=== PATIENT | female | born 1940 | race Caucasian/White ===

== ENCOUNTER 2021-03-13 08:26 | Inpatient (IN) ==
[2021-03-13] MEDS ORDERED: SODIUM CHLORIDE 0.9% 250 ML IV PRN (09:06)
[2021-03-13 09:14] LABS: Basophils # (auto) 0.06 K/uL (0-0.2); Basophils % (auto) 0.6 %; Eosinophils % (auto) 3.1 %; Hematocrit (blood only) 37.3 % (37-47); Hemoglobin 11.8 g/dL (12.0-16.0); Immature Granulocytes # (auto) 0.02 K/uL (0.00-0.02); Immature Granulocytes % (auto) 0.2 %; Lymphocytes # (auto) 2.63 K/uL (1.2-3.4); Lymphocytes % (auto) 27.4 %; Mean Corpuscular Hemoglobin 29.2 pg (25-34); Mean Corpuscular Hgb Conc 31.6 g/dL (32-36); Mean Corpuscular Volume 92.3 fL (80-100); Mean Platelet Volume 9.2 fL (7.4-10.4); Monocytes # (auto) 0.97 K/uL (0.11-0.59); Monocytes % (auto) 10.1 %; Neutrophils # (auto) 5.61 K/uL (1.4-6.5); Neutrophils % (auto) 58.6 %; Platelet Count 407 K/uL (130-400); RDW Coefficient of Variation 19.4 % (11.5-14.5); RDW Standard Deviation 66.6 fL (36.4-46.3); Red Blood Count 4.04 M/uL (4.2-5.4); White Blood Count 9.59 K/uL (4.8-10.8)
[2021-03-13] MEDS ORDERED: SODIUM CHLORIDE 0.9% 500 ML IV SCH ×2 (09:15→14:45)
[2021-03-13 09:25] LABS: Partial Thromboplastin Time 25.1 Seconds (21.0-31.0); Prothrombin Time 10.2 Seconds (9.0-12.0)
[2021-03-13 09:27] LABS: Alanine Aminotransferase 11 U/L (12-78); Albumin Level 2.5 gm/dl (3.4-5.0); Aspartate Aminotransferase 9 U/L (15-37); BUN Creatinine Ratio 17.2 (10-20); Blood Urea Nitrogen 35 mg/dl (7-18); Carbon Dioxide 24 mmol/L (21-32); Chloride 115 mmol/L (98-107); Creatinine Clr Calc Pharmacy 23.4 ml/min; Est GFR (African American) 25.8 ml/min; Est GFR (Non-African American) 22.3 ml/min; Glucose 89 mg/dl (70-99); Potassium 5.6 mmol/L (3.5-5.1); Sodium 142 mmol/L (136-145)
[2021-03-13 09:28] LABS: Appearance Urine Turbid (Clear); Bilirubin Urine Negative (Negative); Blood Urine 2+ (Negative); Color Urine Yellow; Glucose Urine UA Negative (Negative); Ketones Urine Negative (Negative); Leukocyte Esterase Urine 3+ (Negative); Nitrite Urine Positive (Negative); Protein Urine 2+ (Negative); Specific Gravity Urine 1.012 (1.000-1.030); Urobilinogen Urine Negative (Negative); WBC Urine Automated >30 /hpf (0-5)
[2021-03-13 09:31] LABS: iSTAT Creatinine 2.3 mg/dl (0.6-1.3); iSTAT Hemoglobin 10.5 g/dl (12.0-16.0); iSTAT Ionized Calcium 1.47 mmol/l (1.12-1.32); iSTAT Potassium 5.4 mmol/L (3.3-5.0)
[2021-03-13 09:32] LABS: Albumin Globulin Ratio 0.8 (0.9-2); Alkaline Phosphatase 61 U/L (45-117); Bilirubin,Total 0.3 mg/dl (0.2-1); Globulin 3.1 gm/dl (2.5-4.0); Total Protein 5.6 gm/dl (6.4-8.2); Troponin I < 0.015 ng/ml (0-0.045)
[2021-03-13] MEDS ORDERED: CEFEPIME 2,000 MG/20 ML VIAL IV STA (09:34)
[2021-03-13] MEDS ORDERED: SODIUM CHLORIDE 0.9% 1000ML 1,000 ML IV ONE (09:35)
--- NOTE | 2021-03-13 09:35 | Emergency Department Note ---
History of Present Illness General Chief complaint: Rectal Bleed Stated complaint: RECTAL BLEEDING Time Seen by Provider: 03/13/21 08:50 Source: patient Mode of arrival: ambulatory Limitations: no limitations History of Present Illness Provider complaint: GI bleed Maximum Pain Intensity: 4 This is a an 80-year-old female who presents to the ED with a chief complaint of GI bleed. The patient states that her symptoms started this morning. She lives at assisted care living. She does not have any other complaints at this time. She has had a moderate bloody bowel movement upon her arrival. The patient's blood pressure was noted to be 86/50 when she came in. Heart rate was 74. She is afebrile. Oden catheter was placed by nursing staff and it appears cloudy. She appears to be on Plavix. Home Medications Medication Instructions Recorded Confirmed Type acetaminophen 325 mg capsule 325 mg PO Q4H PRN 10/22/19 03/13/21 History aspirin 81 mg tablet,delayed 81 mg PO QAM 10/22/19 03/13/21 History release calcium carbonate 500 mg calcium 500 mg PO QAM 10/22/19 03/13/21 History (1,250 mg) tablet clopidogrel 75 mg tablet 75 mg PO QAM 10/22/19 03/13/21 History levothyroxine 50 mcg capsule 50 mcg PO DAILYBB 10/22/19 03/13/21 History paroxetine HCl 20 mg tablet 20 mg PO QAM 10/22/19 03/13/21 History potassium chloride 20 mEq oral 20 meq PO QAM 10/22/19 03/13/21 History packet artificial tears with lanolin 1 applic OPB BID 12/08/20 03/13/21 History ascorbic acid (vitamin C) [Vitamin 500 mg PO BID 12/08/20 03/13/21 History C] cholecalciferol (vitamin D3) 125 mcg PO QAM 12/08/20 03/13/21 History [Vitamin D3] mirtazapine 7.5 mg PO HS 12/08/20 03/13/21 History gabapentin 300 mg PO HS #0 cap 12/12/20 03/13/21 Rx polysaccharide iron complex 150 mg PO QAM 03/13/21 03/13/21 History [iFerex 150] Allergies Allergy/AdvReac Type Severity Reaction Status Date / Time iodine Allergy Unknown Unknown Verified 03/13/21 08:39 NSAIDS (Non-Steroidal Allergy Unknown Unknown Verified 03/13/21 08:39 Anti-Inflamma tositumomab iodine-131 Allergy Unknown Unknown Unverified 03/13/21 08:39 Penicillins Allergy Unknown Verified 03/13/21 08:39 Past Med/Surg History Medical History Ambulatory dysfunction Chronic kidney disease, stage 4 (severe) Hyperlipidemia Hypothyroidism Osteoarthritis Polyneuropathy Recurrent falls Social History Smoking Status: Never smoker Second Hand Exposure: No; Hx Alcohol Use: No Hx Substance Use: No Preferred Language: Bruneian Communication Ability: Effective Social Work Assistant Required: No Beliefs That Will Affect Care: None Current Living Situation: Care Home Feels Safe at Home: Yes Assistive Devices: Glasses Review of Systems A total of 10 systems reviewed and were otherwise negative Physical Exam Vital Signs Vital Signs - 24 hr 03/13/21 08:52 03/13/21 08:55 03/13/21 08:58 Temperature 37.2 C Temperature Source Oral Pulse Rate 74 Pulse Rate [Finger] Respiratory Rate 16 Blood Pressure 86/50 L Blood Pressure [Right Arm] Blood Pressure Mean 62 Blood Pressure Mean [Right Arm] Pulse Oximetry 90 90 95 Oxygen Delivery Method Room Air Room Air Nasal Cannula Oxygen Flow Rate 2 Sepsis Recent Fever Within 48 Hours No Sepsis New/Unexplained Change in Mental Status N/A Sepsis Action Taken by Nursing No Action Required 03/13/21 09:20 03/13/21 09:38 03/13/21 09:50 Temperature Temperature Source Pulse Rate Pulse Rate [Finger] 62 65 64 Respiratory Rate 18 14 14 Blood Pressure Blood Pressure [Right Arm] 66/39 L 87/48 L 95/58 L Blood Pressure Mean Blood Pressure Mean [Right Arm] 48 61 70 Pulse Oximetry 97 97 94 Oxygen Delivery Method Nasal Cannula Nasal Cannula Nasal Cannula Oxygen Flow Rate 2 2 2 Sepsis Recent Fever Within 48 Hours Sepsis New/Unexplained Change in Mental Status Sepsis Action Taken by Nursing CONSTITUTIONAL/VITAL SIGNS: Reviewed / noted above. GENERAL: Non-toxic in appearance. INTEGUMENTARY: Warm, dry, and pale. HEAD: Normocephalic. EYES: without scleral icterus or trauma. ENT/OROPHARYNX: clear and moist. LYMPHADENOPATHY/NECK: Is supple without lymphadenopathy or meningismus. RESPIRATORY: Lungs clear and equal. CARDIOVASCULAR: Regular rate and rhythm. GI/ABDOMEN: Soft and nontender. No organomegaly or pulsatile mass. No rebound or guarding. Normal bowel sounds. EXTREMITIES: Warm and well perfused. BACK: No CVA tenderness. NEUROLOGICAL: Intact without focal deficits. PSYCHIATRIC: normal affect. MUSCULOSKELETAL: Normally developed with good muscle tone. RECTAL: Gross blood TRIAGE NURSING DOCUMENTATION REVIEWED. Course Administered Medications Sodium Chloride (Nss 1000ml) 1,000 mls @ 999 mls/hr IV .Q1H1M ONE Stop: 03/13/21 10:35 Last Admin: 03/13/21 09:49 Dose: 999 mls/hr Documented by: [id number] Discontinued Medications Sodium Chloride (Nss) 500 mls @ 999 mls/hr IV .Q31M CHAYITO Stop: 03/13/21 09:45 Last Infusion: 03/13/21 09:48 Dose: 0 mls/hr Documented by: [id number] Admin: 03/13/21 09:13 Dose: 999 mls/hr Documented by: [id number] Cefepime HCl (Maxipime) 2,000 mg in 20 mls @ 5 mls/min IV NOW STA; Protocol Stop: 03/13/21 09:37 Last Admin: 03/13/21 09:46 Dose: 5 mls/min Documented by: [id number] Critical Care Time Critical Care Time: Yes Total Critical Care Time: 30 I have personally spent 30 minutes of critical care time in the direct management of this patient. This includes bedside care, interpretation of sergio gnostic studies, and testing, discussion with consultants, patient, and family members, and other required patient management activities. This 30 minutes is in excess of all separately billable procedures. Medical Decision Making Differential Diagnosis Differential includes acute coronary syndrome, myocardial infarction, CVA, TIA, anemia, infection, pneumonia, UTI, pyelonephritis, poor nutrition, dehydration, electrolyte disturbance,hypoglycemia. Medical Records Attestation: I reviewed the patient's medical records. Home Medications Current Medication List: was personally reviewed by me Laboratory Data Attestation: I reviewed the patient's lab results. Result diagrams: 03/13/21 08:28 03/13/21 08:28 Lab Results 03/13/21 03/13/21 03/13/21 Range/Units 08:28 08:28 08:28 WBC 9.59 (4.8-10.8) K/uL RBC 4.04 L (4.2-5.4) M/uL Hgb 11.8 L (12.0-16.0) g/dL POC Hgb (12.0-16.0) g/dl Hct 37.3 (37-47) % POC Hct (37-47) % MCV 92.3 (80-100) fL MCH 29.2 (25-34) pg MCHC 31.6 L (32-36) g/dL RDW Std Deviation 66.6 H (36.4-46.3) fL RDW Coeff of Norris 19.4 H (11.5-14.5) % Plt Count 407 H (130-400) K/uL MPV 9.2 (7.4-10.4) fL Immature Gran % (Auto) 0.2 % Neut % (Auto) 58.6 % Lymph % (Auto) 27.4 % [place] % (Auto) 10.1 % Eos % (Auto) 3.1 % Baso % (Auto) 0.6 % Neut # (Auto) 5.61 (1.4-6.5) K/uL Lymph # (Auto) 2.63 (1.2-3.4) K/uL [place] # (Auto) 0.97 H (0.11-0.59) K/uL Eos # (Auto) 0.30 (0-0.5) K/uL Baso # (Auto) 0.06 (0-0.2) K/uL Immature Gran # (Auto) 0.02 (0.00-0.02) K/uL PT 10.2 (9.0-12.0) Seconds INR 1.0 (0.9-1.1) APTT 25.1 (21.0-31.0) Seconds PTT Ratio 1.0 POC Sodium (135-144) mmol/L Sodium (136-145) mmol/L POC Potassium (3.3-5.0) mmol/L Potassium (3.5-5.1) mmol/L POC Chloride (101-112) mmol/L Chloride (98-107) mmol/L Carbon Dioxide (21-32) mmol/L POC Total CO2 (24-31) mmol/L Anion Gap (3-11) POC Anion Gap (16-25) mmol/L POC BUN (7-18) mg/dl BUN (7-18) mg/dl Creatinine (0.6-1.2) mg/dl POC Creatinine (0.6-1.3) mg/dl Est Cr Clr Drug Dosing ml/min Est GFR ( Amer) ml/min Est GFR (Non-Af Amer) ml/min BUN/Creatinine Ratio (10-20) Glucose (70-99) mg/dl POC Glucose (other) (70-99) mg/dl Lactate (0.4-2.0) mmol/L Calcium (8.5-10.1) mg/dl POC Ioniz Calcium Craig (1.12-1.32) mmol/l Total Bilirubin (0.2-1) mg/dl AST (15-37) U/L ALT (12-78) U/L Alkaline Phosphatase (45-117) U/L Troponin I (0-0.045) ng/ml Total Protein (6.4-8.2) gm/dl Albumin (3.4-5.0) gm/dl Globulin (2.5-4.0) gm/dl Albumin/Globulin Ratio (0.9-2) Urine Color Urine Appearance (Clear) Urine pH (4.5-7.5) Ur Specific [place] (1.000-1.030) Urine Protein (Negative) Urine Glucose (UA) (Negative) Urine Ketones (Negative) Urine Blood (Negative) Urine Nitrite (Negative) Urine Bilirubin (Negative) Urine Urobilinogen (Negative) Ur Leukocyte Esterase (Negative) Urine WBC (Auto) (0-5) /hpf Urine RBC (Auto) (0-4) /hpf U Hyaline Cast (Auto) (0-5) /lpf U Epithel Cells (Auto) (0-5) /lpf Urine Bacteria (Auto) (Negative) Urine Yeast POC Stool Occult Blood (Negative) Blood Type B Positive Blood Type Recheck Antibody Screen NEGATIVE Crossmatch See Detail 03/13/21 03/13/21 03/13/21 Range/Units 08:28 08:50 09:10 WBC (4.8-10.8) K/uL RBC (4.2-5.4) M/uL Hgb (12.0-16.0) g/dL POC Hgb (12.0-16.0) g/dl Hct (37-47) % POC Hct (37-47) % MCV (80-100) fL MCH (25-34) pg MCHC (32-36) g/dL RDW Std Deviation (36.4-46.3) fL RDW Coeff of Norris (11.5-14.5) % Plt Count (130-400) K/uL MPV (7.4-10.4) fL Immature Gran % (Auto) % Neut % (Auto) % Lymph % (Auto) % [place] % (Auto) % Eos % (Auto) % Baso % (Auto) % Neut # (Auto) (1.4-6.5) K/uL Lymph # (Auto) (1.2-3.4) K/uL [place] # (Auto) (0.11-0.59) K/uL Eos # (Auto) (0-0.5) K/uL Baso # (Auto) (0-0.2) K/uL Immature Gran # (Auto) (0.00-0.02) K/uL PT (9.0-12.0) Seconds INR (0.9-1.1) APTT (21.0-31.0) Seconds PTT Ratio POC Sodium (135-144) mmol/L Sodium 142 (136-145) mmol/L POC Potassium (3.3-5.0) mmol/L Potassium 5.6 H (3.5-5.1) mmol/L POC Chloride (101-112) mmol/L Chloride 115 H (98-107) mmol/L Carbon Dioxide 24 (21-32) mmol/L POC Total CO2 (24-31) mmol/L Anion Gap 4.0 (3-11) POC Anion Gap (16-25) mmol/L POC BUN (7-18) mg/dl BUN 35 H (7-18) mg/dl Creatinine 2.03 H (0.6-1.2) mg/dl POC Creatinine (0.6-1.3) mg/dl Est Cr Clr Drug Dosing 23.4 ml/min Est GFR ( Amer) 25.8 ml/min Est GFR (Non-Af Amer) 22.3 ml/min BUN/Creatinine Ratio 17.2 (10-20) Glucose 89 (70-99) mg/dl POC Glucose (other) (70-99) mg/dl Lactate (0.4-2.0) mmol/L Calcium 10.0 (8.5-10.1) mg/dl POC Ioniz Calcium Craig (1.12-1.32) mmol/l Total Bilirubin 0.3 (0.2-1) mg/dl AST 9 L (15-37) U/L ALT 11 L (12-78) U/L Alkaline Phosphatase 61 (45-117) U/L Troponin I < 0.015 (0-0.045) ng/ml Total Protein 5.6 L (6.4-8.2) gm/dl Albumin 2.5 L (3.4-5.0) gm/dl Globulin 3.1 (2.5-4.0) gm/dl Albumin/Globulin Ratio 0.8 L (0.9-2) Urine Color Yellow Urine Appearance Turbid A (Clear) Urine pH 6.0 (4.5-7.5) Ur Specific [place] 1.012 (1.000-1.030) Urine Protein 2+ H (Negative) Urine Glucose (UA) Negative (Negative) Urine Ketones Negative (Negative) Urine Blood 2+ H (Negative) Urine Nitrite Positive A (Negative) Urine Bilirubin Negative (Negative) Urine Urobilinogen Negative (Negative) Ur Leukocyte Esterase 3+ H (Negative) Urine WBC (Auto) >30 H (0-5) /hpf Urine RBC (Auto) 10-30 H (0-4) /hpf U Hyaline Cast (Auto) 1-5 (0-5) /lpf U Epithel Cells (Auto) 5-10 H (0-5) /lpf Urine Bacteria (Auto) 3+ H (Negative) Urine Yeast Not Reportable POC Stool Occult Blood Positive A (Negative) Blood Type Blood Type Recheck Antibody Screen Crossmatch 03/13/21 03/13/21 03/13/21 Range/Units 09:14 09:18 09:24 WBC (4.8-10.8) K/uL RBC (4.2-5.4) M/uL Hgb (12.0-16.0) g/dL POC Hgb 10.5 L (12.0-16.0) g/dl Hct (37-47) % POC Hct 31 L (37-47) % MCV (80-100) fL MCH (25-34) pg MCHC (32-36) g/dL RDW Std Deviation (36.4-46.3) fL RDW Coeff of Norris (11.5-14.5) % Plt Count (130-400) K/uL MPV (7.4-10.4) fL Immature Gran % (Auto) % Neut % (Auto) % Lymph % (Auto) % [place] % (Auto) % Eos % (Auto) % Baso % (Auto) % Neut # (Auto) (1.4-6.5) K/uL Lymph # (Auto) (1.2-3.4) K/uL [place] # (Auto) (0.11-0.59) K/uL Eos # (Auto) (0-0.5) K/uL Baso # (Auto) (0-0.2) K/uL Immature Gran # (Auto) (0.00-0.02) K/uL PT (9.0-12.0) Seconds INR (0.9-1.1) APTT (21.0-31.0) Seconds PTT Ratio POC Sodium 143 (135-144) mmol/L Sodium (136-145) mmol/L POC Potassium 5.4 H (3.3-5.0) mmol/L Potassium (3.5-5.1) mmol/L POC Chloride 111 (101-112) mmol/L Chloride (98-107) mmol/L Carbon Dioxide (21-32) mmol/L POC Total CO2 23 L (24-31) mmol/L Anion Gap (3-11) POC Anion Gap 15.0 L (16-25) mmol/L POC BUN 35 H (7-18) mg/dl BUN (7-18) mg/dl Creatinine (0.6-1.2) mg/dl POC Creatinine 2.3 H (0.6-1.3) mg/dl Est Cr Clr Drug Dosing ml/min Est GFR ( Amer) ml/min Est GFR (Non-Af Amer) ml/min BUN/Creatinine Ratio (10-20) Glucose (70-99) mg/dl POC Glucose (other) 90 (70-99) mg/dl Lactate 1.5 (0.4-2.0) mmol/L Calcium (8.5-10.1) mg/dl POC Ioniz Calcium Craig 1.47 H (1.12-1.32) mmol/l Total Bilirubin (0.2-1) mg/dl AST (15-37) U/L ALT (12-78) U/L Alkaline Phosphatase (45-117) U/L Troponin I (0-0.045) ng/ml Total Protein (6.4-8.2) gm/dl Albumin (3.4-5.0) gm/dl Globulin (2.5-4.0) gm/dl Albumin/Globulin Ratio (0.9-2) Urine Color Urine Appearance (Clear) Urine pH (4.5-7.5) Ur Specific [place] (1.000-1.030) Urine Protein (Negative) Urine Glucose (UA) (Negative) Urine Ketones (Negative) Urine Blood (Negative) Urine Nitrite (Negative) Urine Bilirubin (Negative) Urine Urobilinogen (Negative) Ur Leukocyte Esterase (Negative) Urine WBC (Auto) (0-5) /hpf Urine RBC (Auto) (0-4) /hpf U Hyaline Cast (Auto) (0-5) /lpf U Epithel Cells (Auto) (0-5) /lpf Urine Bacteria (Auto) (Negative) Urine Yeast POC Stool Occult Blood (Negative) Blood Type Blood Type Recheck B Positive Antibody Screen Crossmatch Imaging Data Radiologist's Impression: Chest X-Ray 03/13/21 09:06 SINGLE VIEW CHEST CLINICAL HISTORY: GI bleeding. FINDINGS: An AP, portable, upright chest radiograph is obtained. No prior studies are available for comparison at the time of dictation. The examination is degraded by portable technique and patient rotation. The heart is enlarged noting atherosclerotic calcification of the thoracic aorta. The pulmonary vasculature is noncongested. There is mild bibasilar atelectasis. No airspace consolidation or large pleural effusion is identified. No pneumothorax is seen. The skeletal structures are osteopenic. The bony thorax is grossly intact. Advanced arthritic change is seen in the shoulders. IMPRESSION: Cardiomegaly with no acute cardiopulmonary abnormality. ACT 112: Negative or not required by law. Electronically signed by: Honorio Page M.D. 03/13/2021 10:00 AM ECG Data Attestation: I personally reviewed and interpreted this ECG as follows: Indication: + weakness Rate (beats per minute): 68 Rhythm: + normal sinus ECG ST segments: + T-wave inversions (Anterolateral and inferior); no ST elevation ECG Findings: no PVCs MDM Narrative Patient presents with lower GI bleeding. Exam reveals gross lower GI bleeding. The patient's initial blood pressure was low in the 80 systolic range. She did receive a liter of normal saline IV. Her hemoglobin was 11.8. Urine suggest infection. Potassium was 5.6. BUN is 35 and creatinine is 2.0. This is sligh tly higher than her baseline. Troponin is negative. EKG shows sinus rhythm with some T wave inversions in the inferior lateral and anterior leads. Patient was transfused 1 unit of blood because of her hypotension and some GI bleeding. She was given IV cefepime for UTI. Chest x-ray did not show acute process. I spoke with GI service about the patient. They will see the patient in consultation. I spoke with the hospitalist. The patient will be seen by them as well. Impression & Plan GI bleed, Acute UTI Discharge Plan Visit Data Chief Complaint: Rectal Bleed Stated Complaint: RECTAL BLEEDING ED Provider: Atul Garcia Discharge Problem: GI bleed, Acute UTI Patient Disposition: Being Evaluated by Hospitalist Forms Stand Alone Forms: My [facility], Virtual Emergency Department, Important Visit Information Prescriptions Prescriptions: No Action aspirin [Adult Aspirin Regimen] 81 mg tablet,delayed release (DR/EC) 81 mg PO QAM RF: 0 clopidogrel 75 mg tablet 75 mg PO QAM RF: 0 levothyroxine 50 mcg capsule 50 mcg PO DAILYBB RF: 0 calcium carbonate [Oyster Shell Calcium] 500 mg calcium (1,250 mg) tablet 500 mg PO QAM RF: 0 paroxetine HCl 20 mg tablet 20 mg PO QAM RF: 0 potassium chloride 20 mEq packet 20 meq PO QAM RF: 0 acetaminophen 325 mg capsule 325 mg PO Q4H PRN (Reason: Mild Pain (Scale Score 1-4)) RF: 0 artificial tears with lanolin Ointment 1 applic OPB BID RF: 0 ascorbic acid (vitamin C) [Vitamin C] 500 mg Tablet 500 mg PO BID RF: 0 mirtazapine 15 mg Tablet 7.5 mg PO HS RF: 0 cholecalciferol (vitamin D3) [Vitamin D3] 125 mcg (5,000 unit) Tablet 125 mcg PO QAM RF: 0 gabapentin 300 mg capsule 300 mg PO HS Qty: 0 RF: 0 polysaccharide iron complex [iFerex 150] 150 mg iron Capsule 150 mg PO QAM RF: 0 Referrals Referrals: [facility] [Primary Care Provider] -
[2021-03-13 09:42] LABS: Bacteria Urine Automated 3+ (Negative)
--- NOTE | 2021-03-13 10:02 | XRay Report ---
SINGLE VIEW CHEST CLINICAL HISTORY: GI bleeding. FINDINGS: An AP, portable, upright chest radiograph is obtained. No prior studies are available for c omparison at the time of dictation. The examination is degraded by portable technique and patient rot ation. The heart is enlarged noting atherosclerotic calcification of the thoracic aorta. The pulmon alex vasculature is noncongested. There is mild bibasilar atelectasis. No airspace consolidation or la rge pleural effusion is identified. No pneumothorax is seen. The skeletal structures are osteopenic. The bony thorax is grossly intact. Advanced arthritic change is seen in the shoulders. IMPRESSION: Cardiomegaly with no acute cardiopulmonary abnormality. ACT 112: Negative or not required by law. Electronically signed by: Honorio Page M.D. 03/13/2021 10:00 AM
--- NOTE | 2021-03-13 10:33 | Gastrointestinal Consultation ---
Date of Consultation March 13, 2021 Assessment & Plan (1) GI bleed: 80 year old female admitted w/ hypotension, UTI, rectal bleeding, concern for LGIB - ischemic,diverticular,hemorrhoidal,infectious,malignancy vs other Agree with admission, Concern for urosepsis as well in light of hypotension Trend H&H, Monitor and document GI blood loss, Transfuse PRN HGB < 8 IVF maintenance Once medically optimized recommend CTAP Check stool studies Clear liquids today PO PPO NPO at midnight Will re-assess on afternoon rounds with attending and discuss role for diagnostic endoscopy Thank you for allowing us to participate in the care of this patient. Please call with any acute changes, questions or concerns. Please see addendum below with additional recommendation from my supervising physician. Supervising Physician Co-Signing Physician Notes I saw and evaluated the patient. We were consulted for evaluation of hematochezia. The patient reports that she is never had a colonoscopy before. She is being admitted for complications related to her urinary tract infection. Physical examination Elderly female No abdominal tenderness noted Impression: Patient with painless hematochezia, given the presentation I wonder about ischemic colitis or perhaps a diverticular bleed. Would recommend conservative management with IV hydration as you are doing. Would also recommend treatment of the urinary tract infection. The patient will ultimately benefit from a colonoscopy which will likely be offered as an outpatient over the next 4 to 6 weeks. Should the patient have significant continued bleeding we can certainly revisit inpatient colonoscopy. History of Present Illness Reason for Consultation: rectal bleeding Requesting Physician: Jose Attending Physician: Jose History of Present Illness 80 year old female w/ history of CKD-4, dyslipidemia, hypothyroidism OA others below who presents from care facility for evaluation of rectal bleeding. Pt was seen and evaluated, chart reviewed. She notes she has been having some urinary issues, frequent urination concern for UTI as OP. She was ambulating with assistance to the bathroom when she fell yesterday. No injuries reported from f all. She went to bed and notes sometime overnight she developed rectal bleeding. On arrival to the ED she was hypotensive w/ BP 86/50. Labs show no leukocytosis, HGB 11.8 which is around her baseline HGB, coag studies WNL, K 5.6, worsening BUN/[employer], normal lactic acid w/ normal LFTs. She is anticoagulated on Plavix ABD imaging: none EGD/Colonoscopy: none Allergies Allergy/AdvReac Type Severity Reaction Status Date / Time iodine Allergy Unknown Unknown Verified 03/13/21 08:39 NSAIDS (Non-Steroidal Allergy Unknown Unknown Verified 03/13/21 08:39 Anti-Inflamma tositumomab iodine-131 Allergy Unknown Unknown Unverified 03/13/21 08:39 Penicillins Allergy Unknown Verified 03/13/21 08:39 Home Medications Medication Instructions Recorded Confirmed Type acetaminophen 325 mg capsule 325 mg PO Q4H PRN 10/22/19 03/13/21 History aspirin 81 mg tablet,delayed 81 mg PO QAM 10/22/19 03/13/21 History release calcium carbonate 500 mg calcium 500 mg PO QAM 10/22/19 03/13/21 History (1,250 mg) tablet clopidogrel 75 mg tablet 75 mg PO QAM 10/22/19 03/13/21 History levothyroxine 50 mcg capsule 50 mcg PO DAILYBB 10/22/19 03/13/21 History paroxetine HCl 20 mg tablet 20 mg PO QAM 10/22/19 03/13/21 History potassium chloride 20 mEq oral 20 meq PO QAM 10/22/19 03/13/21 History packet artificial tears with lanolin 1 applic OPB BID 12/08/20 03/13/21 History ascorbic acid (vitamin C) [Vitamin 500 mg PO BID 12/08/20 03/13/21 History C] cholecalciferol (vitamin D3) 125 mcg PO QAM 12/08/20 03/13/21 History [Vitamin D3] mirtazapine 7.5 mg PO HS 12/08/20 03/13/21 History gabapentin 300 mg PO HS #0 cap 12/12/20 03/13/21 Rx polysaccharide iron complex 150 mg PO QAM 03/13/21 03/13/21 History [iFerex 150] Patient History Medical History Ambulatory dysfunction Chronic kidney disease, stage 4 (severe) Hyperlipidemia Hypothyroidism Osteoarthritis Polyneuropathy Recurrent falls Social History Smoking Status: Former smoker Second Hand Exposure: No; Do You Dip or Chew Tobacco: No; Tobacco Cessation Education Requested by Patient: No Hx Alcohol Use: No Hx Substance Use: No Preferred Language: Namibian Communication Ability: Effective Connection Worker Required: No Beliefs That Will Affect Care: None Current Living Situation: Personal Care Facility Current Living Situation Comment: assisted living Other Information That Helps Us Care for You: No Feels Safe at Home: Yes Safety Concerns: Feels Safe At This Time Assistive Devices: Wheelchair Review of Systems Review of Systems: All systems reviewed & are unremarkable except as noted in HPI & below Physical Exam Constitutional: WD/WN, vitals as above no acute distress Neck: trachea midline, no thyromegaly Respiratory: normal respiratory effort, lungs clear to auscultation Cardiovascular: RRR, no murmur, no edema Gastrointestinal (Abdomen): normal bowel sounds, soft, nontender, no hepatosplenomegaly Gross, BRBPR Skin: no rashes, warm and dry Results & Data ([facility]) Vital Signs (Past 12 Hours) Vital Signs Temp Pulse Pulse Resp BP BP Pulse Ox 03/13/21 09:50 64 14 95/58 L 94 03/13/21 09:38 65 14 87/48 L 97 03/13/21 09:20 62 18 66/39 L 97 03/13/21 08:58 95 03/13/21 08:55 90 03/13/21 08:52 37.2 C 74 16 86/50 L 90 Laboratory Results 03/13/21 03/13/21 03/13/21 Range/Units 09:24 09:18 09:14 WBC (4.8-10.8) K/uL RBC (4.2-5.4) M/uL Hgb (12.0-16.0) g/dL POC Hgb 10.5 L (12.0-16.0) g/dl Hct (37-47) % POC Hct 31 L (37-47) % MCV (80-100) fL MCH (25-34) pg MCHC (32-36) g/dL RDW Std Deviation (36.4-46.3) fL RDW Coeff of Norris (11.5-14.5) % Plt Count (130-400) K/uL MPV (7.4-10.4) fL Immature Gran % (Auto) % Neut % (Auto) % Lymph % (Auto) % Isabella % (Auto) % Eos % (Auto) % Baso % (Auto) % Neut # (Auto) (1.4-6.5) K/uL Lymph # (Auto) (1.2-3.4) K/uL Isabella # (Auto) (0.11-0.59) K/uL Eos # (Auto) (0-0.5) K/uL Baso # (Auto) (0-0.2) K/uL Immature Gran # (Auto) (0.00-0.02) K/uL PT (9.0-12.0) Seconds INR (0.9-1.1) APTT (21.0-31.0) Seconds PTT Ratio POC Sodium 143 (135-144) mmol/L Sodium (136-145) mmol/L POC Potassium 5.4 H (3.3-5.0) mmol/L Potassium (3.5-5.1) mmol/L POC Chloride 111 (101-112) mmol/L Chloride (98-107) mmol/L Carbon Dioxide (21-32) mmol/L POC Total CO2 23 L (24-31) mmol/L Anion Gap (3-11) POC Anion Gap 15.0 L (16-25) mmol/L POC BUN 35 H (7-18) mg/dl BUN (7-18) mg/dl Creatinine (0.6-1.2) mg/dl POC Creatinine 2.3 H (0.6-1.3) mg/dl Est Cr Clr Drug Dosing ml/min Est GFR ( Amer) ml/min Est GFR (Non-Af Amer) ml/min BUN/Creatinine Ratio (10-20) Glucose (70-99) mg/dl POC Glucose (other) 90 (70-99) mg/dl Lactate 1.5 (0.4-2.0) mmol/L Calcium (8.5-10.1) mg/dl POC Ioniz Calcium Craig 1.47 H (1.12-1.32) mmol/l Total Bilirubin (0.2-1) mg/dl AST (15-37) U/L ALT (12-78) U/L Alkaline Phosphatase (45-117) U/L Troponin I (0-0.045) ng/ml Total Protein (6.4-8.2) gm/dl Albumin (3.4-5.0) gm/dl Globulin (2.5-4.0) gm/dl Albumin/Globulin Ratio (0.9-2) Urine Color Urine Appearance (Clear) Urine pH (4.5-7.5) Ur Specific [place] (1.000-1.030) Urine Protein (Negative) Urine Glucose (UA) (Negative) Urine Ketones (Negative) Urine Blood (Negative) Urine Nitrite (Negative) Urine Bilirubin (Negative) Urine Urobilinogen (Negative) Ur Leukocyte Esterase (Negative) Urine WBC (Auto) (0-5) /hpf Urine RBC (Auto) (0-4) /hpf U Hyaline Cast (Auto) (0-5) /lpf U Epithel Cells (Auto) (0-5) /lpf Urine Bacteria (Auto) (Negative) Urine Yeast POC Stool Occult Blood (Negative) Blood Type Blood Type Recheck B Positive Antibody Screen Crossmatch 03/13/21 03/13/21 03/13/21 Range/Units 09:10 08:50 08:28 WBC (4.8-10.8) K/uL RBC (4.2-5.4) M/uL Hgb (12.0-16.0) g/dL POC Hgb (12.0-16.0) g/dl Hct (37-47) % POC Hct (37-47) % MCV (80-100) fL MCH (25-34) pg MCHC (32-36) g/dL RDW Std Deviation (36.4-46.3) fL RDW Coeff of Norris (11.5-14.5) % Plt Count (130-400) K/uL MPV (7.4-10.4) fL Immature Gran % (Auto) % Neut % (Auto) % Lymph % (Auto) % Isabella % (Auto) % Eos % (Auto) % Baso % (Auto) % Neut # (Auto) (1.4-6.5) K/uL Lymph # (Auto) (1.2-3.4) K/uL Isabella # (Auto) (0.11-0.59) K/uL Eos # (Auto) (0-0.5) K/uL Baso # (Auto) (0-0.2) K/uL Immature Gran # (Auto) (0.00-0.02) K/uL PT (9.0-12.0) Seconds INR (0.9-1.1) APTT (21.0-31.0) Seconds PTT Ratio POC Sodium (135-144) mmol/L Sodium 142 (136-145) mmol/L POC Potassium (3.3-5.0) mmol/L Potassium 5.6 H (3.5-5.1) mmol/L POC Chloride (101-112) mmol/L Chloride 115 H (98-107) mmol/L Carbon Dioxide 24 (21-32) mmol/L POC Total CO2 (24-31) mmol/L Anion Gap 4.0 (3-11) POC Anion Gap (16-25) mmol/L POC BUN (7-18) mg/dl BUN 35 H (7-18) mg/dl Creatinine 2.03 H (0.6-1.2) mg/dl POC Creatinine (0.6-1.3) mg/dl Est Cr Clr Drug Dosing 23.4 ml/min Est GFR ( Amer) 25.8 ml/min Est GFR (Non-Af Amer) 22.3 ml/min BUN/Creatinine Ratio 17.2 (10-20) Glucose 89 (70-99) mg/dl POC Glucose (other) (70-99) mg/dl Lactate (0.4-2.0) mmol/L Calcium 10.0 (8.5-10.1) mg/dl POC Ioniz Calcium Craig (1.12-1.32) mmol/l Total Bilirubin 0.3 (0.2-1) mg/dl AST 9 L (15-37) U/L ALT 11 L (12-78) U/L Alkaline Phosphatase 61 (45-117) U/L Troponin I < 0.015 (0-0.045) ng/ml Total Protein 5.6 L (6.4-8.2) gm/dl Albumin 2.5 L (3.4-5.0) gm/dl Globulin 3.1 (2.5-4.0) gm/dl Albumin/Globulin Ratio 0.8 L (0.9-2) Urine Color Yellow Urine Appearance Turbid A (Clear) Urine pH 6.0 (4.5-7.5) Ur Specific [place] 1.012 (1.000-1.030) Urine Protein 2+ H (Negative) Urine Glucose (UA) Negative (Negative) Urine Ketones Negative (Negative) Urine Blood 2+ H (Negative) Urine Nitrite Positive A (Negative) Urine Bilirubin Negative (Negative) Urine Urobilinogen Negative (Negative) Ur Leukocyte Esterase 3+ H (Negative) Urine WBC (Auto) >30 H (0-5) /hpf Urine RBC (Auto) 10-30 H (0-4) /hpf U Hyaline Cast (Auto) 1-5 (0-5) /lpf U Epithel Cells (Auto) 5-10 H (0-5) /lpf Urine Bacteria (Auto) 3+ H (Negative) Urine Yeast Not Reportable POC Stool Occult Blood Positive A (Negative) Blood Type Blood Type Recheck Antibody Screen Crossmatch 03/13/21 03/13/21 03/13/21 Range/Units 08:28 08:28 08:28 WBC 9.59 (4.8-10.8) K/uL RBC 4.04 L (4.2-5.4) M/uL Hgb 11.8 L (12.0-16.0) g/dL POC Hgb (12.0-16.0) g/dl Hct 37.3 (37-47) % POC Hct (37-47) % MCV 92.3 (80-100) fL MCH 29.2 (25-34) pg MCHC 31.6 L (32-36) g/dL RDW Std Deviation 66.6 H (36.4-46.3) fL RDW Coeff of Norris 19.4 H (11.5-14.5) % Plt Count 407 H (130-400) K/uL MPV 9.2 (7.4-10.4) fL Immature Gran % (Auto) 0.2 % Neut % (Auto) 58.6 % Lymph % (Auto) 27.4 % Isabella % (Auto) 10.1 % Eos % (Auto) 3.1 % Baso % (Auto) 0.6 % Neut # (Auto) 5.61 (1.4-6.5) K/uL Lymph # (Auto) 2.63 (1.2-3.4) K/uL Isabella # (Auto) 0.97 H (0.11-0.59) K/uL Eos # (Auto) 0.30 (0-0.5) K/uL Baso # (Auto) 0.06 (0-0.2) K/uL Immature Gran # (Auto) 0.02 (0.00-0.02) K/uL PT 10.2 (9.0-12.0) Seconds INR 1.0 (0.9-1.1) APTT 25.1 (21.0-31.0) Seconds PTT Ratio 1.0 POC Sodium (135-144) mmol/L Sodium (136-145) mmol/L POC Potassium (3.3-5.0) mmol/L Potassium (3.5-5.1) mmol/L POC Chloride (101-112) mmol/L Chloride (98-107) mmol/L Carbon Dioxide (21-32) mmol/L POC Total CO2 (24-31) mmol/L Anion Gap (3-11) POC Anion Gap (16-25) mmol/L POC BUN (7-18) mg/dl BUN (7-18) mg/dl Creatinine (0.6-1.2) mg/dl POC Creatinine (0.6-1.3) mg/dl Est Cr Clr Drug Dosing ml/min Est GFR ( Amer) ml/min Est GFR (Non-Af Amer) ml/min BUN/Creatinine Ratio (10-20) Glucose (70-99) mg/dl POC Glucose (other) (70-99) mg/dl Lactate (0.4-2.0) mmol/L Calcium (8.5-10.1) mg/dl POC Ioniz Calcium Craig (1.12-1.32) mmol/l Total Bilirubin (0.2-1) mg/dl AST (15-37) U/L ALT (12-78) U/L Alkaline Phosphatase (45-117) U/L Troponin I (0-0.045) ng/ml Total Protein (6.4-8.2) gm/dl Albumin (3.4-5.0) gm/dl Globulin (2.5-4.0) gm/dl Albumin/Globulin Ratio (0.9-2) Urine Color Urine Appearance (Clear) Urine pH (4.5-7.5) Ur Specific [place] (1.000-1.030) Urine Protein (Negative) Urine Glucose (UA) (Negative) Urine Ketones (Negative) Urine Blood (Negative) Urine Nitrite (Negative) Urine Bilirubin (Negative) Urine Urobilinogen (Negative) Ur Leukocyte Esterase (Negative) Urine WBC (Auto) (0-5) /hpf Urine RBC (Auto) (0-4) /hpf U Hyaline Cast (Auto) (0-5) /lpf U Epithel Cells (Auto) (0-5) /lpf Urine Bacteria (Auto) (Negative) Urine Yeast POC Stool Occult Blood (Negative) Blood Type B Positive Blood Type Recheck Antibody Screen NEGATIVE Crossmatch See Detail (1) GI bleed GI bleed type/associated pathology: unspecified gastrointestinal hemorrhage type Qualified Code(s): K92.2 - Gastrointestinal hemorrhage, unspecified
--- NOTE | 2021-03-13 11:36 | Electrocardiogram Report ---
Test Reason : Blood Pressure : / mmHG Vent. Rate : 068 BPM Atrial Rate : 068 BPM P-R Int : 160 ms QRS Dur : 114 ms QT Int : 418 ms P-R-T Axes : 021 -03 255 degrees QTc Int : 444 ms Normal sinus rhythm Incomplete right bundle branch block with repolarization abnormality Left ventricular hypertrophy with repolarization abnormality Abnormal ECG No previous ECGs available Confirmed by Nahun Acevedo ([id number]) on 03/13/2021 11:36:17 AM Referred By: Confirmed By:Nahun Acevedo
[2021-03-13] MEDS ORDERED: NON-FORMULARY MEDICATION (Acetaminophen 325 mg capsule) PO PRN (12:20)
[2021-03-13] MEDS ORDERED: ACETAMINOPHEN 325 MG TAB PO PRN (12:20)
[2021-03-13] MEDS ORDERED: NITROGLYCERIN SL 0.4 MG/TAB TAB SL PRN (12:20)
[2021-03-13] MEDS ORDERED: ONDANSETRON INJ 2 MG/ML 2 ML VIAL IV PRN (12:20)
[2021-03-13] MEDS ORDERED: ALUMINUM/MAGNESIUM SUSP 30 ML UDC PO PRN (12:20)
[2021-03-13] MEDS: cefTRIAXone SODIUM 2,000 MG in DEXTROSE 5% 50 ML IV SCH (14:20)
[2021-03-13] MEDS: LACTATED RINGER'S 1,000 ML IV SCH (14:50)
--- NOTE | 2021-03-13 14:52 | History & Physical Report ---
Date of Service March 13, 2021 Assessment & Plan (1) GI bleed: Patient is clinically voluminous bleeding. Although her initial hemoglobin has been relatively stable the volume of blood seen in the emergency department prompted the emergency room physician to transfuse 1 unit packed red blood cells. Her aspirin and Plavix were stopped at this time GI medicine did see the patient and will employ watchful waiting. Patient will be maintained intravenous fluids hemoglobin rechecked at [address] abdomen pelvis will be ordered. Certainly concern for hypotension from hypovolemic shock and acute blood loss anemia is in the differential (2) Acute UTI: Significantly abnormal urinalysis without evidence of symptoms. However given low blood pressure concern for sepsis although the patient does not have an elevated white count or fever at this time. Patient given cefepime in the ER although we have no records of drug-resistant organisms we will continue ceftriaxone at this time awaiting culture (3) Abnormal EKG: Patient is an EKG with right bundle branch block but concern for lateral ST depression. Initial troponins negative. We have no old EKGs to compare to. Should be in a monitored setting serial troponins will be checked. An echocardiogram was ordered. However we cannot start antiplatelet agents at this time because of the concern for GI bleeding. She was on both aspirin and Plavix which leads to some concern that she may have had previous cardiovascular cerebrovascular event, however she is not on a statin (4) Hypothyroidism: Patient has history of hypothyroidism will be maintained on thyroid medicine at this time (5) Depression: Patient be maintained on antidepressant medications, mirtazapine paroxetine (6) Chronic kidney disease, stage 4 (severe): Patient is a history of chronic kidney disease her creatinine is 2 GFR is below 30 (7) DVT prophylaxis: SCDs will be used for DVT prevention at this point time pt is dnr Present on Admission?: No Admission and Anticipated Discharge Date Admission Date: March 13, 2021 History of Present Illness Primary Care Provider: [facility] This patient is an 80[facility] The patient presents with significant lower GI bleeding. She has no real other complaints. She is mildly forgetful. She does take Plavix and aspirin. When she presented to the emergency department she had low blood pressure 85/50. She was given volume in the ER and blood. Urine analysis was obtained with marked abnormalities in the urine was cloudy. It is unclear whether her low blood pressure was result of infectious etiologies and sepsis versus acute blood loss anemia and hypotensive shock When I saw the patient she was mentating appropriately she had no complaints of abdominal pain. She cannot recall that she had a recent colonoscopy. Is not had a CT scan of her abdomen pelvis. Allergies Allergy/AdvReac Type Severity Reaction Status Date / Time iodine Allergy Unknown Unknown Verified 03/13/21 08:39 NSAIDS (Non-Steroidal Allergy Unknown Unknown Verified 03/13/21 08:39 Anti-Inflamma tositumomab iodine-131 Allergy Unknown Unknown Unverified 03/13/21 08:39 Penicillins Allergy Unknown Verified 03/13/21 08:39 Home Medications Medication Instructions Recorded Confirmed Type acetaminophen 325 mg capsule 325 mg PO Q4H PRN 10/22/19 03/13/21 History aspirin 81 mg tablet,delayed 81 mg PO QAM 10/22/19 03/13/21 History release calcium carbonate 500 mg calcium 500 mg PO QAM 10/22/19 03/13/21 History (1,250 mg) tablet clopidogrel 75 mg tablet 75 mg PO QAM 10/22/19 03/13/21 History levothyroxine 50 mcg capsule 50 mcg PO DAILYBB 10/22/19 03/13/21 History paroxetine HCl 20 mg tablet 20 mg PO QAM 10/22/19 03/13/21 History potassium chloride 20 mEq oral 20 meq PO QAM 10/22/19 03/13/21 History packet artificial tears with lanolin 1 applic OPB BID 12/08/20 03/13/21 History ascorbic acid (vitamin C) [Vitamin 500 mg PO BID 12/08/20 03/13/21 History C] cholecalciferol (vitamin D3) 125 mcg PO QAM 12/08/20 03/13/21 History [Vitamin D3] mirtazapine 7.5 mg PO HS 12/08/20 03/13/21 History gabapentin 300 mg PO HS #0 cap 12/12/20 03/13/21 Rx polysaccharide iron complex 150 mg PO QAM 03/13/21 03/13/21 History [iFerex 150] Past Med/Surg History Medical History Ambulatory dysfunction Chronic kidney disease, stage 4 (severe) Hyperlipidemia Hypothyroidism Osteoarthritis Polyneuropathy Recurrent falls Social History Smoking Status: Former smoker Second Hand Exposure: No; Do You Dip or Chew Tobacco: No; Tobacco Cessation Education Requested by Patient: No Hx Alcohol Use: No Hx Substance Use: No Preferred Language: Senegalese Communication Ability: Effective Informatics Physician Liaison Required: No Beliefs That Will Affect Care: None Current Living Situation: Personal Care Facility Current Living Situation Comment: assisted living Other Information That Helps Us Care for You: No Feels Safe at Home: Yes Safety Concerns: Feels Safe At This Time Assistive Devices: Wheelchair Review of Systems Review of Systems: moderate distress and fatigue no headache, no visual changes no speech or swallowing issues no chest pain, pressure or palpitations no shortness of breath, cough or wheezes no abdominal pain, nausea or vomiting, bloody diarrhea and clots no dysuria, hematuria or frequency no focal joint pain or swelling no back pain, CVA tenderness or radicular pain no other areas of bleeding not clear if bleeding is all rectal or also vaginal no focal signs of weakness or numbness or altered sensation no complaints of anxiety or depression.. Physical Exam Physical Exam: The patient appeared pale and weakened Vital signs as documented. bp is low Head exam is normocephalic atraumatic Neck is without JVD, thyromegaly, or carotid bruits. Lungs are clear to auscultation, no focal loss of breath sounds Cardiac exam, Rhythm is regular.. No murmurs, rubs or gallops. Abdominal exam reveals hyperactive bowel sounds, soft non tender, no masses Extremities are nonedematous and both pedal pulses are present Neurologic exam is alert and oriented, she is forgetful and tangential, no focal loss of strength or sensation Skin is without bruises or rashes Psychologically is with concern for memory loss Results & Data Results & Data ([facility]) Vital Signs (Past 12 Hours) Vital Signs Temp Pulse Pulse Resp BP BP Pulse Ox 03/13/21 12:21 97.3 F L 63 18 119/66 97 03/13/21 12:20 03/13/21 11:48 97.7 F 63 16 129/63 96 03/13/21 11:18 97.9 F 68 16 124/60 98 03/13/21 11:03 97.7 F 63 18 113/58 L 03/13/21 10:47 97.7 F 62 14 124/59 L 96 03/13/21 10:31 61 14 115/58 L 96 03/13/21 09:50 64 14 95/58 L 94 03/13/21 09:38 65 14 87/48 L 97 03/13/21 09:20 62 18 66/39 L 97 03/13/21 08:58 95 03/13/21 08:55 90 03/13/21 08:52 99.0 F 74 16 86/50 L 90 Pulse Ox 03/13/21 12:21 03/13/21 12:20 97 03/13/21 11:48 03/13/21 11:18 03/13/21 11:03 03/13/21 10:47 03/13/21 10:31 03/13/21 09:50 03/13/21 09:38 03/13/21 09:20 03/13/21 08:58 03/13/21 08:55 03/13/21 08:52 Chest X-Ray 03/13/21 09:06 SINGLE VIEW CHEST CLINICAL HISTORY: GI bleeding. FINDINGS: An AP, portable, upright chest radiograph is obtained. No prior st udies are available for comparison at the time of dictation. The examination is degraded by portable technique and patient rotation. The heart is enlarged noting atherosclerotic calcification of the thoracic aorta. The pulmonary vasculature is noncongested. There is mild bibasilar atelectasis. No airspace consolidation or large pleural effusion is identified. No pneumothorax is seen. The skeletal structures are osteopenic. The bony thorax is grossly intact. Advanced arthritic change is seen in the shoulders. IMPRESSION: Cardiomegaly with no acute cardiopulmonary abnormality. Electronically signed by: Honorio Page M.D. 03/13/2021 10:00 AM ECG shows RBBB and lateral ST changes Code Status & VTE Plan VTE Prophylaxis Plan VTE Prophylaxis will be ordered: Yes PG Care Time/CCT Total # of Minutes Spent Total Time Spent with Patient: Total time spent is greater than 50% in coordination of care (as documented) at patient's floor/unit and/or counseling patient: Coding Level of Care Code 88549 Initial Inpt Care Lvl 3 Diagnoses GI bleed K92.2 GI bleed type/associated pathology: unspecified gastrointestinal hemorrhage type Acute UTI N39.0 Abnormal EKG R94.31 Hypothyroidism E03.9 Depression F32.9 Chronic kidney disease, stage 4 (severe) N18.4 DVT prophylaxis Z29.9 (1) GI bleed GI bleed type/associated pathology: unspecified gastrointestinal hemorrhage type Qualified Code(s): K92.2 - Gastrointestinal hemorrhage, unspecified
--- NOTE | 2021-03-13 16:24 | XCELERA ---
[id number]
[2021-03-13] MEDS ORDERED: LAVAGE SOLUTION 4000ML PO SCH (17:00)
--- NOTE | 2021-03-13 19:50 | CT Scan Report ---
CT SCAN OF THE ABDOMEN AND PELVIS WITHOUT CONTRAST CLINICAL HISTORY: lower gi bleed ? vaginal bleed COMPARISON STUDY: No previous studies for comparison. TECHNIQUE: CT scan of the abdomen and pelvis was performed from the lung bases to the proximal femurs . Images are reviewed in the axial, sagittal, and coronal planes. IV contrast was not administered fo r this examination. A dose lowering technique was utilized adhering to the principles of ALARA. CT DOSE: 1248.40 mGy.cm FINDINGS: Lower chest: Atelectasis is seen at dependent portions of bilateral lower lobes. Irregular densities visualized within left lower lobe and might represent subsegmental atelectasis or scarring. Attenuati on of lung parenchyma is limited due to motion artifact. Liver: The unenhanced liver is normal in size, contour, and attenuation. There is no intrahepatic dragan iary ductal dilatation. Gallbladder: Surgically absent. Spleen: Is atrophic with partial calcifications within its parenchyma. Pancreas: Unremarkable. Adrenal glands: Unremarkable. Kidneys: Unenhanced kidneys are atrophic without evidence of hydronephrosis or nephrolithiasis. No definite pa renchymal mass lesions are seen. Bowel: Small hiatal hernia. Bowel loops are nondilated. Fecalization sign is seen within duodenum and loops of small bowel which could be due to prolonged stasis of intraluminal content. Appendix is not well seen. Diverticulosis of sigmoid colon is seen without evidence of diverticulitis. Peritoneum: There is no intraperitoneal free air or abdominal ascites. Vasculature: Lower thoracic and abdominal aorta is tortuous, normal in caliber and with scattered magdiel cifications of its wall. Adenopathy: None. Pelvic viscera: Urinary bladder is decompressed with Oden balloon within its lumen. Partially calcif ied uterine lesions are seen within right pelvic region likely represent fibroids. 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 Skeletal structures: Multilevel degenerative changes of the spine. IMPRESSION: 1. 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 2. Diverticulosis of sigmoid colon, no definite evidence of diverticulitis. 3. Atrophic kidneys. 4. Small hiatal hernia. 5. Prolong stasis of ingested material within loops of small bowel. No evidence of bowel loop dilata tion or obstruction. ACT 112: Negative or not required by law. The above report was generated using voice recognition software. It may contain grammatical, syntax o r spelling errors. Electronically signed by: Ginna Lorenzana DO 03/13/2021 7:49 PM
--- NOTE | 2021-03-13 19:58 | Nuclear Medicine Report ---
NM GI bleeding CLINICAL HISTORY: patient with hematochezia, study to aid in localiz COMPARISON STUDY: None TECHNIQUE: Following the IV administration of of technetium 99m UltraTag labeled red blood cells, nuc lear bleeding scan was performed. Anterior flow images were obtained every 2 seconds for a total 48 s econds. Anterior static images were obtained every 5 minutes for a total of 60 minutes. FINDINGS: Focal area of irregular tracer activity is seen within left hemiabdomen (frame 11-15) and extends pro ximately and distally in subsequent frames. IMPRESSION: Study is positive for GI bleeding originate approximately within descending large bowel and extending proximally and distally as imaging continues. ACT 112: Positive. There are findings on this exam that require communication between the performing entity and the patient following Patient Test Result Information Act ([place] Act 112) guidelines. The above report was generated using voice recognition software. It may contain grammatical, syntax o r spelling errors. Electronically signed by: Ginna Lorenzana DO 03/13/2021 7:56 PM
[2021-03-13] MEDS: GABAPENTIN 300 MG CAP PO SCH (20:39)
[2021-03-13] MEDS: MIRTAZAPINE TAB 15 MG TAB PO SCH (20:39)
[2021-03-13] MEDS: FAMOTIDINE 20 MG in SYRINGE 3 ML IV SCH (20:51)
[2021-03-13] MEDS: ARTIFICIAL TEARS OP SCH (20:57)
[2021-03-14 01:37] LABS: Hemoglobin 9.6 g/dL (12.0-16.0)
[2021-03-14] MEDS: LEVOTHYROXINE SODIUM 50 MCG TABLET PO SCH (05:53)
[2021-03-14 06:46] LABS: Hematocrit (blood only) 23.6 % (37-47); Hemoglobin 7.4 g/dL (12.0-16.0); Mean Corpuscular Hgb Conc 31.4 g/dL (32-36); Mean Corpuscular Volume 95.5 fL (80-100); Mean Platelet Volume 9.2 fL (7.4-10.4); Platelet Count 272 K/uL (130-400); RDW Coefficient of Variation 18.7 % (11.5-14.5); RDW Standard Deviation 66.3 fL (36.4-46.3); Red Blood Count 2.47 M/uL (4.2-5.4); White Blood Count 7.94 K/uL (4.8-10.8)
[2021-03-14] MEDS ORDERED: SODIUM CHLORIDE 0.9% 250 ML IV PRN ×2 (06:50→08:10)
[2021-03-14 07:45] LABS: BUN Creatinine Ratio 21.3 (10-20); Calcium 8.7 mg/dl (8.5-10.1); Creatinine Clr Calc Pharmacy 35.4 ml/min; Est GFR (African American) 43.4 ml/min; Est GFR (Non-African American) 37.5 ml/min; Potassium 4.3 mmol/L (3.5-5.1)
--- NOTE | 2021-03-14 07:48 | Electrocardiogram Report ---
Test Reason : Blood Pressure : / mmHG Vent. Rate : 057 BPM Atrial Rate : 057 BPM P-R Int : 174 ms QRS Dur : 120 ms QT Int : 496 ms P-R-T Axes : 029 -03 245 degrees QTc Int : 482 ms Sinus bradycardia Right bundle branch block with repolarization abnormality Left ventricular hypertrophy with repolarization abnormality Abnormal ECG When compared with ECG of 13-MAR-2021 09:04, No significant change was found Confirmed by Nahun Acevedo ([id number]) on 03/14/2021 7:47:53 AM Referred By: [facility] Confirmed By:Nahun Acevedo
--- NOTE | 2021-03-14 08:14 | Hospitalist Progress Note ---
Date of Service March 14, 2021 Assessment & Plan (1) GI bleed: Patient is clinically voluminous bleeding. Although her initial hemoglobin has been relatively stable the volume of blood seen in the emergency department prompted the emergency room physician to transfuse 1 unit packed red blood cells. Her aspirin and Plavix were stopped at this time GI medicine did see the patient and will employ watchful waiting. Patient will be maintained intravenous fluids hemoglobin rechecked at [address] abdomen pelvis will be ordered. Certainly concern for hypotension from hypovolemic shock and acute blood loss anemia is in the differential source of bleeding was found to be distal: Likely diverticular bleed based upon colonoscopy performed 03/14/2021 Bleeding scan 03/13/21 Study is positive for GI bleeding originate approximately within descending large bowel and extending proximally and distally as imaging continues. CT abd/Pelvis 03/13/21 IMPRESSION: 1. 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 2. Diverticulosis of sigmoid colon, no definite evidence of diverticulitis. 3. Atrophic kidneys. 4. Small hiatal hernia. 5. Prolong stasis of ingested material within loops of small bowel. No evidence of bowel loop dilatation or obstruction. (2) Acute UTI: E coli resulted from 03/12/21, some resistance, However given low blood pressure concern for sepsis although the patient does not have an elevated white count or fever at this time. Continues on ceftriaxone at this time awaiting culture (3) Abnormal EKG: Patient is an EKG with right bundle branch block but concern for lateral ST depression. Initial troponins negative. We have no old EKGs to compare to. Should be in a monitored setting serial troponins will be checked. An echocardiogram shows EF 65 to 70% moderate concentric LVH grade 3 diastolic dysfunction no regional wall motion abnormality seen Once patient is stabilized may consider initiation treatment for diastolic dysfunction. However we cannot start antiplatelet agents at this time because of the concern for GI bleeding. She was on both aspirin and Plavix these continue to be held (4) Hypothyroidism: Patient has history of hypothyroidism will be maintained on thyroid medic ine at this time (5) Depression: Patient be maintained on antidepressant medications, mirtazapine paroxetine (6) Chronic kidney disease, stage 4 (severe): Patient is a history of chronic kidney disease her creatinine is 2 GFR is below 30 (7) Metabolic encephalopathy: Metabolic encephalopathy from gram-negative urinary tract infection present on admission treated with ceftriaxone (8) DVT prophylaxis: SCDs will be used for DVT prevention at this point time pt is dnr Admission and Anticipated Discharge Date Admission Date: March 13, 2021 Subjective Patient is slightly delirious today encephalopathic unclear if is from lack of sleep plus anesthesia for colonoscopy. Patient also has a gram-negative urinary tract infection present on admission which likely could cause metabolic encephalopathy subsequently she has been initiated on antibiotics for that she will try some Seroquel at bedtime control her prevent . Her son Noel is present at bedside and updated Review of Systems Review of Systems: moderate distress and fatigue no headache, no visual changes no speech or swallowing issues no chest pain, pressure or palpitations no shortness of breath, cough or wheezes no abdominal pain, nausea or vomiting, bloody diarrhea and clots no dysuria, hematuria or frequency no focal joint pain or swelling no back pain, CVA tenderness or radicular pain no other areas of bleeding not clear if bleeding is all rectal or also vaginal no focal signs of weakness or numbness or altered sensation no complaints of anxiety or depression.. Physical Exam 2 Physical Exam: The patient appeared pale and weakened Vital signs as documented. bp is low Head exam is normocephalic atraumatic Neck is without JVD, thyromegaly, or carotid bruits. Lungs are clear to auscultation, no focal loss of breath sounds Cardiac exam, Rhythm is regular.. No murmurs, rubs or gallops. Abdominal exam reveals hyperactive bowel sounds, soft non tender, no masses Extremities are nonedematous and both pedal pulses are present Neurologic exam is alert and oriented, she is forgetful and tangential, no focal loss of strength or sensation Skin is without bruises or rashes Psychologically is with concern for memory loss Results & Data Results & Data ([facility]) Vital Signs (Past 12 Hours) Vital Signs Temp Pulse Pulse Resp BP Pulse Ox 03/14/21 03:51 98.2 F 57 L 18 120/49 L 100 03/13/21 23:21 98.2 F 59 L 19 122/79 97 03/13/21 22:35 62 03/13/21 20:22 98.2 F 61 18 119/64 99 PG Care Time/CCT Total # of Minutes Spent Total Time Spent with Patient: Total time spent is greater than 50% in coordination of care (as documented) at patient's floor/unit and/or counseling patient: Coding Level of Care Code 01171 Subseq Hosp Care Lvl 3 Diagnoses GI bleed K92.2 GI bleed type/associated pathology: unspecified gastrointestinal hemorrhage type Acute UTI N39.0 Abnormal EKG R94.31 Hypothyroidism E03.9 Depression F32.9 Chronic kidney disease, stage 4 (severe) N18.4 Metabolic encephalopathy G93.41 DVT prophylaxis Z29.9 (1) GI bleed GI bleed type/associated pathology: unspecified gastrointestinal hemorrhage type Qualified Code(s): K92.2 - Gastrointestinal hemorrhage, unspecified
[2021-03-14] MEDS: LACTATED RINGER'S 1,000 ML IV SCH ×2 (08:48→12:04)
[2021-03-14] MEDS: ARTIFICIAL TEARS OP SCH ×2 (08:49→21:18)
[2021-03-14] MEDS: PARoxetine HCL 20 MG TAB PO SCH ×2 (09:05→13:59)
[2021-03-14] MEDS: FAMOTIDINE 20 MG in SYRINGE 3 ML IV SCH ×2 (09:05→21:42)
--- NOTE | 2021-03-14 09:07 | Anesthesiology Consultation ---
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 Surgery Operation Date: 03/14/21 10:40 Proposed Procedures p Colonoscopy - Haroldo Hardin MD Height/Weight Height: 5 ft 5 in Weight: 85.2 kg Allergies Allergy/AdvReac Type Severity Reaction Status Date / Time iodine Allergy Unknown Unknown Verified 03/13/21 08:39 NSAIDS (Non-Steroidal Allergy Unknown Unknown Verified 03/13/21 08:39 Anti-Inflamma tositumomab iodine-131 Allergy Unknown Unknown Unverified 03/13/21 08:39 Penicillins Allergy Unknown Verified 03/13/21 08:39 Medications Home Medications Medication Instructions Recorded Confirmed Last Taken acetaminophen 325 mg capsule 325 mg PO Q4H PRN 10/22/19 03/13/21 Unknown aspirin 81 mg tablet,delayed 81 mg PO QAM 10/22/19 03/13/21 Unknown release calcium carbonate 500 mg calcium 500 mg PO QAM 10/22/19 03/13/21 Unknown (1,250 mg) tablet clopidogrel 75 mg tablet 75 mg PO QAM 10/22/19 03/13/21 Unknown levothyroxine 50 mcg capsule 50 mcg PO DAILYBB 10/22/19 03/13/21 Unknown paroxetine HCl 20 mg tablet 20 mg PO QAM 10/22/19 03/13/21 Unknown potassium chloride 20 mEq oral 20 meq PO QAM 10/22/19 03/13/21 Unknown packet artificial tears with lanolin 1 applic OPB BID 12/08/20 03/13/21 Unknown ascorbic acid (vitamin C) [Vitamin 500 mg PO BID 12/08/20 03/13/21 Unknown C] cholecalciferol (vitamin D3) 125 mcg PO QAM 12/08/20 03/13/21 Unknown [Vitamin D3] mirtazapine 7.5 mg PO HS 12/08/20 03/13/21 Unknown gabapentin 300 mg PO HS #0 cap 12/12/20 03/13/21 Unknown polysaccharide iron complex 150 mg PO QAM 03/13/21 03/13/21 Unknown [iFerex 150] Active Medications Generic Name Dose Route Start Last Admin Trade Name Freq PRN Reason Stop Dose Admin Artificial Tears 1 drops 03/13/21 21:00 03/14/21 08:49 Artificial Tears OP 04/12/21 20:59 1 drops BID CHAYITO Administration Gabapentin 300 mg 03/13/21 21:00 03/13/21 20:39 Gabapentin 300 Mg Cap PO 04/12/21 20:59 300 mg HS CHAYITO Administration Famotidine 20 mg/ Syringe 5 mls @ 2.5 mls/min 03/13/21 21:00 03/14/21 09:05 IV 04/12/21 20:59 2.5 mls/min BID CHAYITO Administration Ceftriaxone Sodium 2,000 mg/ 50 mls @ 100 mls/hr 03/13/21 14:00 03/13/21 14:50 Dextrose IV 03/18/21 13:59 Infused Q24H CHAYITO Infusion Protocol Lactated Ringer's 1,000 mls @ 100 mls/hr 03/13/21 14:45 03/14/21 08:50 Lr IV 04/12/21 14:44 0 mls/hr .Q10H CHAYITO Infusion Levothyroxine Sodium 50 mcg 03/14/21 06:30 03/14/21 05:53 Levothyroxine Sodium 50 Mcg Tablet PO 04/13/21 06:29 Not Given DAILYBB CHAYITO Mirtazapine 7.5 mg 03/13/21 21:00 03/13/21 20:39 Mirtazapine Tab 15 Mg Tab PO 04/12/21 20:59 7.5 mg HS CHAYITO Administration Paroxetine HCl 20 mg 03/14/21 09:00 03/14/21 09:05 Paroxetine Hcl 20 Mg Tab PO 04/13/21 08:59 Not Given QAM CHAYITO Past Medical History Medical History Ambulatory dysfunction Chronic kidney disease, stage 4 (severe) Hyperlipidemia Hypothyroidism Osteoarthritis Polyneuropathy Recurrent falls Social History Smoking Status: Former smoker tobacco type: cigarettes Do You Dip or Chew Tobacco: No Hx Alcohol Use: No Hx Substance Use: No Physical Exam Vital Signs Last Vital Signs Temp 97.7 F 03/14/21 08:38 Pulse 63 03/14/21 08:38 Resp 20 03/14/21 08:38 BP 151/63 H 03/14/21 08:38 Pulse Ox 95 03/14/21 08:38 Testing Laboratory Results 03/14/21 06:10 03/14/21 06:10 PT 10.2 Seconds (9.0-12.0) 03/13/21 08:28 INR 1.0 (0.9-1.1) 03/13/21 08:28 APTT 25.1 Seconds (21.0-31.0) 03/13/21 08:28 Urine Color Yellow 03/13/21 08:50 Urine Appearance Turbid (Clear) A 03/13/21 08:50 Urine pH 6.0 (4.5-7.5) 03/13/21 08:50 Ur Specific Lolita 1.012 (1.000-1.030) 03/13/21 08:50 Urine Protein 2+ (Negative) H 03/13/21 08:50 Urine Glucose (UA) Negative (Negative) 03/13/21 08:50 Urine Ketones Negative (Negative) 03/13/21 08:50 Urine Nitrite Positive (Negative) A 03/13/21 08:50 Ur Leukocyte Esterase 3+ (Negative) H 03/13/21 08:50 Urine WBC (Auto) >30 /hpf (0-5) H 03/13/21 08:50 Urine RBC (Auto) 10-30 /hpf (0-4) H 03/13/21 08:50 U Hyaline Cast (Auto) 1-5 /lpf (0-5) 03/13/21 08:50 U Epithel Cells (Auto) 5-10 /lpf (0-5) H 03/13/21 08:50 Urine Bacteria (Auto) 3+ (Negative) H 03/13/21 08:50 Blood Type B Positive 03/13/21 08:28 Antibody Screen NEGATIVE 03/13/21 08:28 03/13/21 08:50 Urine Culture - Preliminary Urine,Straight Cath Gram negative bacilli Electrocardiogram Date: 03/14/21 Sinus bradycardia, rate 57 bpm Right bundle branch block with repolarization abnormality Left ventricular hypertrophy with repolarization abnormality Abnormal ECG When compared with ECG of 13-MAR-2021 09:04, No significant change was found Confirmed by Nahun Acevedo ([id number]) on 03/14/2021 7:47:53 AM Chest X-Ray Date: 03/13/21 IMPRESSION: Cardiomegaly with no acute cardiopulmonary abnormality. Echocardiogram Date: 03/13/21 LV is grossly normal size LVEF is grossly normal EF 65-70% There is moderate concentric LVH Diastolic dysfunction, grade 3, consistent with markedly increased LA pressure No regional wall motion abnormalities RV is normal in size and function No obvious valvular disease on technically limited Doppler
[2021-03-14] MEDS ORDERED: ATROPINE SULFATE 0.1 MG/ML 10ML SYR IV PRN (09:20)
[2021-03-14] MEDS ORDERED: ONDANSETRON INJ 2 MG/ML 2 ML VIAL IV PRN (09:20)
[2021-03-14] MEDS ORDERED: ePHEDrine sulfate 50 MG/ML AMP IV PRN (09:20)
[2021-03-14] MEDS ORDERED: fentaNYL citrate 100 MCG/2 ML VIAL IV PRN (09:20)
--- NOTE | 2021-03-14 09:39 | History & Physical Bridge Note ---
Date of Service March 14, 2021 History & Physical Bridge Note I have examined the patient, reviewed the History & Physical and in the interval since the performance of the History & Physical I have noted the following changes of clinical significance: no changes noted proceed with colonoscopy. risks/benefits and procedure discussed with patient, who agrees to proceed
[2021-03-14] MEDS ORDERED: LIDOCAINE 2% 2 ML VIAL/AMP(20MG/ML) INFIL ONE (10:36)
[2021-03-14] MEDS ORDERED: PROPOFOL IV EMULSION 10 MG/ML 20 ML VIAL IV ONE (10:36)
--- NOTE | 2021-03-14 11:07 | GI REPORT ---
Patient Name: Ebony Esposito Procedure Date: 03/14/2021 9:29 AM Date of : 1940 Admit Type: Inpatient Age: 80 Gender: Female Attending MD: Haroldo Hardin MD Procedure: Colonoscopy Providers: Haroldo Hardin MD Referring MD: Kirk Virk Indications: Hematochezia Medicines: Monitored Anesthesia Care Complications: No immediate complications. Estimated blood loss: None. Estimated Blood Loss: Estimated blood loss: none. Procedure: Pre-Anesthesia Assessment: - Prior Anticoagulants: The patient has taken no previous anticoagulant or antiplatelet agents. - ASA Grade Assessment: III - A patient with severe systemic disease. After I obtained informed consent, the scope was passed under direct vision. Throughout the procedure, the patient's blood pressure, pulse, and oxygen saturations were monitored continuously. The Colonoscope was introduced through the anus and advanced to the cecum, identified by appendiceal orifice and ileocecal valve. The colonoscopy was performed without difficulty. The patient tolerated the procedure well. The quality of the bowel preparation was fair. Findings: Multiple small and large-mouthed diverticula were found in the sigmoid colon. Non-bleeding internal hemorrhoids were found. The hemorrhoids were small. No evidence of blood nor active bleeding throughout entire colon. Impression: - Preparation of the colon was fair. - Diverticulosis in the sigmoid colon. - Non-bleeding internal hemorrhoids. - No specimens collected. suspect a diverticular bleed that has resolved. Recommendation: - [facility]. - Clear liquid diet today. -avoid NSAIDs as this can precipitate recurrent diverticular bleeding -trend H/H, supportive care Haroldo Hardin MD 03/14/2021 11:07:03 AM This report has been signed electronically. Note Initiated On: 03/14/2021 9:29 AM Number of Addenda: 0 I attest to the content of the Intraoperative Record and orders documented therein, exceptions below {[id number]}
--- NOTE | 2021-03-14 11:09 | Procedure Note ---
Procedure Note Date of Service March 14, 2021 GI brief procedure note colonoscopy findings: diverticulosis with luminal narrowing in sigmoid colon, hemorrhoids small internal. No bleeding throughout colon. conclusions: suspect diverticular bleed that has resolved Recs: avoid NSAIDS supportive care clear liquid diet today, advance as tolerated tomorrow if hgb stable trend H/H, transfuse prn Haroldo Hardin MD Gastroenterology Coding
--- NOTE | 2021-03-14 11:32 | Anesthesiology Progress Note ---
Date of Service March 14, 2021 Anesthesia Post Procedure Vital Signs Vital Signs: Temp Pulse Pulse Pulse Resp BP BP 03/14/21 11:25 65 17 130/60 03/14/21 11:15 72 23 114/52 L 03/14/21 11:09 97.7 F 79 22 115/56 L 03/14/21 09:45 97.7 F 55 L 18 142/62 H 03/14/21 09:30 97.5 F L 56 L 20 142/62 H 03/14/21 09:15 97.3 F L 63 18 149/80 H 03/14/21 09:00 97.7 F 60 18 137/72 03/14/21 08:38 97.7 F 63 20 151/63 H 03/14/21 03:51 98.2 F 57 L 18 120/49 L 03/13/21 23:21 98.2 F 59 L 19 122/79 03/13/21 22:35 62 03/13/21 20:22 98.2 F 61 18 119/64 03/13/21 19:16 60 20 121/62 03/13/21 18:32 58 L 20 122/69 03/13/21 15:24 97.2 F L 71 10 L 94/54 L 03/13/21 12:21 97.3 F L 63 18 119/66 03/13/21 12:20 03/13/21 11:48 97.7 F 63 16 129/63 Pulse Ox Pulse Ox 03/14/21 11:25 94 03/14/21 11:15 97 03/14/21 11:09 95 03/14/21 09:45 97 03/14/21 09:30 94 03/14/21 09:15 95 03/14/21 09:00 97 03/14/21 08:38 95 03/14/21 03:51 100 03/13/21 23:21 97 03/13/21 22:35 03/13/21 20:22 99 03/13/21 19:16 97 03/13/21 18:32 99 03/13/21 15:24 98 03/13/21 12:21 97 03/13/21 12:20 97 03/13/21 11:48 96 Pain Intensity Right Leg: Pain Intensity: 9 Transfer of Care Handoff Completed per policy Notes Mental Status: alert / awake / arousable and participated in evaluation Patient Amnestic to Procedure: Yes Nausea / Vomiting: adequately controlled Pain: adequately controlled Airway Patency, RR, SpO2: stable & adequate BP & HR: stable & adequate Hydration State: stable & adequate Anesthetic Complications: no major complications apparent and Pt Satisfied with anesthetic care
[2021-03-14] MEDS ORDERED: LORazepam 0.5 MG/1 ML VIAL IV PRN (15:24)
[2021-03-14] MEDS ORDERED: LORazepam 0.5 MG TAB PO PRN (15:24)
[2021-03-14] MEDS: cefTRIAXone SODIUM 2,000 MG in DEXTROSE 5% 50 ML IV SCH (15:31)
--- NOTE | 2021-03-14 19:20 | Hospitalist Progress Note ---
Date of Service March 14, 2021 Assessment & Plan (1) GI bleed: Patient is clinically voluminous bleeding. Although her initial hemoglobin has been relatively stable the volume of blood seen in the emergency department prompted the emergency room physician to transfuse 1 unit packed red blood cells. Her aspirin and Plavix were stopped at this time GI medicine did see the patient and will employ watchful waiting. Patient will be maintained intravenous fluids hemoglobin rechecked at [address] abdomen pelvis will be ordered. Certainly concern for hypotension from hypovolemic shock and acute blood loss anemia is in the differential source of bleeding was found to be distal: Likely diverticular bleed based upon colonoscopy performed 03/14/2021 Bleeding scan 03/13/21 Study is positive for GI bleeding originate approximately within descending large bowel and extending proximally and distally as imaging continues. CT abd/Pelvis 03/13/21 IMPRESSION: 1. 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 2. Diverticulosis of sigmoid colon, no definite evidence of diverticulitis. 3. Atrophic kidneys. 4. Small hiatal hernia. 5. Prolong stasis of ingested material within loops of small bowel. No evidence of bowel loop dilatation or obstruction. (2) Acute UTI: E coli resulted from 03/12/21, some resistance, However given low blood pressure concern for sepsis although the patient does not have an elevated white count or fever at this time. Continues on ceftriaxone at this time awaiting culture (3) Abnormal EKG: Patient is an EKG with right bundle branch block but concern for lateral ST depression. Initial troponins negative. We have no old EKGs to compare to. Should be in a monitored setting serial troponins will be checked. An echocardiogram shows EF 65 to 70% moderate concentric LVH grade 3 diastolic dysfunction no regional wall motion abnormality seen Once patient is stabilized may consider initiation treatment for diastolic dysfunction. However we cannot start antiplatelet agents at this time because of the concern for GI bleeding. She was on both aspirin and Plavix these continue to be held (4) Hypothyroidism: Patient has history of hypothyroidism will be maintained on thyroid medic ine at this time (5) Depression: Patient be maintained on antidepressant medications, mirtazapine paroxetine (6) Chronic kidney disease, stage 4 (severe): Patient is a history of chronic kidney disease her creatinine is 2 GFR is below 30 (7) Metabolic encephalopathy: Metabolic encephalopathy from gram-negative urinary tract infection present on admission treated with ceftriaxone (8) DVT prophylaxis: SCDs will be used for DVT prevention at this point time pt is dnr Admission and Anticipated Discharge Date Admission Date: March 13, 2021 Subjective Patient is slightly delirious today encephalopathic unclear if is from lack of sleep plus anesthesia for colonoscopy. Patient also has a gram-negative urinary tract infection present on admission which likely could cause metabolic encephalopathy subsequently she has been initiated on antibiotics for that she will try some Seroquel at bedtime control her prevent . Her son Noel is present at bedside and updated Review of Systems Review of Systems: moderate distress and fatigue no headache, no visual changes no speech or swallowing issues no chest pain, pressure or palpitations no shortness of breath, cough or wheezes no abdominal pain, nausea or vomiting, bloody diarrhea and clots no dysuria, hematuria or frequency no focal joint pain or swelling no back pain, CVA tenderness or radicular pain no other areas of bleeding not clear if bleeding is all rectal or also vaginal no focal signs of weakness or numbness or altered sensation no complaints of anxiety or depression.. Physical Exam 2 Physical Exam: The patient appeared pale and weakened Vital signs as documented. bp is low Head exam is normocephalic atraumatic Neck is without JVD, thyromegaly, or carotid bruits. Lungs are clear to auscultation, no focal loss of breath sounds Cardiac exam, Rhythm is regular.. No murmurs, rubs or gallops. Abdominal exam reveals hyperactive bowel sounds, soft non tender, no masses Extremities are nonedematous and both pedal pulses are present Neurologic exam is alert and oriented, she is forgetful and tangential, no focal loss of strength or sensation Skin is without bruises or rashes Psychologically is with concern for memory loss Results & Data Results & Data ([facility]) Vital Signs (Past 12 Hours) Vital Signs Temp Pulse Pulse Pulse Resp BP BP 03/14/21 15:17 97.7 F 67 24 163/70 H 03/14/21 15:16 97.7 F 66 22 183/70 H 03/14/21 14:17 97.9 F 66 20 158/61 H 03/14/21 13:17 97.9 F 57 L 18 142/66 H 03/14/21 12:47 97.7 F 58 L 18 146/69 H 03/14/21 12:32 97.0 F L 60 18 147/64 H 03/14/21 12:17 97.9 F 57 L 18 142/66 H 03/14/21 12:06 97.9 F 56 L 18 146/64 H 03/14/21 12:02 97.9 F 59 L 18 137/63 03/14/21 11:35 97.2 F L 63 14 143/59 H 03/14/21 11:25 65 17 130/60 03/14/21 11:15 72 23 114/52 L 03/14/21 11:09 97.7 F 79 22 115/56 L 03/14/21 09:45 97.7 F 55 L 18 142/62 H 03/14/21 09:30 97.5 F L 56 L 20 142/62 H 03/14/21 09:15 97.3 F L 63 18 149/80 H 03/14/21 09:00 97.7 F 60 18 137/72 03/14/21 08:38 97.7 F 63 20 151/63 H 03/14/21 08:00 54 L Pulse Ox 03/14/21 15:17 96 03/14/21 15:16 91 03/14/21 14:17 95 03/14/21 13:17 95 03/14/21 12:47 97 03/14/21 12:32 96 03/14/21 12:17 96 03/14/21 12:06 95 03/14/21 12:02 95 03/14/21 11:35 93 03/14/21 11:25 94 03/14/21 11:15 97 03/14/21 11:09 95 03/14/21 09:45 97 03/14/21 09:30 94 03/14/21 09:15 95 03/14/21 09:00 97 03/14/21 08:38 95 03/14/21 08:00 PG Care Time/CCT Total # of Minutes Spent Total Time Spent with Patient: Total time spent is greater than 50% in coordination of care (as documented) at patient's floor/unit and/or counseling patient: Coding Level of Care Code 24022 Subseq Hosp Care Lvl 3 Diagnoses GI bleed K92.2 GI bleed type/associated pathology: unspecified gastrointestinal hemo rrhage type Acute UTI N39.0 Abnormal EKG R94.31 Hypothyroidism E03.9 Depression F32.9 Chronic kidney disease, stage 4 (severe) N18.4 Metabolic encephalopathy G93.41 DVT prophylaxis Z29.9 (1) GI bleed GI bleed type/associated pathology: unspecified gastrointestinal hemorrhage type Qualified Code(s): K92.2 - Gastrointestinal hemorrhage, unspecified
[2021-03-14] MEDS: MIRTAZAPINE TAB 15 MG TAB PO SCH (21:17)
[2021-03-14] MEDS: QUEtiapine FUMARATE 25 MG TABLET PO SCH (21:17)
[2021-03-14] MEDS: GABAPENTIN 300 MG CAP PO SCH (21:18)
[2021-03-14 23:08] LABS: Hematocrit (blood only) 33.8 % (37-47)
[2021-03-15] MEDS: LACTATED RINGER'S 1,000 ML IV SCH ×3 (02:24→16:44)
[2021-03-15] MEDS: LEVOTHYROXINE SODIUM 50 MCG TABLET PO SCH (05:39)
[2021-03-15 07:29] LABS: Hematocrit (blood only) 31.8 % (37-47); Hemoglobin 10.1 g/dL (12.0-16.0); Mean Corpuscular Hemoglobin 29.8 pg (25-34); Mean Corpuscular Hgb Conc 31.8 g/dL (32-36); Mean Corpuscular Volume 93.8 fL (80-100); Mean Platelet Volume 9.7 fL (7.4-10.4); Platelet Count 259 K/uL (130-400); RDW Coefficient of Variation 17.2 % (11.5-14.5); RDW Standard Deviation 58.8 fL (36.4-46.3); Red Blood Count 3.39 M/uL (4.2-5.4); White Blood Count 9.94 K/uL (4.8-10.8)
[2021-03-15 08:02] LABS: BUN Creatinine Ratio 13.6 (10-20); Calcium 8.6 mg/dl (8.5-10.1); Creatinine Clr Calc Pharmacy 35.9 ml/min; Est GFR (African American) 44.7 ml/min; Est GFR (Non-African American) 38.5 ml/min
--- NOTE | 2021-03-15 08:07 | Electrocardiogram Report ---
Test Reason : Blood Pressure : / mmHG Vent. Rate : 061 BPM Atrial Rate : 061 BPM P-R Int : 170 ms QRS Dur : 130 ms QT Int : 472 ms P-R-T Axes : 029 007 -80 degrees QTc Int : 475 ms Normal sinus rhythm Right bundle branch block Left ventricular hypertrophy with QRS widening and repolarization abnormality Abnormal ECG When compared with ECG of 14-MAR-2021 05:49, No significant change Confirmed by Nahun Acevedo ([id number]) on 03/15/2021 8:07:28 AM Referred By: [facility] Confirmed By:Nahun Acevedo
[2021-03-15] MEDS: FAMOTIDINE 20 MG in SYRINGE 3 ML IV SCH ×2 (08:50→20:32)
[2021-03-15] MEDS: ARTIFICIAL TEARS OP SCH ×2 (08:50→20:32)
[2021-03-15] MEDS: PARoxetine HCL 20 MG TAB PO SCH (08:51)
[2021-03-15] MEDS: cefTRIAXone SODIUM 2,000 MG in DEXTROSE 5% 50 ML IV SCH (16:43)
--- NOTE | 2021-03-15 17:26 | Hospitalist Progress Note ---
Date of Service March 15, 2021 Assessment & Plan (1) GI bleed: Patient is clinically voluminous bleeding. Although her initial hemoglobin has been relatively stable the volume of blood seen in the emergency department prompted the emergency room physician to transfuse 1 unit packed red blood cells. Her aspirin and Plavix were held colonoscopy 03/14/21 did show diverticulosis but no active bleeding Certainly concern for hypotension from hypovolemic shock and acute blood loss anemia is in the differential source of bleeding was found to be distal: Likely diverticular bleed based upon colonoscopy performed 03/14/2021 Bleeding scan 03/13/21 Study is positive for GI bleeding originate approximately within descending large bowel and extending proximally and distally as imaging continues. CT abd/Pelvis 03/13/21 IMPRESSION: 1. 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 2. Diverticulosis of sigmoid colon, no definite evidence of diverticulitis. 3. Atrophic kidneys. 4. Small hiatal hernia. 5. Prolong stasis of ingested material within loops of small bowel. No evidence of bowel loop dilatation or obstruction. bleeding suspect to diverticular bleed (2) Acute UTI: E coli resulted from 03/12/21, some resistance, However given low blood pressure concern for sepsis although the patient does not have an elevated white count or fever at this time. Continues on ceftriaxone continues to consider po medicine to complete course if discharged (3) Abnormal EKG: Patient is an EKG with right bundle branch block but concern for lateral ST depression. Initial troponins negative. We have no old EKGs to compare to. Should be in a monitored setting serial troponins will be checked. An echocardiogram shows EF 65 to 70% moderate concentric LVH grade 3 diastolic dysfunction no regional wall motion abnormality seen Once patient is stabilized may consider initiation treatment for diastolic dysfunction. However we cannot start antiplatelet agents at this time because of the concern for GI bleeding. She was on both aspirin and Plavix , will resume plavix 03/16 (4) Hypothyroidism: Patient has history of hypothyroidism will be maintained on thyroid medicine at this time (5) Depression: Patient be maintained on antidepressant medications, mirtazapine paroxetine (6) Chronic kidney disease, stage 4 (severe): Patient is a history of chronic kidney disease her creatinine is 2 GFR is below 30 (7) Metabolic encephalopathy: Metabolic encephalopathy from gram-negative urinary tract infection present on admission treated with ceftriaxone (8) DVT prophylaxis: SCDs will be used for DVT prevention at this point time pt is dnr Admission and Anticipated Discharge Date Admission Date: March 13, 2021 Subjective Patient is less delirious today encephalopathic unclear if is from lack of sleep plus anesthesia for colonoscopy, plus gram-negative urinary tract infection present on admission which likely could cause metabolic encephalopathy subsequently she has been initiated on antibiotics for that she will try some Seroquel at bedtime control her prevent . Her son Noel is present updated Review of Systems Review of Systems: moderate distress and fatigue no headache, no visual changes no speech or swallowing issues no chest pain, pressure or palpitations no shortness of breath, cough or wheezes no abdominal pain, nausea or vomiting, bloody diarrhea and clots no dysuria, hematuria or frequency no focal joint pain or swelling no back pain, CVA tenderness or radicular pain no other areas of bleeding not clear if bleeding is all rectal or also vaginal no focal signs of weakness or numbness or altered sensation no complaints of anxiety or depression.. Physical Exam Physical Exam: The patient appeared pale and weakened Vital signs as documented. bp is low Head exam is normocephalic atraumatic Neck is without JVD, thyromegaly, or carotid bruits. Lungs are clear to auscultation, no focal loss of breath sounds Cardiac exam, Rhythm is regular.. No murmurs, rubs or gallops. Abdominal exam reveals hyperactive bowel sounds, soft non tender, no masses Extremities are nonedematous and both pedal pulses are present Neurologic exam is alert and oriented, she is forgetful and tangential, no focal loss of strength or sensation Skin is without bruises or rashes Psychologically is with concern for memory loss Results & Data Results & Data ([facility]) Vital Signs (Past 12 Hours) Vital Signs Temp Pulse Pulse Pulse Resp BP Pulse Ox 03/15/21 15:22 99.3 F 58 L 17 172/65 H 94 03/15/21 11:25 98.8 F 58 L 17 165/71 H 95 03/15/21 10:01 59 L 157/67 H 03/15/21 08:00 58 L 03/15/21 07:43 98.1 F 62 16 176/75 H 99 PG Care Time/CCT Total # of Minutes Spent Total Time Spent with Patient: Total time spent is greater than 50% in coordination of care (as documented) at patient's floor/unit and/or counseling patient: Coding Level of Care Code 00994 Subseq Hosp Care Lvl 3 Diagnoses GI bleed K92.2 GI bleed type/associated pathology: unspecified gastrointestinal hemorrhage type Acute UTI N39.0 Abnormal EKG R94.31 Hypothyroidism E03.9 Depression F32.9 Chronic kidney disease, stage 4 (severe) N18.4 Metabolic encephalopathy G93.41 DVT prophylaxis Z29.9 (1) GI bleed GI bleed type/associated pathology: unspecified gastrointestinal hemorrhage type Qualified Code(s): K92.2 - Gastrointestinal hemorrhage, unspecified
[2021-03-15] MEDS: MIRTAZAPINE TAB 15 MG TAB PO SCH (20:33)
[2021-03-15] MEDS: QUEtiapine FUMARATE 25 MG TABLET PO SCH (20:33)
[2021-03-15] MEDS: GABAPENTIN 300 MG CAP PO SCH (20:34)
[2021-03-16 06:25] LABS: Hematocrit (blood only) 34.3 % (37-47); Hemoglobin 11.4 g/dL (12.0-16.0); Mean Corpuscular Hemoglobin 30.3 pg (25-34); Mean Corpuscular Hgb Conc 33.2 g/dL (32-36); Mean Corpuscular Volume 91.2 fL (80-100); Mean Platelet Volume 9.5 fL (7.4-10.4); Platelet Count 315 K/uL (130-400); RDW Coefficient of Variation 16.8 % (11.5-14.5); Red Blood Count 3.76 M/uL (4.2-5.4); White Blood Count 11.66 K/uL (4.8-10.8)
[2021-03-16] MEDS: LEVOTHYROXINE SODIUM 50 MCG TABLET PO SCH (06:25)
[2021-03-16 06:53] LABS: BUN Creatinine Ratio 11.3 (10-20); Calcium 8.8 mg/dl (8.5-10.1); Creatinine Clr Calc Pharmacy 32.7 ml/min; Est GFR (African American) 39.8 ml/min; Est GFR (Non-African American) 34.3 ml/min; Potassium 3.8 mmol/L (3.5-5.1)
--- NOTE | 2021-03-16 08:56 | Gastroenterology Progress Note ---
Date of Service March 16, 2021 Assessment & Plan (1) GI bleed: 80 year old female with hematochezia, positive bleeding scan w/ negative colonoscopy for active bleeding. She has remained clinically stable post colonoscopy, HGB stable, VSS. Trend HGB Monitor schools Continue supportive care No GI contraindication to diet as tolerated If rebleeds, consider transfer for IR evaluation Will sign off, please recall as needed or with any acute changes Thank you for allowing us to participate in the care of this patient. Please call with any acute changes, questions or concerns. Please see addendum below with additional recommendation from my supervising physician. Admission and Anticipated Discharge Date Admission Date: March 13, 2021 Supervising Physician Co-Signing Physician Notes I have discussed the patient's management with the advanced practitioner. Please refer to the nurse practitioner's note for the documented findings and plan of care. Subjective Pt was seen and evaluated, chart reviewed. Sitting upright in bed. No abd pain. No nausea, vomiting. No further BMs. unsure about color of stool, EMR suggests no BM since 03/14. Colonoscopy reviewed. Review of Systems Review of Systems: All systems reviewed & are unremarkable except as noted in HPI & below Physical Exam Constitutional: well developed and well nourished; no acute distress and not obese Neck: trachea midline, no thyromegaly Respiratory: normal respiratory effort, lungs clear to auscultation Gastrointestinal (Abdomen): normal bowel sounds, soft, nontender, no hepatosplenomegaly Results & Data ([facility]) Vital Signs (Past 12 Hours) Vital Signs Temp Pulse Pulse Pulse Resp BP Pulse Ox 03/16/21 07:50 36.4 C L 61 19 178/84 H 92 03/16/21 04:06 37.0 C 61 20 162/80 H 93 03/16/21 00:09 36.6 C 57 L 20 157/69 H 92 03/15/21 23:40 68 Laboratory Results 03/16/21 03/16/21 Range/Units 06:10 06:10 WBC 11.66 H (4.8-10.8) K/uL RBC 3.76 L (4.2-5.4) M/uL Hgb 11.4 L (12.0-16.0) g/dL Hct 34.3 L (37-47) % MCV 91.2 (80-100) fL MCH 30.3 (25-34) pg MCHC 33.2 (32-36) g/dL RDW Std Deviation 56.0 H (36.4-46.3) fL RDW Coeff of Norris 16.8 H (11.5-14.5) % Plt Count 315 (130-400) K/uL MPV 9.5 (7.4-10.4) fL Sodium 145 (136-145) mmol/L Potassium 3.8 (3.5-5.1) mmol/L Chloride 115 H (98-107) mmol/L Carbon Dioxide 24 (21-32) mmol/L Anion Gap 6.0 (3-11) BUN 16 (7-18) mg/dl Creatinine 1.42 H (0.6-1.2) mg/dl Est Cr Clr Drug Dosing 32.7 ml/min Est GFR ( Amer) 39.8 ml/min Est GFR (Non-Af Amer) 34.3 ml/min BUN/Creatinine Ratio 11.3 (10-20) Glucose 71 (70-99) mg/dl Calcium 8.8 (8.5-10.1) mg/dl (1) GI bleed GI bleed type/associated pathology: unspecified gastrointestinal hemorrhage type Qualified Code(s): K92.2 - Gastrointestinal hemorrhage, unspecified
[2021-03-16] MEDS: FAMOTIDINE 20 MG in SYRINGE 3 ML IV SCH ×2 (09:40→20:10)
[2021-03-16] MEDS: PARoxetine HCL 20 MG TAB PO SCH (09:40)
[2021-03-16] MEDS: CLOPIDOGREL BISULFATE 75 MG TAB PO SCH (09:40)
--- NOTE | 2021-03-16 10:24 | Hospitalist Progress Note ---
Date of Service March 16, 2021 Assessment & Plan (1) GI bleed: Ebony Esposito is an 80-year-old female with a past medical history of diverticulosis, CKD, depression, hypothyroidism, hyperlipidemia, polyneuropathy who presented from [facility] on 03/13 for lower GI bleeding and who was admitted for acute GI bleed and blood loss anemia. Dispositional planning: Patient was admitted from [facility] for acute GI bleed as noted below. Patient's bleed appears to have stopped, and hemoglobin have remained stable. Lasix resumed today, Aldactone added for HTN >180, patient pending PT/OT anticipate discharge to [facility] when medically stable. Acute GI bleed with blood loss anemia On admission received 1 unit of packed red blood cells in ER Colonoscopy 03/14 showed diverticulosis with no active bleed Red blood cell scan 03/13 showed bleed in descending colon Patient on aspirin/Plavix, held with Plavix restarted 03/16 GI consulted, bleed noted to have stopped. Signed off and recommended if rebleeding occurred to transfer for IR evaluation. Hemoglobin stable, 11.4 from 10.1 today with no signs of active bleed (2) Acute UTI: Acute urinary tract infection Urine culture 03/12+ for drug-resistant E. coli, cephalosporin sensitive Complete 5-day course of Rocephin No urinary symptoms at time of reassessment - Improving but unresolved metabolic encephalopathy - Delirium precautions (3) Abnormal EKG: Patient with right bundle block and concern for lateral ST depressions on admit, no prior EKG for comparison Troponins negative Patient clinically asymptomatic without chest pain Echo: Concentric LVH, grade 3 diastolic dysfunction, no regional wall motion abnormalities, EF 65-70% Aspirin permanently DC'd, Plavix resumed Add spironolactoned 12.5 mg for hypertension management, potassium recheck in a.m. (4) Hypothyroidism: Continue home dose of Synthroid 50 mcg daily (5) Hyperlipidemia: (6) Chronic kidney disease, stage 4 (severe): History of CKD, baseline creatinine appears somewhere between 1.31.8 Creatinine 1.42 from 1.29 today - BMP daily (7) DVT prophylaxis: Pharmacoprophylaxis contraindicated in the setting of acute bleed, SCDs Admission and Anticipated Discharge Date Admission Date: March 13, 2021 Supervising Physician Co-Signing Physician Notes Patient seen and examined with Dr. Dobson. I agree with his exam findings, review of systems, assessment and plan. I have personally reviewed the lab work and imaging from today. patient is pleasantly confused, no further signs of bleeding for a few days eating well, PT/OT ordered working on getting her back to [facility] updated her family at the bedside Exam: WD, WN female, NAD, alert, oriented to person but not place or time, unaware of why she is here lungs CTA bilaterally, normal respiratory effort heart regular S1/S2 without murmurs, no edema abdomen soft, NT, ND, + BS A/P - acute blood loss with anemia, suspected diverticular bleed no further blood loss for several days, Hb is stable will plan for discharge tomorrow as long as she stays stable - confusion: suspect hospital delirium per family, she has low level confusion at baseline but normally she knows family and surroundings suspect that getting her back to familiar environment will help - hypertension added Chlorthalidone, spirololactone - CKD stage III/IV her Cr is actually better right now than baseline which is 1.8-2.0 Cr is 1.4, will monitor Subjective Dung is seen at the bedside this morning. She reports that she is not short of breath, is not having chest pain, is not lightheaded or dizzy, is not have any difficulty urinating or burning when she pees. She denies belly pain. Denies fever, chills, sweats overnight. She is not sure when her last bowel movement was, has not noticed any bleeding. She is oriented to name only. Review of Systems Review of Systems: All systems reviewed & are unremarkable except as noted in HPI & below (Grossly negative, patient oriented to name only) Physical Exam Physical Exam: General: Oriented to name only, no acute distress, cooperative. HEENT: Atraumatic, normocephalic. Pulm: CTAB A&P. -wheezes, -rales, -rhonchi. Symmetrical chest rise. No increase work of breathing. No respiratory distress. Cardiac: RRR, -mrg. Radial pulses intact and symmetrical. Abdominal: Nontender, nondistended, soft. BS present. Results & Data Results & Data ([facility]) Vital Signs (Past 12 Hours) Vital Signs Temp Pulse Pulse Pulse Resp BP Pulse Ox 03/16/21 07:50 36.4 C L 61 19 178/84 H 92 03/16/21 04:06 37.0 C 61 20 162/80 H 93 03/16/21 00:09 36.6 C 57 L 20 157/69 H 92 03/15/21 23:40 68 Resident Activity Tracking Resident Involvement: Resident Care Provided Care Provided: Adult Hospital Medicine (1) GI bleed GI bleed type/associated pathology: unspecified gastrointestinal hemorrhage type Qualified Code(s): K92.2 - Gastrointestinal hemorrhage, unspecified
[2021-03-16] MEDS: ARTIFICIAL TEARS OP SCH ×2 (11:47→20:00)
[2021-03-16] MEDS ORDERED: SPIRONOLACTONE 12.5 MG TAB PO ONE (12:52)
[2021-03-16] MEDS: cefTRIAXone SODIUM 2,000 MG in DEXTROSE 5% 50 ML IV SCH (14:25)
[2021-03-16] MEDS: MIRTAZAPINE TAB 15 MG TAB PO SCH (20:01)
[2021-03-16] MEDS: QUEtiapine FUMARATE 25 MG TABLET PO SCH (20:01)
[2021-03-16] MEDS: GABAPENTIN 300 MG CAP PO SCH (20:01)
[2021-03-17] MEDS: LEVOTHYROXINE SODIUM 50 MCG TABLET PO SCH (05:12)
[2021-03-17 07:38] LABS: Hemoglobin 11.7 g/dL (12.0-16.0); Mean Corpuscular Hemoglobin 29.9 pg (25-34); Mean Corpuscular Hgb Conc 32.5 g/dL (32-36); Mean Corpuscular Volume 92.1 fL (80-100); Mean Platelet Volume 9.3 fL (7.4-10.4); Platelet Count 365 K/uL (130-400); RDW Coefficient of Variation 16.6 % (11.5-14.5); Red Blood Count 3.91 M/uL (4.2-5.4)
[2021-03-17 07:56] LABS: BUN Creatinine Ratio 12.2 (10-20); Calcium 9.2 mg/dl (8.5-10.1); Creatinine Clr Calc Pharmacy 30.8 ml/min; Est GFR (African American) 38.1 ml/min; Est GFR (Non-African American) 32.9 ml/min
--- NOTE | 2021-03-17 08:38 | Discharge Summary ---
Date of Service March 17, 2021 Admission HPI Per Admitting Provider [facility] 80[facility] The [facility] presents with significant lower GI bleeding. She has no real other complaints. She is mildly forgetful. She does take Plavix and aspirin. When she presented to the emergency department she had low blood pressure 85/50. She was given volume in the ER and blood. Urine analysis was obtained with marked abnormalities in the urine was cloudy. It is unclear whether her low blood pressure was result of infectious etiologies and sepsis versus acute blood loss anemia and hypotensive shock When I saw the patient she was mentating appropriately she had no complaints of abdominal pain. She cannot recall that she had a recent colonoscopy. Is not had a CT scan of her abdomen pelvis. Admission Exam Per Admitting Provider The patient appeared pale and weakened Vital signs as documented. bp is low Head exam is normocephalic atraumatic Neck is without JVD, thyromegaly, or carotid bruits. Lungs are clear to auscultation, no focal loss of breath sounds Cardiac exam, Rhythm is regular.. No murmurs, rubs or gallops. Abdominal exam reveals hyperactive bowel sounds, soft non tender, no masses Extremities are nonedematous and both pedal pulses are present Neurologic exam is alert and oriented, she is forgetful and tangential, no focal loss of strength or sensation Skin is without bruises or rashes Psychologically is with concern for memory loss Principal Diagnosis Acute GI Diverticular Bleed UTI Discharge Exam General: Oriented to name and place, no acute distress, cooperative. HEENT: Atraumatic, normocephalic. Pulm: CTAB A&P. -wheezes, -rales, -rhonchi. Symmetrical chest rise. No increase work of breathing. No respiratory distress. Cardiac: RRR, -mrg. Radial pulses intact and symmetrical. Abdominal: Nontender, nondistended, soft. BS present. Discharge Data Allergies Allergy/AdvReac Type Severity Reaction Status Date / Time iodine Allergy Unknown Unknown Verified 03/13/21 08:39 NSAIDS (Non-Steroidal Allergy Unknown Unknown Verified 03/13/21 08:39 Anti-Inflamma tositumomab iodine-131 Allergy Unknown Unknown Unverified 03/13/21 08:39 Penicillins Allergy Unknown Verified 03/13/21 08:39 Consultations 03/13/21 10:18 ED Decision to Admit Stat 03/13/21 14:33 Consult Gastroenterology Routine 03/13/21 15:05 Consult Health Information Management Routine Procedures Performed Operation Date: 03/14/21 10:40 Actual Procedures p Colonoscopy - Haroldo Hardin MD Ordered Studies 03/13/21 14:46 CT abd pelvis oral con only Routine Hospital Course (1) GI bleed: Ebony Esposito is an 80-year-old female with a past medical history of dive rticulosis, CKD, depression, hypothyroidism, hyperlipidemia, polyneuropathy who presented from [facility] on 03/13 for lower GI bleeding and who was admitted for acute GI bleed and blood loss anemia. To Do As Outpt: 1. Recheck BMP for Cr and K 2. Pt with chronic asymptomatic HTN at discharge, BP recheck daily, adjust chlorthalidone/aldactone as needed 3. Monitor for signs of bleeding. Acute GI bleed with blood loss anemia On admission received 1 unit of packed red blood cells in ER Colonoscopy 03/14 showed diverticulosis with no active bleed Red blood cell scan 03/13 showed bleed in descending colon Patient on aspirin/Plavix, both held - Plavix restarted 03/16, aspirin permanently held GI consulted, bleed noted to have stopped. Signed off and recommended if rebleeding occurred to transfer for IR evaluation. - Hgb stable at discharge (2) Acute UTI: Acute urinary tract infection Urine culture 03/12+ for drug-resistant E. coli, cephalosporin sensitive Completed 5-day course of Rocephin No urinary symptoms at time of discharge - Improved metabolic encephalopathy, suspected some waxing and waning hospital delirium superimposed (3) Abnormal EKG: Patient with right bundle block and concern for lateral ST depressions on admit, no prior EKG for comparison Troponins negative Patient clinically asymptomatic without chest pain throughout admission Echo: Concentric LVH, grade 3 diastolic dysfunction, no regional wall motion abnormalities, EF 65-70% Aspirin permanently DC'd, Plavix resumed Add spironolactone 12.5 mg, resume Bumex 1mg PO daily for hypertension management, potassium stable - Will require BMP this week potassium and Cr check (4) Hypothyroidism: Continue home dose of Synthroid 50 mcg daily (5) Hyperlipidemia: (6) Chronic kidney disease, stage 4 (severe): History of CKD, baseline creatinine appears somewhere between 1.31.8 Creatinine at baseline at discharge - will resume Bumex 1mg PO daily (7) DVT prophylaxis: Pharmacoprophylaxis contraindicated in the setting of acute bleed, SCDs - No signs of DVT during admission Total Time Total Time Spent Total Time Spent (In Minutes): See Attending Documentation Discharge Plan Discharge Items Patient Disposition: Personal Long-Term Reason For Visit: RECTAL BLEED, ABNORMAL ECG, ABNORMAL UA SUSPECT UT Discharge Diagnosis: Acute diverticular GI bleed UTI Condition on Discharge: Good Activity: Resume your previous activity Non-emergency contact: Primary Care Provider Call non-emergency contact if: you have any medication questions, your symptoms worsen, your pain is not controlled, your pain is worsening, your pain is unusual for you, your pain is concerning for you and you have a fever Follow-up/Referrals: [facility] ANTUNEZ [Primary Care Provider] - Diet: Regular Addtl Attending Provider Instructions: Ebony was seen in the hospital for an acute GI bleed. Evaluation was consistent with a diverticular bleed which resolved. No further bleeding was observed during hospitalization, and following blood transfusion her blood levels remained stable. During her admission she was also treated for UTI and completed antibiotic treatment during admission, further antibiotics after discharge were not indicated at the time of discharge. Medication changes have been made below. Ebony's aspirin has been permanently discontinued. Please stop taking aspirin . Plavix has been resumed, no signs of bleeding, hemoglobin has been stable for days, it is 11.4 today Ebony has been started on a blood pressure medication, spironolactone 12.5 mg. Please take 12.5 mg spironolactone daily. This medication may affect her potassium, potassium levels were stable at time of discharge but a repeat creatinine and potassium check (part of a BMP) should be checked by your primary care provider in 3 to 7 days. If you experience any lightheadedness, dizziness, muscle cramps, aches, feeling of passing out or passing out, chest pain, or other new or concerning symptoms please contact your primary care physician at the number below or call 911 if you are very concerned. Ebony has also been re-started on Bumex 1mg PO daily as she previously took this with her CKD. Cr is 1.4 today, prior baseline was 1.8-2.0 and she follows with Dr. Farah. A followup appointment should be being scheduled for you with your Primary Care Provider Dr. Gonzalez at [place]. You should be seen seen within 1 week. You should receive a call to confirm this appointment. If you do not receive a call within 48 hours to confirm this appointment, or need to change this appointment, please call the provider's office at [phone]. If you develop any new or worsening symptoms including fever, chills, sweats, chest pain, chest pressure, difficulty breathing, uncontrolled nausea/vomiting, rash, wheezing, passing out or nearly passing out, bleeding, black/bloody bowel movements, or other new or concerning symptoms please call your primary care physician at [phone], or call 911 for re-evaluation in the emergency department if you are very concerned. Pending Studies at Discharge: Yes Stand-Alone Forms: My [employer], Smoking Cessation Skilled Items Patient informed of condition?: Yes DNR: Yes Discharge Level of Care: Other Communicable Disease: No Discharge Prognosis: Stable Lines: None Urinary Catheter: No Medications and DC Order Prescriptions: New spironolactone 25 mg Tablet 12.5 mg PO DAILY 30 Days Qty: 15 RF: 0 bumetanide 1 mg tablet 1 mg PO DAILY Qty: 30 RF: 0 Continued clopidogrel 75 mg tablet 75 mg PO QAM RF: 0 levothyroxine 50 mcg capsule 50 mcg PO DAILYBB RF: 0 calcium carbonate [Oyster Shell Calcium] 500 mg calcium (1,250 mg) tablet 500 mg PO QAM RF: 0 paroxetine HCl 20 mg tablet 20 mg PO QAM RF: 0 potassium chloride 20 mEq packet 20 meq PO QAM RF: 0 acetaminophen 325 mg capsule 325 mg PO Q4H PRN (Reason: Mild Pain (Scale Score 1-4)) RF: 0 artificial tears with lanolin Ointment 1 applic OPB BID RF: 0 ascorbic acid (vitamin C) [Vitamin C] 500 mg Tablet 500 mg PO BID RF: 0 mirtazapine 15 mg Tablet 7.5 mg PO HS RF: 0 cholecalciferol (vitamin D3) [Vitamin D3] 125 mcg (5,000 unit) Tablet 125 mcg PO QAM RF: 0 gabapentin 300 mg capsule 300 mg PO HS Qty: 0 RF: 0 polysaccharide iron complex [iFerex 150] 150 mg iron Capsule 150 mg PO QAM RF: 0 Discontinued aspirin [Adult Aspirin Regimen] 81 mg tablet,delayed release (DR/EC) 81 mg PO QAM RF: 0 Discharge Orders: Discharge Order (Routine); Ordered 03/17/21 Ordered By: Pedro Dobson Admission Data Admit Date/Time: 03/13/21 10:29 Attending Provider: Deven Bradley Admit Provider: Kirk Gandhi Primary Care Provider: [facility] ANTUNEZ Other Providers: Areli Champagne ; Alize Bellamy Other Interventions: Discharge Summary Assessment (RN) Last Done: 03/17/21 14:55 Supervising Physician Co-Signing Physician Notes Patient seen and examined with Dr. Dobson. I agree with his exam findings, review of systems, assessment and plan. I have personally reviewed the lab work and imaging from today. patient is pleasantly confused, no further signs of bleeding for a few days eating well, PT/OT ordered working on getting [facility] back to [facility] updated her family, her son, over the phone Exam: WD, WN female, NAD, alert, oriented to person but not place or time, unaware of why she is here lungs CTA bilaterally, normal respiratory effort heart regular S1/S2 without murmurs, no edema abdomen soft, NT, ND, + BS A/P - acute blood loss with anemia, suspected diverticular bleed no further blood loss for several days, Hb is stable will plan for discharge tomorrow as long as she stays stable - confusion: suspect hospital delirium per family, she has low level confusion at baseline but normally she knows family and surroundings suspect that getting her back to familiar environment will help - hypertension added spironolactone and resumed Bumex - CKD stage III/IV her Cr is actually better right now than baseline which is 1.8-2.0 Cr is 1.4, will monitor resume Bumex 1mg PO daily that she was previously taking, no documentation on why it was stopped and was prescribed by nephrology time on discharge was 34 minutes Resident Activity Tracking Resident Involvement: Resident Care Provided Care Provided: Adult Hospital Medicine
[2021-03-17] MEDS ORDERED: SPIRONOLACTONE 12.5 MG TAB PO SCH (09:00)
[2021-03-17] MEDS: FAMOTIDINE 20 MG in SYRINGE 3 ML IV SCH (09:07)
[2021-03-17] MEDS: ARTIFICIAL TEARS OP SCH (09:08)
[2021-03-17] MEDS: CLOPIDOGREL BISULFATE 75 MG TAB PO SCH (09:08)
[2021-03-17] MEDS: PARoxetine HCL 20 MG TAB PO SCH (09:08)
[2021-03-17] MEDS ORDERED: CHLORTHALIDONE 25 MG TAB PO SCH (11:00)
--- NOTE | 2021-03-20 07:41 | Billing Data ---
Date of Service March 16, 2021 Coding Level of Care Code 63831 Subseq Hosp Care Lvl 3
--- NOTE | 2021-03-21 00:17 | Billing Data ---
Date of Service March 18, 2021 Coding Level of Care Code D/C Day Management >30 mins
== END 2021-03-17 15:48 | disposition home or self-care (01) | DRG 377 ==
LOC: ED 08:26 → 2S 10:29 → SUATTDRO 10:29 → 2S 11:52

== ENCOUNTER 2022-08-15 22:23 | Inpatient (IN) ==
--- NOTE | 2022-08-15 23:19 | Emergency Department Note ---
History of Present Illness General Chief complaint: Flu Like Symptoms Time Seen by Provider: 08/15/22 22:48 History of Present Illness 81-year-old presents emergency department from the [facility] reportedly had 3 episodes of vomiting today with cough cold and congestion symptoms. Patient is a truly poor historian as to why she is actually here. [facility] that she had some vomiting and a cough. Patient denies any nausea now denies any abdominal pain states cough. There are no other mitigating or alleviating factors reportedly she had a low oxygen around 90% was given 2 L now 94%. There are no other complaints Home Medications Medication Instructions Recorded Confirmed Type acetaminophen 325 mg capsule 650 mg PO Q4H PRN Mild Pain (Scale 10/22/19 08/16/22 History Score 1-4) calcium carbonate 500 mg calcium 500 mg PO QAM 10/22/19 08/16/22 History (1,250 mg) tablet (Oyster Shell Calcium) clopidogrel 75 mg tablet 75 mg PO QAM 10/22/19 08/16/22 History levothyroxine 50 mcg capsule 50 mcg PO DAILYBB 10/22/19 08/16/22 History paroxetine HCl 20 mg tablet 20 mg PO QAM 10/22/19 08/16/22 History potassium chloride 20 mEq oral 20 meq PO QAM 10/22/19 08/16/22 History packet artificial tears with lanolin eye 1 applic OPB BID Dry eye(s) 12/08/20 08/16/22 History ointment ascorbic acid (vitamin C) 500 mg 500 mg PO BID 12/08/20 08/16/22 History tablet (Vitamin C) cholecalciferol (vitamin D3) 125 125 mcg PO QAM 12/08/20 08/16/22 History mcg (5,000 unit) tablet (Vitamin D3) mirtazapine 15 mg tablet 7.5 mg PO HS 12/08/20 08/16/22 History gabapentin 300 mg capsule 300 mg PO HS #0 caps 12/12/20 08/16/22 Rx bumetanide 1 mg tablet 1 mg PO 3XWK 08/16/22 08/16/22 History Allergies Allergy/AdvReac Type Severity Reaction Status Date / Time iodine Allergy Unknown Unknown Verified 08/16/22 00:36 NSAIDS (Non-Steroidal Allergy Unknown Unknown Verified 03/13/21 08:39 Anti-Inflamma tositumomab iodine-131 Allergy Unknown Unknown Unverified 08/16/22 00:36 Penicillins Allergy Unknown Verified 08/16/22 00:36 Past Med/Surg History Medical History Ambulatory dysfunction Chronic kidney disease, stage 4 (severe) GI bleed Hyperlipidemia Hypothyroidism Osteoarthritis Polyneuropathy Recurrent falls Social History Smoking Status: Former smoker Tobacco Type: Cigarettes Second Hand Exposure: No; Hx Alcohol Use: No Hx Substance Use: No Preferred Language: Congolese Communication Ability: Effective Dictating Machine Typist Required: No Beliefs That Will Affect Care: None Current Living Situation: Personal Care Facility Current Living Situation Comment: assisted living Feels Safe at Home: Yes Assistive Devices: None Review of Systems A total of 10 systems reviewed and were otherwise negative Constitutional: + fever and + body aches Respiratory: + cough Gastrointestinal: + nausea and + vomiting Physical Exam Vital Signs Vital Signs - 24 hr 08/15/22 22:27 08/16/22 00:05 08/15/22 22:58 Temperature 36.6 C Temperature Source Oral Pulse Rate 63 90 62 Pulse Rate from SpO2 Sensor 62 Respiratory Rate 18 18 Respiratory Effort / Characteristics Non-Labored Spontaneous Respiratory Depth Normal Respiratory Pattern Regular Blood Pressure 170/69 H 142/90 H Blood Pressure Mean 102 107 Blood Pressure Position Lying Pulse Oximetry 94 91 94 Oxygen Delivery Method Nasal Cannula Nasal Cannula Nasal Cannula Oxygen Flow Rate 2 2 2 Sepsis Recent Fever Within 48 Hours Yes Sepsis New/Unexplained Change in Mental Status No Sepsis Action Taken by Nursing No Action Required 08/16/22 00:00 Temperature Temperature Source Pulse Rate 57 L Pulse Rate from SpO2 Sensor 58 L Respiratory Rate 18 Respiratory Effort / Characteristics Respiratory Depth Respiratory Pattern Blood Pressure 138/60 Blood Pressure Mean 86 Blood Pressure Position Pulse Oximetry 91 Oxygen Delivery Method Nasal Cannula Oxygen Flow Rate 2 Sepsis Recent Fever Within 48 Hours Sepsis New/Unexplained Change in Mental Status Sepsis Action Taken by Nursing GENERAL: Patient is awake alert in no acute distress patient is resting com fortably and showing no signs of anxiety EYES: The conjunctivae are clear. The pupils are round and reactive. EARS, NOSE, MOUTH AND THROAT: The nose is without any evidence of any deformity. Mucous membranes are moist. Tongue is midline. NECK: The neck is nontender and supple. RESPIRATORY: Normal respiratory effort is noted there is no evidence of wheezing rhonchi or rales CARDIOVASCULAR: Regular rate and rhythm noted there no murmurs rubs or gallops normal S1 normal S2. GASTROINTESTINAL: The abdomen is soft. Abdomen is nontender. PELVIS: The Pelvis is stable. No tenderness to palpation is noted. BACK: No midline tenderness or or step-off noted range of motion in flexion extension as well as rotation no signs of muscle spasm noted MUSCULOSKELETAL/EXTREMITIES: There is no evidence of gross deformity full range of motion is noted in the hips and shoulders. SKIN: There is no obvious evidence of any rash. There are no petechiae, pallor or cyanosis noted. NEUROLOGIC: Patient is awake alert and oriented x3 strength is symmetric PSYCH: Normal affect Course Reevaluation(s) Reevaluation #1: Patient is resting in no distress was started on IV antibiotics. Patient's not septic shock. The case was discussed with the hospitalist for admission Time: 03:04 Consultations Consultation #1: [facility] hospitalist for admission Time: 03:04 Administered Medications Discontinued Medications Ceftriaxone Sodium (Rocephin) 2,000 mg in 70 mls @ 140 mls/hr IV NOW STA Stop: 08/16/22 02:41 Last Admin: 08/16/22 02:36 Dose: 140 mls/hr Documented By: Medical Decision Making Medical Records Attestation: I reviewed the patient's medical records. Home Medications Current Medication List: was personally reviewed by me Laboratory Data Attestation: I reviewed the patient's lab results. Result diagrams: 08/15/22 23:02 08/15/22 23:02 Lab Results 08/15/22 08/15/22 08/15/22 Range/Units 23:02 23:02 23:02 WBC 14.55 H (4.8-10.8) K/ul RBC 5.01 (3.93-5.22) M/uL Hgb 16.6 H (12.0-16.0) g/dl Hct 51.0 H (34.1-44.9) % MCV 101.8 H (80.0-100.0) fL MCH 33.1 (25.0-34.0) pg MCHC 32.5 (32.0-36.0) g/dL RDW Std Deviation 52.6 H (36.4-46.3) fL RDW Coeff of Norris 13.9 (11.5-14.5) % Plt Count 434 H (130-400) K/uL MPV 8.7 L (9.4-12.3) fL Immature Gran % (Auto) 0.3 % Neut % (Auto) 82.5 % Lymph % (Auto) 9.1 % [place] % (Auto) 6.9 % Eos % (Auto) 0.7 % Baso % (Auto) 0.5 % Neut # (Auto) 12.00 H (1.4-6.5) K/uL Lymph # (Auto) 1.33 (1.2-3.4) K/uL [place] # (Auto) 1.00 H (0.24-0.82) K/uL Eos # (Auto) 0.10 (0-0.50) K/uL Baso # (Auto) 0.07 (0-0.2) K/uL Immature Gran # (Auto) 0.05 H (0.00-0.02) K/uL Sodium 142 (136-145) mmol/L Potassium 5.0 (3.5-5.1) mmol/L Chloride 111 H (98-107) mmol/L Carbon Dioxide 25 (21-32) mmol/L Anion Gap 6 (3-11) BUN 34 H (6-23) mg/dl Creatinine 2.53 H (0.6-1.2) mg/dl Est Cr Clr Drug Dosing 18.9 ml/min Est GFR ( Amer) 19.6 ml/min Est GFR (Non-Af Amer) 16.9 ml/min BUN/Creatinine Ratio 13.4 (10-20) Glucose 103 H (70-99(Fasting)) mg/dl Lactate (0.4-2.0) mmol/L Calcium 10.7 H (8.5-10.1) mg/dl Magnesium 2.6 H (1.7-2.4) mg/dl Total Bilirubin 0.6 (0.2-1.0) mg/dl Direct Bilirubin 0.2 (0-0.2) mg/dl AST 13 (13-39) U/L ALT 9 (7-52) U/L Alkaline Phosphatase 66 (34-104) U/L Troponin I High Sens 23.4 H (0-14) pg/ml Total Protein 6.7 (6.0-8.3) gm/dl Albumin 3.4 (3.4-5.0) gm/dl Globulin 3.3 (2.5-4.0) gm/dl Albumin/Globulin Ratio 1.0 (0.9-2) Procalcitonin 0.15 (0-0.5) ng/ml Urine Color Urine Appearance (Clear) Urine pH (4.5-7.5) Ur Specific [place] (1.000-1.030) Urine Protein (Negative) Urine Glucose (UA) (Negative) Urine Ketones (Negative) Urine Blood (Negative) Urine Nitrite (Negative) Urine Bilirubin (Negative) Urine Urobilinogen (Negative) Ur Leukocyte Esterase (Negative) Urine WBC (Auto) (0-5) /hpf Urine RBC (Auto) (0-4) /hpf U Hyaline Cast (Auto) (0-5) /lpf U Epithel Cells (Auto) (0-5) /lpf Urine Bacteria (Auto) (Negative) SARS-CoV-2 (PCR) (Negative) Influenza Type A (PCR) (Neg) Influenza Type B (PCR) (Neg) RSV (RT-PCR) (Neg) 08/15/22 08/16/22 08/16/22 Range/Units 23:05 00:26 02:37 WBC (4.8-10.8) K/ul RBC (3.93-5.22) M/uL Hgb (12.0-16.0) g/dl Hct (34.1-44.9) % MCV (80.0-100.0) fL MCH (25.0-34.0) pg MCHC (32.0-36.0) g/dL RDW Std Deviation (36.4-46.3) fL RDW Coeff of Norris (11.5-14.5) % Plt Count (130-400) K/uL MPV (9.4-12.3) fL Immature Gran % (Auto) % Neut % (Auto) % Lymph % (Auto) % [place] % (Auto) % Eos % (Auto) % Baso % (Auto) % Neut # (Auto) (1.4-6.5) K/uL Lymph # (Auto) (1.2-3.4) K/uL [place] # (Auto) (0.24-0.82) K/uL Eos # (Auto) (0-0.50) K/uL Baso # (Auto) (0-0.2) K/uL Immature Gran # (Auto) (0.00-0.02) K/uL Sodium (136-145) mmol/L Potassium (3.5-5.1) mmol/L Chloride (98-107) mmol/L Carbon Dioxide (21-32) mmol/L Anion Gap (3-11) BUN (6-23) mg/dl Creatinine (0.6-1.2) mg/dl Est Cr Clr Drug Dosing ml/min Est GFR ( Amer) ml/min Est GFR (Non-Af Amer) ml/min BUN/Creatinine Ratio (10-20) Glucose (70-99(Fasting)) mg/dl Lactate 0.8 (0.4-2.0) mmol/L Calcium (8.5-10.1) mg/dl Magnesium (1.7-2.4) mg/dl Total Bilirubin (0.2-1.0) mg/dl Direct Bilirubin (0-0.2) mg/dl AST (13-39) U/L ALT (7-52) U/L Alkaline Phosphatase (34-104) U/L Troponin I High Sens (0-14) pg/ml Total Protein (6.0-8.3) gm/dl Albumin (3.4-5.0) gm/dl Globulin (2.5-4.0) gm/dl Albumin/Globulin Ratio (0.9-2) Procalcitonin (0-0.5) ng/ml Urine Color Yellow Urine Appearance Turbid A (Clear) Urine pH 8.0 H (4.5-7.5) Ur Specific [place] 1.012 (1.000-1.030) Urine Protein 1+ H (Negative) Urine Glucose (UA) Negative (Negative) Urine Ketones Negative (Negative) Urine Blood Negative (Negative) Urine Nitrite Negative (Negative) Urine Bilirubin Negative (Negative) Urine Urobilinogen Negative (Negative) Ur Leukocyte Esterase 3+ H (Negative) Urine WBC (Auto) >30 H (0-5) /hpf Urine RBC (Auto) 0-4 (0-4) /hpf U Hyaline Cast (Auto) 1-5 (0-5) /lpf U Epithel Cells (Auto) 5-10 H (0-5) /lpf Urine Bacteria (Auto) 4+ H (Negative) SARS-CoV-2 (PCR) NEGATIVE (Negative) Influenza Type A (PCR) Negative (Neg) Influenza Type B (PCR) Negative (Neg) RSV (RT-PCR) Negative (Neg) Imaging Data Attestation: I personally reviewed and interpreted this imaging study as follows: ECG Data Attestation: I personally reviewed and interpreted this ECG as follows: Additional Comments: EKG interpreted by me normal sinus rhythm rate of 61 LVH right bundle branch block no obvious ST segment elevation or depression LAD MDM Narrative Medical decision making differential diagnosis includes viral syndrome, upper respiratory tract infection, pneumonia, sepsis, UTI, dehydration. Plan is to check labs, sepsis protocol, observe Medical decision making differential diagnosis included viral syndrome and sepsis. Patient had an elevated white blood cell count; patient may have pneumonia. Patient had low pulse ox was given oxygen. Patient underwent CT imaging which is appreciated, the case was discussed with the hospitalist for admission Impression & Plan Pneumonia, SIRS (systemic inflammatory response syndrome) Discharge Plan Visit Data Chief Complaint: Flu Like Symptoms ED Provider: Natalio Rodriguez Discharge Problem: Pneumonia, SIRS (systemic inflammatory response syndrome) Patient Disposition: Being Evaluated by Hospitalist Forms Stand Alone Forms: My [facility] Prescriptions Prescriptions: No Action clopidogrel 75 mg tablet 75 mg PO QAM levothyroxine 50 mcg capsule 50 mcg PO DAILYBB calcium carbonate [Oyster Shell Calcium] 500 mg calcium (1,250 mg) tablet 500 mg PO QAM paroxetine HCl 20 mg tablet 20 mg PO QAM potassium chloride 20 mEq packet 20 meq PO QAM acetaminophen 325 mg capsule 650 mg PO Q4H MDD 3g PRN (Reason: Mild Pain (Scale Score 1-4)) artificial tears with lanolin Ointment 1 applic OPB BID ascorbic acid (vitamin C) [Vitamin C] 500 mg Tablet 500 mg PO BID mirtazapine 15 mg Tablet 7.5 mg PO HS Rx Instructions: 1/2 TABLET DOSE cholecalciferol (vitamin D3) [Vitamin D3] 125 mcg (5,000 unit) Tablet 125 mcg PO QAM gabapentin 300 mg capsule 300 mg PO HS Qty: 0 0RF bumetanide 1 mg tablet 1 mg PO [id number] Rx Instructions: take daily on MON/WED/FRI Referrals Referrals: [facility] ANTUNEZ [Primary Care Provider] -
[2022-08-15 23:23] LABS: Basophils # (auto) 0.07 K/uL (0-0.2); Basophils % (auto) 0.5 %; Eosinophils % (auto) 0.7 %; Hemoglobin 16.6 g/dl (12.0-16.0); Immature Granulocytes # (auto) 0.05 K/uL (0.00-0.02); Immature Granulocytes % (auto) 0.3 %; Lymphocytes # (auto) 1.33 K/uL (1.2-3.4); Lymphocytes % (auto) 9.1 %; Mean Corpuscular Hemoglobin 33.1 pg (25.0-34.0); Mean Corpuscular Hgb Conc 32.5 g/dL (32.0-36.0); Mean Corpuscular Volume 101.8 fL (80.0-100.0); Mean Platelet Volume 8.7 fL (9.4-12.3); Monocytes % (auto) 6.9 %; Neutrophils % (auto) 82.5 %; Platelet Count 434 K/uL (130-400); RDW Coefficient of Variation 13.9 % (11.5-14.5); RDW Standard Deviation 52.6 fL (36.4-46.3); Red Blood Count 5.01 M/uL (3.93-5.22); White Blood Count 14.55 K/ul (4.8-10.8)
[2022-08-15 23:53] LABS: Albumin Level 3.4 gm/dl (3.4-5.0); BUN Creatinine Ratio 13.4 (10-20); Bilirubin Direct 0.2 mg/dl (0-0.2); Bilirubin,Total 0.6 mg/dl (0.2-1.0); Calcium 10.7 mg/dl (8.5-10.1); Creatinine Clr Calc Pharmacy 18.9 ml/min; Est GFR (African American) 19.6 ml/min; Est GFR (Non-African American) 16.9 ml/min; Globulin 3.3 gm/dl (2.5-4.0); Magnesium 2.6 mg/dl (1.7-2.4); Total Protein 6.7 gm/dl (6.0-8.3)
[2022-08-15 23:55] LABS: Troponin I High Sensitivity 23.4 pg/ml (0-14)
[2022-08-16 00:11] LABS: Influenza A virus by PCR Negative (Neg); Influenza B virus by PCR Negative (Neg); RSV by PCR Negative (Neg); SARS CoV2 RNA(COVID-19)Cepheid NEGATIVE (Negative)
[2022-08-16] MEDS ORDERED: AZITHROMYCIN 500 MG in DEXTROSE 5% 250 ML IV STA (02:12)
[2022-08-16] MEDS ORDERED: cefTRIAXone SODIUM 2,000 MG/70 ML BAG IV STA (02:12)
--- NOTE | 2022-08-16 02:55 | History & Physical Report ---
Date of Service August 16, 2022 Assessment & Plan (1) UTI (urinary tract infection): Plan: 81yo female presenting from [facility] with complaint of fever, generalized malaise, nausea with two episodes of vomiting prior to arrival. Recent URI. Presently afebrile, HD stable. Mild hypoxia - 91% on room air with no prior use of O2 recorded. Labs with leukocytosis. UA suggestive of infection. CT abdomen with perinephric stranding - question UTI, ascending infection as possible source. -Admit to medical -Follow cultures sent from ER -Ceftriaxone 2gm IV daily -Gentle hydration - LR at 100mL/hr x 2 liters -Tylenol and Zofran PRN Macrocytosis with [id number]. Possible hemoconcentration on CBC with Hgb=16.6, Hct=51 -Check B12 and Folate -Repeat CBC after hydration (2) Hypothyroidism: Plan: Chronic. TSH has been stable and acceptable - last 3.141 on 03/03/22 -Continue Synthroid 50mcg po daily (3) Depression: Plan: Chronic. Symptoms well controlled on Paxil -Continue Paxil 20mg po qAM (4) Chronic kidney disease, stage 4 (severe): Plan: BUN and Cr is near baseline. Patient appears clinically dry on exam -Gentle hydration with LR at 100mL/hr x 2 liters -Will hold Bumex for now -Monitor weights, close attention to volume status to avoid overload F/E/N - LR, monitor electroltyes and replete as needed, Regular diet as tolerated Ppx - Heparin Code - DNR/DNI per discussion with patient Dispo - Observation to medical POC - SonVargas is POA - [phone] History of Present Illness Chief Complaint: fever Primary Care Provider: [facility] Ebony Esposito is an 81yo female presenting from [facility] with complaint of fever. Patient reports not feeling well over the last week. She has had cough, congestion and URI symptoms. Yesterday she felt very ill and couldn't eat or get out of bed. Today she had some nausea with three episodes of non-bloody/non-bilious emesis. She states that she has been having fevers a home. She saw the physician at [facility] and it was recommended that she come to the ER for further evaluation. She denies chest pain, SOB, abdominal pain or diarrhea. She vomited prior to arrival but has had no further nausea or vomiting. She denies dysuria. She has some mild lower abdominal pain. Otherwise she is without complaint. In the Er she is afebrile, bradycardic at 57bpm, 91% on 2L NC Incontinent of urine. Straight cath performed with return of foul smelling dirty appearing urine. ER Course: Ceftriaxone 2gm IV Allergies Allergy/AdvReac Type Severity Reaction Status Date / Time iodine Allergy Unknown Unknown Verified 08/16/22 00:36 NSAIDS (Non-Steroidal Allergy Unknown Unknown Verified 03/13/21 08:39 Anti-Inflamma tositumomab iodine-131 Allergy Unknown Unknown Unverified 08/16/22 00:36 Penicillins Allergy Unknown Verified 08/16/22 00:36 Home Medications Medication Instructions Recorded Confirmed Type acetaminophen 325 mg capsule 650 mg PO Q4H PRN Mild Pain (Scale 10/22/19 08/16/22 History Score 1-4) calcium carbonate 500 mg calcium 500 mg PO QAM 10/22/19 08/16/22 History (1,250 mg) tablet (Oyster Shell Calcium) clopidogrel 75 mg tablet 75 mg PO QAM 10/22/19 08/16/22 History levothyroxine 50 mcg capsule 50 mcg PO DAILYBB 10/22/19 08/16/22 History paroxetine HCl 20 mg tablet 20 mg PO QAM 10/22/19 08/16/22 History potassium chloride 20 mEq oral 20 meq PO QAM 10/22/19 08/16/22 History packet artificial tears with lanolin eye 1 applic OPB BID Dry eye(s) 12/08/20 08/16/22 History ointment ascorbic acid (vitamin C) 500 mg 500 mg PO BID 12/08/20 08/16/22 History tablet (Vitamin C) cholecalciferol (vitamin D3) 125 125 mcg PO QAM 12/08/20 08/16/22 History mcg (5,000 unit) tablet (Vitamin D3) mirtazapine 15 mg tablet 7.5 mg PO HS 12/08/20 08/16/22 History gabapentin 300 mg capsule 300 mg PO HS #0 caps 12/12/20 08/16/22 Rx bumetanide 1 mg tablet 1 mg PO 3XWK 08/16/22 08/16/22 History Past Med/Surg History Medical History Ambulatory dysfunction Chronic kidney disease, stage 4 (severe) GI bleed Hyperlipidemia Hypothyroidism Osteoarthritis Polyneuropathy Recurrent falls Social History Smoking Status: Former smoker Tobacco Type: Cigarettes Second Hand Exposure: No; Hx Alcohol Use: No Hx Substance Use: No Preferred Language: Tajik Communication Ability: Effective Vet Assistant Required: No Beliefs That Will Affect Care: None Current Living Situation: Personal Care Facility Current Living Situation Comment: assisted living Feels Safe at Home: Yes Assistive Devices: None Review of Systems Review of Systems: All systems reviewed & are unremarkable except as noted in HPI & below Physical Exam Physical Exam: General: patient resting comfortably, NAD, non-toxic in appearance, AA&O x 4 Skin: warm, dry, intact, no rashes or lesions HEENT: NC/AT, PERRL, EOMI, anicteric sclera, conjunctiva without injection, external ear normal to inspection and nontender, nares patent, dry mucus membranes, dentition intact, no oropharyngeal lesions, neck supple, trachea midline, no LAD, no thyromegaly, no JVD Heart: +S1/S2, regular, no m/r/g Lungs: equal air entry bilaterally, no rales/rhonchi/wheezes Abd: +BS, soft, NT/ND, no masses/organomegaly/ascites Ext: warm, 2+ pulses in UE/LE bilaterally, no clubbing/cyanosis or edema Neuro: nonfocal, patient AA&O x 4, speech intact, no facial droop, moving all extremities on command with equal strength 5/5 Results & Data Results & Data (MN) Vital Signs (Past 12 Hours) Vital Signs Temp Pulse Resp BP Pulse Ox O2 Del Method O2 Flow Rate 08/16/22 00:00 57 L 18 138/60 91 Nasal Cannula 2 08/15/22 22:58 62 18 142/90 H 94 Nasal Cannula 2 08/16/22 00:05 90 91 Nasal Cannula 2 08/15/22 22:27 36.6 C 63 18 170/69 H 94 Nasal Cannula 2 Laboratory Results Laboratory Results WBC 14.55 K/ul (4.8-10.8) H 08/15/22 23:02 RBC 5.01 M/uL (3.93-5.22) 08/15/22 23:02 Hgb 16.6 g/dl (12.0-16.0) H 08/15/22 23:02 Hct 51.0 % (34.1-44.9) H 08/15/22 23:02 MCV 101.8 fL (80.0-100.0) H 08/15/22 23:02 MCH 33.1 pg (25.0-34.0) 08/15/22 23:02 MCHC 32.5 g/dL (32.0-36.0) 08/15/22 23:02 RDW Std Deviation 52.6 fL (36.4-46.3) H 08/15/22 23:02 RDW Coeff of Norris 13.9 % (11.5-14.5) 08/15/22 23:02 Plt Count 434 K/uL (130-400) H 08/15/22 23:02 MPV 8.7 fL (9.4-12.3) L 08/15/22 23:02 Immature Gran % (Auto) 0.3 % 08/15/22 23:02 Neut % (Auto) 82.5 % 08/15/22 23:02 Lymph % (Auto) 9.1 % 08/15/22 23:02 Dixon % (Auto) 6.9 % 08/15/22 23:02 Eos % (Auto) 0.7 % 08/15/22 23:02 Baso % (Auto) 0.5 % 08/15/22 23:02 Neut # (Auto) 12.00 K/uL (1.4-6.5) H 08/15/22 23:02 Lymph # (Auto) 1.33 K/uL (1.2-3.4) 08/15/22 23:02 Dixon # (Auto) 1.00 K/uL (0.24-0.82) H 08/15/22 23:02 Eos # (Auto) 0.10 K/uL (0-0.50) 08/15/22 23:02 Baso # (Auto) 0.07 K/uL (0-0.2) 08/15/22 23:02 Immature Gran # (Auto) 0.05 K/uL (0.00-0.02) H 08/15/22 23:02 Sodium 142 mmol/L (136-145) 08/15/22 23:02 Potassium 5.0 mmol/L (3.5-5.1) 08/15/22 23:02 Chloride 111 mmol/L (98-107) H 08/15/22 23:02 Carbon Dioxide 25 mmol/L (21-32) 08/15/22 23:02 Anion Gap 6 (3-11) 08/15/22 23:02 BUN 34 mg/dl (6-23) H 08/15/22 23:02 Creatinine 2.53 mg/dl (0.6-1.2) H 08/15/22 23:02 Est Cr Clr Drug Dosing 18.9 ml/min 08/15/22 23:02 Est GFR ( Amer) 19.6 ml/min 08/15/22 23:02 Est GFR (Non-Af Amer) 16.9 ml/min 08/15/22 23:02 BUN/Creatinine Ratio 13.4 (10-20) 08/15/22 23:02 Glucose 103 mg/dl (70-99(Fasting)) H 08/15/22 23:02 Lactate 0.8 mmol/L (0.4-2.0) 08/16/22 00:26 Calcium 10.7 mg/dl (8.5-10.1) H 08/15/22 23:02 Magnesium 2.6 mg/dl (1.7-2.4) H 08/15/22 23:02 Total Bilirubin 0.6 mg/dl (0.2-1.0) 08/15/22 23:02 Direct Bilirubin 0.2 mg/dl (0-0.2) 08/15/22 23:02 AST 13 U/L (13-39) 08/15/22 23:02 ALT 9 U/L (7-52) 08/15/22 23:02 Alkaline Phosphatase 66 U/L (34-104) 08/15/22 23:02 Troponin I High Sens 23.4 pg/ml (0-14) H 08/15/22 23:02 Total Protein 6.7 gm/dl (6.0-8.3) 08/15/22 23:02 Albumin 3.4 gm/dl (3.4-5.0) 08/15/22 23:02 Globulin 3.3 gm/dl (2.5-4.0) 08/15/22 23:02 Albumin/Globulin Ratio 1.0 (0.9-2) 08/15/22 23:02 Procalcitonin 0.15 ng/ml (0-0.5) 08/15/22 23:02 Urine Color Yellow 08/16/22 02:37 Urine Appearance Turbid (Clear) A 08/16/22 02:37 Urine pH 8.0 (4.5-7.5) H 08/16/22 02:37 Ur Specific Douglas 1.012 (1.000-1.030) 08/16/22 02:37 Urine Protein 1+ (Negative) H 08/16/22 02:37 Urine Glucose (UA) Negative (Negative) 08/16/22 02:37 Urine Ketones Negative (Negative) 08/16/22 02:37 Urine Blood Negative (Negative) 08/16/22 02:37 Urine Nitrite Negative (Negative) 08/16/22 02:37 Urine Bilirubin Negative (Negative) 08/16/22 02:37 Urine Urobilinogen Negative (Negative) 08/16/22 02:37 Ur Leukocyte Esterase 3+ (Negative) H 08/16/22 02:37 Urine WBC (Auto) >30 /hpf (0-5) H 08/16/22 02:37 Urine RBC (Auto) 0-4 /hpf (0-4) 08/16/22 02:37 U Hyaline Cast (Auto) 1-5 /lpf (0-5) 08/16/22 02:37 U Epithel Cells (Auto) 5-10 /lpf (0-5) H 08/16/22 02:37 Urine Bacteria (Auto) 4+ (Negative) H 08/16/22 02:37 SARS-CoV-2 (PCR) NEGATIVE (Negative) 08/15/22 23:05 Influenza Type A (PCR) Negative (Neg) 08/15/22 23:05 Influenza Type B (PCR) Negative (Neg) 08/15/22 23:05 RSV (RT-PCR) Negative (Neg) 08/15/22 23:[address] Abdomen - per STAT rad - mild to moderate cardiomegaly with CA calcification. Bilateral lower lobe atelectasis with vascular crowding, mild bilateral pleural thickening versus trace effusions. Unremarkable liver. S/p cholecystectomy with nonspecific mild biliary distention. Normal pancreas. Bilateral atrophy with thinning of the renal cortices and nonspecific perinephric stranding. Tiny calcifications measuring less than 2mm noted in right kidney. Diverticulosis wihthout diverticultitis. Normal bladder. ECG Additional Comments: EKG shows NSR at 61, RBBB, LVH with repolarization pattern Code Status & VTE Plan VTE Prophylaxis Plan VTE Prophylaxis will be ordered: Yes PG Care Time/CCT Total # of Minutes Spent Total Time Spent with Patient: Total time spent is greater than 50% in coordination of care (as documented) at patient's floor/unit and/or counseling patient: Coding Level of Care Code INT OBSERVATION CARE 50M LVL 2 Diagnoses UTI (urinary tract infection) N39.0 Hypothyroidism E03.9 Depression F32.9 Chronic kidney disease, stage 4 (severe) N18.4
[2022-08-16 03:01] LABS: Appearance Urine Turbid (Clear); Bacteria Urine Automated 4+ (Negative); Bilirubin Urine Negative (Negative); Blood Urine Negative (Negative); Color Urine Yellow; Glucose Urine UA Negative (Negative); Ketones Urine Negative (Negative); Leukocyte Esterase Urine 3+ (Negative); Nitrite Urine Negative (Negative); RBC Urine Automated 0-4 /hpf (0-4); Specific Gravity Urine 1.012 (1.000-1.030); Urobilinogen Urine Negative (Negative); WBC Urine Automated >30 /hpf (0-5)
[2022-08-16 03:02] LABS: Protein Urine 1+ (Negative)
[2022-08-16] MEDS ORDERED: ONDANSETRON INJ 2 MG/ML 2 ML VIAL IV PRN (06:13)
[2022-08-16] MEDS ORDERED: LACTATED RINGER'S 1,000 ML IV SCH (06:13)
[2022-08-16] MEDS ORDERED: ACETAMINOPHEN 325 MG TAB PO PRN (06:13)
--- NOTE | 2022-08-16 07:17 | XRay Report ---
SINGLE VIEW CHEST CLINICAL HISTORY: Sepsis. FINDINGS: 2 AP, portable, upright chest radiographs are compared to study dated 03/13/2021. The heart i s mildly enlarged noting atherosclerotic calcification of the thoracic aorta. The pulmonary vasculatu re is noncongested. There is elevation of the right hemidiaphragm with bibasilar scarring/atelectasis . No airspace consolidation or large pleural effusion is identified. No pneumothorax is seen. The ske letal structures are osteopenic. The bony thorax is grossly intact. Advanced arthritic change is seen in the shoulders. IMPRESSION: Mild cardiomegaly with no acute cardiopulmonary abnormality identified. ACT 112: Negative or not required by law. Electronically signed by: Honorio Page M.D. 08/16/2022 7:15 AM
--- NOTE | 2022-08-16 07:44 | CT Scan Report ---
CT SCAN OF THE ABDOMEN AND PELVIS WITHOUT IV CONTRAST CLINICAL HISTORY: Vomiting COMPARISON STUDY: Abdominal CT dated 03/13/2021. TECHNIQUE: CT scan of the abdomen and pelvis is performed from the lung bases to the proximal femora. Images are reviewed in the axial, sagittal, and coronal planes. IV contrast was not administered for this examination as per the referring clinician. Note that the examination was performed in signific ant suboptimal fashion without oral and IV contrast. The examination is also degraded by motion artif act, as well as streak artifact from the left arm which could not be elevated above the abdomen. A do se lowering technique was utilized adhering to the principles of ALARA. CT DOSE: 2090.38 mGy.cm FINDINGS: Lung bases: The heart is enlarged and without pericardial effusion. There are coronary artery calcifi cations. There is bibasilar scarring/atelectasis. Trace pleural effusions are noted. No airspace cons olidation is seen typical for pneumonia. There is a small hiatal hernia. Liver: The unenhanced liver is normal in size, contour, and attenuation. There is no intrahepatic dragan iary ductal dilatation. Gallbladder: Surgically absent noting clips in the gallbladder fossa. Spleen: A normal spleen is not identified. Splenules are noted below the left hemidiaphragm. These ar e unchanged from previous. Pancreas: The unenhanced pancreas is grossly unremarkable. Adrenal glands: Unremarkable. Kidneys: The unenhanced kidneys are atrophic and without hydronephrosis. There are at least 2 punctat e nonobstructing right renal calculi no left renal calculi are clearly identified. There is no eviden ce of contour deforming renal mass lesion. Abdominal vasculature: The abdominal aorta is normal in course and caliber noting moderate atheroscle rotic calcification. Bowel: There is rectosigmoid fecal retention and moderate constipation. No bowel obstruction is seen. There is advanced colonic diverticulosis without CT evidence of acute diverticulitis. The appendix i s well-visualized and normal. Peritoneum: There is no intraperitoneal free air or abdominal ascites. Lymphadenopathy: None. Pelvic viscera: Evaluation of the pelvis is degraded by streak artifact from a left hip arthroplasty. The bladder is mildly distended but otherwise normal as imaged. There are numerous calcified uterine fibroids. No adnexal lesion is seen. Skeletal structures: The skeletal structures are osteopenic. There is a chronic compression deformity of T11. Moderate lumbosacral spondylosis is observed. No lytic or blastic lesions are seen. A left h ip arthroplasty is in place. IMPRESSION: 1. Significantly suboptimal examination without oral and IV contrast. There is also streak and motion artifact. 2. No acute infectious or inflammatory findings are identified. 3. Cardiomegaly and trace pleural effusions. 4. Rectosigmoid fecal retention and moderate constipation. 5. Advanced colonic diverticulosis without CT evidence of acute diverticulitis. 6. Additional findings as above. ACT 112: Negative or not required by law. Electronically signed by: Honorio Page M.D. 08/16/2022 7:42 AM
[2022-08-16] MEDS: LEVOTHYROXINE SODIUM 50 MCG TABLET PO SCH (07:53)
[2022-08-16] MEDS: ARTIFICIAL TEARS OP SCH ×2 (07:54→20:57)
--- NOTE | 2022-08-16 08:30 | Hospitalist Progress Note ---
Date of Service August 16, 2022 Assessment & Plan (1) UTI (urinary tract infection): Plan: 81yo female presenting from [facility] with complaint of fever, generalized malaise, nausea with two episodes of vomiting prior to arrival. Recent URI. Presently afebrile, HD stable. Mild hypoxia - 91% on room air with no prior use of O2 recorded (but could have underlying RIYA very likely). Labs with leukocytosis. UA suggestive of infection. CT abdomen with perinephric stranding - question UTI, ascending infection as possible source. IV hydration LR @ 100cc/hr, changed to NS @ 100cc/hr x2L -Cr 2.53-->2.41 (baseline appeared 1.4-2 up until March last year, then has been >2) -Does not appear to have been seen in follow up by nephrology during that time, would arrange at d/c WBC 14.2k , monitor Continue Ceftriaxone 2gm IV daily Monitor urine cx/blood cultures (prior Ecoli, some resistance but sensitive to Ceftriaxone) Hgb 17.1, suspect hemoconcentration from dehydration, however note CTAP w/ cardiomegaly with trace pleural effusions. Monitor on repeat w/ hydration. Macrocytosis -- checking B12/folate -- see below Of note, mild confusion, appears Ca level elevated to 10.7, prior elevations --> on Vit D 125mcg daily along with Cacarbonate 500mg daily --> she does endorse taking these --> checkng VitD/PTH --> VIT D elevated to >120, STOP VIT D/CA supplementation CTAP did note 2 punctate nonobstructing R renal calculi Cough/Congestion/Sputum change/Cardiomegaly and trace pleural effusions -- did report feeling weak/cough/congestion/yellow sputum production --> sputum cx if able to obtain --> Add back on Azithromycin for possible HAP as well, got dose on admit Per med rec, typically patient to be maintained on bumex 1mg 3x/week with 20meq PO daily on med list -- given CKD 4 and K 5.0 on labs, consider changing this to only days when she is needing her bumex at [facility] --> patient aware of vit d/ca medications but DENIED ever taking diuretic bumex at [facility] --> check BNP, ECHO if elevated (prior ECHO March 2021, LV grossly normal, EF 65-70%, moderate concentric LVH. Diastolic dysfunction grade III (restrictive pattern), consistent with markedly increased LA pressure. No regional wma) Consult with cards/nephro if needed given CKD IV and grade III diastolic dysfunction with likely elevated BNP/congestion on imaging (2) Macrocytosis: Plan: MCV 103.9 Prior iron studies with iron 21/trans% 6 in December 2020 when in with UTI/GI bleed --> at that time appears Vitamin B6 was LOW at 2, MMA level LOW at 342 (B12 level at that time wnl at 544) sx irritability, confusion, and depression, andperipheral neuropathy Will start B6 supplementation given prior value and not on medication list Monitor CBC, check peripheral smear IVf hydration as above (3) Chronic kidney disease, stage 4 (severe): Plan: Appearing dry on exam IVF hydration ordered as outlined, however may need assistance with card/nephro given lungs w/ cardiomegaly/pleural effusions, checking BNP Monitor BMP --> Of note, to be on Bumex 1mg 3x/week however patient states she DOES NOT TAKE ANY DIURETIC --> also on med list 3x/week PO K and K 5 on labs, would NOT continue that. Will need to address diuretics however if patient really not taking these Making urine, clearer yellow in purewick Monitor I&O BMP in AM (4) Hypercalcemia: Plan: Of note, mild confusion on admit/fatigue/stones appears Ca level elevated to 10.7, prior elevations --> on Vit D 125mcg daily along with Cacarbonate 500mg daily --> she does endorse taking these --> checkng VitD/PTH --> VIT D elevated to >120, STOP VIT D/CA supplementation CTAP did note 2 punctate nonobstructing R renal calculi IVF hydration as above Monitor in AM (5) Diastolic CHF: Plan: Not significant LE edema as patient reports at home at times prior ECHO March 2021, LV grossly normal, EF 65-70%, moderate concentric LVH. Diastolic dysfunction grade III (restrictive pattern), consistent with markedly increased LA pressure. No regional wma IVF as above Imaging did note cardiomegaly, pleural effusions BNP checked, elevated --> ordering ECHO for eval. HS quiet, denies SOB/CP but did endorse cough/congestion/sputum production (however noted to be yellow sputum) Monitor weights, I&O (appear weights in March 2021 around 80-84kg, 90kg currently) Low salt diet (6) Hypothyroidism: Plan: Chronic. TSH wnl on check Continue Synthroid 50mcg daily (7) Depression: Plan: Chronic. Symptoms well controlled on Paxil Continue Paxil 20mg po qAM Likely worsened by elevated Ca levels monitor Plan Code - DNR/DNI per discussion with patient Dispo - Observation to medical POC - Son, Vargas Esposito is POA - [phone] Admission and Anticipated Discharge Date Admission Date: August 16, 2022 Subjective BRIDGE NOTE: ADMITTED AFTER MIDNIGHT eval this morning,sitting up in bed confused at times but states she is in the hospital and the year is 2021. states two of them came from rehab to the hospital but she doesn't rememebr the other ladies name. her son vargas works in the [employer]. she was hopeful for d/c today. asked who helps do her pills and she states she does them herself. endorses taking Vitamin D/calcium -- discussed STOPPING these Also, mentioned bumex, she has no idea what I'm talking about. She states that she does not take a water pill but that she does typically have LE edema. Fevers at home/cough/congestion, states had yellow sputum production. No hx asthma/COPD. Physical Exam Physical Exam: General: WD/WN obese female sitting up in bed eating breakfast, NAD, alert to person , states year 2021 and knows she is in the hospital but intermittent confusion to events and reported seeing another lady in the room with her that was brought in from [place] [facility] HEENT; head normocephalic, atraumatic, mm DRY, trachea midline, +JVD ResP: diminished due to obesity, diminished BS in the bases, bibasilar crackles, no wheezing, on room air CV: RRR, S4, trace LE edema, calves nontender GI: +BS, obese, nontender : purewick draining yellow but clearer yellow urine MSk/Neuro: follows commands, no focal deficit, stregth equal but decreased throughout (reports wheelchair bound at baseline) Psych: AO to person/place/year, intermittent confusion Results & Data Results & Data ([facility]) Vital Signs (Past 12 Hours) Vital Signs Temp Pulse Pulse Resp BP BP Pulse Ox 08/16/22 06:00 08/16/22 06:00 36.4 C L 52 L 16 160/71 H 92 08/16/22 05:44 08/16/22 05:02 55 L 22 166/78 H 94 08/16/22 04:01 53 L 18 153/78 H 92 08/16/22 03:31 52 L 21 156/68 H 92 08/16/22 02:31 55 L 18 148/77 H 91 08/16/22 01:36 58 L 19 123/83 90 08/16/22 00:30 57 L 16 146/82 H 93 08/16/22 00:00 57 L 18 138/60 91 08/15/22 22:58 62 18 142/90 H 94 08/16/22 00:05 90 91 08/15/22 22:27 36.6 C 63 18 170/69 H 94 O2 Del Method O2 Flow Rate 08/16/22 06:00 Room Air 08/16/22 06:00 Room Air 08/16/22 05:44 Room Air 08/16/22 05:02 Room Air 08/16/22 04:01 Room Air 08/16/22 03:31 Room Air 08/16/22 02:31 Room Air 08/16/22 01:36 Room Air 08/16/22 00:30 Room Air 08/16/22 00:00 Nasal Cannula 2 08/15/22 22:58 Nasal Cannula 2 08/16/22 00:05 Nasal Cannula 2 08/15/22 22:27 Nasal Cannula 2 Laboratory Results 08/16/22 08/16/22 08/16/22 Range/Units 12:15 09:37 09:37 WBC 14.20 H (4.8-10.8) K/ul RBC 5.08 (3.93-5.22) M/uL Hgb 17.1 H (12.0-16.0) g/dl Hct 52.8 H (34.1-44.9) % MCV 103.9 H (80.0-100.0) fL MCH 33.7 (25.0-34.0) pg MCHC 32.4 (32.0-36.0) g/dL RDW Std Deviation 54.4 H (36.4-46.3) fL RDW Coeff of [place] 13.9 (11.5-14.5) % Plt Count 451 H (130-400) K/uL MPV 9.2 L (9.4-12.3) fL Immature Gran % (Auto) % Neut % (Auto) % Lymph % (Auto) % [place] % (Auto) % Eos % (Auto) % Baso % (Auto) % Neut # (Auto) (1.4-6.5) K/uL Lymph # (Auto) (1.2-3.4) K/uL [place] # (Auto) (0.24-0.82) K/uL Eos # (Auto) (0-0.50) K/uL Baso # (Auto) (0-0.2) K/uL Immature Gran # (Auto) (0.00-0.02) K/uL Sodium 141 (136-145) mmol/L Potassium 3.9 D (3.5-5.1) mmol/L Chloride 106 (98-107) mmol/L Carbon Dioxide 27 (21-32) mmol/L Anion Gap 8 (3-11) BUN 34 H (6-23) mg/dl Creatinine 2.41 H (0.6-1.2) mg/dl Est Cr Clr Drug Dosing 19.7 ml/min Est GFR ( Amer) 20.8 ml/min Est GFR (Non-Af Amer) 18.0 ml/min BUN/Creatinine Ratio 14.1 (10-20) Glucose 107 H (70-99(Fasting)) mg/dl Lactate (0.4-2.0) mmol/L Calcium 10.7 H (8.5-10.1) mg/dl Magnesium (1.7-2.4) mg/dl Total Bilirubin (0.2-1.0) mg/dl Direct Bilirubin (0-0.2) mg/dl AST (13-39) U/L ALT (7-52) U/L Alkaline Phosphatase (34-104) U/L Troponin I High Sens 25.6 H (0-14) pg/ml B-Natriuretic Peptide (0-100) pg/ml Total Protein (6.0-8.3) gm/dl Albumin (3.4-5.0) gm/dl Globulin (2.5-4.0) gm/dl Albumin/Globulin Ratio (0.9-2) 25-OH Vitamin D Total (30-100) ng/ml Procalcitonin (0-0.5) ng/ml TSH (0.300-4.500) uIu/ml PTH Intact (12.0-88.0) pg/ml Urine Color Urine Appearance (Clear) Urine pH (4.5-7.5) Ur Specific [place] (1.000-1.030) Urine Protein (Negative) Urine Glucose (UA) (Negative) Urine Ketones (Negative) Urine Blood (Negative) Urine Nitrite (Negative) Urine Bilirubin (Negative) Urine Urobilinogen (Negative) Ur Leukocyte Esterase (Negative) Urine WBC (Auto) (0-5) /hpf Urine RBC (Auto) (0-4) /hpf U Hyaline Cast (Auto) (0-5) /lpf U Epithel Cells (Auto) (0-5) /lpf Urine Bacteria (Auto) (Negative) SARS-CoV-2 (PCR) (Negative) Influenza Type A (PCR) (Neg) Influenza Type B (PCR) (Neg) RSV (RT-PCR) (Neg) 08/16/22 08/16/22 08/16/22 Range/Units 09:34 09:34 09:34 WBC (4.8-10.8) K/ul RBC (3.93-5.22) M/uL Hgb (12.0-16.0) g/dl Hct (34.1-44.9) % MCV (80.0-100.0) fL MCH (25.0-34.0) pg MCHC (32.0-36.0) g/dL RDW Std Deviation (36.4-46.3) fL RDW Coeff of Norris (11.5-14.5) % Plt Count (130-400) K/uL MPV (9.4-12.3) fL Immature Gran % (Auto) % Neut % (Auto) % Lymph % (Auto) % [place] % (Auto) % Eos % (Auto) % Baso % (Auto) % Neut # (Auto) (1.4-6.5) K/uL Lymph # (Auto) (1.2-3.4) K/uL [place] # (Auto) (0.24-0.82) K/uL Eos # (Auto) (0-0.50) K/uL Baso # (Auto) (0-0.2) K/uL Immature Gran # (Auto) (0.00-0.02) K/uL Sodium (136-145) mmol/L Potassium (3.5-5.1) mmol/L Chloride (98-107) mmol/L Carbon Dioxide (21-32) mmol/L Anion Gap (3-11) BUN (6-23) mg/dl Creatinine (0.6-1.2) mg/dl Est Cr Clr Drug Dosing ml/min Est GFR ( Amer) ml/min Est GFR (Non-Af Amer) ml/min BUN/Creatinine Ratio (10-20) Glucose (70-99(Fasting)) mg/dl Lactate (0.4-2.0) mmol/L Calcium (8.5-10.1) mg/dl Magnesium (1.7-2.4) mg/dl Total Bilirubin (0.2-1.0) mg/dl Direct Bilirubin (0-0.2) mg/dl AST (13-39) U/L ALT (7-52) U/L Alkaline Phosphatase (34-104) U/L Troponin I High Sens (0-14) pg/ml B-Natriuretic Peptide (0-100) pg/ml Total Protein (6.0-8.3) gm/dl Albumin (3.4-5.0) gm/dl Globulin (2.5-4.0) gm/dl Albumin/Globulin Ratio (0.9-2) 25-OH Vitamin D Total > 120.0 H (30-100) ng/ml Procalcitonin (0-0.5) ng/ml TSH 2.439 (0.300-4.500) uIu/ml PTH Intact 36.2 (12.0-88.0) pg/ml Urine Color Urine Appearance (Clear) Urine pH (4.5-7.5) Ur Specific [place] (1.000-1.030) Urine Protein (Negative) Urine Glucose (UA) (Negative) Urine Ketones (Negative) Urine Blood (Negative) Urine Nitrite (Negative) Urine Bilirubin (Negative) Urine Urobilinogen (Negative) Ur Leukocyte Esterase (Negative) Urine WBC (Auto) (0-5) /hpf Urine RBC (Auto) (0-4) /hpf U Hyaline Cast (Auto) (0-5) /lpf U Epithel Cells (Auto) (0-5) /lpf Urine Bacteria (Auto) (Negative) SARS-CoV-2 (PCR) (Negative) Influenza Type A (PCR) (Neg) Influenza Type B (PCR) (Neg) RSV (RT-PCR) (Neg) 08/16/22 08/16/22 08/16/22 Range/Units 09:34 07:18 02:37 WBC (4.8-10.8) K/ul RBC (3.93-5.22) M/uL Hgb (12.0-16.0) g/dl Hct (34.1-44.9) % MCV (80.0-100.0) fL MCH (25.0-34.0) pg MCHC (32.0-36.0) g/dL RDW Std Deviation (36.4-46.3) fL RDW Coeff of Norris (11.5-14.5) % Plt Count (130-400) K/uL MPV (9.4-12.3) fL Immature Gran % (Auto) % Neut % (Auto) % Lymph % (Auto) % [place] % (Auto) % Eos % (Auto) % Baso % (Auto) % Neut # (Auto) (1.4-6.5) K/uL Lymph # (Auto) (1.2-3.4) K/uL [place] # (Auto) (0.24-0.82) K/uL Eos # (Auto) (0-0.50) K/uL Baso # (Auto) (0-0.2) K/uL Immature Gran # (Auto) (0.00-0.02) K/uL Sodium (136-145) mmol/L Potassium (3.5-5.1) mmol/L Chloride (98-107) mmol/L Carbon Dioxide (21-32) mmol/L Anion Gap (3-11) BUN (6-23) mg/dl Creatinine (0.6-1.2) mg/dl Est Cr Clr Drug Dosing ml/min Est GFR ( Amer) ml/min Est GFR (Non-Af Amer) ml/min BUN/Creatinine Ratio (10-20) Glucose (70-99(Fasting)) mg/dl Lactate (0.4-2.0) mmol/L Calcium (8.5-10.1) mg/dl Magnesium (1.7-2.4) mg/dl Total Bilirubin (0.2-1.0) mg/dl Direct Bilirubin (0-0.2) mg/dl AST (13-39) U/L ALT (7-52) U/L Alkaline Phosphatase (34-104) U/L Troponin I High Sens 24.4 H (0-14) pg/ml B-Natriuretic Peptide 618 H (0-100) pg/ml Total Protein (6.0-8.3) gm/dl Albumin (3.4-5.0) gm/dl Globulin (2.5-4.0) gm/dl Albumin/Globulin Ratio (0.9-2) 25-OH Vitamin D Total (30-100) ng/ml Procalcitonin (0-0.5) ng/ml TSH (0.300-4.500) uIu/ml PTH Intact (12.0-88.0) pg/ml Urine Color Yellow Urine Appearance Turbid A (Clear) Urine pH 8.0 H (4.5-7.5) Ur Specific [place] 1.012 (1.000-1.030) Urine Protein 1+ H (Negative) Urine Glucose (UA) Negative (Negative) Urine Ketones Negative (Negative) Urine Blood Negative (Negative) Urine Nitrite Negative (Negative) Urine Bilirubin Negative (Negative) Urine Urobilinogen Negative (Negative) Ur Leukocyte Esterase 3+ H (Negative) Urine WBC (Auto) >30 H (0-5) /hpf Urine RBC (Auto) 0-4 (0-4) /hpf U Hyaline Cast (Auto) 1-5 (0-5) /lpf U Epithel Cells (Auto) 5-10 H (0-5) /lpf Urine Bacteria (Auto) 4+ H (Negative) SARS-CoV-2 (PCR) (Negative) Influenza Type A (PCR) (Neg) Influenza Type B (PCR) (Neg) RSV (RT-PCR) (Neg) 08/16/22 08/15/22 08/15/22 Range/Units 00:26 23:05 23:02 WBC (4.8-10.8) K/ul RBC (3.93-5.22) M/uL Hgb (12.0-16.0) g/dl Hct (34.1-44.9) % MCV (80.0-100.0) fL MCH (25.0-34.0) pg MCHC (32.0-36.0) g/dL RDW Std Deviation (36.4-46.3) fL RDW Coeff of Norris (11.5-14.5) % Plt Count (130-400) K/uL MPV (9.4-12.3) fL Immature Gran % (Auto) % Neut % (Auto) % Lymph % (Auto) % [place] % (Auto) % Eos % (Auto) % Baso % (Auto) % Neut # (Auto) (1.4-6.5) K/uL Lymph # (Auto) (1.2-3.4) K/uL [place] # (Auto) (0.24-0.82) K/uL Eos # (Auto) (0-0.50) K/uL Baso # (Auto) (0-0.2) K/uL Immature Gran # (Auto) (0.00-0.02) K/uL Sodium (136-145) mmol/L Potassium (3.5-5.1) mmol/L Chloride (98-107) mmol/L Carbon Dioxide (21-32) mmol/L Anion Gap (3-11) BUN (6-23) mg/dl Creatinine (0.6-1.2) mg/dl Est Cr Clr Drug Dosing ml/min Est GFR ( Amer) ml/min Est GFR (Non-Af Amer) ml/min BUN/Creatinine Ratio (10-20) Glucose (70-99(Fasting)) mg/dl Lactate 0.8 (0.4-2.0) mmol/L Calcium (8.5-10.1) mg/dl Magnesium (1.7-2.4) mg/dl Total Bilirubin (0.2-1.0) mg/dl Direct Bilirubin (0-0.2) mg/dl AST (13-39) U/L ALT (7-52) U/L Alkaline Phosphatase (34-104) U/L Troponin I High Sens (0-14) pg/ml B-Natriuretic Peptide (0-100) pg/ml Total Protein (6.0-8.3) gm/dl Albumin (3.4-5.0) gm/dl Globulin (2.5-4.0) gm/dl Albumin/Globulin Ratio (0.9-2) 25-OH Vitamin D Total (30-100) ng/ml Procalcitonin 0.15 (0-0.5) ng/ml TSH (0.300-4.500) uIu/ml PTH Intact (12.0-88.0) pg/ml Urine Color Urine Appearance (Clear) Urine pH (4.5-7.5) Ur Specific [place] (1.000-1.030) Urine Protein (Negative) Urine Glucose (UA) (Negative) Urine Ketones (Negative) Urine Blood (Negative) Urine Nitrite (Negative) Urine Bilirubin (Negative) Urine Urobilinogen (Negative) Ur Leukocyte Esterase (Negative) Urine WBC (Auto) (0-5) /hpf Urine RBC (Auto) (0-4) /hpf U Hyaline Cast (Auto) (0-5) /lpf U Epithel Cells (Auto) (0-5) /lpf Urine Bacteria (Auto) (Negative) SARS-CoV-2 (PCR) NEGATIVE (Negative) Influenza Type A (PCR) Negative (Neg) Influenza Type B (PCR) Negative (Neg) RSV (RT-PCR) Negative (Neg) 08/15/22 08/15/22 Range/Units 23:02 23:02 WBC 14.55 H (4.8-10.8) K/ul RBC 5.01 (3.93-5.22) M/uL Hgb 16.6 H (12.0-16.0) g/dl Hct 51.0 H (34.1-44.9) % MCV 101.8 H (80.0-100.0) fL MCH 33.1 (25.0-34.0) pg MCHC 32.5 (32.0-36.0) g/dL RDW Std Deviation 52.6 H (36.4-46.3) fL RDW Coeff of Norris 13.9 (11.5-14.5) % Plt Count 434 H (130-400) K/uL MPV 8.7 L (9.4-12.3) fL Immature Gran % (Auto) 0.3 % Neut % (Auto) 82.5 % Lymph % (Auto) 9.1 % [place] % (Auto) 6.9 % Eos % (Auto) 0.7 % Baso % (Auto) 0.5 % Neut # (Auto) 12.00 H (1.4-6.5) K/uL Lymph # (Auto) 1.33 (1.2-3.4) K/uL [place] # (Auto) 1.00 H (0.24-0.82) K/uL Eos # (Auto) 0.10 (0-0.50) K/uL Baso # (Auto) 0.07 (0-0.2) K/uL Immature Gran # (Auto) 0.05 H (0.00-0.02) K/uL Sodium 142 (136-145) mmol/L Potassium 5.0 (3.5-5.1) mmol/L Chloride 111 H (98-107) mmol/L Carbon Dioxide 25 (21-32) mmol/L Anion Gap 6 (3-11) BUN 34 H (6-23) mg/dl Creatinine 2.53 H (0.6-1.2) mg/dl Est Cr Clr Drug Dosing 18.9 ml/min Est GFR ( Amer) 19.6 ml/min Est GFR (Non-Af Amer) 16.9 ml/min BUN/Creatinine Ratio 13.4 (10-20) Glucose 103 H (70-99(Fasting)) mg/dl Lactate (0.4-2.0) mmol/L Calcium 10.7 H (8.5-10.1) mg/dl Magnesium 2.6 H (1.7-2.4) mg/dl Total Bilirubin 0.6 (0.2-1.0) mg/dl Direct Bilirubin 0.2 (0-0.2) mg/dl AST 13 (13-39) U/L ALT 9 (7-52) U/L Alkaline Phosphatase 66 (34-104) U/L Troponin I High Sens 23.4 H (0-14) pg/ml B-Natriuretic Peptide (0-100) pg/ml Total Protein 6.7 (6.0-8.3) gm/dl Albumin 3.4 (3.4-5.0) gm/dl Globulin 3.3 (2.5-4.0) gm/dl Albumin/Globulin Ratio 1.0 (0.9-2) 25-OH Vitamin D Total (30-100) ng/ml Procalcitonin (0-0.5) ng/ml TSH (0.300-4.500) uIu/ml PTH Intact (12.0-88.0) pg/ml Urine Color Urine Appearance (Clear) Urine pH (4.5-7.5) Ur Specific [place] (1.000-1.030) Urine Protein (Negative) Urine Glucose (UA) (Negative) Urine Ketones (Negative) Urine Blood (Negative) Urine Nitrite (Negative) Urine Bilirubin (Negative) Urine Urobilinogen (Negative) Ur Leukocyte Esterase (Negative) Urine WBC (Auto) (0-5) /hpf Urine RBC (Auto) (0-4) /hpf U Hyaline Cast (Auto) (0-5) /lpf U Epithel Cells (Auto) (0-5) /lpf Urine Bacteria (Auto) (Negative) SARS-CoV-2 (PCR) (Negative) Influenza Type A (PCR) (Neg) Influenza Type B (PCR) (Neg) RSV (RT-PCR) (Neg) Diagnostic Findings Chest X-Ray 08/15/22 22:50 SINGLE VIEW CHEST CLINICAL HISTORY: Sepsis. FINDINGS: 2 AP, portable, upright chest radiographs are compared to study dated 03/13/2021. The heart is mildly enlarged noting atherosclerotic calcification of the thoracic aorta. The pulmonary vasculature is noncongested. There is elevation of the right hemidiaphragm with bibasilar scarring/atelectasis. No airspace consolidation or large pleural effusion is identified. No pneumothorax is seen. The skeletal structures are osteopenic. The bony thorax is grossly intact. Advanced arthritic change is seen in the shoulders. IMPRESSION: Mild cardiomegaly with no acute cardiopulmonary abnormality identified. ACT 112: Negative or not required by law. Electronically signed by: Honorio Page M.D. 08/16/2022 7:15 AM Abdomen/Pelvis CT 08/16/22 00:59 CT SCAN OF THE ABDOMEN AND PELVIS WITHOUT IV CONTRAST CLINICAL HISTORY: Vomiting COMPARISON STUDY: Abdominal CT dated 03/13/2021. TECHNIQUE: CT scan of the abdomen and pelvis is performed from the lung bases to the proximal femora. Images are reviewed in the axial, sagittal, and coronal planes. IV contrast was not administered for this examination as per the referring clinician. Note that the examination was performed in significant suboptimal fashion without oral and IV contrast. The examination is also degraded by motion artifact, as well as streak artifact from the left arm which could not be elevated above the abdomen. A dose lowering technique was utilized adhering to the principles of ALARA. CT DOSE: 2090.38 mGy.cm FINDINGS: Lung bases: The heart is enlarged and without pericardial effusion. There are coronary artery calcifications. There is bibasilar scarring/atelectasis. Trace pleural effusions are noted. No airspace consolidation is seen typical for pneumonia. There is a small hiatal hernia. Liver: The unenhanced liver is normal in size, contour, and attenuation. There is no intrahepatic biliary ductal dilatation. Gallbladder: Surgically absent noting clips in the gallbladder fossa. Spleen: A normal spleen is not identified. Splenules are noted below the left hemidiaphragm. These are unchanged from previous. Pancreas: The unenhanced pancreas is grossly unremarkable. Adrenal glands: Unremarkable. Kidneys: The unenhanced kidneys are atrophic and without hydronephrosis. There are at least 2 punctate nonobstructing right renal calculi no left renal calculi are clearly identified. There is no evidence of contour deforming renal mass lesion. Abdominal vasculature: The abdominal aorta is normal in course and caliber noting moderate atherosclerotic calcification. Bowel: There is rectosigmoid fecal retention and moderate constipation. No bowel obstruction is seen. There is advanced colonic diverticulosis without CT evidence of acute diverticulitis. The appendix is well-visualized and normal. Peritoneum: There is no intraperitoneal free air or abdominal ascites. Lymphadenopathy: None. Pelvic viscera: Evaluation of the pelvis is degraded by streak artifact from a left hip arthroplasty. The bladder is mildly distended but otherwise normal as imaged. There are numerous calcified uterine fibroids. No adnexal lesion is seen. Skeletal structures: The skeletal structures are osteopenic. There is a chronic compression deformity of T11. Moderate lumbosacral spondylosis is observed. No lytic or blastic lesions are seen. 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 IMPRESSION: 1. Significantly suboptimal examination without oral and IV contrast. There is also streak and motion artifact. 2. No acute infectious or inflammatory findings are identified. 3. Cardiomegaly and trace pleural effusions. 4. Rectosigmoid fecal retention and moderate constipation. 5. Advanced colonic diverticulosis without CT evidence of acute diverticulitis. 6. Additional findings as above. ACT 112: Negative or not required by law. Electronically signed by: Honorio Page M.D. 08/16/2022 7:42 AM PG Care Time/CCT Total # of Minutes Spent Total Time Spent with Patient: Total time spent is greater than 50% in coordination of care (as documented) at patient's floor/unit and/or counseling patient: Coding Level of Care Code None Diagnoses UTI (urinary tract infection) N39.0 Macrocytosis D75.89 Chronic kidney disease, stage 4 (severe) N18.4 Hypercalcemia E83.52 Diastolic CHF I50.30 Hypothyroidism E03.9 Depression F32.9
[2022-08-16] MEDS: HEPARIN SOD 5,000 UNIT/0.5 ML VIAL SQ SCH ×2 (08:52→20:57)
[2022-08-16] MEDS: PARoxetine HCL 20 MG TAB PO SCH (08:52)
[2022-08-16] MEDS: CLOPIDOGREL BISULFATE 75 MG TAB PO SCH (08:52)
[2022-08-16] MEDS: SODIUM CHLORIDE 0.9% 1000ML 1,000 ML IV SCH ×2 (09:21→19:07)
--- NOTE | 2022-08-16 10:15 | Electrocardiogram Report ---
Test Reason : Blood Pressure : / mmHG Vent. Rate : 061 BPM Atrial Rate : 061 BPM P-R Int : 178 ms QRS Dur : 120 ms QT Int : 470 ms P-R-T Axes : 008 -07 251 degrees QTc Int : 473 ms Normal sinus rhythm Right bundle branch block Left ventricular hypertrophy with repolarization abnormality Abnormal ECG When compared with ECG of 15-MAR-2021 05:52, No significant change Confirmed by Nahun Acevedo ([id number]) on 08/16/2022 10:14:51 AM Referred By: [facility] Confirmed By:Nahun Acevedo
[2022-08-16 13:30] LABS: Hematocrit (blood only) 52.8 % (34.1-44.9); Hemoglobin 17.1 g/dl (12.0-16.0); Mean Corpuscular Hemoglobin 33.7 pg (25.0-34.0); Mean Corpuscular Hgb Conc 32.4 g/dL (32.0-36.0); Mean Corpuscular Volume 103.9 fL (80.0-100.0); Mean Platelet Volume 9.2 fL (9.4-12.3); Platelet Count 451 K/uL (130-400); RDW Coefficient of Variation 13.9 % (11.5-14.5); RDW Standard Deviation 54.4 fL (36.4-46.3); Red Blood Count 5.08 M/uL (3.93-5.22)
[2022-08-16 13:56] LABS: BUN Creatinine Ratio 14.1 (10-20); Calcium 10.7 mg/dl (8.5-10.1); Creatinine Clr Calc Pharmacy 19.7 ml/min; Est GFR (African American) 20.8 ml/min; Potassium 3.9 mmol/L (3.5-5.1)
[2022-08-16] MEDS ORDERED: bisacodyL 10 MG SUPP PR STA (14:48)
[2022-08-16] MEDS: PYRIDOXINE HCL 50 MG TAB PO SCH (16:32)
[2022-08-16 16:39] LABS: Iron 38 mcg/dl (35-150); Total Iron Binding Cap Calc 252 mcg/dl (250-450); Transferrin (FE) Percent Satur 15 % (15-50); Unsaturated Iron Binding Cap 214 mcg/dl (155-355)
[2022-08-16 16:52] LABS: T3 Free 2.06 pg/ml (2.3-4.2)
[2022-08-16] MEDS: GABAPENTIN 300 MG CAP PO SCH (20:57)
[2022-08-16] MEDS: MIRTAZAPINE TAB 15 MG TAB PO SCH (20:58)
[2022-08-16] MEDS ORDERED: hydrALAZINE HCL 20 MG/ML VIAL IV ONE (23:11)
[2022-08-17] MEDS: cefTRIAXone SODIUM 2,000 MG in DEXTROSE 5% 50 ML IV SCH (02:22)
[2022-08-17] MEDS: AZITHROMYCIN 250 MG in DEXTROSE 5% 250 ML IV SCH ×2 (02:59→08:28)
[2022-08-17] MEDS: LEVOTHYROXINE SODIUM 50 MCG TABLET PO SCH (06:32)
[2022-08-17 07:36] LABS: Hemoglobin 16.2 g/dl (12.0-16.0); Mean Corpuscular Hemoglobin 33.2 pg (25.0-34.0); Mean Corpuscular Hgb Conc 33.1 g/dL (32.0-36.0); Mean Corpuscular Volume 100.4 fL (80.0-100.0); Platelet Count 358 K/uL (130-400); RDW Coefficient of Variation 13.8 % (11.5-14.5); RDW Standard Deviation 51.6 fL (36.4-46.3); Red Blood Count 4.88 M/uL (3.93-5.22); White Blood Count 12.66 K/ul (4.8-10.8)
[2022-08-17 08:06] LABS: BUN Creatinine Ratio 13.2 (10-20); Creatinine Clr Calc Pharmacy 21.5 ml/min; Est GFR (African American) 23.3 ml/min; Est GFR (Non-African American) 20.1 ml/min; Phosphorus 2.6 mg/dl (2.5-4.9); Potassium 4.3 mmol/L (3.5-5.1)
[2022-08-17] MEDS: CLOPIDOGREL BISULFATE 75 MG TAB PO SCH (08:21)
[2022-08-17] MEDS: PARoxetine HCL 20 MG TAB PO SCH (08:21)
[2022-08-17] MEDS: PYRIDOXINE HCL 50 MG TAB PO SCH (08:21)
[2022-08-17] MEDS: ARTIFICIAL TEARS OP SCH ×2 (08:21→20:34)
[2022-08-17] MEDS: HEPARIN SOD 5,000 UNIT/0.5 ML VIAL SQ SCH ×2 (08:23→20:34)
[2022-08-17] MEDS ORDERED: SODIUM CHLORIDE 0.9% 500 ML IV SCH (11:00)
--- NOTE | 2022-08-17 11:09 | Hospitalist Progress Note ---
Date of Service August 17, 2022 Assessment & Plan (1) UTI (urinary tract infection): Plan: 81yo female presenting from [facility] with complaint of fever, generalized malaise, nausea with two episodes of vomiting prior to arrival. Recent URI. Presently afebrile, HD stable. Mild hypoxia - 91% on room air with no prior use of O2 recorded (but could have underlying RIYA very likely). Labs with leukocytosis. UA suggestive of infection. CT abdomen with perinephric stranding - question UTI, ascending infection as possible source. IV hydration LR @ 100cc/hr, changed to NS @ 100cc/hr x2L -Cr 2.53-->2.41 (baseline appeared 1.4-2 up until March last year, then has been >2) -Does not appear to have been seen in follow up by nephrology during that time, would arrange at d/c WBC 14.2k --> 12.6k Ceftriaxone IV, also Azithromycin (day 2) for coverage possible CAP Urine culture -- gram negative bacilli, monitor cx/s Blood cultures pending , NGTD Urine in purewick less concentrated, clear yellow urine draining PT/OT consulted Hgb elevated on admit, suspect hemoconcentration from dehydration, however did note cardiomegaly/trace effusions on CTAP on exam. Given 2.5L IVF for dehydration, slight volume overload on exam 08/17 Of note, prior admit GI bleeding/microcytosis, now MACROCYTOSIS B12 wnl --> prior labs w/ B6 deficiency, not on supplement. Had elevated MMA levels --> Started B6 supplementation, folate wnl Volume Overload 2nd to IVF on admission BNP elevated, now with LE edema not present 08/16 Bumex 1mg PO x1 now given, monitor response/additional doses as needed (of note on 20meq Kcl supplementation in patient with CKD IV ECHO ordered, pending -->prior ECHO March 2021, LV grossly normal, EF 65-70%, moderate concentric LVH. Diastolic dysfunction grade III (restrictive pattern), consistent with markedly increased LA pressure. No regional wma Consult cards if needed Of note, also reported fever/sputum at [facility], azithromycin/ceftriaxone as above, sputum if able Hypercalcemia/CKD IV Ca 10.7 on admit -- suspect confusion also contributed by such, prior elevations as well On Vit D/Ca-carbonate at [facility] Vit D level >120, PTh suppressed -- STOPPED SUPPLEMENTATION, DO NOT CONTINUE AT [place] Discussed with Dr Andrew, def hold/stop Vit D/calcium supplements. Rosamond PTH not completely suppressed. Need careful monitoring/adjustment for the future and outpatient DEXA scan. If BMD low, Prolia. Dr Andrew can schedule or have CM assist Cr improved with fluids, had been given additional fluids for hypercalcemia (9.0 on am labs, normal albumin prior) however now with volume overload as above. Cr may be >2 baseline now based on recent values (2) Macrocytosis: Plan: MCV 103.9 Prior iron studies with iron 21/trans% 6 in December 2020 when in with UTI/GI bleed --> at that time appears Vitamin B6 was LOW at 2, MMA level HIGH at 342 (B12 level at that time wnl at 544, repeat B12 wnl) sx irritability, confusion, and depression, andperipheral neuropathy Start B6 supplementation given prior value and not on medication list Hgb decreased, however doesn't seem dehydrated on exam today Peripheral smear pending CBC in AM, ?need to c/w heme/onc (prior polyneuropathy seen by Neurology in the past, unclear etiology) CBC in AM (3) Chronic kidney disease, stage 4 (severe): Plan: Appearing dry on exam 08/16, ?2nd to poor PO intake w/ UTI prior Bumex held on admit, IVF hydration Cr improved/however could be new baseline >2 Bumex resumed as above - discussion under hypercalcemia under #1 as above, will need outpatient follow up Good UOP WOULD STOP DAILY KCl supplementation at d/c and if using w/ Bumex only on days taking diuretics to prevent hyperkalemia in pt w/ CKD IV BMP in AM (4) Hypercalcemia: Plan: Of note, mild confusion on admit/fatigue/stones appears Ca level elevated to 10.7, prior elevations --> on Vit D 125mcg daily along with Cacarbonate 500mg daily --> she does endorse taking these --> checkng VitD/PTH --> VIT D elevated to >120, STOP VIT D/CA supplementation CTAP did note 2 punctate nonobstructing R renal calculi IVF hydration as above, resuming Bumex as outlined x 1 --> additional dose tomorrow if needed Monitor in AM (5) Diastolic CHF: Plan: No significant edema/congestion on exam 08/17 rior ECHO March 2021, LV grossly normal, EF 65-70%, moderate concentric LVH. Diastolic dysfunction grade III (restrictive pattern), consistent with markedly increased LA pressure. No regional wma IVF as above, since STOPPED BNP elveated, resumed bumex 1mg PO x 1, additional dose tomorrow if needed Monitor i&O, weights -- ELEVATED low salt diet (6) Hypothyroidism: Plan: Chronic. TSH wnl on check 2.439. Ft4 1.02, Free T3 low 2.06 ?significance of Ft3 low, consider reaching out to endocrinology/f/u Continue Synthroid 50mcg daily for now (7) Depression: Plan: Chronic. Symptoms well controlled on Paxil, continued 20mg daily Plan continued inpatient stay continue abx, monitor urine/blood cultures bumex resumed x 1 for volume overload/monitor for need for additional doses check ECHO -- not yet completed PT/OT consulted (wheelchair bed bound except w/ therapy per son , updated in hospital evening 08/16) POC - SonVargas is A - [phone] Admission and Anticipated Discharge Date Admission Date: August 16, 2022 Supervising Physician Co-Signing Physician Notes Attending Attestation - Chart reviewed, care plan d/w LLILY Harmon. I agree w/ the salas components of her documentation. Eusebio Pickett MD Subjective eval this morning slightly more confusion at times, wanting to find her car knows she isn't in her usual room but not sure how she got to the hospital BM overnight having CM check w/ Tawanna regarding her bumex use, Nephro follow up to be arranged and discussed to stop Vit D/Ca supplements and DEXA/Prolia outpatient in follow up. --> has some LE edema on exam today, decreased breath sounds in the bases. Got medication list and patient to be on bumex 1mg // but it does note daily Kcl supplementation Purewick draining clearer yellow urine. ECHo not yet done. Denies issues with breathing at this time, trace LE edema/calves nontender. PT/OT consulted , from [facility] Son updated last evening on third floor when they were coming to visit mother. Review of Systems Review of Systems: All systems reviewed & are unremarkable except as noted in HPI & below Physical Exam Physical Exam: General: WD/WN obese female sitting up in bed eating breakfast, NAD, alert to person , states year 2021 and knows that she is not in her usual home at [facility] ("that is not my door") and seeing another male in the room not present earlier today HEENT; head normocephalic, atraumatic, mm moist, trachea midline, +JVD ResP: diminished due to obesity, expiratory wheezing, no distress, on room air CV: RRR, +S4, trace LE edema, calves nontender GI: +BS, obese, nontender : purewick draining yellow but clearer yellow urine MSk/Neuro: follows commands, no focal deficit, strength equal but decreased throughout (reports wheelchair bound at baseline) Psych: AO to person/year, not place, intermittent confusion Results & Data Results & Data ([facility]) Vital Signs (Past 12 Hours) Vital Signs Temp Pulse Resp BP Pulse Ox O2 Del Method 08/17/22 08:13 36.8 C 59 L 16 160/72 H 91 Room Air 08/16/22 23:14 70 141/74 H Laboratory Results 08/17/22 08/17/22 08/16/22 Range/Units 07:09 07:09 15:25 WBC 12.66 H (4.8-10.8) K/ul RBC 4.88 (3.93-5.22) M/uL Hgb 16.2 H (12.0-16.0) g/dl Hct 49.0 H (34.1-44.9) % MCV 100.4 H (80.0-100.0) fL MCH 33.2 (25.0-34.0) pg MCHC 33.1 (32.0-36.0) g/dL RDW Std Deviation 51.6 H (36.4-46.3) fL RDW Coeff of Norris 13.8 (11.5-14.5) % Plt Count 358 (130-400) K/uL MPV 9.0 L (9.4-12.3) fL Peripher Smr Path Cons Cancelled Sodium 139 (136-145) mmol/L Potassium 4.3 (3.5-5.1) mmol/L Chloride 109 H (98-107) mmol/L Carbon Dioxide 24 (21-32) mmol/L Anion Gap 6 (3-11) BUN 29 H (6-23) mg/dl Creatinine 2.20 H (0.6-1.2) mg/dl Est Cr Clr Drug Dosing 21.5 ml/min Est GFR ( Amer) 23.3 ml/min Est GFR (Non-Af Amer) 20.1 ml/min BUN/Creatinine Ratio 13.2 (10-20) Glucose 83 (70-99(Fasting)) mg/dl Calcium 9.0 (8.5-10.1) mg/dl Phosphorus 2.6 (2.5-4.9) mg/dl Iron (35-150) mcg/dl TIBC (250-450) mcg/dl Unsaturated IBC (155-355) mcg/dl Transferrin % Sat (15-50) % Ferritin (8-388) ng/ml Vitamin B12 (180-914) pg/ml Folate (>5.38) ng/ml Free T4 (0.61-1.60) ng/dl Free T3 (2.3-4.2) pg/ml 08/16/22 08/16/22 08/16/22 Range/Units 15:25 09:37 09:37 WBC 14.20 H (4.8-10.8) K/ul RBC 5.08 (3.93-5.22) M/uL Hgb 17.1 H (12.0-16.0) g/dl Hct 52.8 H (34.1-44.9) % MCV 103.9 H (80.0-100.0) fL MCH 33.7 (25.0-34.0) pg MCHC 32.4 (32.0-36.0) g/dL RDW Std Deviation 54.4 H (36.4-46.3) fL RDW Coeff of Norris 13.9 (11.5-14.5) % Plt Count 451 H (130-400) K/uL MPV 9.2 L (9.4-12.3) fL Peripher Smr Path Cons Sodium 141 (136-145) mmol/L Potassium 3.9 D (3.5-5.1) mmol/L Chloride 106 (98-107) mmol/L Carbon Dioxide 27 (21-32) mmol/L Anion Gap 8 (3-11) BUN 34 H (6-23) mg/dl Creatinine 2.41 H (0.6-1.2) mg/dl Est Cr Clr Drug Dosing 19.7 ml/min Est GFR ( Amer) 20.8 ml/min Est GFR (Non-Af Amer) 18.0 ml/min BUN/Creatinine Ratio 14.1 (10-20) Glucose 107 H (70-99(Fasting)) mg/dl Calcium 10.7 H (8.5-10.1) mg/dl Phosphorus (2.5-4.9) mg/dl Iron (35-150) mcg/dl TIBC (250-450) mcg/dl Unsaturated IBC (155-355) mcg/dl Transferrin % Sat (15-50) % Ferritin (8-388) ng/ml Vitamin B12 454 (180-914) pg/ml Folate 10.66 (>5.38) ng/ml Free T4 (0.61-1.60) ng/dl Free T3 2.06 L (2.3-4.2) pg/ml 08/16/22 08/16/22 08/16/22 Range/Units 09:35 09:35 09:35 WBC (4.8-10.8) K/ul RBC (3.93-5.22) M/uL Hgb (12.0-16.0) g/dl Hct (34.1-44.9) % MCV (80.0-100.0) fL MCH (25.0-34.0) pg MCHC (32.0-36.0) g/dL RDW Std Deviation (36.4-46.3) fL RDW Coeff of Norris (11.5-14.5) % Plt Count (130-400) K/uL MPV (9.4-12.3) fL Peripher Smr Path Cons Sodium (136-145) mmol/L Potassium (3.5-5.1) mmol/L Chloride (98-107) mmol/L Carbon Dioxide (21-32) mmol/L Anion Gap (3-11) BUN (6-23) mg/dl Creatinine (0.6-1.2) mg/dl Est Cr Clr Drug Dosing ml/min Est GFR ( Amer) ml/min Est GFR (Non-Af Amer) ml/min BUN/Creatinine Ratio (10-20) Glucose (70-99(Fasting)) mg/dl Calcium (8.5-10.1) mg/dl Phosphorus (2.5-4.9) mg/dl Iron 38 (35-150) mcg/dl TIBC 252 (250-450) mcg/dl Unsaturated IBC 214 (155-355) mcg/dl Transferrin % Sat 15 (15-50) % Ferritin 47.9 (8-388) ng/ml Vitamin B12 (180-914) pg/ml Folate (>5.38) ng/ml Free T4 1.02 (0.61-1.60) ng/dl Free T3 (2.3-4.2) pg/ml Diagnostic Findings Chest X-Ray 08/17/22 06:00 XR chest 1V portable CLINICAL HISTORY: f/u, eval PNA TECHNIQUE: Single frontal radiograph of the chest was obtained. Comparison: Comparison is made to chest radiograph 08/15/2022 FINDINGS: No lines and tubes are seen. Cardiomegaly is noted. Prominence and cephalization of the vasculature is seen. No evidence of pleural effusion or pneumothorax. Degenerative changes are seen in the bilateral shoulders. IMPRESSION: Cardiomegaly with mild pulmonary edema, new from prior exam. ACT 112: Negative or not required by law. Electronically signed by: Deven Shaikh M.D. 08/17/2022 1:25 PM PG Care Time/CCT Total # of Minutes Spent Total Time Spent with Patient: Total time spent is greater than 50% in coordination of care (as documented) at patient's floor/unit and/or counseling patient: Coding Level of Care Code 32099 Subseq Hosp Care Lvl 3 Diagnoses UTI (urinary tract infection) N39.0 Macrocytosis D75.89 Chronic kidney disease, stage 4 (severe) N18.4 Hypercalcemia E83.52 Diastolic CHF I50.30 Hypothyroidism E03.9 Depression F32.9
--- NOTE | 2022-08-17 13:26 | XRay Report ---
XR chest 1V portable CLINICAL HISTORY: f/u, eval PNA TECHNIQUE: Single frontal radiograph of the chest was obtained. Comparison: Comparison is made to chest radiograph 08/15/2022 FINDINGS: No lines and tubes are seen. Cardiomegaly is noted. Prominence and cephalization of the vasculature i s seen. No evidence of pleural effusion or pneumothorax. Degenerative changes are seen in the bilater al shoulders. IMPRESSION: Cardiomegaly with mild pulmonary edema, new from prior exam. ACT 112: Negative or not required by law. Electronically signed by: Deven Shaikh M.D. 08/17/2022 1:25 PM
[2022-08-17] MEDS ORDERED: BUMETANIDE 1 MG TAB PO ONE (14:00)
--- NOTE | 2022-08-17 15:22 | XCELERA ---
[id number]
[2022-08-17] MEDS: DOCUSATE SODIUM/SENNA 50/8.6MG TAB PO SCH (18:06)
[2022-08-17] MEDS: GABAPENTIN 300 MG CAP PO SCH (20:27)
[2022-08-17] MEDS: MIRTAZAPINE TAB 15 MG TAB PO SCH (20:27)
[2022-08-18] MEDS: cefTRIAXone SODIUM 2,000 MG in DEXTROSE 5% 50 ML IV SCH (01:22)
[2022-08-18] MEDS: LEVOTHYROXINE SODIUM 50 MCG TABLET PO SCH (06:11)
[2022-08-18 07:29] LABS: Basophils # (auto) 0.07 K/uL (0-0.2); Basophils % (auto) 0.7 %; Eosinophils # (auto) 0.24 K/uL (0-0.50); Eosinophils % (auto) 2.3 %; Hematocrit (blood only) 48.2 % (34.1-44.9); Immature Granulocytes # (auto) 0.04 K/uL (0.00-0.02); Immature Granulocytes % (auto) 0.4 %; Lymphocytes # (auto) 1.91 K/uL (1.2-3.4); Lymphocytes % (auto) 18.3 %; Mean Corpuscular Hgb Conc 33.2 g/dL (32.0-36.0); Mean Corpuscular Volume 99.4 fL (80.0-100.0); Mean Platelet Volume 9.3 fL (9.4-12.3); Monocytes # (auto) 1.06 K/uL (0.24-0.82); Monocytes % (auto) 10.2 %; Neutrophils % (auto) 68.1 %; Platelet Count 364 K/uL (130-400); RDW Coefficient of Variation 13.8 % (11.5-14.5); RDW Standard Deviation 50.6 fL (36.4-46.3); Red Blood Count 4.85 M/uL (3.93-5.22); White Blood Count 10.42 K/ul (4.8-10.8)
[2022-08-18 07:50] LABS: Albumin Level 3.2 gm/dl (3.4-5.0); BUN Creatinine Ratio 13.9 (10-20); Bilirubin,Total 0.4 mg/dl (0.2-1.0); Calcium 9.3 mg/dl (8.5-10.1); Creatinine Clr Calc Pharmacy 24.4 ml/min; Est GFR (African American) 27.1 ml/min; Est GFR (Non-African American) 23.4 ml/min; Globulin 3.3 gm/dl (2.5-4.0); Potassium 4.1 mmol/L (3.5-5.1); Total Protein 6.5 gm/dl (6.0-8.3)
[2022-08-18] MEDS: ARTIFICIAL TEARS OP SCH ×2 (08:18→21:20)
[2022-08-18] MEDS: PARoxetine HCL 20 MG TAB PO SCH (08:18)
[2022-08-18] MEDS: PYRIDOXINE HCL 50 MG TAB PO SCH (08:19)
[2022-08-18] MEDS: HEPARIN SOD 5,000 UNIT/0.5 ML VIAL SQ SCH ×2 (08:19→21:20)
[2022-08-18] MEDS: DOCUSATE SODIUM/SENNA 50/8.6MG TAB PO SCH (08:19)
[2022-08-18] MEDS: CLOPIDOGREL BISULFATE 75 MG TAB PO SCH (08:19)
[2022-08-18] MEDS: AZITHROMYCIN 250 MG in DEXTROSE 5% 250 ML IV SCH (08:21)
--- NOTE | 2022-08-18 11:35 | Hospitalist Progress Note ---
Date of Service August 18, 2022 Assessment & Plan (1) UTI (urinary tract infection): Plan: Complaints of fever, generalized malaise, nausea with two episodes of vomiting prior to arrival. - Urine cx from 08/16 with E. coli - Sensitive to ceftriaxone. - Continue abx x 5 days. (2) Diastolic CHF: Plan: Echo on 08/17 showed EF 60-65%, mild LVH. Had given IV fluids initially, then actually on Bumex then. - Hold IV fluids and home Bumex at this time - Monitor volume status (3) Chronic kidney disease, stage 4 (severe): Plan: Baseline Cr ~2.2 - 2.4. - Presently at baseline. - Adjust meds for CrCl ~20 (4) Macrocytosis: Plan: MCV was 103.9 on 08/16. Prior iron studies with iron 21/trans% 6 in December 2020 when in with UTI/GI bleed. Peripheral smear unremarkable. - Started B6 on 08/16. (5) Hypercalcemia: Plan: Intermittent hypercalcemia with range usually ~10.7. Vitamin D elevated to >120. - Stop vitamin D & calcium supplement. (6) Hypothyroidism: Plan: TSH wnl on check 2.439. Ft4 1.02. - Continue Synthroid 50mcg daily (7) Depression: Plan: Chronic. Symptoms well controlled. - Continue Paxil Plan POC - SonVargas is POA - [phone] Admission and Anticipated Discharge Date Admission Date: August 17, 2022 Subjective Doing well today. No major issues. Reports no fevers/chills, chest pain, shortness of breath, abdominal pain, nausea, or vomiting. Physical Exam Constitutional: WD/WN, vitals as above Eyes: EOM intact bilaterally; no conjunctival abnormality ENMT: external ear and nose normal, oropharynx normal Neck: trachea midline, no thyromegaly normal visual inspection Respiratory: normal respiratory effort, lungs clear to auscultation no respiratory distress Cardiovascular: RRR, no murmur, no edema Gastrointestinal (Abdomen): Inspection/Auscultation: abdomen normal to inspection; abdomen not distended Musculoskeletal: no cyanosis or clubbing, extremities motor strength 5/5 Skin: no rashes, warm and dry Neurologic: moves all extremities and awake Psychiatric: Orientation: alert, oriented to person and cooperative Results & Data Results & Data ([facility]) Vital Signs (Past 12 Hours) Vital Signs Temp Pulse Resp BP Pulse Ox O2 Del Method 08/18/22 07:57 36.6 C 57 L 20 184/79 H 93 Room Air PG Care Time/CCT Total # of Minutes Spent Total Time Spent with Patient: Total time spent is greater than 50% in coordination of care (as documented) at patient's floor/unit and/or counseling patient: Coding Level of Care Code 68426 Subseq Hosp Care Lvl 2 Diagnoses UTI (urinary tract infection) N39.0 Diastolic CHF I50.30 Chronic kidney disease, stage 4 (severe) N18.4 Macrocytosis D75.89 Hypercalcemia E83.52 Hypothyroidism E03.9 Depression F32.9
[2022-08-18] MEDS: GABAPENTIN 300 MG CAP PO SCH (21:19)
[2022-08-18] MEDS: MIRTAZAPINE TAB 15 MG TAB PO SCH (21:19)
[2022-08-19] MEDS: cefTRIAXone SODIUM 2,000 MG in DEXTROSE 5% 50 ML IV SCH (01:15)
[2022-08-19] MEDS: LEVOTHYROXINE SODIUM 50 MCG TABLET PO SCH (05:19)
[2022-08-19 06:22] LABS: Hematocrit (blood only) 49.2 % (34.1-44.9); Hemoglobin 16.2 g/dl (12.0-16.0); Mean Corpuscular Hemoglobin 33.4 pg (25.0-34.0); Mean Corpuscular Hgb Conc 32.9 g/dL (32.0-36.0); Mean Corpuscular Volume 101.4 fL (80.0-100.0); Mean Platelet Volume 9.1 fL (9.4-12.3); Platelet Count 373 K/uL (130-400); RDW Standard Deviation 52.7 fL (36.4-46.3); Red Blood Count 4.85 M/uL (3.93-5.22); White Blood Count 9.36 K/ul (4.8-10.8)
[2022-08-19 06:53] LABS: BUN Creatinine Ratio 13.8 (10-20); Creatinine Clr Calc Pharmacy 24.3 ml/min; Est GFR (African American) 26.9 ml/min; Est GFR (Non-African American) 23.2 ml/min; Magnesium 2.2 mg/dl (1.7-2.4); Potassium 4.1 mmol/L (3.5-5.1)
[2022-08-19] MEDS: PYRIDOXINE HCL 50 MG TAB PO SCH (08:54)
[2022-08-19] MEDS: CLOPIDOGREL BISULFATE 75 MG TAB PO SCH (08:54)
[2022-08-19] MEDS: PARoxetine HCL 20 MG TAB PO SCH (08:54)
[2022-08-19] MEDS: DOCUSATE SODIUM/SENNA 50/8.6MG TAB PO SCH (08:54)
[2022-08-19] MEDS: HEPARIN SOD 5,000 UNIT/0.5 ML VIAL SQ SCH ×2 (08:54→20:33)
[2022-08-19] MEDS: ARTIFICIAL TEARS OP SCH ×2 (08:55→20:35)
--- NOTE | 2022-08-19 14:30 | Hospitalist Progress Note ---
Date of Service August 19, 2022 Assessment & Plan (1) UTI (urinary tract infection): Plan: Complaints of fever, generalized malaise, nausea with two episodes of vomiting prior to arrival. - Urine cx from 08/16 with E. coli - Sensitive to ceftriaxone. - Continue abx x 5 days. (End date: 08/22) (2) Diastolic CHF: Plan: Echo on 08/17 showed EF 60-65%, mild LVH. Had given IV fluids initially, then actually on Bumex then. - Hold IV fluids and home Bumex at this time - Monitor volume status - Stable (3) Chronic kidney disease, stage 4 (severe): Plan: Baseline Cr ~2.2 - 2.4. - Presently at baseline. - Adjust meds for CrCl ~20 (4) Macrocytosis: Plan: MCV was 103.9 on 08/16. Prior iron studies with iron 21/trans% 6 in December 2020 when in with UTI/GI bleed. Peripheral smear unremarkable. - Started B6 on 08/16. (5) Hypercalcemia: Plan: Intermittent hypercalcemia with range usually ~10.7. Vitamin D elevated to >120. - Stop vitamin D & calcium supplement. (6) Hypothyroidism: Plan: TSH wnl on check 2.439. Ft4 1.02. - Continue Synthroid 50mcg daily (7) Depression: Plan: Chronic. Symptoms well controlled. - Continue Paxil Plan POC - SonVargas is POA - [phone] Admission and Anticipated Discharge Date Admission Date: August 17, 2022 Subjective Doing well today. No major issues. Reports no fevers/chills, chest pain, shortness of breath, abdominal pain, nausea, or vomiting. Physical Exam Constitutional: WD/WN, vitals as above Eyes: EOM intact bilaterally; no conjunctival abnormality ENMT: external ear and nose normal, oropharynx normal Neck: trachea midline, no thyromegaly normal visual inspection Respiratory: normal respiratory effort, lungs clear to auscultation no respiratory distress Cardiovascular: RRR, no murmur, no edema Gastrointestinal (Abdomen): Inspection/Auscultation: abdomen normal to inspection; abdomen not distended Musculoskeletal: no cyanosis or clubbing, extremities motor strength 5/5 Skin: no rashes, warm and dry Neurologic: moves all extremities and awake Psychiatric: Orientation: alert, oriented to person and cooperative Results & Data Results & Data ([place]) Vital Signs (Past 12 Hours) Vital Signs Temp Pulse Resp BP Pulse Ox O2 Del Method 08/19/22 08:43 36.9 C 63 16 155/76 H 92 Room Air PG Care Time/CCT Total # of Minutes Spent Total Time Spent with Patient: Total time spent is greater than 50% in coordination of care (as documented) at patient's floor/unit and/or counseling patient: Coding Level of Care Code 59403 Subseq Hosp Care Lvl 2 Diagnoses UTI (urinary tract infection) N39.0 Diastolic CHF I50.30 Chronic kidney disease, stage 4 (severe) N18.4 Macrocytosis D75.89 Hypercalcemia E83.52 Hypothyroidism E03.9 Depression F32.9
[2022-08-19] MEDS: GABAPENTIN 300 MG CAP PO SCH (20:33)
[2022-08-19] MEDS: MIRTAZAPINE TAB 15 MG TAB PO SCH (20:35)
[2022-08-20] MEDS: cefTRIAXone SODIUM 2,000 MG in DEXTROSE 5% 50 ML IV SCH (01:36)
[2022-08-20] MEDS: LEVOTHYROXINE SODIUM 50 MCG TABLET PO SCH (05:52)
[2022-08-20] MEDS: ARTIFICIAL TEARS OP SCH (08:58)
[2022-08-20] MEDS: CLOPIDOGREL BISULFATE 75 MG TAB PO SCH (08:58)
[2022-08-20] MEDS: HEPARIN SOD 5,000 UNIT/0.5 ML VIAL SQ SCH (08:59)
[2022-08-20] MEDS: PYRIDOXINE HCL 50 MG TAB PO SCH (08:59)
[2022-08-20] MEDS: PARoxetine HCL 20 MG TAB PO SCH (08:59)
[2022-08-20] MEDS: DOCUSATE SODIUM/SENNA 50/8.6MG TAB PO SCH (08:59)
[2022-08-20 09:33] LABS: Hematocrit (blood only) 49.9 % (34.1-44.9); Hemoglobin 16.1 g/dl (12.0-16.0); Mean Corpuscular Hemoglobin 32.6 pg (25.0-34.0); Mean Corpuscular Hgb Conc 32.3 g/dL (32.0-36.0); Platelet Count 389 K/uL (130-400); RDW Standard Deviation 52.4 fL (36.4-46.3); Red Blood Count 4.94 M/uL (3.93-5.22); White Blood Count 9.67 K/ul (4.8-10.8)
[2022-08-20 10:29] LABS: BUN Creatinine Ratio 13.3 (10-20); Calcium 9.4 mg/dl (8.5-10.1); Creatinine Clr Calc Pharmacy 24.3 ml/min; Est GFR (African American) 26.9 ml/min; Est GFR (Non-African American) 23.2 ml/min; Magnesium 2.2 mg/dl (1.7-2.4); Potassium 4.3 mmol/L (3.5-5.1)
--- NOTE | 2022-08-20 16:34 | Discharge Summary ---
Date of Service August 20, 2022 Admission HPI Per Admitting Provider Ebony Esposito is an 81yo female presenting from [facility] with complaint of fever. Patient reports not feeling well over the last week. She has had cough, congestion and URI symptoms. Yesterday she felt very ill and couldn't eat or get out of bed. Today she had some nausea with three episodes of non-bloody/non-bilious emesis. She states that she has been having fevers a home. She saw the physician at [facility] and it was recommended that she come to the ER for further evaluation. She denies chest pain, SOB, abdominal pain or diarrhea. She vomited prior to arrival but has had no further nausea or vomiting. She denies dysuria. She has some mild lower abdominal pain. Otherwise she is without complaint. In the Er she is afebrile, bradycardic at 57bpm, 91% on 2L NC Incontinent of urine. Straight cath performed with return of foul smelling dirty appearing urine. ER Course: Ceftriaxone 2gm IV Principal Diagnosis UTI Discharge Exam Constitutional WD/WN, vitals as above Eyes EOM intact bilaterally; no conjunctival abnormality ENMT external ear and nose normal, oropharynx normal Neck trachea midline, no thyromegaly normal visual inspection Respiratory normal respiratory effort, lungs clear to auscultation no respiratory distress Cardiovascular RRR, no murmur, no edema Gastrointestinal (Abdomen) Inspection/Auscultation: abdomen normal to inspection; abdomen not distended Musculoskeletal no cyanosis or clubbing, extremities motor strength 5/5 Skin no rashes, warm and dry Neurologic moves all extremities and awake Psychiatric Orientation: alert, oriented to person and cooperative Discharge Data Allergies Allergy/AdvReac Type Severity Reaction Status Date / Time iodine Allergy Unknown Unknown Verified 08/16/22 00:36 NSAIDS (Non-Steroidal Allergy Unknown Unknown Verified 03/13/21 08:39 Anti-Inflamma tositumomab iodine-131 Allergy Unknown Unknown Unverified 08/16/22 00:36 Penicillins Allergy Unknown Verified 08/16/22 00:36 Consultations 08/16/22 02:33 ED Decision to Admit Stat Ordered Studies 08/16/22 00:59 CT abd pelvis wo con Stat Hospital Course (1) UTI (urinary tract infection): Complaints of fever, generalized malaise, nausea with two episodes of vomiting prior to arrival. - Urine cx from 08/16 with E. coli - Sensitive to ceftriaxone. - Continue abx x 5 days. (End date: 08/22) Switched to cefdinir on discharge. (2) Diastolic CHF: Echo on 08/17 showed EF 60-65%, mild LVH. Had given IV fluids initially, then actually on Bumex then. - Monitor volume status - Stable. Return to home Bumex 3x/wk on discharge as she seemed to remain good while in the hospital with essentially nothing. (3) Chronic kidney disease, stage 4 (severe): Baseline Cr ~2.2 - 2.4. - Presently at baseline. Cr was actually 2.0 on discharge. - Adjust meds for CrCl ~20 (4) Macrocytosis: MCV was 103.9 on 08/16. Prior iron studies with iron 21/trans% 6 in December 2020 when in with UTI/GI bleed. Peripheral smear unremarkable. - Started B6 on 08/16. (5) Hypercalcemia: Intermittent hypercalcemia with range usually ~10.7. Vitamin D elevated to >120. - Stop vitamin D & calcium supplement. (6) Hypothyroidism: TSH wnl on check 2.439. Ft4 1.02. - Continue Synthroid 50mcg daily (7) Depression: Chronic. Symptoms well controlled. - Continue Paxil Plan POC - SonVargas is POA - [phone] Total Time Total Time Spent Total Time Spent (In Minutes): 35 Discharge Plan Discharge Items Patient Disposition: Transfer Inpatient Rehab Fac Reason For Visit: UTI, SEPSIS Discharge Diagnosis: UTI Activity: Resume your previous activity Non-emergency contact: Primary Care Provider Call non-emergency contact if: your symptoms worsen and your temperature is above 101 Follow-up/Referrals: [facility] ANTUNEZ [Primary Care Provider] - Diet: Heart Healthy Addtl Attending Provider Instructions: Ms. Esposito was admitted for a UTI. She is now doing quite well and has recovered nicely. There was some concern for dehydration, so she was given IV fluids, but this caused a fluid overload, so her Bumex was restarted. She is overall stable and doing well. She can finish her abx with cefdinir through 08/22, then be done. Due to her renal function, she only needs cefdinir 300 mg PO daily (instead of BID). Her baseline Cr is ~2.2, and her Cr was actually slightly better than prior baselines at 2.0 on discharge. Pending Studies at Discharge: No Stand-Alone Forms: My [facility] Skilled Items Patient informed of condition?: Yes DNR: Yes Discharge Level of Care: Acute rehab Communicable Disease: No Discharge Prognosis: Improving Lines: None Urinary Catheter: No Medications and DC Order Prescriptions: New cefdinir 300 mg capsule 300 mg PO DAILY Qty: 1 0RF Continued clopidogrel 75 mg tablet 75 mg PO QAM levothyroxine 50 mcg capsule 50 mcg PO DAILYBB paroxetine HCl 20 mg tablet 20 mg PO QAM potassium chloride 20 mEq packet 20 meq PO QAM acetaminophen 325 mg capsule 650 mg PO Q4H MDD 3g PRN (Reason: Mild Pain (Scale Score 1-4)) artificial tears with lanolin Ointment 1 applic OPB BID mirtazapine 15 mg Tablet 7.5 mg PO HS Rx Instructions: 1/2 TABLET DOSE gabapentin 300 mg capsule 300 mg PO HS Qty: 0 0RF bumetanide 1 mg tablet 1 mg PO [id number] Rx Instructions: take daily on MON/WED/FRI Discontinued calcium carbonate [Oyster Shell Calcium] 500 mg calcium (1,250 mg) tablet 500 mg PO QAM ascorbic acid (vitamin C) [Vitamin C] 500 mg Tablet 500 mg PO BID cholecalciferol (vitamin D3) [Vitamin D3] 125 mcg (5,000 unit) Tablet 125 mcg PO QAM Discharge Orders: Discharge Order (Routine); Ordered 08/20/22 Ordered By: Shar Sandoval Admission Data Admit Date/Time: 08/17/22 15:50 Attending Provider: Shar Sandoval Admit Provider: Eusebio Pickett Primary Care Provider: [facility] ANTUNE[facility] Other Providers: China Vazquez ; [facility] Other Interventions: Discharge Summary Assessment (RN) Last Done: 08/20/22 14:29 Coding Level of Care Code D/C DAY MANAGEMENT >30 MINS Diagnoses UTI (urinary tract infection) N39.0 Diastolic CHF I50.30 Chronic kidney disease, stage 4 (severe) N18.4 Macrocytosis D75.89 Hypercalcemia E83.52 Hypothyroidism E03.9 Depression F32.9
== END 2022-08-20 16:01 | DRG 690 ==
LOC: 3W 22:23 → ED 22:23 → SUATTDRO 08-16 02:54 → 3W 08-16 05:44 → SUATTDRO 08-17 15:50

== ENCOUNTER 2022-09-11 20:49 | Inpatient (IN) ==
[2022-09-11] MEDS ORDERED: SODIUM CHLORIDE 0.9% 500 ML IV SCH (21:15)
--- NOTE | 2022-09-11 21:30 | Emergency Department Note ---
Impression & Plan Acute alteration in mental status, PAMELA (acute kidney injury), Elevated WBC count, Acute UTI (urinary tract infection), Hypoxia ED Provider Note NAME: LAVINIA BAILON AGE: 81 SEX: F : 1940 ARRIVES VIA: Ambulance INFORMANT: Patient, ED PROVIDER(S): Willie Boles DO CHIEF COMPLAINT: Altered mental status HPI: The patient is an 81-year-old female who presented to the emergency department by ambulance for an evaluation of altered mental status. There was no report given to the EMS personnel when they went to pick the patient up [facility] but she does have a history of underlying dementia. The patient self offers no complaints. She states she has no chest pain or difficulty breathing. She denies having any nausea or vomiting. She states she has had a slight cough. She was noted to have low-grade fever and a low oxygen saturation by nursing staff upon arrival to the emergency department. The p atient states that she has been compliant with her outpatient medications. There is been no reported falls. ROS: See above HPI for pertinent positives & negatives. A total of 10 systems reviewed and were otherwise negative. PAST MEDICAL HISTORY: See Below PAST SURGICAL HISTORY: See Below FAMILY HISTORY: See Below SOCIAL HISTORY: See Below HOME MEDICATIONS: See Below ALLERGIES: See Below VITALS: See Below PHYSICAL EXAMINATION: GENERAL: Patient is awake alert in no acute distress patient is resting comfortably and showing no signs of anxiety EYES: The conjunctivae are clear. The pupils are round and reactive. EARS, NOSE, MOUTH AND THROAT: The nose is without any evidence of any deformity. NECK: The neck is nontender and supple. RESPIRATORY: Diminished breath sounds are noted in the right lung field. There is no tachypnea or conversational dyspnea. CARDIOVASCULAR: Regular rate and rhythm noted there no murmurs rubs or gallops normal S1 normal S2. GASTROINTESTINAL: The abdomen is soft. Abdomen is nontender. MUSCULOSKELETAL/EXTREMITIES: There is no evidence of gross deformity full range of motion is noted in the hips and shoulders. SKIN: The skin is warm and dry. There is no significant pedal edema appreciated. NEUROLOGIC: Patient is awake alert and oriented to person place and situation. Strength was symmetric. There is no facial droop. Speech was clear. MEDICAL DECISION MAKING: The patient is an 81-year-old female who presented to the emergency department for an evaluation of altered mental status. The patient [facility] a personal [facility]. She does have a history of underlying dementia but nursing staff felt that her symptoms were worse compared to previous. The patient was treated with IV fluids in the emergency department. She was also treated with IV antibiotics for presumed infection. She was noted to have low-grade fever as well as an elevation in her white blood cell count. I discussed patient's laboratory and radiographic studies with her. [facility] Given the patient's findings in the emergency department she may be a better candidate for inpatient management. They have agreed to evaluate the patient in the emergency department for further management and disposition. Triage Nursing notes reviewed. Prior medical records reviewed Vital Signs: reviewed and remarkable for low-grade fever and hypoxia. Differential diagnosis: Infection, hypoglycemia, electrolyte abnormalities, overdose, toxicologic, cardiac sources, intracerebral event, neurologic, trauma, as well as other pathologies. ER treatment provided: See below Diagnostics interpreted by me: ECG: EKG was obtained in the emergency department. My interpretation is sinus tachycardia 102 bpm. Incomplete right bundle branch block pattern was noted. LVH was suggested by voltage criteria. Diffuse ST depression with T wave abnormalities were appreciated. This was compared to a tracing from August 15, 2022. No changes were noted. Cardiac Monitoring: An order was placed for continuous cardiac monitoring. The monitor shows a rate of 69 bpm with sinus rhythm. Laboratory studies: As stated above and show below. Imaging studies: See below Consultation(s): I discussed this case with Dr. Vazquez who [facility] Past Med/Surg History Medical History Ambulatory dysfunction Chronic kidney disease, stage 4 (severe) GI bleed Hyperlipidemia Hypothyroidism Osteoarthritis Polyneuropathy Recurrent falls Social History Smoking Status: Former smoker Tobacco Type: Cigarettes Second Hand Exposure: No; Hx Alcohol Use: No Hx Substance Use: No Preferred Language: Nigerian Communication Ability: Effective Pre Sales Systems Engineer Required: No Beliefs That Will Affect Care: Islam Islam Beliefs: RELIGIOUS Current Living Situation: Personal Care Facility Current Living Situation Comment: assisted living Feels Safe at Home: Yes Assistive Devices: Wheelchair Allergies Allergies Allergy/AdvReac Type Severity Reaction Status Date / Time iodine Allergy Unknown Unknown Verified 08/16/22 00:36 NSAIDS (Non-Steroidal Allergy Unknown Unknown Verified 03/13/21 08:39 Anti-Inflamma tositumomab iodine-131 Allergy Unknown Unknown Unverified 08/16/22 00:36 Penicillins Allergy Unknown Verified 08/16/22 00:36 Home Meds Home Medications Medication Instructions Recorded Confirmed acetaminophen 325 mg capsule 650 mg PO Q4H PRN Mild Pain (Scale 10/22/19 08/16/22 Score 1-4) clopidogrel 75 mg tablet 75 mg PO QAM 10/22/19 08/16/22 levothyroxine 50 mcg capsule 50 mcg PO DAILYBB 10/22/19 08/16/22 paroxetine HCl 20 mg tablet 20 mg PO QAM 10/22/19 08/16/22 potassium chloride 20 mEq oral 20 meq PO QAM 10/22/19 08/16/22 packet artificial tears with lanolin eye 1 applic OPB BID Dry eye(s) 12/08/20 08/16/22 ointment mirtazapine 15 mg tablet 7.5 mg PO HS 12/08/20 08/16/22 bumetanide 1 mg tablet 1 mg PO 3XWK 08/16/22 08/16/22 Previous Rx's Medication Instructions Recorded gabapentin 300 mg capsule 300 mg PO HS #0 caps 12/12/20 cefdinir 300 mg capsule 300 mg PO DAILY #1 cap 08/20/22 Results & Data (ED) Vital Signs Vital Signs - 24 hr 09/11/22 20:57 09/11/22 20:57 09/11/22 21:10 Temperature 37.9 C H Temperature Source Oral Pulse Rate 98 H Pulse Rate [Apical] Pulse Rhythm Regular Pulse Strength Normal Respiratory Rate 19 Respiratory Effort / Characteristics Non-Labored Respiratory Depth Normal Respiratory Pattern Regular Blood Pressure [Right Arm] Blood Pressure Mean [Right Arm] Pulse Oximetry 87 L 87 L 96 Oxygen Delivery Method Room Air Room Air Nasal Cannula Oxygen Flow Rate 0 2 Sepsis Recent Fever Within 48 Hours No Sepsis New/Unexplained Change in Mental Status No Sepsis Action Taken by Nursing No Action Required Oxygen Flow Rate - Titration 2 Pulse Oximetry Post Tiitration 96 09/11/22 22:53 Temperature Temperature Source Pulse Rate Pulse Rate [Apical] 69 Pulse Rhythm Pulse Strength Respiratory Rate 17 Respiratory Effort / Characteristics Respiratory Depth Respiratory Pattern Blood Pressure [Right Arm] 122/67 Blood Pressure Mean [Right Arm] 85 Pulse Oximetry 94 Oxygen Delivery Method Oxygen Flow Rate Sepsis Recent Fever Within 48 Hours Sepsis New/Unexplained Change in Mental Status Sepsis Action Taken by Nursing Oxygen Flow Rate - Titration Pulse Oximetry Post Tiitration Home Medications Current Medication List: was personally reviewed by me Laboratory Data Attestation: I reviewed the patient's lab results. Result diagrams: 09/11/22 21:46 09/11/22 21:09 Lab Results 09/11/22 09/11/22 09/11/22 Range/Units 21:00 21:09 21:09 WBC RBC Hgb Hct MCV MCH MCHC RDW Std Deviation RDW Coeff of Norris Plt Count MPV Immature Gran % (Auto) Neut % (Auto) Lymph % (Auto) Marathon % (Auto) Eos % (Auto) Baso % (Auto) Neut # (Auto) Lymph # (Auto) Marathon # (Auto) Eos # (Auto) Baso # (Auto) Immature Gran # (Auto) Absolute Nucleated RBC Nucleated RBC % (auto) Neutrophils % (Manual) Band Neutrophils % Lymphocytes % (Manual) Prolymphocyte % Reactive Lymphs % (Man) Monocytes % (Manual) Eosinophils % (Manual) Basophils % (Manual) Metamyelocytes % (Man) Myelocytes % (Man) Promyelocytes % (Man) Blast Cells % (Manual) Plasma Cell % (Manual) Other Cells % Nucleated RBC % Neutrophils # (Manual) Band Neutrophils # Total Absolute Neuts Lymphocytes # (Manual) Prolymphocyte # Reactive Lymphs # Total Abs Lymphocytes Monocytes # (Manual) Eosinophils # (Manual) Basophils # (Manual) Metamyelocytes # (Man) Myelocytes # (Manual) Promyelocytes # (Man) Blast Cells # (Man) Plasma Cell # (Manual) Other Cells # Nucleated RBCs # (Man) Hypersegmented Neuts Hyposegmented Neuts Hypogranular Neuts Large Granular Lymphs # Lrg Granular Lymphs Hairy Cells Smudge Cells Toxic Granulation Toxic Vacuolation Dohle Bodies Elijah Rods Platelet Estimate Hypogranular Platelets Clumped Platelets Giant Platelets Platelet Satelliting RBC Morphology Polychromasia Hypochromasia Poikilocytosis Basophilic Stippling Anisocytosis Microcytosis Macrocytosis Spherocytes Pappenheimer Bodies Sickle Cells Target Cells Tear Drop Cells Ovalocytes Stomatocytes Choi-Between Bodies Echinocytes Acanthocytes (Spur) Rouleaux RBC Agglutinates Schistocytes Sezary Cell PT Cancelled INR Cancelled APTT Cancelled PTT Ratio Cancelled VBG pH (7.36-7.41) VBG pCO2 (38-50) mmHg VBG pO2 mmHg VBG HCO3 mmol/L VBG O2 Saturation % VBG Base Excess mEq/L Sodium 137 (136-145) mmol/L Potassium 5.2 H (3.5-5.1) mmol/L Chloride 107 (98-107) mmol/L Carbon Dioxide 22 (21-32) mmol/L Anion Gap 8 (3-11) BUN 30 H (6-23) mg/dl Creatinine 2.13 H (0.6-1.2) mg/dl Est Cr Clr Drug Dosing 23.7 ml/min Est GFR ( Amer) 24.2 ml/min Est GFR (Non-Af Amer) 20.9 ml/min BUN/Creatinine Ratio 14.1 (10-20) Glucose 116 H (70-99(Fasting)) mg/dl Calcium 10.3 H (8.5-10.1) mg/dl Magnesium 2.2 (1.7-2.4) mg/dl Total Bilirubin 0.7 (0.2-1.0) mg/dl AST 19 (13-39) U/L ALT 13 (7-52) U/L Alkaline Phosphatase 68 (34-104) U/L Troponin I High Sens 28.7 H (0-14) pg/ml Total Protein 6.8 (6.0-8.3) gm/dl Albumin 3.5 (3.4-5.0) gm/dl Globulin 3.3 (2.5-4.0) gm/dl Albumin/Globulin Ratio 1.1 (0.9-2) TSH (0.300-4.500) uIu/ml SARS-CoV-2 (PCR) NEGATIVE (Negative) Influenza Type A (PCR) Negative (Neg) Influenza Type B (PCR) Negative (Neg) RSV (RT-PCR) Negative (Neg) Blood Parasites ID 09/11/22 09/11/22 09/11/22 Range/Units 21:09 21:09 21:35 WBC Cancelled RBC Cancelled Hgb Cancelled Hct Cancelled MCV Cancelled MCH Cancelled MCHC Cancelled RDW Std Deviation Cancelled RDW Coeff of Norris Cancelled Plt Count Cancelled MPV Cancelled Immature Gran % (Auto) Cancelled Neut % (Auto) Cancelled Lymph % (Auto) Cancelled Marathon % (Auto) Cancelled Eos % (Auto) Cancelled Baso % (Auto) Cancelled Neut # (Auto) Cancelled Lymph # (Auto) Cancelled Marathon # (Auto) Cancelled Eos # (Auto) Cancelled Baso # (Auto) Cancelled Immature Gran # (Auto) Cancelled Absolute Nucleated RBC Cancelled Nucleated RBC % (auto) Cancelled Neutrophils % (Manual) Cancelled Band Neutrophils % Cancelled Lymphocytes % (Manual) Cancelled Prolymphocyte % Cancelled Reactive Lymphs % (Man) Cancelled Monocytes % (Manual) Cancelled Eosinophils % (Manual) Cancelled Basophils % (Manual) Cancelled Metamyelocytes % (Man) Cancelled Myelocytes % (Man) Cancelled Promyelocytes % (Man) Cancelled Blast Cells % (Manual) Cancelled Plasma Cell % (Manual) Cancelled Other Cells % Cancelled Nucleated RBC % Cancelled Neutrophils # (Manual) Cancelled Band Neutrophils # Cancelled Total Absolute Neuts Cancelled Lymphocytes # (Manual) Cancelled Prolymphocyte # Cancelled Reactive Lymphs # Cancelled Total Abs Lymphocytes Cancelled Monocytes # (Manual) Cancelled Eosinophils # (Manual) Cancelled Basophils # (Manual) Cancelled Metamyelocytes # (Man) Cancelled Myelocytes # (Manual) Cancelled Promyelocytes # (Man) Cancelled Blast Cells # (Man) Cancelled Plasma Cell # (Manual) Cancelled Other Cells # Cancelled Nucleated RBCs # (Man) Cancelled Hypersegmented Neuts Cancelled Hyposegmented Neuts Cancelled Hypogranular Neuts Cancelled Large Granular Lymphs Cancelled # Lrg Granular Lymphs Cancelled Hairy Cells Cancelled Smudge Cells Cancelled Toxic Granulation Cancelled Toxic Vacuolation Cancelled Dohle Bodies Cancelled Elijah Rods Cancelled Platelet Estimate Cancelled Hypogranular Platelets Cancelled Clumped Platelets Cancelled Giant Platelets Cancelled Platelet Satelliting Cancelled RBC Morphology Cancelled Polychromasia Cancelled Hypochromasia Cancelled Poikilocytosis Cancelled Basophilic Stippling Cancelled Anisocytosis Cancelled Microcytosis Cancelled Macrocytosis Cancelled Spherocytes Cancelled Pappenheimer Bodies Cancelled Sickle Cells Cancelled Target Cells Cancelled Tear Drop Cells Cancelled Ovalocytes Cancelled Stomatocytes Cancelled Choi-Between Bodies Cancelled Echinocytes Cancelled Acanthocytes (Spur) Cancelled Rouleaux Cancelled RBC Agglutinates Cancelled Schistocytes Cancelled Sezary Cell Cancelled PT INR APTT PTT Ratio VBG pH 7.43 H (7.36-7.41) VBG pCO2 37 L (38-50) mmHg VBG pO2 58 mmHg VBG HCO3 25 mmol/L VBG O2 Saturation 93.3 % VBG Base Excess 0.5 mEq/L Sodium (136-145) mmol/L Potassium (3.5-5.1) mmol/L Chloride (98-107) mmol/L Carbon Dioxide (21-32) mmol/L Anion Gap (3-11) BUN (6-23) mg/dl Creatinine (0.6-1.2) mg/dl Est Cr Clr Drug Dosing ml/min Est GFR ( Amer) ml/min Est GFR (Non-Af Amer) ml/min BUN/Creatinine Ratio (10-20) Glucose (70-99(Fasting)) mg/dl Calcium (8.5-10.1) mg/dl Magnesium (1.7-2.4) mg/dl Total Bilirubin (0.2-1.0) mg/dl AST (13-39) U/L ALT (7-52) U/L Alkaline Phosphatase (34-104) U/L Troponin I High Sens (0-14) pg/ml Total Protein (6.0-8.3) gm/dl Albumin (3.4-5.0) gm/dl Globulin (2.5-4.0) gm/dl Albumin/Globulin Ratio (0.9-2) TSH 2.956 (0.300-4.500) uIu/ml SARS-CoV-2 (PCR) (Negative) Influenza Type A (PCR) (Neg) Influenza Type B (PCR) (Neg) RSV (RT-PCR) (Neg) Blood Parasites ID Cancelled 09/11/22 09/11/22 Range/Units 21:46 21:46 WBC 18.36 H RBC 4.47 Hgb 15.0 Hct 45.0 H MCV 100.7 H MCH 33.6 MCHC 33.3 RDW Std Deviation 52.1 H RDW Coeff of Norris 14.0 Plt Count 399 MPV 9.5 Immature Gran % (Auto) 0.4 Neut % (Auto) 85.7 Lymph % (Auto) 4.7 Marathon % (Auto) 8.8 Eos % (Auto) 0.1 Baso % (Auto) 0.3 Neut # (Auto) 15.74 H Lymph # (Auto) 0.86 L Marathon # (Auto) 1.61 H Eos # (Auto) 0.01 Baso # (Auto) 0.06 Immature Gran # (Auto) 0.08 H Absolute Nucleated RBC Nucleated RBC % (auto) Neutrophils % (Manual) Band Neutrophils % Lymphocytes % (Manual) Prolymphocyte % Reactive Lymphs % (Man) Monocytes % (Manual) Eosinophils % (Manual) Basophils % (Manual) Metamyelocytes % (Man) Myelocytes % (Man) Promyelocytes % (Man) Blast Cells % (Manual) Plasma Cell % (Manual) Other Cells % Nucleated RBC % Neutrophils # (Manual) Band Neutrophils # Total Absolute Neuts Lymphocytes # (Manual) Prolymphocyte # Reactive Lymphs # Total Abs Lymphocytes Monocytes # (Manual) Eosinophils # (Manual) Basophils # (Manual) Metamyelocytes # (Man) Myelocytes # (Manual) Promyelocytes # (Man) Blast Cells # (Man) Plasma Cell # (Manual) Other Cells # Nucleated RBCs # (Man) Hypersegmented Neuts Hyposegmented Neuts Hypogranular Neuts Large Granular Lymphs # Lrg Granular Lymphs Hairy Cells Smudge Cells Toxic Granulation Toxic Vacuolation Dohle Bodies Elijah Rods Platelet Estimate Hypogranular Platelets Clumped Platelets Giant Platelets Platelet Satelliting RBC Morphology Polychromasia Hypochromasia Poikilocytosis Basophilic Stippling Anisocytosis Microcytosis Macrocytosis Spherocytes Pappenheimer Bodies Sickle Cells Target Cells Tear Drop Cells Ovalocytes Stomatocytes Choi-Between Bodies Echinocytes Acanthocytes (Spur) Rouleaux RBC Agglutinates Schistocytes Sezary Cell PT Cancelled INR Cancelled APTT Cancelled PTT Ratio Cancelled VBG pH (7.36-7.41) VBG pCO2 (38-50) mmHg VBG pO2 mmHg VBG HCO3 mmol/L VBG O2 Saturation % VBG Base Excess mEq/L Sodium (136-145) mmol/L Potassium (3.5-5.1) mmol/L Chloride (98-107) mmol/L Carbon Dioxide (21-32) mmol/L Anion Gap (3-11) BUN (6-23) mg/dl Creatinine (0.6-1.2) mg/dl Est Cr Clr Drug Dosing ml/min Est GFR ( Amer) ml/min Est GFR (Non-Af Amer) ml/min BUN/Creatinine Ratio (10-20) Glucose (70-99(Fasting)) mg/dl Calcium (8.5-10.1) mg/dl Magnesium (1.7-2.4) mg/dl Total Bilirubin (0.2-1.0) mg/dl AST (13-39) U/L ALT (7-52) U/L Alkaline Phosphatase (34-104) U/L Troponin I High Sens (0-14) pg/ml Total Protein (6.0-8.3) gm/dl Albumin (3.4-5.0) gm/dl Globulin (2.5-4.0) gm/dl Albumin/Globulin Ratio (0.9-2) TSH (0.300-4.500) uIu/ml SARS-CoV-2 (PCR) (Negative) Influenza Type A (PCR) (Neg) Influenza Type B (PCR) (Neg) RSV (RT-PCR) (Neg) Blood Parasites ID Administered Medications Discontinued Medications Sodium Chloride (Nss) 500 mls @ 999 mls/hr IV .Q31M CHAYITO Stop: 09/11/22 21:45 Last Infusion: 09/11/22 22:37 Dose: 0 mls/hr Documented By: Admin: 09/11/22 21:15 Dose: 999 mls/hr Documented By: LEXII Ceftriaxone Sodium (Rocephin) 2,000 mg in 70 mls @ 140 mls/hr IV NOW STA Stop: 09/12/22 00:12 Last Admin: 09/12/22 00:01 Dose: 140 mls/hr Documented By: EMB Imaging Data Radiologist's Impression: Head CT 09/11/22 21:06 CT SCAN OF THE BRAIN WITHOUT IV CONTRAST CLINICAL HISTORY: Dementia. Change in mental status. COMPARISON STUDY: No priors. TECHNIQUE: Unenhanced axial CT scan of the brain is performed from the vertex to the skull base. A dose lowering technique was utilized adhering to the principles of ALARA. CT DOSE: 655.73 mGy.cm FINDINGS: Brain parenchyma: Foci of high bilateral frontal encephalomalacia are consistent with remote insults. Chronic lacunar infarcts are present within both cerebellar hemispheres. There is age-related involutional change noting mild subcortical and periventricular microangiopathic disease. There is no hemorrhage, mass effect, or evidence of acute territorial ischemia by CT criteria. Mineralization is noted in the basal ganglia and the jaky. Chatman-white matter differentiation is preserved. No extra-axial fluid collection is seen. Ventricles, sulci, cisterns: Prominent secondary to involutional change. Intracranial vasculature: There is atherosclerotic calcification of the cavernous carotid and vertebral arteries. Calvarium: Unremarkable. Sinuses and mastoids: The visualized paranasal sinuses are clear. The mastoid air cells are well pneumatized. Orbits: The bony orbits are grossly intact. There are bilateral ocular lens implants. IMPRESSION: There is no hemorrhage, mass effect, or evidence of acute territorial ischemia by CT criteria. ACT 112: Negative or not required by law. Electronically signed by: Honorio Page M.D. 09/11/2022 10:13 PM Chest X-Ray 09/11/22 21:07 SINGLE VIEW CHEST CLINICAL HISTORY: Generalized weakness. Fever. FINDINGS: An AP, portable, upright chest radiograph is compared to study dated 08/17/2022. The examination is degraded by portable technique and patient rotation. The heart is enlarged noting atherosclerotic calcification of the thoracic aorta. There is pulmonary vascular congestion. Bilateral airspace opacities likely representing mild pulmonary edema. No large pleural effusion or pneumothorax is seen. Atelectasis is seen at the lung bases. The skeletal structures are osteopenic. The bony thorax is grossly intact. Advanced degenerat tj change is noted in the shoulders and thoracic spine. IMPRESSION: 1. Cardiomegaly with pulmonary vascular congestion. 2. Bilateral airspace opacities likely represent mild pulmonary edema. Correlate clinically for evidence of a superimposed pneumonitis. ACT 112: Negative or not required by law. Electronically signed by: Honorio Page M.D. 09/11/2022 11:18 PM Discharge Plan Visit Data Chief Complaint: Confusion Stated Complaint: MORE CONFUSED THAN NORMAL ED Provider: Willie Boles Discharge Problem: Acute alteration in mental status, PAMELA (acute kidney injury), Elevated WBC count, Acute UTI (urinary tract infection), Hypoxia Patient Disposition: Being Evaluated by Hospitalist Forms Stand Alone Forms: My [facility] Prescriptions Prescriptions: No Action clopidogrel 75 mg tablet 75 mg PO QAM levothyroxine 50 mcg capsule 50 mcg PO DAILYBB paroxetine HCl 20 mg tablet 20 mg PO QAM potassium chloride 20 mEq packet 20 meq PO QAM acetaminophen 325 mg capsule 650 mg PO Q4H MDD 3g PRN (Reason: Mild Pain (Scale Score 1-4)) artificial tears with lanolin Ointment 1 applic OPB BID mirtazapine 15 mg Tablet 7.5 mg PO HS Rx Instructions: 1/2 TABLET DOSE gabapentin 300 mg capsule 300 mg PO HS Qty: 0 0RF bumetanide 1 mg tablet 1 mg PO [id number] Rx Instructions: take daily on MON/WED/FRI cefdinir 300 mg capsule 300 mg PO DAILY Qty: 1 0RF Referrals Referrals: [facility] ANTUNEZ [Primary Care Provider] -
[2022-09-11 21:48] LABS: Base Excess VBG 0.5 mEq/L; HCO3 VBG 25 mmol/L; Oxygen Saturation VBG 93.3 %; PCO2 VBG 37 mmHg (38-50); PO2 VBG 58 mmHg; pH VBG 7.43 (7.36-7.41)
[2022-09-11 21:54] LABS: Albumin Globulin Ratio 1.1 (0.9-2); Albumin Level 3.5 gm/dl (3.4-5.0); BUN Creatinine Ratio 14.1 (10-20); Bilirubin,Total 0.7 mg/dl (0.2-1.0); Calcium 10.3 mg/dl (8.5-10.1); Creatinine Clr Calc Pharmacy 23.7 ml/min; Est GFR (African American) 24.2 ml/min; Est GFR (Non-African American) 20.9 ml/min; Globulin 3.3 gm/dl (2.5-4.0); Magnesium 2.2 mg/dl (1.7-2.4); Potassium 5.2 mmol/L (3.5-5.1); Total Protein 6.8 gm/dl (6.0-8.3)
[2022-09-11 21:57] LABS: Troponin I High Sensitivity 28.7 pg/ml (0-14)
[2022-09-11 21:59] LABS: Influenza A virus by PCR Negative (Neg); Influenza B virus by PCR Negative (Neg); RSV by PCR Negative (Neg); SARS CoV2 RNA(COVID-19) Ceph NEGATIVE (Negative)
--- NOTE | 2022-09-11 22:15 | CT Scan Report ---
CT SCAN OF THE BRAIN WITHOUT IV CONTRAST CLINICAL HISTORY: Dementia. Change in mental status. COMPARISON STUDY: No priors. TECHNIQUE: Unenhanced axial CT scan of the brain is performed from the vertex to the skull base. A do se lowering technique was utilized adhering to the principles of ALARA. CT DOSE: 655.73 mGy.cm FINDINGS: Brain parenchyma: Foci of high bilateral frontal encephalomalacia are consistent with remote insults. Chronic lacunar infarcts are present within both cerebellar hemispheres. There is age-related involu tional change noting mild subcortical and periventricular microangiopathic disease. There is no hemor rhage, mass effect, or evidence of acute territorial ischemia by CT criteria. Mineralization is noted in the basal ganglia and the jaky. Chatman-white matter differentiation is preserved. No extra-axial fl uid collection is seen. Ventricles, sulci, cisterns: Prominent secondary to involutional change. Intracranial vasculature: There is atherosclerotic calcification of the cavernous carotid and vertebr al arteries. Calvarium: Unremarkable. Sinuses and mastoids: The visualized paranasal sinuses are clear. The mastoid air cells are well pneu matized. Orbits: The bony orbits are grossly intact. There are bilateral ocular lens implants. IMPRESSION: There is no hemorrhage, mass effect, or evidence of acute territorial ischemia by CT juan luis bansal. ACT 112: Negative or not required by law. Electronically signed by: Honorio Page M.D. 09/11/2022 10:13 PM
[2022-09-11 22:21] LABS: Basophils # (auto) 0.06 K/uL (0-0.2); Basophils % (auto) 0.3 %; Eosinophils # (auto) 0.01 K/uL (0-0.50); Eosinophils % (auto) 0.1 %; Immature Granulocytes # (auto) 0.08 K/uL (0.00-0.02); Immature Granulocytes % (auto) 0.4 %; Lymphocytes # (auto) 0.86 K/uL (1.2-3.4); Lymphocytes % (auto) 4.7 %; Mean Corpuscular Hemoglobin 33.6 pg (25.0-34.0); Mean Corpuscular Hgb Conc 33.3 g/dL (32.0-36.0); Mean Corpuscular Volume 100.7 fL (80.0-100.0); Mean Platelet Volume 9.5 fL (9.4-12.3); Monocytes # (auto) 1.61 K/uL (0.24-0.82); Monocytes % (auto) 8.8 %; Neutrophils # (auto) 15.74 K/uL (1.4-6.5); Neutrophils % (auto) 85.7 %; Platelet Count 399 K/uL (130-400); RDW Standard Deviation 52.1 fL (36.4-46.3); Red Blood Count 4.47 M/uL (3.93-5.22); White Blood Count 18.36 K/ul (4.8-10.8)
--- NOTE | 2022-09-11 23:19 | XRay Report ---
SINGLE VIEW CHEST CLINICAL HISTORY: Generalized weakness. Fever. FINDINGS: An AP, portable, upright chest radiograph is compared to study dated 08/17/2022. The examina tion is degraded by portable technique and patient rotation. The heart is enlarged noting atheroscler otic calcification of the thoracic aorta. There is pulmonary vascular congestion. Bilateral airspace opacities likely representing mild pulmonary edema. No large pleural effusion or pneumothorax is seen . Atelectasis is seen at the lung bases. The skeletal structures are osteopenic. The bony thorax is g rossly intact. Advanced degenerative change is noted in the shoulders and thoracic spine. IMPRESSION: 1. Cardiomegaly with pulmonary vascular congestion. 2. Bilateral airspace opacities likely represent mild pulmonary edema. Correlate clinically for evide nce of a superimposed pneumonitis. ACT 112: Negative or not required by law. Electronically signed by: Honorio Page M.D. 09/11/2022 11:18 PM
[2022-09-11] MEDS ORDERED: cefTRIAXone SODIUM 2,000 MG/70 ML BAG IV STA (23:43)
[2022-09-12 00:25] LABS: Appearance Urine Turbid (Clear); Bacteria Urine Automated 4+ (Negative); Bilirubin Urine Negative (Negative); Blood Urine 3+ (Negative); Color Urine Yellow; Glucose Urine UA Negative (Negative); Ketones Urine Negative (Negative); Leukocyte Esterase Urine 3+ (Negative); Nitrite Urine Positive (Negative); Protein Urine 2+ (Negative); RBC Urine Automated >30 /hpf (0-4); Specific Gravity Urine 1.014 (1.000-1.030); Urobilinogen Urine Negative (Negative); WBC Urine Automated >30 /hpf (0-5); pH Urine 6.5 (4.5-7.5)
--- NOTE | 2022-09-12 00:50 | History & Physical Report ---
Date of Service September 12, 2022 Assessment & Plan (1) Acute alteration in mental status: Plan: Patient with report of increased confusion, cough and hypoxia at her skilled nursing. Leukocytosis with WBC=18.36. Possible PNA -Follow cultures -Ceftriaxone and Azithromycin -Supplemental O2 as needed -Tylenol PRN -Tessalon PRN (2) Pneumonia: Plan: As above -Ceftriaxone and Azithromycin -Tessalon, Tylenol -Supplemental O2 (3) Hypothyroidism: Plan: Chronic. TSH normal at 2.956 -Continue Synthroid (4) Chronic kidney disease, stage 4 (severe): Plan: Baseline Cr of 2.2 - 2.4. BUN today=30, Cr=2.13. Mildly elevated K=5.2. No EKG changes -Hold nephrotoxic agents -IVF given in ER -Repeat chemistry in AM -Hold potassium supplements (5) Depression: Plan: Chronic. Well controlled on home regimen. -Continue Paxil (6) Hypercalcemia: Plan: Ca minimally elevated at 10.3. Has had intermittent hypercalcemia in the past, typically >120. -Continue to hold Vitamin D -Repeat chemistry in AM History of Present Illness Chief Complaint: confusion Primary Care Provider: [facility] Ebony Esposito is an 81yo female presenting from her skilled nursing with increased confusion. Patient with slight cough and low grade fever. Also with low O2 level noted by nursing staff. Patient offers no complaints. Specifically denies chest pain, palpitations, abdominal pain, nausea, vomiting or diarrhea. She does not report feeling short of breath. In the ER she is afebrile, HD stable. 94% on 2L O2 by [place]. ER Course: Ceftriaxone NSS Allergies Allergy/AdvReac Type Severity Reaction Status Date / Time iodine Allergy Unknown Unknown Verified 09/12/22 01:17 NSAIDS (Non-Steroidal Allergy Unknown Unknown Verified 09/12/22 01:17 Anti-Inflamma tositumomab iodine-131 Allergy Unknown Unknown Unverified 09/12/22 01:17 Penicillins Allergy Unknown Verified 09/12/22 01:17 Home Medications Medication Instructions Recorded Confirmed Type acetaminophen 325 mg capsule 650 mg PO Q4H PRN Pain 10/22/19 09/12/22 History clopidogrel 75 mg tablet 75 mg PO QAM 10/22/19 09/12/22 History levothyroxine 50 mcg capsule 50 mcg PO DAILYBB 10/22/19 09/12/22 History paroxetine HCl 20 mg tablet 20 mg PO QAM 10/22/19 09/12/22 History potassium chloride 20 mEq oral 20 meq PO QAM 10/22/19 09/12/22 History packet artificial tears with lanolin eye 1 applic OPB BID Dry eye(s) 12/08/20 09/12/22 History ointment bumetanide 1 mg tablet 1 mg PO 3XWK 08/16/22 09/12/22 History ascorbic acid (vitamin C) 500 mg 500 mg PO BID 09/12/22 09/12/22 History tablet (Vitamin C) calcium 500 mg tablet 500 mg PO DAILY 09/12/22 09/12/22 History cholecalciferol (vitamin D3) 125 125 mcg PO DAILY 09/12/22 09/12/22 History mcg (5,000 unit) tablet (Vitamin D3) gabapentin 300 mg capsule 300 mg PO .DAILY 1700 09/12/22 09/12/22 History mirtazapine 7.5 mg tablet 7.5 mg PO DAILY 09/12/22 09/12/22 History Past Med/Surg History Medical History Ambulatory dysfunction Chronic kidney disease, stage 4 (severe) GI bleed Hyperlipidemia Hypothyroidism Osteoarthritis Polyneuropathy Recurrent falls Social History Smoking Status: Former smoker Tobacco Type: Cigarettes Second Hand Exposure: No; Hx Alcohol Use: No Hx Substance Use: No Preferred Language: Mosotho Communication Ability: Effective Building Analyst/Supervisor Required: No Beliefs That Will Affect Care: Roman Catholic Roman Catholic Beliefs: MUSLIM Current Living Situation: Personal Care Facility Current Living Situation Comment: assisted living Feels Safe at Home: Yes Assistive Devices: Wheelchair Review of Systems Review of Systems: All systems reviewed & are unremarkable except as noted in HPI & below Physical Exam Physical Exam: General: somnolent, arousable, resting comfortably, NAD Skin: warm, dry, intact, no rashes or lesions HEENT: NC/AT, PERRL, EOMI, anicteric sclera, conjunctiva without injection, external ear normal to inspection and nontender, nares patent, moist mucus membranes, dentition intact, no oropharyngeal lesions, neck supple, trachea midline, no LAD, no thyromegaly, no JVD Heart: +S1/S2, regular, bradycardic, no m/r/g Lungs: equal air entry bilaterally, no rales/rhonchi/wheezes Abd: +BS, soft, NT/ND, no masses/organomegaly/ascites Ext: warm, 2+ pulses in UE/LE bilaterally, no clubbing/cyanosis or edema Neuro: nonfocal Results & Data Results & Data ([facility]) Vital Signs (Past 12 Hours) Vital Signs Temp Pulse Pulse Resp BP Pulse Ox O2 Del Method 09/11/22 22:53 69 17 122/67 94 09/11/22 21:10 96 Nasal Cannula 09/11/22 20:57 87 L Room Air 09/11/22 20:57 37.9 C H 98 H 19 87 L Room Air O2 Flow Rate 09/11/22 22:53 09/11/22 21:10 2 09/11/22 20:57 0 09/11/22 20:57 Laboratory Results Laboratory Results WBC 18.36 K/ul (4.8-10.8) H 09/11/22 21:46 RBC 4.47 M/uL (3.93-5.22) 09/11/22 21:46 Hgb 15.0 g/dl (12.0-16.0) 09/11/22 21:46 Hct 45.0 % (34.1-44.9) H 09/11/22 21:46 MCV 100.7 fL (80.0-100.0) H 09/11/22 21:46 MCH 33.6 pg (25.0-34.0) 09/11/22 21:46 MCHC 33.3 g/dL (32.0-36.0) 09/11/22 21:46 RDW Std Deviation 52.1 fL (36.4-46.3) H 09/11/22 21:46 RDW Coeff of Norris 14.0 % (11.5-14.5) 09/11/22 21:46 Plt Count 399 K/uL (130-400) 09/11/22 21:46 MPV 9.5 fL (9.4-12.3) 09/11/22 21:46 Immature Gran % (Auto) 0.4 % 09/11/22 21:46 Neut % (Auto) 85.7 % 09/11/22 21:46 Lymph % (Auto) 4.7 % 09/11/22 21:46 [place] % (Auto) 8.8 % 09/11/22 21:46 Eos % (Auto) 0.1 % 09/11/22 21:46 Baso % (Auto) 0.3 % 09/11/22 21:46 Neut # (Auto) 15.74 K/uL (1.4-6.5) H 09/11/22 21:46 Lymph # (Auto) 0.86 K/uL (1.2-3.4) L 09/11/22 21:46 [place] # (Auto) 1.61 K/uL (0.24-0.82) H 09/11/22 21:46 Eos # (Auto) 0.01 K/uL (0-0.50) 09/11/22 21:46 Baso # (Auto) 0.06 K/uL (0-0.2) 09/11/22 21:46 Immature Gran # (Auto) 0.08 K/uL (0.00-0.02) H 09/11/22 21:46 Absolute Nucleated RBC Cancelled 09/11/22 21:09 Nucleated RBC % (auto) Cancelled 09/11/22 21:09 Neutrophils % (Manual) Cancelled 09/11/22 21:09 Band Neutrophils % Cancelled 09/11/22 21:09 Lymphocytes % (Manual) Cancelled 09/11/22 21:09 Prolymphocyte % Cancelled 09/11/22 21:09 Reactive Lymphs % (Man) Cancelled 09/11/22 21:09 Monocytes % (Manual) Cancelled 09/11/22 21:09 Eosinophils % (Manual) Cancelled 09/11/22 21:09 Basophils % (Manual) Cancelled 09/11/22 21:09 Metamyelocytes % (Man) Cancelled 09/11/22 21:09 Myelocytes % (Man) Cancelled 09/11/22 21:09 Promyelocytes % (Man) Cancelled 09/11/22 21:09 Blast Cells % (Manual) Cancelled 09/11/22 21:09 Plasma Cell % (Manual) Cancelled 09/11/22 21:09 Other Cells % Cancelled 09/11/22 21:09 Nucleated RBC % Cancelled 09/11/22 21:09 Neutrophils # (Manual) Cancelled 09/11/22 21:09 Band Neutrophils # Cancelled 09/11/22 21:09 Total Absolute Neuts Cancelled 09/11/22 21:09 Lymphocytes # (Manual) Cancelled 09/11/22 21:09 Prolymphocyte # Cancelled 09/11/22 21:09 Reactive Lymphs # Cancelled 09/11/22 21:09 Total Abs Lymphocytes Cancelled 09/11/22 21:09 Monocytes # (Manual) Cancelled 09/11/22 21:09 Eosinophils # (Manual) Cancelled 09/11/22 21:09 Basophils # (Manual) Cancelled 09/11/22 21:09 Metamyelocytes # (Man) Cancelled 09/11/22 21:09 Myelocytes # (Manual) Cancelled 09/11/22 21:09 Promyelocytes # (Man) Cancelled 09/11/22 21:09 Blast Cells # (Man) Cancelled 09/11/22 21:09 Plasma Cell # (Manual) Cancelled 09/11/22 21:09 Other Cells # Cancelled 09/11/22 21:09 Nucleated RBCs # (Man) Cancelled 09/11/22 21:09 Hypersegmented Neuts Cancelled 09/11/22 21:09 Hyposegmented Neuts Cancelled 09/11/22 21:09 Hypogranular Neuts Cancelled 09/11/22 21:09 Large Granular Lymphs Cancelled 09/11/22 21:09 # Lrg Granular Lymphs Cancelled 09/11/22 21:09 Hairy Cells Cancelled 09/11/22 21:09 Smudge Cells Cancelled 09/11/22 21:09 Toxic Granulation Cancelled 09/11/22 21:09 Toxic Vacuolation Cancelled 09/11/22 21:09 Dohle Bodies Cancelled 09/11/22 21:09 Elijah Rods Cancelled 09/11/22 21:09 Platelet Estimate Cancelled 09/11/22 21:09 Hypogranular Platelets Cancelled 09/11/22 21:09 Clumped Platelets Cancelled 09/11/22 21:09 Giant Platelets Cancelled 09/11/22 21:09 Platelet Satelliting Cancelled 09/11/22 21:09 RBC Morphology Cancelled 09/11/22 21:09 Polychromasia Cancelled 09/11/22 21:09 Hypochromasia Cancelled 09/11/22 21:09 Poikilocytosis Cancelled 09/11/22 21:09 Basophilic Stippling Cancelled 09/11/22 21:09 Anisocytosis Cancelled 09/11/22 21:09 Microcytosis Cancelled 09/11/22 21:09 Macrocytosis Cancelled 09/11/22 21:09 Spherocytes Cancelled 09/11/22 21:09 Pappenheimer Bodies Cancelled 09/11/22 21:09 Sickle Cells Cancelled 09/11/22 21:09 Target Cells Cancelled 09/11/22 21:09 Tear Drop Cells Cancelled 09/11/22 21:09 Ovalocytes Cancelled 09/11/22 21:09 Stomatocytes Cancelled 09/11/22 21:09 Choi-Delco Bodies Cancelled 09/11/22 21:09 Echinocytes Cancelled 09/11/22 21:09 Acanthocytes (Spur) Cancelled 09/11/22 21:09 Rouleaux Cancelled 09/11/22 21:09 RBC Agglutinates Cancelled 09/11/22 21:09 Schistocytes Cancelled 09/11/22 21:09 Sezary Cell Cancelled 09/11/22 21:09 PT Cancelled 09/11/22 21:46 INR Cancelled 09/11/22 21:46 APTT Cancelled 09/11/22 21:46 PTT Ratio Cancelled 09/11/22 21:46 VBG pH 7.43 (7.36-7.41) H 09/11/22 21:35 VBG pCO2 37 mmHg (38-50) L 09/11/22 21:35 VBG pO2 58 mmHg 09/11/22 21:35 VBG HCO3 25 mmol/L 09/11/22 21:35 VBG O2 Saturation 93.3 % 09/11/22 21:35 VBG Base Excess 0.5 mEq/L 09/11/22 21:35 Sodium 137 mmol/L (136-145) 09/11/22 21:09 Potassium 5.2 mmol/L (3.5-5.1) H 09/11/22 21:09 Chloride 107 mmol/L (98-107) 09/11/22 21:09 Carbon Dioxide 22 mmol/L (21-32) 12/03/22 21:09 Anion Gap 8 (3-11) 09/11/22 21:09 BUN 30 mg/dl (6-23) H 09/11/22 21:09 Creatinine 2.13 mg/dl (0.6-1.2) H 09/11/22 21:09 Est Cr Clr Drug Dosing 23.7 ml/min 09/11/22 21:09 Est GFR ( Amer) 24.2 ml/min 09/11/22 21:09 Est GFR (Non-Af Amer) 20.9 ml/min 09/11/22 21:09 BUN/Creatinine Ratio 14.1 (10-20) 09/11/22 21:09 Glucose 116 mg/dl (70-99(Fasting)) H 09/11/22 21:09 Calcium 10.3 mg/dl (8.5-10.1) H 09/11/22 21:09 Magnesium 2.2 mg/dl (1.7-2.4) 09/11/22 21:09 Total Bilirubin 0.7 mg/dl (0.2-1.0) 09/11/22 21:09 AST 19 U/L (13-39) 09/11/22 21:09 ALT 13 U/L (7-52) 09/11/22 21:09 Alkaline Phosphatase 68 U/L (34-104) 09/11/22 21:09 Troponin I High Sens 28.7 pg/ml (0-14) H 09/11/22 21:09 Total Protein 6.8 gm/dl (6.0-8.3) 09/11/22 21:09 Albumin 3.5 gm/dl (3.4-5.0) 09/11/22 21:09 Globulin 3.3 gm/dl (2.5-4.0) 09/11/22 21:09 Albumin/Globulin Ratio 1.1 (0.9-2) 09/11/22 21:09 TSH 2.956 uIu/ml (0.300-4.500) 09/11/22 21:09 Urine Color Yellow 09/11/22 23:40 Urine Appearance Turbid (Clear) A 09/11/22 23:40 Urine pH 6.5 (4.5-7.5) 09/11/22 23:40 Ur Specific [place] 1.014 (1.000-1.030) 09/11/22 23:40 Urine Protein 2+ (Negative) H 09/11/22 23:40 Urine Glucose (UA) Negative (Negative) 09/11/22 23:40 Urine Ketones Negative (Negative) 09/11/22 23:40 Urine Blood 3+ (Negative) H 09/11/22 23:40 Urine Nitrite Positive (Negative) A 09/11/22 23:40 Urine Bilirubin Negative (Negative) 09/11/22 23:40 Urine Urobilinogen Negative (Negative) 09/11/22 23:40 Ur Leukocyte Esterase 3+ (Negative) H 09/11/22 23:40 Urine WBC (Auto) >30 /hpf (0-5) H 09/11/22 23:40 Urine RBC (Auto) >30 /hpf (0-4) H 09/11/22 23:40 U Hyaline Cast (Auto) 1-5 /lpf (0-5) 09/11/22 23:40 U Epithel Cells (Auto) 5-10 /lpf (0-5) H 09/11/22 23:40 Urine Bacteria (Auto) 4+ (Negative) H 09/11/22 23:40 Urine Yeast Not Reportable 09/11/22 23:40 SARS-CoV-2 (PCR) NEGATIVE (Negative) 09/11/22 21:00 Influenza Type A (PCR) Negative (Neg) 09/11/22 21:00 Influenza Type B (PCR) Negative (Neg) 09/11/22 21:00 RSV (RT-PCR) Negative (Neg) 09/11/22 21:00 Blood Parasites ID Cancelled 09/11/22 21:[address] 09/11/22 21:06 CT SCAN OF THE BRAIN WITHOUT IV CONTRAST CLINICAL HISTORY: Dementia. Change in mental status. COMPARISON STUDY: No priors. TECHNIQUE: Unenhanced axial CT scan of the brain is performed from the vertex to the skull base. A dose lowering technique was utilized adhering to the principles of ALARA. CT DOSE: 655.73 mGy.cm FINDINGS: Brain parenchyma: Foci of high bilateral frontal encephalomalacia are consistent with remote insults. Chronic lacunar infarcts are present within both cerebellar hemispheres. There is age-related involutional change noting mild subcortical and periventricular microangiopathic disease. There is no hemorrhage, mass effect, or evidence of acute territorial ischemia by CT criteria. Mineralization is noted in the basal ganglia and the jaky. Chatman-white matter differentiation is preserved. No extra-axial fluid collection is seen. Ventricles, sulci, cisterns: Prominent secondary to involutional change. Intracranial vasculature: There is atherosclerotic calcification of the cavernous carotid and vertebral arteries. Calvarium: Unremarkable. Sinuses and mastoids: The visualized paranasal sinuses are clear. The mastoid air cells are well pneumatized. Orbits: The bony orbits are grossly intact. There are bilateral ocular lens implants. IMPRESSION: There is no hemorrhage, mass effect, or evidence of acute territorial ischemia by CT criteria. ACT 112: Negative or not required by law. Electronically signed by: Honorio Page M.D. 09/11/2022 10:13 PM Chest X-Ray 09/11/22 21:07 SINGLE VIEW CHEST CLINICAL HISTORY: Generalized weakness. Fever. FINDINGS: An AP, portable, upright chest radiograph is compared to study dated 08/17/2022. The examination is degraded by portable technique and patient rotation. The heart is enlarged noting atherosclerotic calcification of the thoracic aorta. There is pulmonary vascular congestion. Bilateral airspace opacities likely representing mild pulmonary edema. No large pleural effusion or pneumothorax is seen. Atelectasis is seen at the lung bases. The skeletal structures are osteopenic. The bony thorax is grossly intact. Advanced degenerative change is noted in the shoulders and thoracic spine. IMPRESSION: 1. Cardiomegaly with pulmonary vascular congestion. 2. Bilateral airspace opacities likely represent mild pulmonary edema. Correlate clinically for evidence of a superimposed pneumonitis. ACT 112: Negative or not required by law. Electronically signed by: Honorio Page M.D. 09/11/2022 11:18 PM PG Care Time/CCT Total # of Minutes Spent Total Time Spent with Patient: Total time spent is greater than 50% in coordination of care (as documented) at patient's floor/unit and/or counseling patient: Coding Level of Care Code 15277 Initial Inpt Care Lvl 3 Diagnoses Acute alteration in mental status R41.82 Pneumonia J18.9 Hypothyroidism E03.9 Chronic kidney disease, stage 4 (severe) N18.4 Depression F32.9 Hypercalcemia E83.52
[2022-09-12] MEDS ORDERED: POLYETHYLENE (MIRALAX) 17 GM PACK PO PRN (03:57)
[2022-09-12] MEDS ORDERED: AZITHROMYCIN 500 MG in DEXTROSE 5% 250 ML IV STA (04:12)
[2022-09-12] MEDS: LEVOTHYROXINE SODIUM 50 MCG TABLET PO SCH (05:02)
[2022-09-12] MEDS ORDERED: SODIUM CHLORIDE 0.9% 1000ML 1,000 ML IV ONE (09:44)
[2022-09-12] MEDS ORDERED: SODIUM CHLORIDE 0.9% 1000ML 500 ML IV ONE (09:45)
[2022-09-12] MEDS: CLOPIDOGREL BISULFATE 75 MG TAB PO SCH (09:52)
[2022-09-12] MEDS: BENZONATATE 100 MG CAPSULE PO SCH ×3 (09:52→21:12)
[2022-09-12] MEDS: PARoxetine HCL 20 MG TAB PO SCH (09:52)
--- NOTE | 2022-09-12 11:19 | Electrocardiogram Report ---
Test Reason : Blood Pressure : / mmHG Vent. Rate : 102 BPM Atrial Rate : 102 BPM P-R Int : 160 ms QRS Dur : 116 ms QT Int : 360 ms P-R-T Axes : 030 -01 -63 degrees QTc Int : 469 ms Sinus tachycardia Right bundle branch block Left ventricular hypertrophy with QRS widening and repolarization abnormality Abnormal ECG When compared with ECG of 15-AUG-2022 23:15, Vent. rate has increased BY 41 BPM Confirmed by Willie Guardado ([id number]) on 09/12/2022 11:19:00 AM Referred By: [facility] Confirmed By:Willie Guardado
--- NOTE | 2022-09-12 12:34 | Communication Note ---
Date of Service: September 12, 2022 Please see today's H+P for full description of admission, except as otherwise stated here: 81 yo F Hx diastolic CHF, HLD, hypothyroidism, CKD stage IV, depression presented for confusion, cough, and hypoxia at fpc. Noted to have leukocytosis to 18.3, CXR however with mild pulmonary edema, possibly some evidence of superimposed pneumonitis. UA positive nitrites, LE, WBCs, 5-10 epithelials, 4+ bacteria. UCx pending. Was recently treated for E. coli UTI with ceftriaxone-> cefdinir, completed tx on 08/22. MRSA negative. Continue ceftriaxone/azithromycin (though more suspect pneumonitis than pneumonia). Ceftriaxone should cover suspected UTI (patient reports burning with urination). Speech consult for possible aspiration pneumonitis. Holding Bumex today given hypotension to high 80s and moving patient to Med/Tele, no fluids given due to CHF and evidence of pulmonary edema on CXR. Repeat BP 100s systolic. Creatinine 2.13, lower than baseline, perhaps a bit fluid overloaded. Low sodium diet and consider diuretics tomorrow however given hypotension will hold off at this time.
[2022-09-12] MEDS: cefTRIAXone SODIUM 2,000 MG in DEXTROSE 5% 50 ML IV SCH (21:09)
[2022-09-12] MEDS: GABAPENTIN 300 MG CAP PO SCH (21:10)
[2022-09-12] MEDS: MIRTAZAPINE TAB 15 MG TAB PO SCH (21:11)
[2022-09-13] MEDS: AZITHROMYCIN 250 MG in DEXTROSE 5% 250 ML IV SCH (04:13)
[2022-09-13] MEDS: LEVOTHYROXINE SODIUM 50 MCG TABLET PO SCH (06:08)
[2022-09-13 07:13] LABS: Basophils # (auto) 0.07 K/uL (0-0.2); Basophils % (auto) 0.4 %; Eosinophils # (auto) 0.12 K/uL (0-0.50); Eosinophils % (auto) 0.7 %; Hematocrit (blood only) 45.9 % (34.1-44.9); Hemoglobin 14.8 g/dl (12.0-16.0); Immature Granulocytes # (auto) 0.08 K/uL (0.00-0.02); Immature Granulocytes % (auto) 0.4 %; Lymphocytes # (auto) 2.29 K/uL (1.2-3.4); Lymphocytes % (auto) 12.8 %; Mean Corpuscular Hemoglobin 33.5 pg (25.0-34.0); Mean Corpuscular Hgb Conc 32.2 g/dL (32.0-36.0); Mean Corpuscular Volume 103.8 fL (80.0-100.0); Monocytes # (auto) 2.07 K/uL (0.24-0.82); Monocytes % (auto) 11.6 %; Neutrophils # (auto) 13.27 K/uL (1.4-6.5); Neutrophils % (auto) 74.1 %; Platelet Count 351 K/uL (130-400); RDW Coefficient of Variation 14.4 % (11.5-14.5); RDW Standard Deviation 55.4 fL (36.4-46.3); Red Blood Count 4.42 M/uL (3.93-5.22)
[2022-09-13 07:42] LABS: BUN Creatinine Ratio 14.8 (10-20); Calcium 9.4 mg/dl (8.5-10.1); Creatinine Clr Calc Pharmacy 19.5 ml/min; Est GFR (African American) 19.4 ml/min; Est GFR (Non-African American) 16.7 ml/min; Potassium 4.8 mmol/L (3.5-5.1)
[2022-09-13] MEDS: PARoxetine HCL 20 MG TAB PO SCH (07:44)
[2022-09-13] MEDS: BENZONATATE 100 MG CAPSULE PO SCH ×3 (07:44→20:57)
[2022-09-13] MEDS: BUMETANIDE 1 MG TAB PO SCH (07:44)
[2022-09-13] MEDS: CLOPIDOGREL BISULFATE 75 MG TAB PO SCH (07:44)
--- NOTE | 2022-09-13 07:47 | Hospitalist Progress Note ---
Date of Service September 13, 2022 Assessment & Plan (1) Acute alteration in mental status: Plan: Patient with report of increased confusion, cough and hypoxia at her senior care. Leukocytosis with WBC=18.36. Possible PNA -Follow cultures -Ceftriaxone and Azithromycin -Supplemental O2 as needed -Tylenol PRN -Tessalon PRN (2) Pneumonia: Plan: As above -Ceftriaxone and Azithromycin -Tessalon, Tylenol -Supplemental O2 (3) Hypothyroidism: Plan: Chronic. TSH normal at 2.956 -Continue Synthroid (4) Chronic kidney disease, stage 4 (severe): Plan: Baseline Cr of 2.2 - 2.4. BUN today=30, Cr=2.13. Mildly elevated K=5.2. No EKG changes -Hold nephrotoxic agents -IVF given in ER -Repeat chemistry in AM -Hold potassium supplements (5) Depression: Plan: Chronic. Well controlled on home regimen. -Continue Paxil (6) Hypercalcemia: Plan: Ca minimally elevated at 10.3. Has had intermittent hypercalcemia in the past, typically >120. -Continue to hold Vitamin D -Repeat chemistry in AM Admission and Anticipated Discharge Date Admission Date: September 12, 2022 Subjective 81 year old female with a past medical history of diastolic CHF, HLD, hypothyroidism, CKD stage IV, depression that presented for confusion, cough and hypoxemia at senior care. Workup significant for Leukocytosis, CXR with mild pulm edema and superimposed pneumonitis, and UA with nitrites, LE, WBCs, bacteria. Recently treated for UTI (culture grew E Coli); treated with ceftriaxone. Results & Data Results & Data ([facility]) Vital Signs (Past 12 Hours) Vital Signs Temp Pulse Pulse Resp BP Pulse Ox O2 Del Method 09/13/22 03:13 37.1 C 69 18 110/69 93 Nasal Cannula 09/12/22 22:09 65 09/12/22 23:25 37.1 C 67 16 116/67 93 Nasal Cannula 09/12/22 23:14 Nasal Cannula O2 Flow Rate 09/13/22 03:13 2 09/12/22 22:09 09/12/22 23:25 2 09/12/22 23:14 2
--- NOTE | 2022-09-13 15:42 | Medical Student Progress Note ---
Date of Service September 13, 2022 Assessment & Plan (1) Acute alteration in mental status: Plan: (1) Acute alteration in mental status: Plan: Patient with report of increased confusion, cough and hypoxia at her retirement. Leukocytosis with WBC=18.36. Possible PNA -Follow cultures -Ceftriaxone and Azithromycin -Supplemental O2 as needed -Tylenol PRN -Tessalon PRN (2) Pneumonia: Plan: As above -Ceftriaxone and Azithromycin -Tessalon, Tylenol -Wean off supplemental O2 -Recheck Cr level tomorrow (3) Asymptomatic Bacteriuria -Positive UA with positive culture -Patient denies urinary symptoms (3) Hypothyroidism: Plan: Chronic. TSH normal at 2.956 -Continue Synthroid (4) Chronic kidney disease, stage 4 (severe): Plan: Baseline Cr of 2.2 - 2.4. BUN today=30, Cr=2.13. Mildly elevated K=5.2. No EKG changes -Hold nephrotoxic agents -IVF given in ER -Repeat chemistry in AM -Hold potassium supplements (5) Depression: Plan: Chronic. Well controlled on home regimen. -Continue Paxil (6) Hypercalcemia: Plan: Ca minimally elevated at 10.3. Has had intermittent hypercalcemia in the past, typically >120. -Continue to hold Vitamin D -Repeat chemistry in AM (2) Pneumonia: (3) Hypothyroidism: (4) Chronic kidney disease, stage 4 (severe): (5) Depression: (6) Hypercalcemia: Admission and Anticipated Discharge Date Admission Date: September 12, 2022 Supervising Attestation I personally examined the patient and verified all salas points of history and exam, discussed case, and agree with decision making with Vanessa Dumont MS2 feeling ok breathing better vitals noted nad heent nc at mmm bibasilar rales good air entry no accessory muscles CAP, likely concomitant decompensated dCHF - improving. PAMELA ? poor forward flow - on bumex and follow otherwise as above. stable Subjective Prior to my evaluation: Ebony Esposito is an 81yo female with a past medical history of CKD stage 4, hypothyroidism, and hyperlipidemia who presented form personal f[facility] due to increased confusion, low grade fever, and hypoxemia noted by nursing staff. Patient reports having a dry cough for the last few weeks. The patient denied chest pain, palpitations, shortness of breath, abdominal pain, nausea, vomiting, or diarrhea. Chest x-ray revealed cardiomegaly with pulmonary vascular congestion with bilateral airspace opacities. Urine culture postive for gram negative bacilli. In the ER the patient was afebrile and hemodynamically stable. 94% on 2L O2 by [place]. Patient was started on ceftriaxone and azithromycin and is on 2L oxygen prn. My evaluation: Patient states she feels well today. No acute overnight events to report. The patient reports dry cough. The patient denies chest pain, palpitation, shortness of breath, abdominal pain, dysuria, frequency, or urgency. Review of Systems Constitutional: no fever, chills, no fatigue. Respiratory: no SOB, + cough, no wheezing Cardiovascular: Additional Comments: no chest pain, no palpitations. Gastrointestinal: no abdominal pain, no nausea, no vomiting, no constipation, no diarrhea. Neurologic: no numbness, no tingling, no headache, no lightheadedness, no dizziness. Physical Exam Constitutional: Alert and oriented, in no acute distress. Respiratory: Breath sounds equal. Bilateral crackles at the bases. No egophony. No tactile fremitis. Cardiovascular: Regular rate and rhythm. No murmurs, rubs, or gallops. Neurologic: Mental status intact. CN II-XII in tact. Strength 5/5 bilaterally in upper and lower extremities. Sensation to dull and sharp in upper and lower extremities normal. Patella, Achilles, tricep, and brachioradialis DTRs 2+. Finger to nose test normal. Rapid hand movement test normal. Heel to kohli test normal. Did not assess gait. Results & Data ([facility]) Vital Signs (Past 12 Hours) Vital Signs Temp Pulse Resp BP Pulse Ox O2 Del Method O2 Flow Rate 09/13/22 15:02 37.1 C 95 H 20 151/92 H 91 Room Air 09/13/22 11:49 37.0 C 65 20 151/71 H 95 Nasal Cannula 09/13/22 08:15 Nasal Cannula 2 09/13/22 08:26 37.0 C 65 20 121/72 96 Nasal Cannula 2 Laboratory Results 09/13/22 09/13/22 09/13/22 Range/Units 10:11 06:48 06:48 WBC 17.90 H (4.8-10.8) K/ul RBC 4.42 (3.93-5.22) M/uL Hgb 14.8 (12.0-16.0) g/dl Hct 45.9 H (34.1-44.9) % MCV 103.8 H (80.0-100.0) fL MCH 33.5 (25.0-34.0) pg MCHC 32.2 (32.0-36.0) g/dL RDW Std Deviation 55.4 H (36.4-46.3) fL RDW Coeff of Norris 14.4 (11.5-14.5) % Plt Count 351 (130-400) K/uL MPV 9.0 L (9.4-12.3) fL Immature Gran % (Auto) 0.4 % Neut % (Auto) 74.1 % Lymph % (Auto) 12.8 % [place] % (Auto) 11.6 % Eos % (Auto) 0.7 % Baso % (Auto) 0.4 % Neut # (Auto) 13.27 H (1.4-6.5) K/uL Lymph # (Auto) 2.29 (1.2-3.4) K/uL [place] # (Auto) 2.07 H (0.24-0.82) K/uL Eos # (Auto) 0.12 (0-0.50) K/uL Baso # (Auto) 0.07 (0-0.2) K/uL Immature Gran # (Auto) 0.08 H (0.00-0.02) K/uL Sodium 137 (136-145) mmol/L Potassium 4.8 (3.5-5.1) mmol/L Chloride 105 (98-107) mmol/L Carbon Dioxide 31 (21-32) mmol/L Anion Gap 1 L (3-11) BUN 38 H (6-23) mg/dl Creatinine 2.56 H D (0.6-1.2) mg/dl Est Cr Clr Drug Dosing 19.5 ml/min Est GFR ( Amer) 19.4 ml/min Est GFR (Non-Af Amer) 16.7 ml/min BUN/Creatinine Ratio 14.8 (10-20) Glucose 92 (70-99(Fasting)) mg/dl Calcium 9.4 (8.5-10.1) mg/dl Bld Cult ID Panel PCR Pending
[2022-09-13] MEDS ORDERED: LACTATED RINGER'S 1,000 ML IV SCH (18:00)
[2022-09-13 18:47] LABS: A calco-baum cmplx NotReported Not Detected (NotDetected); Bact fragilis Not Reported Not Detected (NotDetected); C auris Not Reported Not Detected (NotDetected); Calbicans Not Reported Not Detected (NotDetected); Candida glabrata Not Reported Not Detected (NotDetected); Candida krusei Not Reported Not Detected (NotDetected); Cneoformans/gatti Not Reported Not Detected (NotDetected); Cparapsilosis Not Reported Not Detected (NotDetected); Ctropicalis Not Reported Not Detected (NotDetected); E cloacae compx Not Reported Not Detected (NotDetected); Efaecalis Not Reported Not Detected (NotDetected); Efaecium Not Reported Not Detected (NotDetected); Enterobacterales Not Reported DETECTED (NotDetected); Escherichia coli Not Reported DETECTED (NotDetected); H influenzae Not Reported Not Detected (NotDetected); IMP Resistant Gene Not Detected (NotDetected); K aerogenes Not Reported Not Detected (NotDetected); KPC Resistant Gene Not Detected (NotDetected); Koxytoca Not Reported Not Detected (NotDetected); Kpneumoniae grp Not Reported Not Detected (NotDetected); Lmonocyt Not Reported Not Detected (NotDetected); N meningitidis Not Reported Not Detected (NotDetected); NDM Resistant Gene Not Detected (NotDetected); OXA 48 Like Resistant Gene Not Detected (NotDetected); P aeruginosa Not Reported Not Detected (NotDetected); Proteus spp Not Reported Not Detected (NotDetected); Salmonella spp Not Reported Not Detected (NotDetected); Smarcescens Not Reported Not Detected (NotDetected); Staph lugdunensis Not Reported Not Detected (NotDetected); Staph spp. Not Reported Not Detected (NotDetected); Staphaureus Not Reported Not Detected (NotDetected); Staphepi Not Reported Not Detected (NotDetected); Stenmaltophilia Not Reported Not Detected (NotDetected); Strep agal(GrpB) Not Reported Not Detected (NotDetected); Strep pneum Not Reported Not Detected (NotDetected); Strep pyog (GrpA) Not Reported Not Detected (NotDetected); Strep spp Not Reported Not Detected (NotDetected); VIM Resistant Gene Not Detected (NotDetected); mcr-1 Colistin Resistant Gene Not Detected (NotDetected)
[2022-09-13 18:59] LABS: CTX-M Resistant Gene DETECTED (NotDetected); Enterobacterales DETECTED (NotDetected)
--- NOTE | 2022-09-13 19:36 | Billing Data ---
Date of Service September 13, 2022 Coding Level of Care Code 96925 Subseq Hosp Care Lvl 3
[2022-09-13] MEDS: MIRTAZAPINE TAB 15 MG TAB PO SCH (20:54)
[2022-09-13] MEDS: GABAPENTIN 300 MG CAP PO SCH (20:55)
[2022-09-13] MEDS: cefTRIAXone SODIUM 2,000 MG in DEXTROSE 5% 50 ML IV SCH (21:03)
[2022-09-14] MEDS: AZITHROMYCIN 250 MG in DEXTROSE 5% 250 ML IV SCH (03:09)
[2022-09-14] MEDS: LEVOTHYROXINE SODIUM 50 MCG TABLET PO SCH (06:28)
[2022-09-14 07:38] LABS: Hematocrit (blood only) 44.8 % (34.1-44.9); Hemoglobin 14.5 g/dl (12.0-16.0); Mean Corpuscular Hgb Conc 32.4 g/dL (32.0-36.0); Mean Corpuscular Volume 101.8 fL (80.0-100.0); Mean Platelet Volume 9.2 fL (9.4-12.3); Platelet Count 330 K/uL (130-400); RDW Standard Deviation 53.1 fL (36.4-46.3); White Blood Count 14.64 K/ul (4.8-10.8)
[2022-09-14] MEDS: CLOPIDOGREL BISULFATE 75 MG TAB PO SCH (07:52)
[2022-09-14] MEDS: PARoxetine HCL 20 MG TAB PO SCH (07:52)
[2022-09-14] MEDS: BENZONATATE 100 MG CAPSULE PO SCH ×3 (07:52→21:03)
--- NOTE | 2022-09-14 07:55 | Medical Student Progress Note ---
Date of Service September 14, 2022 Assessment & Plan (1) Acute alteration in mental status: Plan: (1) Acute alteration in mental status: Plan: Ebony Esposito is an 81yo female with a past medical history of CKD stage 4, hypothyroidism, and hyperlipidemia presenting with report of increased confusion, cough and hypoxia at her care home.Leukocytosis with WBC=18.36 on admission now 14.64. Possible PNA. -Blood culture positive for gram negative bacilli. Will start Ertapenem, renally dosed. -Discontinue Ceftriaxone. Continue Azithromycin. -Follow cultures -Tylenol PRN -Tessalon PRN (2) Pneumonia: Plan: As above -Azithromycin and Ertapenem -Tessalon, Tylenol -Wean off supplemental O2 (3) PAMELA -Cr level 2.51 -Give 1mg Bumex IV (4) Asymptomatic Bacteriuria -Positive UA with positive culture, growing ESBL -Patient denies urinary symptoms (5) Hypothyroidism: Plan: Chronic. TSH normal at 2.956 -Continue Synthroid (6) Chronic kidney disease, stage 4 (severe): Plan: Baseline Cr of 2.2 - 2.4. BUN today=39, Cr=2.51. Mildly elevated K=4.6. No EKG changes -Hold nephrotoxic agents -IVF given in ER -Repeat chemistry in AM -Hold potassium supplements (7) Depression: Plan: Chronic. Well controlled on home regimen. -Continue Paxil (8) Hypercalcemia: Plan: Ca minimally elevated at 10.3. Has had intermittent hypercalcemia in the past, typically >120. -Continue to hold Vitamin D -Repeat chemistry in AM (2) Pneumonia: (3) Hypothyroidism: (4) Chronic kidney disease, stage 4 (severe): (5) Depression: (6) Hypercalcemia: Admission and Anticipated Discharge Date Admission Date: September 12, 2022 Supervising Attestation I personally examined the patient and verified all salas points of history and exam, discussed case, and agree with decision making with Vanessa GOMEZ generally feeling better overall. no sob, but still on O2 vitals noted nad heent nc at mmm breathing unlabored no accessory muscles good effort skin no rashes no pallor or icterus gram negative bacteremia - concern that ESBL might be culprit, respiratory symptoms may be all acute dCHF precipitated by physiologic stress from bacteremia, and PAMELA from poor forward flowadjust antibiotics to cover for possible ESBL, follow blood cultures, continue to diurese, follow volume status and basic metabolic panel. otherwise as above. stable Subjective Prior to my evaluation: Ebony Esposito is an 81yo female with a past medical history of CKD stage 4, hypothyroidism, and hyperlipidemia who presented form personal longterm due to increased confusion, low grade fever, and hypoxemia noted by nursing staff. Patient reports having a dry cough for the last few weeks. The patient denied chest pain, palpitations, shortness of breath, abdominal pain, nausea, vomiting, or diarrhea. Chest x-ray revealed cardiomegaly with pulmonary vascular congestion with bilateral airspace opacities. Urine culture positive for gram negative bacilli. In the ER the patient was afebrile and hemodynamically stable. 94% on 2L O2 by NC. Patient was started on ceftriaxone and azithromycin and is on 2L oxygen prn. My evaluation: Patient states she feels well today. No acute overnight events to report. Patient reports dry cough that is improving. The patient denies chest pain, palpitation, shortness of breath, abdominal pain, dysuria, frequency, or urgency. Review of Systems Constitutional: no fever, chills, no fatigue. Respiratory: no SOB, + cough, no wheezing Cardiovascular: Additional Comments: no chest pain, no palpitations. Gastrointestinal: no abdominal pain, no nausea, no vomiting, no constipation, no diarrhea. Neurologic: no numbness, no tingling, no headache, no lightheadedness, no dizziness. Physical Exam Constitutional: Alert and oriented, in no acute distress. Respiratory: Breath sounds equal bilaterally. Bilateral rales at bases. No egophony. No tactile fremitus. Cardiovascular: Regular rate and rhythm. No murmurs, rubs, or gallops. Neurologic: Mental status intact. CN II-XII in tact. Strength 5/5 bilaterally in upper and lower extremities. Sensation to dull and sharp in upper and lower extremities normal. Patella, Achilles, tricep, and brachioradialis DTRs 2+. Finger to nose test normal. Rapid hand movement test normal. Heel to kohli test normal. Did not assess gait. Results & Data ([facility]) Vital Signs (Past 12 Hours) Vital Signs Temp Pulse Pulse Resp BP Pulse Ox O2 Del Method 09/14/22 07:07 67 09/14/22 04:22 37.3 C 69 18 135/70 96 Nasal Cannula 09/13/22 22:11 75 09/13/22 22:42 36.7 C 77 18 139/78 95 Nasal Cannula 09/13/22 22:19 Nasal Cannula O2 Flow Rate 09/14/22 07:07 09/14/22 04:22 2 09/13/22 22:11 09/13/22 22:42 2 09/13/22 22:19 2
[2022-09-14 08:22] LABS: Albumin Globulin Ratio 0.8 (0.9-2); Albumin Level 2.7 gm/dl (3.4-5.0); BUN Creatinine Ratio 15.5 (10-20); Bilirubin,Total 0.4 mg/dl (0.2-1.0); Calcium 8.8 mg/dl (8.5-10.1); Creatinine Clr Calc Pharmacy 19.7 ml/min; Est GFR (African American) 19.8 ml/min; Est GFR (Non-African American) 17.1 ml/min; Globulin 3.2 gm/dl (2.5-4.0); Potassium 4.6 mmol/L (3.5-5.1); Total Protein 5.9 gm/dl (6.0-8.3)
[2022-09-14] MEDS ORDERED: BUMETANIDE 1 MG in SYRINGE 0 ML IV ONE (11:30)
[2022-09-14] MEDS ORDERED: ERTAPENEM SODIUM IV ONE (12:00)
--- NOTE | 2022-09-14 13:27 | Medical Student Progress Note ---
Date of Service September 13, 2022 Assessment & Plan Admission and Anticipated Discharge Date Admission Date: September 12, 2022 Results & Data ([facility]) Vital Signs (Past 12 Hours) Vital Signs Temp Pulse Pulse Resp BP Pulse Ox O2 Del Method 09/13/22 17:06 Nasal Cannula 09/13/22 15:58 72 09/13/22 15:02 37.1 C 95 H 20 151/92 H 91 Room Air 09/13/22 11:49 37.0 C 65 20 151/71 H 95 Nasal Cannula 09/13/22 08:15 Nasal Cannula 09/13/22 08:26 37.0 C 65 20 121/72 96 Nasal Cannula O2 Flow Rate 09/13/22 17:06 2 09/13/22 15:58 09/13/22 15:02 09/13/22 11:49 09/13/22 08:15 2 09/13/22 08:26 2
[2022-09-14] MEDS ORDERED: PIPERACILLIN/TAZOBACTAM 2.25 GM in DEXTROSE 5% 100 ML IV SCH (14:00)
--- NOTE | 2022-09-14 16:00 | Fluoroscopy Report ---
FL video swallow CLINICAL HISTORY: r/o aspiration TECHNIQUE: Video fluoroscopy of the pharyngeal region was performed as barium mixtures of varying con sistencies were administered to the patient by the speech pathologist. A formal esophagram was not pe rformed. Comparison: None available at the time of this dictation. FINDINGS: Total fluoroscopy time: 1.4 minutes. The patient swallowed the different barium consistencies without difficulty. There was no laryngeal v estibular penetration or precious tracheal aspiration. Pooling of barium was noted in the bilateral piri form sinuses and valleculae. IMPRESSION: No evidence of aspiration. Please see the speech pathology report for further details. ACT 112: Negative or not required by law. Electronically signed by: Deven Shaikh M.D. 09/14/2022 3:59 PM
--- NOTE | 2022-09-14 19:21 | Billing Data ---
Date of Service September 14, 2022 Coding Level of Care Code 31248 Subseq Hosp Care Lvl 3
--- NOTE | 2022-09-14 19:22 | Billing Data ---
Date of Service September 14, 2022 Coding Level of Care Code 57946 Subseq Hosp Care Lvl 3
[2022-09-14] MEDS: GABAPENTIN 300 MG CAP PO SCH (21:03)
[2022-09-14] MEDS: MIRTAZAPINE TAB 15 MG TAB PO SCH (21:03)
[2022-09-15] MEDS: AZITHROMYCIN 250 MG in DEXTROSE 5% 250 ML IV SCH (03:39)
[2022-09-15] MEDS: LEVOTHYROXINE SODIUM 50 MCG TABLET PO SCH (06:00)
[2022-09-15] MEDS ORDERED: MICONAZOLE NITRATE POWDER 43 GM EXT PRN (06:08)
[2022-09-15] MEDS: BENZONATATE 100 MG CAPSULE PO SCH ×3 (07:20→20:08)
[2022-09-15] MEDS: BUMETANIDE 1 MG TAB PO SCH (07:20)
[2022-09-15] MEDS: PARoxetine HCL 20 MG TAB PO SCH (07:21)
[2022-09-15] MEDS: CLOPIDOGREL BISULFATE 75 MG TAB PO SCH (07:21)
--- NOTE | 2022-09-15 07:40 | Hospitalist Progress Note ---
Date of Service September 15, 2022 Assessment & Plan (1) Acute alteration in mental status: Plan: Gram Negative Bacteremia -Blood culture positive for E Coli ESBL. Will start Ertapenem, renally dosed for a total of 7-14 days - Urine culture growing ESBL; blood culture is growing the same. -Continue Ertapenem Increased Oxygen Requirement - Suspected increased oxygen requirement secondary to pulmonary edema, less likely pneumonia - Blood culture as per above; less likely pneumonia-> will d/c azithromycin -Tessalon, Tylenol prn -Wean off supplemental O2 as tolerated PAMELA -Cr level 2.51 yesterday; today= 2.27 after extra dose of Bumex yesterday; suspect secondary to increase volume -Continue MWF Bumex dosing for today Acute alteration in mental status - improving; likely secondary infection vs delirium Hypothyroidism: Chronic. TSH normal at 2.956 -Continue Synthroid Chronic kidney disease, stage 4 (severe): Baseline Cr of 2.2 - 2.4. -Hold nephrotoxic agents -IVF given in ER -Continue to trend -Hold potassium supplements Depression: Chronic. Well controlled on home regimen. -Continue Paxil Hypercalcemia: Ca minimally elevated at 10.3.Trending down; 9.7 today -Continue to hold Vitamin D -Continue to trend (2) Hypothyroidism: (3) Chronic kidney disease, stage 4 (severe): (4) Depression: (5) Hypercalcemia: Admission and Anticipated Discharge Date Admission Date: September 12, 2022 Supervising Physician Co-Signing Physician Notes I personally examined the patient and verified all salas points of history and exam, discussed case, and agree with decision making with Dr Maurice. Feeling better overall. Breathing better. Very weak. Notes that the oxygen is tickling her nose. vitals noted nad heent nc at mmm suboptimal lung exam but may be faint bibasilar rales, but definitely better than before. 97% with her 2 L nasal cannula intermediate out of her nose, turned off oxygen entirely and she is still 97% on room air skin without rashes pallor or icterus. Neuro without focal deficits. Sepsis with gram negative bacteremia due to urinary tract infection precipitating metabolic encephalopathy and subsequent acute on chronic diastolic CHF all present on admission-ertapenem, Bumex, PT/OT eval and treat, mental status is improved, acute kidney injury due to poor forward flow from sepsis and acute on chronic diastolic CHFimproving with diuresis. Continue to follow. otherwise as above. stable, appears will need SNF unless [facility] able to accomodate her severity of weakness Subjective Pt resting comfortably this morning. Appetite is good, was eating breakfast. Denies chest pain, dyspnea. Spoke with her son yesterday and he is aware of the plan. Review of Systems Review of Systems: As per HPI Physical Exam Physical Exam: Constitutional: well-appearing, no acute distress HEENT: NCAT, no conjunctival injection CV: regular rhythm, no murmur appreciated, extremities well-perfused, no LE edema Resp: wheezing B/L GI: soft, nondistended, nontender, BS normoactive MSK: no gross deformities appreciated Skin: warm, dry, no rash appreciated Neuro: alert, oriented, no focal neurologic deficit appreciated Results & Data Results & Data ([facility]) Vital Signs (Past 12 Hours) Vital Signs Temp Pulse Pulse Resp BP Pulse Ox O2 Del Method 09/15/22 07:05 55 L 09/15/22 02:46 36.7 C 57 L 18 161/80 H 96 Nasal Cannula 09/14/22 22:06 69 09/14/22 22:23 37.1 C 73 18 138/74 92 Nasal Cannula 09/14/22 19:58 37 C 75 18 140/78 93 Nasal Cannula O2 Flow Rate 09/15/22 07:05 09/15/22 02:46 2 09/14/22 22:06 09/14/22 22:23 09/14/22 19:58 2 Resident Activity Tracking Resident Involvement: Resident Care Provided Care Provided: Adult Hospital Medicine
[2022-09-15 09:47] LABS: Basophils # (auto) 0.06 K/uL (0-0.2); Basophils % (auto) 0.5 %; Eosinophils # (auto) 0.12 K/uL (0-0.50); Hematocrit (blood only) 49.4 % (34.1-44.9); Hemoglobin 16.1 g/dl (12.0-16.0); Immature Granulocytes # (auto) 0.04 K/uL (0.00-0.02); Immature Granulocytes % (auto) 0.3 %; Lymphocytes # (auto) 1.52 K/uL (1.2-3.4); Mean Corpuscular Hemoglobin 33.3 pg (25.0-34.0); Mean Corpuscular Hgb Conc 32.6 g/dL (32.0-36.0); Mean Corpuscular Volume 102.1 fL (80.0-100.0); Mean Platelet Volume 9.4 fL (9.4-12.3); Monocytes # (auto) 1.07 K/uL (0.24-0.82); Monocytes % (auto) 9.2 %; Neutrophils # (auto) 8.88 K/uL (1.4-6.5); Platelet Count 367 K/uL (130-400); RDW Coefficient of Variation 13.8 % (11.5-14.5); RDW Standard Deviation 52.6 fL (36.4-46.3); Red Blood Count 4.84 M/uL (3.93-5.22); White Blood Count 11.69 K/ul (4.8-10.8)
[2022-09-15 10:19] LABS: Albumin Globulin Ratio 0.9 (0.9-2); Albumin Level 3.3 gm/dl (3.4-5.0); BUN Creatinine Ratio 15.9 (10-20); Bilirubin,Total 0.5 mg/dl (0.2-1.0); Calcium 9.7 mg/dl (8.5-10.1); Creatinine Clr Calc Pharmacy 21.6 ml/min; Est GFR (African American) 22.4 ml/min; Est GFR (Non-African American) 19.3 ml/min; Globulin 3.6 gm/dl (2.5-4.0); Potassium 4.3 mmol/L (3.5-5.1); Total Protein 6.9 gm/dl (6.0-8.3)
[2022-09-15] MEDS: ERTAPENEM SODIUM 500 MG in SYRINGE 0 ML IV SCH (10:32)
--- NOTE | 2022-09-15 17:55 | Billing Data ---
Date of Service September 15, 2022 Coding Level of Care Code 96454 Subseq Hosp Care Lvl 3
[2022-09-15] MEDS: MIRTAZAPINE TAB 15 MG TAB PO SCH (20:08)
[2022-09-15] MEDS: ACETAMINOPHEN 325 MG TAB PO PRN (20:08)
[2022-09-15] MEDS: GABAPENTIN 300 MG CAP PO SCH (20:09)
[2022-09-16] MEDS: LEVOTHYROXINE SODIUM 50 MCG TABLET PO SCH (06:10)
[2022-09-16] MEDS: PARoxetine HCL 20 MG TAB PO SCH (08:07)
[2022-09-16] MEDS: CLOPIDOGREL BISULFATE 75 MG TAB PO SCH (08:07)
[2022-09-16 08:31] LABS: Basophils # (auto) 0.06 K/uL (0-0.2); Basophils % (auto) 0.5 %; Eosinophils # (auto) 0.11 K/uL (0-0.50); Eosinophils % (auto) 0.9 %; Hemoglobin 15.2 g/dl (12.0-16.0); Immature Granulocytes # (auto) 0.04 K/uL (0.00-0.02); Immature Granulocytes % (auto) 0.3 %; Lymphocytes # (auto) 1.96 K/uL (1.2-3.4); Lymphocytes % (auto) 16.3 %; Mean Corpuscular Hemoglobin 32.6 pg (25.0-34.0); Mean Corpuscular Hgb Conc 32.3 g/dL (32.0-36.0); Mean Corpuscular Volume 100.9 fL (80.0-100.0); Monocytes # (auto) 1.49 K/uL (0.24-0.82); Monocytes % (auto) 12.4 %; Neutrophils # (auto) 8.33 K/uL (1.4-6.5); Neutrophils % (auto) 69.6 %; Platelet Count 354 K/uL (130-400); RDW Coefficient of Variation 13.9 % (11.5-14.5); RDW Standard Deviation 52.3 fL (36.4-46.3); Red Blood Count 4.66 M/uL (3.93-5.22); White Blood Count 11.99 K/ul (4.8-10.8)
[2022-09-16 09:16] LABS: Albumin Globulin Ratio 0.9 (0.9-2); Bilirubin,Total 0.3 mg/dl (0.2-1.0); Calcium 9.3 mg/dl (8.5-10.1); Creatinine Clr Calc Pharmacy 20.7 ml/min; Est GFR (African American) 21.3 ml/min; Est GFR (Non-African American) 18.3 ml/min; Globulin 3.3 gm/dl (2.5-4.0); Potassium 4.3 mmol/L (3.5-5.1); Total Protein 6.3 gm/dl (6.0-8.3)
[2022-09-16] MEDS: BENZONATATE 100 MG CAPSULE PO SCH ×3 (09:53→21:09)
--- NOTE | 2022-09-16 10:37 | Hospitalist Progress Note ---
Date of Service September 16, 2022 Assessment & Plan (1) Acute alteration in mental status: Plan: Gram Negative Bacteremia -Blood culture positive for E Coli ESBL. Will start Ertapenem, renally dosed for a total of 7-14 days. Today is day 2 - Urine culture growing ESBL; blood culture is growing the same. -Continue Ertapenem Increased Oxygen Requirement - Suspected increased oxygen requirement secondary to pulmonary edema, less likely pneumonia - Blood culture as per above; less likely pneumonia-> will d/c azithromycin -Tessalon, Tylenol prn -Wean off supplemental O2 as tolerated; SpO2 on room air PAMELA -Cr level 2.51 yesterday; today= 2.37, close to baseline -Continue MWF Bumex dosing for today Acute alteration in mental status - improving; likely secondary infection vs delirium Hypothyroidism: Chronic. TSH normal at 2.956 -Continue Synthroid Chronic kidney disease, stage 4 (severe): Baseline Cr of 2.2 - 2.4. -Hold nephrotoxic agents -IVF given in ER -Continue to trend -Hold potassium supplements Depression: Chronic. Well controlled on home regimen. -Continue Paxil Hypercalcemia: Ca minimally elevated at 10.3.Trending down; 9.7 today -Continue to hold Vitamin D -Continue to trend (2) Hypothyroidism: (3) Chronic kidney disease, stage 4 (severe): (4) Depression: (5) Hypercalcemia: Admission and Anticipated Discharge Date Admission Date: September 12, 2022 Supervising Physician Co-Signing Physician Notes I personally examined the patient and verified all salas points of history and exam, discussed case, and agree with decision making with Dr Maurice. Went to see several times today. Sleeping comfortably every time. Discussed with resident physicianno new issues. Updated case management. vitals noted nad breathing unlabored at rest off of oxygen all day. No accessory muscle use no appearance of dyspnea. Sepsis with gram negative bacteremia due to urinary tract infection precipitating metabolic encephalopathy and subsequent acute on chronic diastolic CHF all present on admission-ertapenem, Bumex, PT/OT eval and treat, mental status is improved, acute kidney injury due to poor forward flow from sepsis and acute on chronic diastolic CHFimproving with diuresisdid plateau today, but continue current plan and follow closely. Continue to follow. otherwise as above. stable, appears will need SNF unless H able to accommodate her severity of weakness, also will need 7 to 14 days of IV ertapenem daily total Subjective Pt is doing well this morning without any complaints. She was finishing breakfast when I saw her and has a good appetite. Denies cough, chest pain, dyspnea, abdominal/flank pain. Review of Systems Review of Systems: As per HPI Physical Exam Physical Exam: Constitutional: well-appearing, no acute distress HEENT: NCAT, no conjunctival injection CV: regular rhythm, no murmur appreciated, extremities well-perfused, no LE edema Resp: lungs CTA B/L GI: soft, nondistended, nontender, BS normoactive MSK: no gross deformities appreciated Skin: warm, dry, no rash appreciated Neuro: alert, oriented, no focal neurologic deficit appreciated Results & Data Results & Data ([facility]) Vital Signs (Past 12 Hours) Vital Signs Temp Pulse Resp BP Pulse Ox O2 Del Method 09/16/22 07:38 36.9 C 64 18 139/77 90 Room Air 09/16/22 02:37 36.8 C 71 18 125/72 91 Room Air 09/15/22 22:46 37 C 70 18 127/71 91 Room Air Resident Activity Tracking Resident Involvement: Resident Care Provided Care Provided: Adult Hospital Medicine
[2022-09-16] MEDS: ERTAPENEM SODIUM 500 MG in SYRINGE 0 ML IV SCH (11:44)
--- NOTE | 2022-09-16 19:13 | Billing Data ---
Date of Service September 16, 2022 Coding Level of Care Code 57835 Subseq Hosp Care Lvl 2
[2022-09-16] MEDS: GABAPENTIN 300 MG CAP PO SCH (21:08)
[2022-09-16] MEDS: MIRTAZAPINE TAB 15 MG TAB PO SCH (21:09)
[2022-09-16] MEDS: ACETAMINOPHEN 325 MG TAB PO PRN (21:10)
[2022-09-17] MEDS: LEVOTHYROXINE SODIUM 50 MCG TABLET PO SCH (05:44)
--- NOTE | 2022-09-17 07:39 | Hospitalist Progress Note ---
Date of Service September 17, 2022 Assessment & Plan (1) Acute alteration in mental status: Plan: Gram Negative Bacteremia -Blood culture positive for E Coli ESBL. Will start Ertapenem, renally dosed for a total of 7-14 days. Today is day 2 - Urine culture growing ESBL; blood culture is growing the same. -Continue Ertapenem for a total of 7- 14 days Increased Oxygen Requirement - Suspected increased oxygen requirement secondary to pulmonary edema, less likely pneumonia - Blood culture as per above; less likely pneumonia-> will d/c azithromycin -Tessalon, Tylenol prn -Wean off supplemental O2 as tolerated; SpO2 on room air PAMELA -Cr level 2.46, improvement in creatine with extra Bumex dose early in the week -Will transition from MWF Bumex dosing to daily Acute alteration in mental status - improving; likely secondary infection vs delirium Hypothyroidism: Chronic. TSH normal at 2.956 -Continue Synthroid Chronic kidney disease, stage 4 (severe): Baseline Cr of 2.2 - 2.4. -Hold nephrotoxic agents -IVF given in ER -Continue to trend -Hold potassium supplements Depression: Chronic. Well controlled on home regimen. -Continue Paxil Hypercalcemia: Ca minimally elevated at 10.3.Trending down -Continue to hold Vitamin D -Continue to trend (2) Hypothyroidism: (3) Chronic kidney disease, stage 4 (severe): (4) Depression: (5) Hypercalcemia: Admission and Anticipated Discharge Date Admission Date: September 12, 2022 Supervising Physician Co-Signing Physician Notes I personally examined the patient and verified all salas points of history and exam, discussed case, and agree with decision making with Dr Maurice. Feeling okay. No shortness of breath. Notes that she is bored and is laying in bed. Whenever we discussed dispo planning, she seems a little bit easily confused by it, but in the end seems to have a good understanding that we would cannot do IV antibiotics, and therefore we should try to pursue rehab given that she will need to be in a hospital setting, at least she could get more therapy. vitals noted nad normocephalic atraumatic mucous membranes moist. Breathing unlabored but she does have faint basilar rales better than before but still present, no accessory muscle use no rhonchi no wheezes good effort. Skin shows no rashes no pallor or icterus. Sepsis with gram negative bacteremia due to urinary tract infection precipitating metabolic encephalopathy and subsequent acute on chronic diastolic CHF all present on admission-ertapenem, Bumex, PT/OT eval and treat, mental status is improved, acute kidney injury due to poor forward flow from sepsis and acute on chronic diastolic CHFimproving with diuresisagree with resident physician the creatinine slight bump probably from reduction in diuretic dosecontinue at 1 mg daily and follow closely. otherwise as above. stable, appears will need SNF unless H able to accommodate her severity of weakness, also will need 7 to 14 days of IV ertapenem daily total Subjective Ebony is doing well this morning. She states she is felling well, denies chest pain, dyspnea, abdominal pain, cough, LE edema, fever/chills. No complaints. Review of Systems Review of Systems: As per HPI Physical Exam Physical Exam: Constitutional: well-appearing, no acute distress HEENT: NCAT, no conjunctival injection CV: regular rhythm, no murmur appreciated, extremities well-perfused, no LE edema Resp: lungs CTA B/L GI: soft, nondistended, nontender, BS normoactive MSK: no gross deformities appreciated Skin: warm, dry, no rash appreciated Neuro: alert, oriented, no focal neurologic deficit appreciated Results & Data Results & Data ([facility]) Vital Signs (Past 12 Hours) Vital Signs Temp Pulse Resp BP Pulse Ox O2 Del Method 09/17/22 02:59 36.6 C 65 18 125/66 97 Room Air 09/16/22 23:20 37.1 C 70 17 110/55 L 90 Room Air Resident Activity Tracking Resident Involvement: Resident Care Provided Care Provided: Adult Hospital Medicine
[2022-09-17] MEDS: BUMETANIDE 1 MG TAB PO SCH (08:28)
[2022-09-17] MEDS: BENZONATATE 100 MG CAPSULE PO SCH ×3 (08:28→20:24)
[2022-09-17] MEDS: CLOPIDOGREL BISULFATE 75 MG TAB PO SCH (08:28)
[2022-09-17] MEDS: PARoxetine HCL 20 MG TAB PO SCH (08:28)
[2022-09-17 08:32] LABS: BUN Creatinine Ratio 18.3 (10-20); Calcium 9.2 mg/dl (8.5-10.1); Est GFR (African American) 20.3 ml/min; Est GFR (Non-African American) 17.5 ml/min; Potassium 4.5 mmol/L (3.5-5.1)
[2022-09-17] MEDS: ERTAPENEM SODIUM 500 MG in SYRINGE 0 ML IV SCH (11:18)
--- NOTE | 2022-09-17 19:50 | Billing Data ---
Date of Service September 17, 2022 Coding Level of Care Code 21643 Subseq Hosp Care Lvl 3
[2022-09-17] MEDS: ACETAMINOPHEN 325 MG TAB PO PRN (20:24)
[2022-09-17] MEDS: MIRTAZAPINE TAB 15 MG TAB PO SCH (20:24)
[2022-09-17] MEDS: GABAPENTIN 300 MG CAP PO SCH (20:24)
[2022-09-18] MEDS: LEVOTHYROXINE SODIUM 50 MCG TABLET PO SCH (05:12)
[2022-09-18 07:00] LABS: BUN Creatinine Ratio 19.6 (10-20); Calcium 8.9 mg/dl (8.5-10.1); Est GFR (African American) 20.4 ml/min; Est GFR (Non-African American) 17.6 ml/min; Potassium 4.4 mmol/L (3.5-5.1)
--- NOTE | 2022-09-18 07:37 | Hospitalist Progress Note ---
Date of Service September 18, 2022 Assessment & Plan (1) Acute alteration in mental status: Plan: Ebony Esposito is an 81 y/o female presented from her shelter with increased confusion, slight cough, low grade fever, and decreased O2 level found to have gram negative bacteremia with ESBL E.coli now on Ertapenem and clinically improving. Gram Negative Bacteremia Blood culture positive for E Coli ESBL. Renally dosed Ertapenem for 7-14 days. Start: 09/15 [] Ertapenem for 7-14 days total Increased Oxygen Requirement Suspected increased oxygen requirement secondary to pulmonary edema, less likely pneumonia Blood culture as per above; less likely pneumonia d/c azithromycin. [] Tessalon, Tylenol prn [] Wean off supplemental O2 as tolerated PAMELA Cr level 2.46, improvement in creatine with extra Bumex dose early in the week. On Bumex MWF at home. [] daily Bumex [] AM BMP Acute alteration in mental status - improving likely secondary infection vs delirium Hypothyroidism: Chronic. TSH normal at 2.956. Continue Synthroid Chronic kidney disease, stage 4 (severe): Baseline Cr of 2.2 - 2.4.Fluid resuscitation done in the ED. Holding K and nephrotoxic agents [] AM BMP Depression: Chronic. Well controlled on home regimen. Continue Paxil Hypercalcemia: Ca minimally elevated at 10.3.Trending down. Continue to hold Vitamin D [] AM Calcium FENGI: heart healthy, low sodium DVT ppx: Plavix Dispo: med/tele Code status: DNR/DNI (2) Hypothyroidism: (3) Chronic kidney disease, stage 4 (severe): (4) Depression: (5) Hypercalcemia: Admission and Anticipated Discharge Date Admission Date: September 12, 2022 Subjective Ebony is doing well this morning. She states she is felling well, denies chest pain, dyspnea, abdominal pain, cough, LE edema, fever/chills. No complaints. Review of Systems Review of Systems: As per HPI Physical Exam Physical Exam: Constitutional: well-appearing, no acute distress HEENT: NCAT, no conjunctival injection CV: regular rhythm, no murmur appreciated, extremities well-perfused, no LE edema Resp: lungs CTAB GI: soft, nondistended, nontender MSK: no gross deformities appreciated Skin: warm, dry, no rash appreciated Neuro: alert, oriented, no focal neurologic deficit appreciated Results & Data Results & Data ([facility]) Vital Signs (Past 12 Hours) Vital Signs Temp Pulse Pulse Resp BP Pulse Ox O2 Del Method 09/18/22 02:33 36.7 C 57 L 16 119/72 94 Nasal Cannula 09/17/22 21:59 65 09/17/22 22:47 36.8 C 63 17 124/74 96 Room Air 09/17/22 21:00 Room Air O2 Flow Rate 09/18/22 02:33 2 09/17/22 21:59 09/17/22 22:47 09/17/22 21:00 Laboratory Results 09/18/22 09/17/22 09/17/22 Range/Units 06:22 Unknown 07:24 Sodium 141 140 (136-145) mmol/L Potassium 4.4 4.5 (3.5-5.1) mmol/L Chloride 108 H 107 (98-107) mmol/L Carbon Dioxide 28 28 (21-32) mmol/L Anion Gap 5 5 (3-11) BUN 48 H 45 H (6-23) mg/dl Creatinine 2.45 H 2.46 H (0.6-1.2) mg/dl Est Cr Clr Drug Dosing 20.0 20.0 ml/min Est GFR ( Amer) 20.4 20.3 ml/min Est GFR (Non-Af Amer) 17.6 17.5 ml/min BUN/Creatinine Ratio 19.6 18.3 (10-20) Glucose 83 82 (70-99(Fasting)) mg/dl Calcium 8.9 9.2 (8.5-10.1) mg/dl Ur Random Creatinine 36.0 mg/dl Ur Random Sodium 23 mmol/L
[2022-09-18] MEDS: PARoxetine HCL 20 MG TAB PO SCH (09:09)
[2022-09-18] MEDS: CLOPIDOGREL BISULFATE 75 MG TAB PO SCH (09:09)
[2022-09-18] MEDS: BUMETANIDE 1 MG TAB PO SCH (09:10)
[2022-09-18] MEDS: BENZONATATE 100 MG CAPSULE PO SCH ×3 (09:12→21:32)
[2022-09-18] MEDS: ERTAPENEM SODIUM 500 MG in SYRINGE 0 ML IV SCH (12:06)
--- NOTE | 2022-09-18 13:01 | Discharge Summary ---
Date of Service September 18, 2022 Admission HPI Per Admitting Provider Ebony Esposito is an 81yo female presenting from her long-term with increased confusion. Patient with slight cough and low grade fever. Also with low O2 level noted by nursing staff. Patient offers no complaints. Specifically denies chest pain, palpitations, abdominal pain, nausea, vomiting or diarrhea. She does not report feeling short of breath. In the ER she is afebrile, HD stable. 94% on 2L O2 by NC. ER Course: Ceftriaxone NSS Admission Exam Per Admitting Provider General: patient resting comfortably, NAD, non-toxic in appearance, AA&O x 4 Skin: warm, dry, intact, no rashes or lesions HEENT: NC/AT, PERRL, EOMI, anicteric sclera, conjunctiva without injection, external ear normal to inspection and nontender, nares patent, dry mucus membranes, dentition intact, no oropharyngeal lesions, neck supple, trachea midline, no LAD, no thyromegaly, no JVD Heart: +S1/S2, regular, no m/r/g Lungs: equal air entry bilaterally, no rales/rhonchi/wheezes Abd: +BS, soft, NT/ND, no masses/organomegaly/ascites Ext: warm, 2+ pulses in UE/LE bilaterally, no clubbing/cyanosis or edema Neuro: nonfocal, patient AA&O x 4, speech intact, no facial droop, moving all extremities on command with equal strength 5/5 Principal Diagnosis bacteremia Discharge Exam Constitutional: well-appearing, no acute distress HEENT: NCAT, no conjunctival injection CV: regular rhythm, no murmur appreciated, extremities well-perfused, no LE edema Resp: lungs CTAB GI: soft, nondistended, nontender MSK: no gross deformities appreciated Skin: warm, dry, no rash appreciated Neuro: alert, oriented, no focal neurologic deficit appreciated Discharge Data Allergies Allergy/AdvReac Type Severity Reaction Status Date / Time iodine Allergy Unknown Unknown Verified 09/12/22 01:17 NSAIDS (Non-Steroidal Allergy Unknown Unknown Verified 09/12/22 01:17 Anti-Inflamma tositumomab iodine-131 Allergy Unknown Unknown Unverified 09/12/22 01:17 Penicillins Allergy Unknown Verified 09/12/22 01:[address] 09/11/22 21:06 CT SCAN OF THE BRAIN WITHOUT IV CONTRAST CLINICAL HISTORY: Dementia. Change in mental status. COMPARISON STUDY: No priors. TECHNIQUE: Unenhanced axial CT scan of the brain is performed from the vertex to the skull base. A dose lowering technique was utilized adhering to the principles of ALARA. CT DOSE: 655.73 mGy.cm FINDINGS: Brain parenchyma: Foci of high bilateral frontal encephalomalacia are consistent with remote insults. Chronic lacunar infarcts are present within both cerebellar hemispheres. There is age-related involutional change noting mild subcortical and periventricular microangiopathic disease. There is no hemorrhage, mass effect, or evidence of acute territorial ischemia by CT criteria. Mineralization is noted in the basal ganglia and the jaky. Chatman-white matter differentiation is preserved. No extra-axial fluid collection is seen. Ventricles, sulci, cisterns: Prominent secondary to involutional change. Intracranial vasculature: There is atherosclerotic calcification of the cavernous carotid and vertebral arteries. Calvarium: Unremarkable. Sinuses and mastoids: The visualized paranasal sinuses are clear. The mastoid air cells are well pneumatized. Orbits: The bony orbits are grossly intact. There are bilateral ocular lens implants. IMPRESSION: There is no hemorrhage, mass effect, or evidence of acute territorial ischemia by CT criteria. Chest X-Ray 09/11/22 21:07 SINGLE VIEW CHEST CLINICAL HISTORY: Generalized weakness. Fever. FINDINGS: An AP, portable, upright chest radiograph is compared to study dated 08/17/2022. The examination is degraded by portable technique and patient rotation. The heart is enlarged noting atherosclerotic calcification of the thoracic aorta. There is pulmonary vascular congestion. Bilateral airspace opacities likely representing mild pulmonary edema. No large pleural effusion or pneumothorax is seen. Atelectasis is seen at the lung bases. The skeletal structures are osteopenic. The bony thorax is grossly intact. Advanced degenerative change is noted in the shoulders and thoracic spine. IMPRESSION: 1. Cardiomegaly with pulmonary vascular congestion. 2. Bilateral airspace opacities likely represent mild pulmonary edema. Correlate clinically for evidence of a superimposed pneumonitis. Videofluoroscopic Swallow 09/14/22 11:00 FL video swallow CLINICAL HISTORY: r/o aspiration TECHNIQUE: Video fluoroscopy of the pharyngeal region was performed as barium mixtures of varying consistencies were administered to the patient by the speech pathologist. A formal esophagram was not performed. Comparison: None available at the time of this dictation. FINDINGS: Total fluoroscopy time: 1.4 minutes. The patient swallowed the different barium consistencies without difficulty. There was no laryngeal vestibular penetration or precious tracheal aspiration. Pooling of barium was noted in the bilateral piriform sinuses and valleculae. IMPRESSION: No evidence of aspiration. Please see the speech pathology report for further details. 09/18/22 Range/Units 06:22 Sodium 141 (136-145) mmol/L Potassium 4.4 (3.5-5.1) mmol/L Chloride 108 H (98-107) mmol/L Carbon Dioxide 28 (21-32) mmol/L Anion Gap 5 (3-11) BUN 48 H (6-23) mg/dl Creatinine 2.45 H (0.6-1.2) mg/dl Est Cr Clr Drug Dosing 20.0 ml/min Est GFR ( Amer) 20.4 ml/min Est GFR (Non-Af Amer) 17.6 ml/min BUN/Creatinine Ratio 19.6 (10-20) Glucose 83 (70-99(Fasting)) mg/dl Calcium 8.9 (8.5-10.1) mg/dl Hospital Course (1) Acute alteration in mental status: Ebony Esposito is an 81 y/o female presented from her long-term with increased confusion, slight cough, low grade fever, and decreased O2 level found to have gram negative bacteremia with ESBL E.coli now on Ertapenem and clinically improving. Gram Negative Bacteremia Blood culture positive for E Coli ESBL. Renally dosed Ertapenem for 7-14 days. Start: 09/15 End 09/24 Increased Oxygen Requirement Suspected increased oxygen requirement secondary to pulmonary edema, less likely pneumonia Blood culture as per above; less likely pneumonia d/c azithromycin. No longer requires oxygen. PAMELA Cr level 2.45 - nearly at baseline, improvement in creatine with extra Bumex dose early in the week. On Bumex MWF at home. Continue with home dosing on discharge. Acute alteration in mental status - improving likely secondary infection vs delirium Hypothyroidism: Chronic. TSH normal at 2.956. Continue Synthroid Chronic kidney disease, stage 4 (severe): Baseline Cr of 2.2 - 2.4.Fluid resuscitation done in the ED. Avoid nephrotoxic agents Depression: Chronic. Well controlled on home regimen. Continue Paxil Hypercalcemia: resolved Ca minimally elevated at 10.3, now resolved. Continue home Vitamin D on discharge. TINAI: heart healthy, low sodium DVT ppx: Plavix Dispo: [facility] Code status: DNR/DNI (2) Hypothyroidism: (3) Chronic kidney disease, stage 4 (severe): (4) Depression: (5) Hypercalcemia: Total Time Total Time Spent Total Time Spent (In Minutes): see attending attestation Discharge Plan Discharge Items Patient Disposition: Transfer Inpatient Rehab Fac Reason For Visit: CONFUSION Discharge Diagnosis: bacteremia Activity: Per Instructions section Non-emergency contact: Primary Care Provider Call non-emergency contact if: your pain is worsening and your temperature is above 101.5 Follow-up/Referrals: [facility] [Primary Care Provider] - Diet: Heart Healthy and Low Sodium (2gm) Addtl Attending Provider Instructions: Ebony Esposito is an 81 y/o female presented from her long-term with increased confusion, slight cough, low grade fever, and decreased O2 level found to have gram negative bacteremia with ESBL E.coli now on Ertapenem and clinically improving waiting on transport to [facility]. Gram Negative Bacteremia Blood culture positive for E Coli ESBL. Likely source UTI. Renally dosed Ertapenem for 10 days. Start: 09/15 End: 09/24. Increased Oxygen Requirement Suspected increased oxygen requirement secondary to pulmonary edema, less likely pneumonia Blood culture as per above; less likely pneumonia d/c azithromycin. No longer has O2 requirement. Can have Tylenol PRN. PAMELA Cr level 2.45 at time of discharge, improvement in creatine with extra Bumex do se early in the week. On Bumex MWF at home. Discharge with home dosing. Acute alteration in mental status - improving likely secondary infection vs delirium Hypothyroidism: Chronic. TSH normal at 2.956. Continue Synthroid Chronic kidney disease, stage 4 (severe): Baseline Cr of 2.2 - 2.4.Fluid resuscitation done in the ED. Holding K and nephrotoxic agents Depression: Chronic. Well controlled on home regimen. Continue Paxil Hypercalcemia: resolved Ca minimally elevated at 10.3 now WNL. Continue home Vitamin D on discharge. FENGI: heart healthy, low sodium DVT ppx: Plavix Dispo: d[facility] Code status: DNR/DNI Pending Studies at Discharge: No Stand-Alone Forms: [employer] Skilled Items Patient informed of condition?: Yes DNR: Yes Discharge Level of Care: Skilled Communicable Disease: No Discharge Prognosis: Stable Lines: None Urinary Catheter: No Medications and DC Order Prescriptions: Continued clopidogrel 75 mg tablet 75 mg PO QAM levothyroxine 50 mcg capsule 50 mcg PO DAILYBB paroxetine HCl 20 mg tablet 20 mg PO QAM potassium chloride 20 mEq packet 20 meq PO QAM acetaminophen 325 mg capsule 650 mg PO Q4H MDD 3g PRN (Reason: Pain) artificial tears with lanolin Ointment 1 applic OPB BID bumetanide 1 mg tablet 1 mg PO 3XWK Rx Instructions: take daily on MON/WED/FRI calcium 500 mg Tablet 500 mg PO DAILY ascorbic acid (vitamin C) [Vitamin C] 500 mg Tablet 500 mg PO BID mirtazapine 7.5 mg tablet 7.5 mg PO DAILY cholecalciferol (vitamin D3) [Vitamin D3] 125 mcg (5,000 unit) Tablet 125 mcg PO DAILY gabapentin 300 mg capsule 300 mg PO .DAILY 1700 Discharge Orders: Discharge Order (Routine); Ordered 09/18/22 Ordered By: Chelsea Cintron Admission Data Admit Date/Time: 09/12/22 00:49 Attending Provider: Xander Willis Admit Provider: China Vazquez [facility] Other Providers: China Vazquez ; Chica Espinoza ; [facility] Other Interventions: Discharge Summary Assessment (RN) Last Done: 09/18/22 13:06 Supervising Physician Co-Signing Physician Notes The patient was seen and examined by me. Discussed with resident physician. Agree with assessment and plan. Lungs are clear and heart rhythm is regular. She will be discharged to [facility] today and remain on intravenous ertapenem to complete her course of therapy. Resident Activity Tracking Resident Involvement: Resident Care Provided Care Provided: Adult Hospital Medicine
--- NOTE | 2022-09-18 13:59 | Billing Data ---
Date of Service September 18, 2022 Coding Level of Care Code D/C DAY MANAGEMENT >30 MINS
--- NOTE | 2022-09-18 14:12 | Hospitalist Progress Note ---
Date of Service September 18, 2022 Assessment & Plan (1) Acute alteration in mental status: Plan: Ebony Esposito is an 81 y/o female presented from her senior living with increased confusion, slight cough, low grade fever, and decreased O2 level found to have gram negative bacteremia with ESBL E.coli now on Ertapenem and clinically improving awaiting transport to [facility]. Gram Negative Bacteremia Blood culture positive for E Coli ESBL. Renally dosed Ertapenem for 7-14 days. Start: 09/15 End 09/24 Increased Oxygen Requirement Suspected increased oxygen requirement secondary to pulmonary edema, less likely pneumonia Blood culture as per above; less likely pneumonia d/c azithromycin. No longer requires oxygen. PAMELA Cr level 2.45 - nearly at baseline, improvement in creatine with extra Bumex dose early in the week. On Bumex MWF at home. Continue with home dosing on discharge. Acute alteration in mental status - improving likely secondary infection vs delirium Hypothyroidism: Chronic. TSH normal at 2.956. Continue Synthroid Chronic kidney disease, stage 4 (severe): Baseline Cr of 2.2 - 2.4.Fluid resuscitation done in the ED. Avoid nephrotoxic agents Depression: Chronic. Well controlled on home regimen. Continue Paxil Hypercalcemia: resolved Ca minimally elevated at 10.3, now resolved. Continue home Vitamin D on discharge. FENGI: heart healthy, low sodium DVT ppx: Plavix Dispo: [facility] SN[facility] pending transport Code status: DNR/DNI (2) Hypothyroidism: (3) Chronic kidney disease, stage 4 (severe): (4) Depression: (5) Hypercalcemia: Admission and Anticipated Discharge Date Admission Date: September 12, 2022 Supervising Physician Co-Signing Physician Notes The patient was seen and examined by me. Discussed with resident physician. Agree with assessment and plan. Lungs are clear and heart rhythm is regular. She will be discharged to [facility] today and remain on intravenous ertapenem to complete her course of therapy. Subjective Ebony is doing well this morning. She states she is felling well, denies CP/SOB/abdominal pain/fever/chills. No complaints. Review of Systems Review of Systems: As per HPI Physical Exam Physical Exam: Constitutional: well-appearing, no acute distress HEENT: NCAT, no conjunctival injection CV: regular rhythm, no murmur appreciated, extremities well-perfused, no LE edema Resp: lungs CTA B/L GI: soft, nondistended, nontender MSK: no gross deformities appreciated Skin: warm, dry, no rash appreciated Neuro: alert, oriented, no focal neurologic deficit appreciated Results & Data Results & Data ([facility]) Vital Signs (Past 12 Hours) Vital Signs Temp Pulse Pulse Pulse Resp BP BP 09/18/22 13:06 36.5 C 69 59 L 16 147/66 H 102/58 L 09/18/22 12:20 09/18/22 11:57 36.5 C 59 L 102/58 L 09/18/22 08:00 60 09/18/22 08:00 09/18/22 07:57 36.9 C 54 L 16 127/69 09/18/22 02:33 36.7 C 57 L 16 119/72 Pulse Ox O2 Del Method O2 Flow Rate 09/18/22 13:06 95 09/18/22 12:20 Room Air 09/18/22 11:57 95 Room Air 09/18/22 08:00 09/18/22 08:00 Nasal Cannula 2 09/18/22 07:57 97 Nasal Cannula 4 09/18/22 02:33 94 Nasal Cannula 2 Laboratory Results 09/18/22 Range/Units 06:22 Sodium 141 (136-145) mmol/L Potassium 4.4 (3.5-5.1) mmol/L Chloride 108 H (98-107) mmol/L Carbon Dioxide 28 (21-32) mmol/L Anion Gap 5 (3-11) BUN 48 H (6-23) mg/dl Creatinine 2.45 H (0.6-1.2) mg/dl Est Cr Clr Drug Dosing 20.0 ml/min Est GFR ( Amer) 20.4 ml/min Est GFR (Non-Af Amer) 17.6 ml/min BUN/Creatinine Ratio 19.6 (10-20) Glucose 83 (70-99(Fasting)) mg/dl Calcium 8.9 (8.5-10.1) mg/dl Resident Activity Tracking Resident Involvement: Resident Care Provided Care Provided: Adult Hospital Medicine
--- NOTE | 2022-09-18 15:17 | Billing Data ---
Date of Service September 18, 2022 Coding Level of Care Code 10494 Subseq Hosp Care Lvl 2
[2022-09-18] MEDS: ACETAMINOPHEN 325 MG TAB PO PRN (21:25)
[2022-09-18] MEDS: GABAPENTIN 300 MG CAP PO SCH (21:26)
[2022-09-18] MEDS: MIRTAZAPINE TAB 15 MG TAB PO SCH (21:26)
[2022-09-19] MEDS: LEVOTHYROXINE SODIUM 50 MCG TABLET PO SCH (05:28)
--- NOTE | 2022-09-19 07:34 | XRay Report ---
XR chest 1V portable CLINICAL HISTORY: Hypoxia. COMPARISON STUDY: Chest radiograph September 11, 2022. FINDINGS: Degenerative changes of the shoulders are incidentally noted. Cardiomediastinal silhouette is stable. Pulmonary vascular congestion has slightly improved. No definite pleural effusion. Mild bi basilar opacities favor atelectasis. IMPRESSION: 1. Stable cardiomegaly. Interval improvement in pulmonary vascular congestion. 2. Mild bibasilar opacities which favor atelectasis. ACT 112: Negative or not required by law. Electronically signed by: Francisco Parikh M.D. 09/19/2022 7:33 AM
[2022-09-19 07:44] LABS: Hematocrit (blood only) 51.1 % (34.1-44.9); Hemoglobin 16.4 g/dl (12.0-16.0); Mean Corpuscular Hemoglobin 32.8 pg (25.0-34.0); Mean Corpuscular Hgb Conc 32.1 g/dL (32.0-36.0); Mean Corpuscular Volume 102.2 fL (80.0-100.0); Mean Platelet Volume 8.7 fL (9.4-12.3); Platelet Count 332 K/uL (130-400); RDW Standard Deviation 53.1 fL (36.4-46.3); White Blood Count 10.03 K/ul (4.8-10.8)
[2022-09-19] MEDS: CLOPIDOGREL BISULFATE 75 MG TAB PO SCH (07:44)
[2022-09-19] MEDS: BENZONATATE 100 MG CAPSULE PO SCH ×3 (07:44→20:42)
[2022-09-19] MEDS: PARoxetine HCL 20 MG TAB PO SCH (07:45)
[2022-09-19] MEDS: BUMETANIDE 1 MG TAB PO SCH (07:45)
[2022-09-19 08:05] LABS: BUN Creatinine Ratio 20.7 (10-20); Bilirubin,Total 0.4 mg/dl (0.2-1.0); Calcium 8.6 mg/dl (8.5-10.1); Creatinine Clr Calc Pharmacy 20.4 ml/min; Est GFR (African American) 20.8 ml/min; Potassium 4.8 mmol/L (3.5-5.1)
--- NOTE | 2022-09-19 11:31 | Hospitalist Progress Note ---
Date of Service September 19, 2022 Assessment & Plan (1) Acute alteration in mental status: Plan: Ebony Esposito is an 81 y/o female presented from her [facility] with increased confusion, slight cough, low grade fever, and decreased O2 level found to have gram negative bacteremia with ESBL E.coli now on Ertapenem and clinically improving awaiting transport to [facility] likely not during the weekend. Gram Negative Bacteremia Blood culture positive for E Coli ESBL. Renally dosed Ertapenem for 7-14 days. Start: 09/15 End 09/24 Increased Oxygen Requirement Suspected increased oxygen requirement secondary to pulmonary edema, less likely pneumonia. Blood culture as per above; less likely pneumonia d/c azithromycin. Patient dropped to 88 / during the [employer] - was started on 2 L NC. CXR was done - likely atelectasis [] encourage IS [] attempt to wean NC PAMELA Cr level 2.45 - nearly at baseline, improvement in creatine with extra Bumex dose early in the week. On Bumex MWF at home. Continue with home dosing on discharge. Acute alteration in mental status - improving likely secondary infection vs delirium Hypothyroidism: Chronic. TSH normal at 2.956. Continue Synthroid Chronic kidney disease, stage 4 (severe): Baseline Cr of 2.2 - 2.4.Fluid resuscitation done in the ED. Avoid nephrotoxic agents Depression: Chronic. Well controlled on home regimen. Continue Paxil Hypercalcemia: resolved Ca minimally elevated at 10.3, now resolved. Continue home Vitamin D on discharge. FENGI: heart healthy, low sodium DVT ppx: Plavix Dispo: [facility] pending transport Code status: DNR/DNI (2) Hypothyroidism: (3) Chronic kidney disease, stage 4 (severe): (4) Depression: (5) Hypercalcemia: Admission and Anticipated Discharge Date Admission Date: September 12, 2022 Supervising Physician Co-Signing Physician Notes The patient was seen and examined by me. Case discussed with resident physician. Agree with assessment and plan. She is doing well and is asymptomatic. She is now on room air with 91% saturation. Chest x-ray looks better. Intravenous ertapenem day 5. She will be discharged to [facility] today if transportation can be arranged. Lungs are clear. Heart rhythm is regular Subjective Patient is doing well today. No complaints. Currently on 2 L NC as she dropped to 88 overnight. No SOB. Review of Systems Review of Systems: See HPI Physical Exam Physical Exam: Constitutional: well-appearing, no acute distress HEENT: NCAT, no conjunctival injection CV: regular rhythm, no murmur appreciated, extremities well-perfused Resp: lungs CTAB GI: soft, nondistended, nontender MSK: no gross deformities appreciated Skin: warm, dry, no rash appreciated Neuro: alert, oriented, no focal neurologic deficit appreciated Results & Data Results & Data ([facility]) Vital Signs (Past 12 Hours) Vital Signs Temp Pulse Pulse Resp BP BP Pulse Ox 09/19/22 06:03 50 L 09/19/22 09:19 09/19/22 07:55 36.5 C 52 L 18 133/63 93 09/19/22 03:03 49 L 16 115/65 96 O2 Del Method O2 Flow Rate 09/19/22 06:03 09/19/22 09:19 Nasal Cannula 2 09/19/22 07:55 Nasal Cannula 2 09/19/22 03:03 Nasal Cannula 2 Laboratory Results 09/19/22 09/19/22 Range/Units 07:27 07:27 WBC 10.03 (4.8-10.8) K/ul RBC 5.00 (3.93-5.22) M/uL Hgb 16.4 H (12.0-16.0) g/dl Hct 51.1 H (34.1-44.9) % MCV 102.2 H (80.0-100.0) fL MCH 32.8 (25.0-34.0) pg MCHC 32.1 (32.0-36.0) g/dL RDW Std Deviation 53.1 H (36.4-46.3) fL RDW Coeff of Norris 14.0 (11.5-14.5) % Plt Count 332 (130-400) K/uL MPV 8.7 L (9.4-12.3) fL Sodium 138 (136-145) mmol/L Potassium 4.8 (3.5-5.1) mmol/L Chloride 107 (98-107) mmol/L Carbon Dioxide 25 (21-32) mmol/L Anion Gap 6 (3-11) BUN 50 H (6-23) mg/dl Creatinine 2.41 H (0.6-1.2) mg/dl Est Cr Clr Drug Dosing 20.4 ml/min Est GFR ( Amer) 20.8 ml/min Est GFR (Non-Af Amer) 18.0 ml/min BUN/Creatinine Ratio 20.7 H (10-20) Glucose 74 (70-99(Fasting)) mg/dl Calcium 8.6 (8.5-10.1) mg/dl Total Bilirubin 0.4 (0.2-1.0) mg/dl AST 14 (13-39) U/L ALT 5 L (7-52) U/L Alkaline Phosphatase 63 (34-104) U/L Total Protein 6.0 (6.0-8.3) gm/dl Albumin 3.0 L (3.4-5.0) gm/dl Globulin 3.0 (2.5-4.0) gm/dl Albumin/Globulin Ratio 1.0 (0.9-2) Diagnostic Findings Chest X-Ray 09/19/22 02:35 XR chest 1V portable CLINICAL HISTORY: Hypoxia. COMPARISON STUDY: Chest radiograph September 11, 2022. FINDINGS: Degenerative changes of the shoulders are incidentally noted. Cardiomediastinal silhouette is stable. Pulmonary vascular congestion has slightly improved. No definite pleural effusion. Mild bibasilar opacities favor atelectasis. IMPRESSION: 1. Stable cardiomegaly. Interval improvement in pulmonary vascular congestion. 2. Mild bibasilar opacities which favor atelectasis. Resident Activity Tracking Resident Involvement: Resident Care Provided Care Provided: Adult [facility] Medicine
[2022-09-19] MEDS: ERTAPENEM SODIUM 500 MG in SYRINGE 0 ML IV SCH (11:51)
--- NOTE | 2022-09-19 15:31 | Billing Data ---
Date of Service September 19, 2022 Coding Level of Care Code 98476 Subseq Hosp Care Lvl 2
[2022-09-19] MEDS: ACETAMINOPHEN 325 MG TAB PO PRN (20:39)
[2022-09-19] MEDS: GABAPENTIN 300 MG CAP PO SCH (20:39)
[2022-09-19] MEDS: MIRTAZAPINE TAB 15 MG TAB PO SCH (20:40)
[2022-09-20] MEDS: LEVOTHYROXINE SODIUM 50 MCG TABLET PO SCH (06:35)
--- NOTE | 2022-09-20 06:52 | Hospitalist Progress Note ---
Date of Service September 20, 2022 Assessment & Plan (1) Acute alteration in mental status: Plan: Ebony Esposito is an 81 y/o female presented from her halfway with increased confusion, slight cough, low grade fever, and decreased O2 level found to have gram negative bacteremia with ESBL E.coli now on Ertapenem and clinically improving awaiting transport to [facility] likely not during the weekend. Gram Negative Bacteremia Blood culture positive for E Coli ESBL. Renally dosed Ertapenem for 7-14 days. Start: 09/15 End 09/24 Increased Oxygen Requirement Suspected increased oxygen requirement secondary to pulmonary edema, less likely pneumonia. Blood culture as per above; less likely pneumonia d/c azithromycin. Patient dropped to 88 / during the [employer] - was started on 2 L NC. CXR was done - likely atelectasis [] encourage IS [] attempt to wean NC PAMELA Cr level 2.45 - nearly at baseline, improvement in creatine with extra Bumex dose early in the week. On Bumex MWF at home. Continue with home dosing on discharge. Acute alteration in mental status - improving likely secondary infection vs delirium Hypothyroidism: Chronic. TSH normal at 2.956. Continue Synthroid Chronic kidney disease, stage 4 (severe): Baseline Cr of 2.2 - 2.4.Fluid resuscitation done in the ED. Avoid nephrotoxic agents Depression: Chronic. Well controlled on home regimen. Continue Paxil Hypercalcemia: resolved Ca minimally elevated at 10.3, now resolved. Continue home Vitamin D on discharge. FENGI: heart healthy, low sodium DVT ppx: Plavix Dispo: [facility] pending transport Code status: DNR/DNI (2) Hypothyroidism: (3) Chronic kidney disease, stage 4 (severe): (4) Depression: (5) Hypercalcemia: Admission and Anticipated Discharge Date Admission Date: September 12, 2022 Review of Systems Review of Systems: As per HPI Results & Data Results & Data ([facility]) Vital Signs (Past 12 Hours) Vital Signs Temp Pulse Pulse Resp BP Pulse Ox O2 Del Method 09/20/22 02:48 36.4 C L 55 L 20 101/52 L 93 Nasal Cannula 09/19/22 20:00 Nasal Cannula 09/19/22 22:08 74 09/19/22 23:13 36.6 C 79 16 99/55 L 92 Nasal Cannula 09/19/22 19:13 36.7 C 89 18 134/71 92 Room Air O2 Flow Rate 09/20/22 02:48 2 09/19/22 20:00 2 09/19/22 22:08 09/19/22 23:13 2 09/19/22 19:13 Resident Activity Tracking Resident Involvement: Resident Care Provided Care Provided: Adult Hospital Medicine
[2022-09-20] MEDS: BUMETANIDE 1 MG TAB PO SCH (08:46)
[2022-09-20] MEDS: BENZONATATE 100 MG CAPSULE PO SCH (08:46)
[2022-09-20] MEDS: PARoxetine HCL 20 MG TAB PO SCH (08:46)
[2022-09-20] MEDS: CLOPIDOGREL BISULFATE 75 MG TAB PO SCH (08:46)
[2022-09-20 09:24] LABS: Hematocrit (blood only) 48.7 % (34.1-44.9); Hemoglobin 15.6 g/dl (12.0-16.0); Mean Corpuscular Hemoglobin 32.5 pg (25.0-34.0); Mean Corpuscular Volume 101.5 fL (80.0-100.0); Mean Platelet Volume 8.8 fL (9.4-12.3); Platelet Count 472 K/uL (130-400); RDW Coefficient of Variation 13.8 % (11.5-14.5); White Blood Count 8.96 K/ul (4.8-10.8)
[2022-09-20 09:52] LABS: BUN Creatinine Ratio 17.8 (10-20); Calcium 8.8 mg/dl (8.5-10.1); Creatinine Clr Calc Pharmacy 17.8 ml/min; Est GFR (African American) 17.7 ml/min; Est GFR (Non-African American) 15.3 ml/min; Potassium 4.3 mmol/L (3.5-5.1)
[2022-09-20] MEDS: ERTAPENEM SODIUM 500 MG in SYRINGE 0 ML IV SCH (12:02)
--- NOTE | 2022-09-20 17:30 | Discharge Summary ---
Date of Service September 20, 2022 Admission HPI Per Admitting Provider Ebony Esposito is an 81yo female presenting from her long-term with increased confusion. Patient with slight cough and low grade fever. Also with low O2 level noted by nursing staff. Patient offers no complaints. Specifically denies chest pain, palpitations, abdominal pain, nausea, vomiting or diarrhea. She does not report feeling short of breath. In the ER she is afebrile, HD stable. 94% on 2L O2 by NC. ER Course: Ceftriaxone NSS Admission Exam Per Admitting Provider General: patient resting comfortably, NAD, non-toxic in appearance, AA&O x 4 Skin: warm, dry, intact, no rashes or lesions HEENT: NC/AT, PERRL, EOMI, anicteric sclera, conjunctiva without injection, external ear normal to inspection and nontender, nares patent, dry mucus membranes, dentition intact, no oropharyngeal lesions, neck supple, trachea midline, no LAD, no thyromegaly, no JVD Heart: +S1/S2, regular, no m/r/g Lungs: equal air entry bilaterally, no rales/rhonchi/wheezes Abd: +BS, soft, NT/ND, no masses/organomegaly/ascites Ext: warm, 2+ pulses in UE/LE bilaterally, no clubbing/cyanosis or edema Neuro: nonfocal, patient AA&O x 4, speech intact, no facial droop, moving all extremities on command with equal strength 5/5 Principal Diagnosis Urosepsis Discharge Exam Constitutional WD/WN, vitals as above ENMT external ear and nose normal, oropharynx normal Neck trachea midline, no thyromegaly Respiratory normal respiratory effort, lungs clear to auscultation occasional non-productive cough Cardiovascular RRR, no murmur, no edema Gastrointestinal (Abdomen) normal bowel sounds, soft, nontender, no hepatosplenomegaly Skin no rashes, warm and dry Psychiatric A+Ox3, euthymic affect Discharge Data Allergies Allergy/AdvReac Type Severity Reaction Status Date / Time iodine Allergy Unknown Unknown Verified 09/12/22 01:17 NSAIDS (Non-Steroidal Allergy Unknown Unknown Verified 09/12/22 01:17 Anti-Inflamma tositumomab iodine-131 Allergy Unknown Unknown Unverified 09/12/22 01:17 Penicillins Allergy Unknown Verified 09/12/22 01:17 Ordered Studies 09/11/22 21:06 CT head/brain wo con Stat 09/14/22 11:00 FL video swallow Routine Hospital Course (1) Acute alteration in mental status: (2) Hypothyroidism: (3) Chronic kidney disease, stage 4 (severe): (4) Depression: (5) Hypercalcemia: Plan Ebony Esposito is an 81 y/o female presented from her long-term with increased confusion, slight cough, low grade fever, and decreased O2 level. Upon admission, blood culture was collected and she was found to have gram negative bacteremia with ESBL E.coli. It was suspected that the source was likely a UTI. She was started on Ertapenem (10 days total: 09/15-09/24), and responded well to antibiotics. She initially also presented with increased oxygen requirement placed on azithromycin with concern of possible pneumonia (later d/c) as likely cause secondary to pulmonary edema- improved with bumex. O2 requirement since resolved, O2 sats 94%+ now on room air. Had a mild PAMELA during stay, creatinine had some improvement (~2.76 on d/c) with additional dose of bumex. Will continue bumex at home. Her acute alteration in mental status has also since improved, was likely secondary to infection vs. delirium. All remaining home medications were instructed to remain the same. Overall patient improved significantly and discharged to [facility]. Patient should follow up with PCP in 1-2 weeks of discharge from [facility]. Total Time Total Time Spent Total Time Spent (In Minutes): . Discharge Plan Discharge Items Patient Disposition: Transfer Inpatient Rehab Fac Reason For Visit: CONFUSION Discharge Diagnosis: bacteremia Activity: Per Instructions section Non-emergency contact: Primary Care Provider Call non-emergency contact if: your pain is worsening and your temperature is above 101.5 Follow-up/Referrals: [facility] [Primary Care Provider] - Diet: Heart Healthy and Low Sodium (2gm) Addtl Attending Provider Instructions: Ebony Esposito is an 81 y/o female presented from her long-term with increased confusion, slight cough, low grade fever, and decreased O2 level found to have gram negative bacteremia with ESBL E.coli now on Ertapenem and clinically improving with plan to discharge to [facility]. Gram Negative Bacteremia Blood culture positive for E Coli ESBL. Likely source UTI. Renally dosed Ertapenem for 10 days. Start: 09/15 End: 09/24. Increased Oxygen Requirement Suspected increased oxygen requirement secondary to pulmonary edema, less likely pneumonia Blood culture as per above; less likely pneumonia d/c azithromycin. No longer has O2 requirement. Can have Tylenol PRN. PAMELA Cr level 2.45 at time of discharge, improvement in creatine with extra Bumex dose early in the week. On Bumex MWF at home. Discharge with home dosing. Acute alteration in mental status - improving likely secondary infection vs delirium Hypothyroidism: Chronic. TSH normal at 2.956. Continue Synthroid Chronic kidney disease, stage 4 (severe): Baseline Cr of 2.2 - 2.4.Fluid resuscitation done in the ED. Holding K and nephrotoxic agents Depression: Chronic. Well controlled on home regimen. Continue Paxil Hypercalcemia: resolved Ca minimally elevated at 10.3 now WNL. Continue home Vitamin D on discharge. FENGI: heart healthy, low sodium DVT ppx: Plavix Dispo: d[facility]c to [facility] Code status: DNR/DNI Pending Studies at Discharge: No Stand-Alone Forms: My [facility] Skilled Items Patient informed of condition?: Yes DNR: Yes Discharge Level of Care: Skilled Communicable Disease: No Discharge Prognosis: Stable Lines: None Urinary Catheter: No Medications and DC Order Prescriptions: Continued clopidogrel 75 mg tablet 75 mg PO QAM levothyroxine 50 mcg capsule 50 mcg PO DAILYBB paroxetine HCl 20 mg tablet 20 mg PO QAM potassium chloride 20 mEq packet 20 meq PO QAM acetaminophen 325 mg capsule 650 mg PO Q4H MDD 3g PRN (Reason: Pain) artificial tears with lanolin Ointment 1 applic OPB BID bumetanide 1 mg tablet 1 mg PO 3XWK Rx Instructions: take daily on MON/TUE/TUE calcium 500 mg Tablet 500 mg PO DAILY ascorbic acid (vitamin C) [Vitamin C] 500 mg Tablet 500 mg PO BID mirtazapine 7.5 mg tablet 7.5 mg PO DAILY cholecalciferol (vitamin D3) [Vitamin D3] 125 mcg (5,000 unit) Tablet 125 mcg PO DAILY gabapentin 300 mg capsule 300 mg PO .DAILY 1700 Discharge Orders: Discharge Order (Routine); Ordered 09/20/22 Ordered By: Colleen Wang Admission Data Admit Date/Time: 09/12/22 00:49 Attending Provider: Vidhya Gomez Admit Provider: China Vazquez [facility] Other Providers: China Vazquez ; Chica Espinoza. ; [facility] ; Xander Willis Other Interventions: Discharge Summary Assessment (RN) Last Done: 09/20/22 11:10 Supervising Physician Co-Signing Physician Notes Resident Physician Supervision Note: I independently interviewed and examined the patient and verified the salas history and physical, reviewed labs and image studies and agree with resident findings and care plan.
== END 2022-09-20 12:59 | DRG 871 ==
LOC: ED 20:49 → 3W 09-12 00:49 → SUATTDRO 09-12 00:49 → 3W 09-12 04:00 → 2N 09-12 09:46 → 2W 09-14 07:42

== ENCOUNTER 2022-11-11 12:22 | Inpatient (IN) ==
[2022-11-11 13:22] LABS: Basophils # (auto) 0.08 K/uL (0-0.2); Basophils % (auto) 0.8 %; Eosinophils # (auto) 0.04 K/uL (0-0.50); Eosinophils % (auto) 0.4 %; Hematocrit (blood only) 48.4 % (37.0-47.0); Hemoglobin 15.8 g/dl (12.0-16.0); Immature Granulocytes # (auto) 0.03 K/uL (0.01-0.20); Immature Granulocytes % (auto) 0.3 %; Lymphocytes # (auto) 2.48 K/uL (1.2-3.4); Lymphocytes % (auto) 24.2 %; Mean Corpuscular Hemoglobin 32.2 pg (25.0-34.0); Mean Corpuscular Hgb Conc 32.6 g/dL (32.0-36.0); Mean Corpuscular Volume 98.6 fL (80.0-100.0); Mean Platelet Volume 9.1 fL (9.4-12.4); Monocytes % (auto) 11.7 %; Neutrophils # (auto) 6.41 K/uL (1.40-6.50); Neutrophils % (auto) 62.6 %; Platelet Count 457 K/uL (130-400); RDW Coefficient of Variation 14.5 % (11.5-14.5); RDW Standard Deviation 52.8 fL (36.4-46.3); Red Blood Count 4.91 M/uL (4.20-5.40); White Blood Count 10.24 K/ul (4.8-10.8)
--- NOTE | 2022-11-11 13:27 | XRay Report ---
XR chest 1V portable CLINICAL HISTORY: Hypoxia. COMPARISON STUDY: Chest radiograph September 19, 2022. FINDINGS: No pneumothorax or definite pleural effusion is present. Possible small right pleural effus ion. Mild elevation of the right hemidiaphragm is unchanged. Bibasilar opacities favor atelectasis. C ardiomegaly is unchanged. There is no evidence for pulmonary edema. Degenerative changes of the gleno humeral joints are incidentally noted. IMPRESSION: 1. No consolidation to suggest pneumonia. 2. Possible small right pleural effusion. 3. Cardiomegaly without evidence for pulmonary edema. ACT 112: Negative or not required by law. Electronically signed by: Francisco Parikh M.D. 11/11/2022 1:25 PM
[2022-11-11 13:44] LABS: Prothrombin Time 10.6 Seconds (9.0-12.0)
[2022-11-11 13:46] LABS: Albumin Globulin Ratio 0.9 (0.9-2); Albumin Level 3.2 gm/dl (3.4-5.0); BUN Creatinine Ratio 12.9 (10-20); Bilirubin,Total 0.7 mg/dl (0.2-1.0); Calcium 9.6 mg/dl (8.5-10.1); Creatinine Clr Calc Pharmacy 23.3 ml/min; Est GFR (African American) 25.8 ml/min; Est GFR (Non-African American) 22.2 ml/min; Globulin 3.4 gm/dl (2.5-4.0); Magnesium 2.3 mg/dl (1.7-2.4); Potassium 4.8 mmol/L (3.5-5.1); Total Protein 6.6 gm/dl (6.0-8.3)
[2022-11-11 13:51] LABS: Troponin I High Sensitivity 21.6 pg/ml (0-14)
[2022-11-11 14:00] LABS: Influenza A virus by PCR Negative (Neg); Influenza B virus by PCR Negative (Neg); RSV by PCR Negative (Neg); SARS CoV2 RNA(COVID-19) Ceph NEGATIVE (Negative)
--- NOTE | 2022-11-11 14:24 | Emergency Department Note ---
Impression & Plan Acute UTI, Chronic kidney disease, stage 4 (severe), Diastolic CHF, Hypoxia, Confusion ED Provider Note Provider: Marcial Nichols MD DATE OF SERVICE: 11/11/2022 CHIEF COMPLAINT: Weakness HISTORY OF PRESENT ILLNESS: Patient is a 81-year-old female from [facility] today for weakness. Evidently has been having some back discomfort and recently recovered from pneumonia. Noted by EMS to be hypoxic into the high 80s. Patient upon arrival not the best historian of denies significant pain. Denies any chest pain, shortness of breath, or abdominal symptoms. She denies significant shortness of breath but is continue to be mildly hypoxic on room air. PAST MEDICAL HISTORY: As noted above and includes prior history of CKD, hypertension, pneumonia, UTI, and CHF MEDICATIONS: Reviewed medication list from the facility SOCIAL HISTORY: Resides at [facility] PHYSICAL EXAM: GENERAL: alert in no acute distress on stretcher but does not remember recent events. Head: normocephalic and atraumatic EYES: No injection, discharge or icterus. NECK: Trachea midline. Supple. ENT: Mucous membranes pink and moist. LUNGS: Airway patent. No retractions. Breath sounds clear with somewhat diminished base HEART: Regular rate and rhythm. No chest wall tenderness ABDOMEN: Soft and non-tender, without guarding or rebound. BACK: No bilateral flank tenderness. SKIN: Acyanotic, warm, dry, without rashes EXTREMITIES: Without swelling, tenderness or deformity NEUROLOGICAL: No focal deficits. No aphasia. No facial droop or slurred speech. Normal strength and tone in the extremities. Sensation to gross touch normal. EK bpm normal sinus rhythm with incomplete right bundle branch block. LVH with some diffuse T wave inversions. No acute ST segment elevation with a QTC of 474. Compared to previous available from September 2022 with similar in appearance. CONTINUOUS CARDIAC MONITORING: was ordered and showed a heart rate of 50s-60s bpm in normal sinus rhythm to sinus bradycardia with some diffuse T wave changes. Patient's laboratory studies and imaging reviewed. Differential includes Infection, dehydration, metabolic abnormality, hypo/hyperglycemia, electrolyte disturbance, anemia, hypoxia, cardiac sources, intracerebral event, toxicologic, neurologic, as well as other pathologies. IMPRESSION/MEDICAL DECISION MAKING: Presents with report of some back discomfort and noted for hypoxia for EMS. Patient recently recovering reportedly from pneumonia. Patient's not the best historian denies any significant pain or complaints at this time. Is noted to be hypoxic however. Chest x-ray questions a small right pleural effusion but cardiomegaly without pulmonary edema per radiology report report and my review. Did review medical record and history in September of ESBL E. coli bacteremia and UTI. Testing here negative for flu and COVID. No significant cytosis without anemia on blood work. Stable of slightly improved CKD. No severe electrolyte abnormality. Troponin mildly elevated but decreased from before. TSH within normal limits and procalcitonin not elevated. No evidence of lactate elevation and doubt sepsis. Given the report of some back pain and the fact that she does not seem the most reliable historian, did complete a CT of the chest as well as abdomen pelvis. Given her renal dysfunction allergies without contrast. Want to exclude an occult kidney stone or pneumonia that could be causing symptoms. Memory has not been good but I do not see a listed diagnosis of dementia. CT head complete without acute findings per radiology. CT of the chest shows per radiology evidence of small pulmonary edema and small right pleural effusion. A telectasis versus pneumonitis with nonspecific mediastinal lymphadenopathy is noted. CT abdomen pelvis per radiology without significant findings beyond slight increase in a small right pleural effusion. Urinalysis does appear infected and reviewed recent microbiology. Discussed with pharmacy and will place on ertapenem given recent ESBL. This may be causing some of her confusion. Possibly could be causing some of her slight hypoxia but unclear. Given a small additional dose of Bumex at this time or any diuresis that may help with her slight oxygen requirement but given the confusion and mild hypoxia will bring into the hospital for further evaluation. Discussed with the hospitalist for further care here. DIAGNOSIS: Hypoxia, acute CHF, acute UTI -history of resistant UTI, confusion DISPOSITION: Hospitalist will evaluate Patient was agreeable with this plan. 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 Beliefs That Will Affect Care: Sikhism Sikhism Beliefs: Sikhism Hindu Current Living Situation: Personal Care Facility Current Living Situation Comment: assisted living Feels Safe at Home: Yes Assistive Devices: Glasses and Wheelchair Allergies Allergies Allergy/AdvReac Type Severity Reaction Status Date / Time iodine Allergy Unknown Unknown Verified 09/12/22 01:17 NSAIDS (Non-Steroidal Allergy Unknown Unknown Verified 09/12/22 01:17 Anti-Inflamma tositumomab iodine-131 Allergy Unknown Unknown Unverified 09/12/22 01:17 Penicillins Allergy Unknown Verified 09/12/22 01:17 Home Meds Home Medications Medication Instructions Recorded Confirmed acetaminophen 325 mg capsule 650 mg PO Q4H PRN Pain 10/22/19 09/12/22 clopidogrel 75 mg tablet 75 mg PO QAM 10/22/19 09/12/22 levothyroxine 50 mcg capsule 50 mcg PO DAILYBB 10/22/19 09/12/22 paroxetine HCl 20 mg tablet 20 mg PO QAM 10/22/19 09/12/22 potassium chloride 20 mEq oral 20 meq PO QAM 10/22/19 09/12/22 packet artificial tears with lanolin eye 1 applic OPB BID Dry eye(s) 12/08/20 09/12/22 ointment bumetanide 1 mg tablet 1 mg PO 3XWK 08/16/22 09/12/22 ascorbic acid (vitamin C) 500 mg 500 mg PO BID 09/12/22 09/12/22 tablet (Vitamin C) calcium 500 mg tablet 500 mg PO DAILY 09/12/22 09/12/22 cholecalciferol (vitamin D3) 125 125 mcg PO DAILY 09/12/22 09/12/22 mcg (5,000 unit) tablet (Vitamin D3) gabapentin 300 mg capsule 300 mg PO .DAILY 1700 09/12/22 09/12/22 mirtazapine 7.5 mg tablet 7.5 mg PO DAILY 09/12/22 09/12/22 Results & Data (ED) Vital Signs Vital Signs - 24 hr 11/11/22 12:58 11/11/22 13:04 11/11/22 13:30 Temperature 37.1 C Temperature Source Oral Pulse Rate 69 67 Pulse Rate from SpO2 Sensor 67 Pulse Rhythm Regular Pulse Strength Normal Respiratory Rate 20 20 Respiratory Effort / Characteristics Non-Labored Spontaneous Respiratory Depth Normal Respiratory Pattern Regular Blood Pressure 149/87 H 149/82 H Blood Pressure Mean 107 104 Blood Pressure Position Lying Pulse Oximetry 94 94 Oxygen Delivery Method Nasal Cannula Nasal Cannula Oxygen Flow Rate 2 2 Sepsis Recent Fever Within 48 Hours No Sepsis New/Unexplained Change in Mental Status N/A Sepsis Action Taken by Nursing No Action Required 11/11/22 13:30 11/11/22 14:00 11/11/22 14:00 Temperature Temperature Source Pulse Rate 64 72 Pulse Rate from SpO2 Sensor 64 71 Pulse Rhythm Pulse Strength Respiratory Rate 20 16 Respiratory Effort / Characteristics Respiratory Depth Respiratory Pattern Blood Pressure 163/112 H Blood Pressure Mean 129 Blood Pressure Position Pulse Oximetry 94 96 Oxygen Delivery Method Nasal Cannula Nasal Cannula Oxygen Flow Rate 2 2 Sepsis Recent Fever Within 48 Hours Sepsis New/Unexplained Change in Mental Status Sepsis Action Taken by Nursing 11/11/22 14:30 11/11/22 14:30 Temperature Temperature Source Pulse Rate 62 Pulse Rate from SpO2 Sensor 62 Pulse Rhythm Pulse Strength Respiratory Rate 21 Respiratory Effort / Characteristics Respiratory Depth Respiratory Pattern Blood Pressure 153/85 H Blood Pressure Mean 107 Blood Pressure Position Pulse Oximetry 94 Oxygen Delivery Method Nasal Cannula Oxygen Flow Rate 2 Sepsis Recent Fever Within 48 Hours Sepsis New/Unexplained Change in Mental Status Sepsis Action Taken by Nursing Laboratory Data 11/11/22 12:50 11/11/22 12:50 Lab Results 11/11/22 11/11/22 11/11/22 Range/Units 12:50 12:50 12:50 WBC (4.8-10.8) K/ul RBC (4.20-5.40) M/uL Hgb (12.0-16.0) g/dl Hct (37.0-47.0) % MCV (80.0-100.0) fL MCH (25.0-34.0) pg MCHC (32.0-36.0) g/dL RDW Std Deviation (36.4-46.3) fL RDW Coeff of Norris (11.5-14.5) % Plt Count (130-400) K/uL MPV (9.4-12.4) fL Immature Gran % (Auto) % Neut % (Auto) % Lymph % (Auto) % [place] % (Auto) % Eos % (Auto) % Baso % (Auto) % Neut # (Auto) (1.40-6.50) K/uL Lymph # (Auto) (1.2-3.4) K/uL [place] # (Auto) (0.11-0.59) K/uL Eos # (Auto) (0-0.50) K/uL Baso # (Auto) (0-0.2) K/uL Immature Gran # (Auto) (0.01-0.20) K/uL PT 10.6 (9.0-12.0) Seconds INR 1.0 (0.9-1.1) Sodium 142 (136-145) mmol/L Potassium 4.8 (3.5-5.1) mmol/L Chloride 111 H (98-107) mmol/L Carbon Dioxide 27 (21-32) mmol/L Anion Gap 4 (3-11) BUN 26 H (6-23) mg/dl Creatinine 2.02 H (0.6-1.2) mg/dl Est Cr Clr Drug Dosing 23.3 ml/min Est GFR ( Amer) 25.8 ml/min Est GFR (Non-Af Amer) 22.2 ml/min BUN/Creatinine Ratio 12.9 (10-20) Glucose 79 (70-99(Fasting)) mg/dl Lactate 0.7 (0.4-2.0) mmol/L Calcium 9.6 (8.5-10.1) mg/dl Magnesium 2.3 (1.7-2.4) mg/dl Total Bilirubin 0.7 (0.2-1.0) mg/dl AST 14 (13-39) U/L ALT 10 (7-52) U/L Alkaline Phosphatase 72 (34-104) U/L Troponin I High Sens 21.6 H (0-14) pg/ml Total Protein 6.6 (6.0-8.3) gm/dl Albumin 3.2 L (3.4-5.0) gm/dl Globulin 3.4 (2.5-4.0) gm/dl Albumin/Globulin Ratio 0.9 (0.9-2) Lipase Procalcitonin (0-0.5) ng/ml TSH (0.300-4.500) uIu/ml Urine Color Urine Appearance (Clear) Urine pH (4.5-7.5) Ur Specific Angie (1.000-1.030) Urine Protein (Negative) Urine Glucose (UA) (Negative) Urine Ketones (Negative) Urine Blood (Negative) Urine Nitrite (Negative) Urine Bilirubin (Negative) Urine Urobilinogen (Negative) Ur Leukocyte Esterase (Negative) Urine WBC (Auto) (0-5) /hpf Urine RBC (Auto) (0-4) /hpf U Hyaline Cast (Auto) (0-5) /lpf U Epithel Cells (Auto) (0-5) /lpf Urine Bacteria (Auto) (Negative) SARS-CoV-2 (PCR) (Negative) Influenza Type A (PCR) (Neg) Influenza Type B (PCR) (Neg) RSV (RT-PCR) (Neg) 11/11/22 11/11/22 11/11/22 Range/Units 12:50 12:50 12:50 WBC 10.24 (4.8-10.8) K/ul RBC 4.91 (4.20-5.40) M/uL Hgb 15.8 (12.0-16.0) g/dl Hct 48.4 H (37.0-47.0) % MCV 98.6 (80.0-100.0) fL MCH 32.2 (25.0-34.0) pg MCHC 32.6 (32.0-36.0) g/dL RDW Std Deviation 52.8 H (36.4-46.3) fL RDW Coeff of Norris 14.5 (11.5-14.5) % Plt Count 457 H (130-400) K/uL MPV 9.1 L (9.4-12.4) fL Immature Gran % (Auto) 0.3 % Neut % (Auto) 62.6 % Lymph % (Auto) 24.2 % [place] % (Auto) 11.7 % Eos % (Auto) 0.4 % Baso % (Auto) 0.8 % Neut # (Auto) 6.41 (1.40-6.50) K/uL Lymph # (Auto) 2.48 (1.2-3.4) K/uL [place] # (Auto) 1.20 H (0.11-0.59) K/uL Eos # (Auto) 0.04 (0-0.50) K/uL Baso # (Auto) 0.08 (0-0.2) K/uL Immature Gran # (Auto) 0.03 (0.01-0.20) K/uL PT (9.0-12.0) Seconds INR (0.9-1.1) Sodium (136-145) mmol/L Potassium (3.5-5.1) mmol/L Chloride (98-107) mmol/L Carbon Dioxide (21-32) mmol/L Anion Gap (3-11) BUN (6-23) mg/dl Creatinine (0.6-1.2) mg/dl Est Cr Clr Drug Dosing ml/min Est GFR ( Amer) ml/min Est GFR (Non-Af Amer) ml/min BUN/Creatinine Ratio (10-20) Glucose (70-99(Fasting)) mg/dl Lactate (0.4-2.0) mmol/L Calcium (8.5-10.1) mg/dl Magnesium (1.7-2.4) mg/dl Total Bilirubin (0.2-1.0) mg/dl AST (13-39) U/L ALT (7-52) U/L Alkaline Phosphatase (34-104) U/L Troponin I High Sens (0-14) pg/ml Total Protein (6.0-8.3) gm/dl Albumin (3.4-5.0) gm/dl Globulin (2.5-4.0) gm/dl Albumin/Globulin Ratio (0.9-2) Lipase Procalcitonin 0.10 (0-0.5) ng/ml TSH 1.721 (0.300-4.500) uIu/ml Urine Color Urine Appearance (Clear) Urine pH (4.5-7.5) Ur Specific Angie (1.000-1.030) Urine Protein (Negative) Urine Glucose (UA) (Negative) Urine Ketones (Negative) Urine Blood (Negative) Urine Nitrite (Negative) Urine Bilirubin (Negative) Urine Urobilinogen (Negative) Ur Leukocyte Esterase (Negative) Urine WBC (Auto) (0-5) /hpf Urine RBC (Auto) (0-4) /hpf U Hyaline Cast (Auto) (0-5) /lpf U Epithel Cells (Auto) (0-5) /lpf Urine Bacteria (Auto) (Negative) SARS-CoV-2 (PCR) (Negative) Influenza Type A (PCR) (Neg) Influenza Type B (PCR) (Neg) RSV (RT-PCR) (Neg) 11/11/22 11/11/22 11/11/22 Range/Units 12:50 12:54 15:30 WBC (4.8-10.8) K/ul RBC (4.20-5.40) M/uL Hgb (12.0-16.0) g/dl Hct (37.0-47.0) % MCV (80.0-100.0) fL MCH (25.0-34.0) pg MCHC (32.0-36.0) g/dL RDW Std Deviation (36.4-46.3) fL RDW Coeff of Norris (11.5-14.5) % Plt Count (130-400) K/uL MPV (9.4-12.4) fL Immature Gran % (Auto) % Neut % (Auto) % Lymph % (Auto) % [place] % (Auto) % Eos % (Auto) % Baso % (Auto) % Neut # (Auto) (1.40-6.50) K/uL Lymph # (Auto) (1.2-3.4) K/uL [place] # (Auto) (0.11-0.59) K/uL Eos # (Auto) (0-0.50) K/uL Baso # (Auto) (0-0.2) K/uL Immature Gran # (Auto) (0.01-0.20) K/uL PT (9.0-12.0) Seconds INR (0.9-1.1) Sodium (136-145) mmol/L Potassium (3.5-5.1) mmol/L Chloride (98-107) mmol/L Carbon Dioxide (21-32) mmol/L Anion Gap (3-11) BUN (6-23) mg/dl Creatinine (0.6-1.2) mg/dl Est Cr Clr Drug Dosing ml/min Est GFR ( Amer) ml/min Est GFR (Non-Af Amer) ml/min BUN/Creatinine Ratio (10-20) Glucose (70-99(Fasting)) mg/dl Lactate (0.4-2.0) mmol/L Calcium (8.5-10.1) mg/dl Magnesium (1.7-2.4) mg/dl Total Bilirubin (0.2-1.0) mg/dl AST (13-39) U/L ALT (7-52) U/L Alkaline Phosphatase (34-104) U/L Troponin I High Sens (0-14) pg/ml Total Protein (6.0-8.3) gm/dl Albumin (3.4-5.0) gm/dl Globulin (2.5-4.0) gm/dl Albumin/Globulin Ratio (0.9-2) Lipase Cancelled Procalcitonin (0-0.5) ng/ml TSH (0.300-4.500) uIu/ml Urine Color Yellow Urine Appearance Cloudy A (Clear) Urine pH 7.0 (4.5-7.5) Ur Specific Angie 1.009 (1.000-1.030) Urine Protein 1+ H (Negative) Urine Glucose (UA) Negative (Negative) Urine Ketones Negative (Negative) Urine Blood Trace H (Negative) Urine Nitrite Negative (Negative) Urine Bilirubin Negative (Negative) Urine Urobilinogen Negative (Negative) Ur Leukocyte Esterase 3+ H (Negative) Urine WBC (Auto) >30 H (0-5) /hpf Urine RBC (Auto) 0-4 (0-4) /hpf U Hyaline Cast (Auto) 1-5 (0-5) /lpf U Epithel Cells (Auto) 0-5 (0-5) /lpf Urine Bacteria (Auto) 1+ H (Negative) SARS-CoV-2 (PCR) NEGATIVE (Negative) Influenza Type A (PCR) Negative (Neg) Influenza Type B (PCR) Negative (Neg) RSV (RT-PCR) Negative (Neg) Imaging Data Radiologist's Impression: Chest X-Ray 11/11/22 12:45 XR chest 1V portable CLINICAL HISTORY: Hypoxia. COMPARISON STUDY: Chest radiograph September 19, 2022. FINDINGS: No pneumothorax or definite pleural effusion is present. Possible small right pleural effusion. Mild elevation of the right hemidiaphragm is unch anged. Bibasilar opacities favor atelectasis. Cardiomegaly is unchanged. There is no evidence for pulmonary edema. Degenerative changes of the glenohumeral joints are incidentally noted. IMPRESSION: 1. No consolidation to suggest pneumonia. 2. Possible small right pleural effusion. 3. Cardiomegaly without evidence for pulmonary edema. ACT 112: Negative or not required by law. Electronically signed by: Francisco Parikh M.D. 11/11/2022 1:25 PM Abdomen/Pelvis CT 11/11/22 14:[address] WITHOUT CONTRAST CT DOSE: HISTORY: back pain TECHNIQUE: Multiaxial CT images of the abdomen and pelvis were performed without contrast. A dose lowering technique was utilized adhering to the principles of ALARA. COMPARISON STUDY: Abdomen and pelvis CT 08/16/2022. FINDINGS: Suboptimal evaluation due to the motion artifact. Increase in size in the small right pleural effusion. Bibasilar densities favor atelectasis. A pneumonia could also have a similar appearance in the appropriate clinical setting. An elongated 1 cm nodule is seen along the right minor fissure. This is likely benign. No pneumoperitoneum. No pneumatosis. There is a left total hip arthroplasty. No acute fractures identified. There is an old mild anterior wedge-shaped compression deformity at T11, unchanged. No acute fractures kylie ntified. Cholecystectomy. The unenhanced liver, adrenal glands, and pancreas unremarkable. Stable right-sided nephrolithiasis. No ureteral stones. No hydronephrosis. A normal spleen is not identified. A few splenic nodules are seen within the left upper quadrant. This remains unchanged. No retroperitoneal lymphadenopathy. Normal caliber abdominal aorta. No pelvic lymphadenopathy or pelvic free fluid. The bladder is unremarkable. Multiple uterine fibroids are again noted. No bowel wall thickening or obstruction. Colonic diverticulosis. No evidence for acute diverticulitis. Moderate fecal retention. Small fat- containing periumbilical hernia, unchanged. Normal appendix. IMPRESSION: 1. No significant change compared to the prior study. 2. No bowel wall thickening or obstruction. 3. Colonic diverticulosis. No evidence for acute diverticulitis. 4. Increase in size in the small right pleural effusion. 5. Normal appendix. ACT 112: Negative or not required by law. Electronically signed by: Krishna Ulloa M.D. 11/11/2022 3:[address] 11/11/22 14:24 CT chest diagnostic wo con CLINICAL HISTORY: 81 years-old Female with back pain, hypoxia. Acute back pain with shortness of breath TECHNIQUE: Multiaxial CT images of the chest were performed without contrast. A dose lowering technique was utilized adhering to the principles of ALARA. COMPARISON: CT abdomen and pelvis of same day FINDINGS: No thyroid nodule. Enlarged mediastinal lymph nodes measure up to 1.8 x 1.4 cm within the precarinal distribution. Moderate cardiomegaly without pericardial effusion. A 1.2 cm nodule within the pericardial space as noted on image 156 indeterminate. 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 Moderate coronary artery calcifications. No pneumothorax. Intralobular septal thickening. Mild bibasilar groundglass and consolidative opacities with mucous plugging. Small right pleural effusion. Cortical thinning of the kidneys. Mild nonspecific bilateral perinephric stranding. Cholecystectomy. Unremarkable soft tissues. Degenerative changes of the shoulders and spine. There are percent superior endplate compression of the T11 vertebral body with 2 mm retropulsion favored be chronic. IMPRESSION: 1. Cardiomegaly with mild pulmonary edema. 2. Small right pleural effusion with mild bibasilar opacities favoring atelectasis. A mild infectious or inflammatory pneumonitis could appear similarly. 3. Nonspecific mediastinal lymphadenopathy. 4. 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 ACT 112: Negative or not required by law. Electronically signed by: David Ragsdale M.D. 11/11/2022 3:[address] 11/11/22 14:44 CT head/brain wo con CLINICAL HISTORY: 81 years-old Female with hypoxia, confusion, back pain. Acute hypoxia with headache TECHNIQUE: Multiple axial CT images of the head were obtained without contrast. A dose lowering technique was utilized adhering to the principles of ALARA. CT DOSE: 3109.37 mGy.cm COMPARISON: 09/11/2022 FINDINGS: No acute intracranial hemorrhage, midline shift, intracranial mass, hydrocephalus, territorial ischemia or abnormal extra-axial collection. Invo lutional changes with unchanged ventriculomegaly and chronic microvascular ischemic disease. Chronic frontal lobe infarct. Unchanged calcifications of the jaky. Chronic lacunar infarcts of the cerebellum. The calvarium is intact. Prior bilateral lens repair. The paranasal sinuses, mastoid air cells, and middle ear cavities are clear. IMPRESSION: No acute intracranial abnormality. ACT 112: Negative or not required by law. The above report was generated using voice recognition software. It may contain grammatical, syntax or spelling errors. Electronically signed by: David Ragsdale M.D. 11/11/2022 3:11 PM Discharge Plan Visit Data Chief Complaint: Weakness Stated Complaint: weakness ED Provider: Marcial Nichols Discharge Problem: Acute UTI, Chronic kidney disease, stage 4 (severe), Diastolic CHF, Hypoxia, Confusion Patient Disposition: Being Evaluated by Hospitalist Prescriptions Prescriptions: No Action clopidogrel 75 mg tablet 75 mg PO QAM levothyroxine 50 mcg capsule 50 mcg PO DAILYBB paroxetine HCl 20 mg tablet 20 mg PO QAM potassium chloride 20 mEq packet 20 meq PO QAM acetaminophen 325 mg capsule 650 mg PO Q4H MDD 3g PRN (Reason: Pain) artificial tears with lanolin Ointment 1 applic OPB BID bumetanide 1 mg tablet 1 mg PO 3XWK Rx Instructions: take daily on MON/WED/FRI calcium 500 mg Tablet 500 mg PO DAILY ascorbic acid (vitamin C) [Vitamin C] 500 mg Tablet 500 mg PO BID mirtazapine 7.5 mg tablet 7.5 mg PO DAILY cholecalciferol (vitamin D3) [Vitamin D3] 125 mcg (5,000 unit) Tablet 125 mcg PO DAILY gabapentin 300 mg capsule 300 mg PO .DAILY 1700 Referrals Referrals: [facility] ANTUNEZ [Primary Care Provider] -
--- NOTE | 2022-11-11 14:36 | Electrocardiogram Report ---
Test Reason : Blood Pressure : / mmHG Vent. Rate : 068 BPM Atrial Rate : 068 BPM P-R Int : 162 ms QRS Dur : 112 ms QT Int : 446 ms P-R-T Axes : 003 -11 242 degrees QTc Int : 474 ms Normal sinus rhythm Incomplete right bundle branch block Left ventricular hypertrophy with repolarization abnormality Abnormal ECG When compared with ECG of 11-SEP-2022 20:54, Vent. rate has decreased BY 34 BPM Confirmed by Willie Guardado ([id number]) on 11/11/2022 2:35:49 PM Referred By: REFERRED SELF Confirmed By:Willie Guardado
--- NOTE | 2022-11-11 15:12 | CT Scan Report ---
CT head/brain wo con CLINICAL HISTORY: 81 years-old Female with hypoxia, confusion, back pain. Acute hypoxia with headach e TECHNIQUE: Multiple axial CT images of the head were obtained without contrast. A dose lowering tech nique was utilized adhering to the principles of ALARA. CT DOSE: 3109.37 mGy.cm COMPARISON: 09/11/2022 FINDINGS: No acute intracranial hemorrhage, midline shift, intracranial mass, hydrocephalus, territorial ischem ia or abnormal extra-axial collection. Involutional changes with unchanged ventriculomegaly and chron ic microvascular ischemic disease. Chronic frontal lobe infarct. Unchanged calcifications of the jaky . Chronic lacunar infarcts of the cerebellum. The calvarium is intact. Prior bilateral lens repair. The paranasal sinuses, mastoid air cells, and m iddle ear cavities are clear. IMPRESSION: No acute intracranial abnormality. ACT 112: Negative or not required by law. The above report was generated using voice recognition software. It may contain grammatical, syntax o r spelling errors. Electronically signed by: David Ragsdale M.D. 11/11/2022 3:11 PM
--- NOTE | 2022-11-11 15:27 | CT Scan Report ---
CT chest diagnostic wo con CLINICAL HISTORY: 81 years-old Female with back pain, hypoxia. Acute back pain with shortness of sintia ath TECHNIQUE: Multiaxial CT images of the chest were performed without contrast. A dose lowering techni que was utilized adhering to the principles of ALARA. COMPARISON: CT abdomen and pelvis of same day FINDINGS: No thyroid nodule. Enlarged mediastinal lymph nodes measure up to 1.8 x 1.4 cm within the p recarinal distribution. Moderate cardiomegaly without pericardial effusion. A 1.2 cm nodule within th e pericardial space as noted on image 156 indeterminate. 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 Moderate coronary artery calci fications. No pneumothorax. Intralobular septal thickening. Mild bibasilar groundglass and consolidative opaciti es with mucous plugging. Small right pleural effusion. Cortical thinning of the kidneys. Mild nonspec ific bilateral perinephric stranding. Cholecystectomy. Unremarkable soft tissues. Degenerative change s of the shoulders and spine. There are percent superior endplate compression of the T11 vertebral femi dy with 2 mm retropulsion favored be chronic. IMPRESSION: 1. Cardiomegaly with mild pulmonary edema. 2. Small right pleural effusion with mild bibasilar opacities favoring atelectasis. A mild infectious or inflammatory pneumonitis could appear similarly. 3. Nonspecific mediastinal lymphadenopathy. 4. 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 ACT 112: Negative or not required by law. Electronically signed by: David Ragsdale M.D. 11/11/2022 3:25 PM
[2022-11-11 15:48] LABS: Appearance Urine Cloudy (Clear); Bacteria Urine Automated 1+ (Negative); Bilirubin Urine Negative (Negative); Blood Urine Trace (Negative); Color Urine Yellow; Epithelial Cell Urine Auto 0-5 /lpf (0-5); Glucose Urine UA Negative (Negative); Ketones Urine Negative (Negative); Leukocyte Esterase Urine 3+ (Negative); Nitrite Urine Negative (Negative); Protein Urine 1+ (Negative); RBC Urine Automated 0-4 /hpf (0-4); Specific Gravity Urine 1.009 (1.000-1.030); Urobilinogen Urine Negative (Negative); WBC Urine Automated >30 /hpf (0-5)
--- NOTE | 2022-11-11 16:00 | CT Scan Report ---
ABDOMEN AND PELVIS CT WITHOUT CONTRAST CT DOSE: HISTORY: back pain TECHNIQUE: Multiaxial CT images of the abdomen and pelvis were performed without contrast. A dose lo wering technique was utilized adhering to the principles of ALARA. COMPARISON STUDY: Abdomen and pelvis CT 08/16/2022. FINDINGS: Suboptimal evaluation due to the motion artifact. Increase in size in the small right pleur al effusion. Bibasilar densities favor atelectasis. A pneumonia could also have a similar appearance in the appropriate clinical setting. An elongated 1 cm nodule is seen along the right minor fissure. This is likely benign. No pneumoperitoneum. No pneumatosis. There is a left total hip arthroplasty. N o acute fractures identified. There is an old mild anterior wedge-shaped compression deformity at T11 , unchanged. No acute fractures identified. Cholecystectomy. The unenhanced liver, adrenal glands, an d pancreas unremarkable. Stable right-sided nephrolithiasis. No ureteral stones. No hydronephrosis. A normal spleen is not identified. A few splenic nodules are seen within the left upper quadrant. This remains unchanged. No retroperitoneal lymphadenopathy. Normal caliber abdominal aorta. No pelvic lym phadenopathy or pelvic free fluid. The bladder is unremarkable. Multiple uterine fibroids are again n oted. No bowel wall thickening or obstruction. Colonic diverticulosis. No evidence for acute divertic ulitis. Moderate fecal retention. Small fat-containing periumbilical hernia, unchanged. Normal append ix. IMPRESSION: 1. No significant change compared to the prior study. 2. No bowel wall thickening or obstruction. 3. Colonic diverticulosis. No evidence for acute diverticulitis. 4. Increase in size in the small right pleural effusion. 5. Normal appendix. ACT 112: Negative or not required by law. Electronically signed by: Krishna Ulloa M.D. 11/11/2022 3:59 PM
[2022-11-11] MEDS ORDERED: ERTAPENEM SODIUM 500 MG in SYRINGE 0 ML IV ONE (16:05)
[2022-11-11] MEDS ORDERED: BUMETANIDE 1 MG in SYRINGE 0 ML IV ONE (16:05)
--- NOTE | 2022-11-11 17:48 | History & Physical Report ---
Date of Service November 11, 2022 Assessment & Plan (1) Acute UTI: Plan: - Admit to med/surg with tele - UA appears grossly infected, blood and urine cultures ordered/pending - Based on recent bacteremia/UTI d/t ESBL E. coli, will treat for such with Ertapenem 500mg IV daily (renally adjusted) - Await speciation of cultures and tailor abx accordingly (2) Diastolic CHF: Plan: Acute on chronic biventricular - Evidence of pulmonary edema on chest CT - Recently had an echo in Aug 2022, no need to repeat - hsTrop 21 which has actually downtrended from hsTrop during September hospitalization * She is chest pain free and w/o EKG changes * No need to trend hsTrop - Given dose of IV Bumex in ED, will monitor output and reassess need for additional diuresis pending clinical course - Continue supplemental O2 and wean as able to keep sats >90% (3) Chronic kidney disease, stage 4 (severe): Plan: - Baseline creatinine 1.9 to 2.3 - Currently within baseline at 2.02 - Monitor (4) Depression: Plan: - Continue Paxil and Remeron (5) Hypothyroidism: Plan: - Continue Synthroid Plan Plan as outlined above. PT/OT eval. Lovenox for DVT ppx. Heart healthy, low salt diet. If improves from a HF standpoint, can probably downgrade to med/surg on 11/12. Repeat labs ordered for AM. Reviewed code status with patient who confirmed DNR/DNI status. Above plan of care has been d/w Dr. Dobson who has also seen and evaluated this patient and is in agreement. History of Present Illness Chief Complaint: Weakness Primary Care Provider: [facility] bEony Esposito is an 81 yo WF who was recently hospitalized 09/12 through 09/20 here at [facility] for ESBL E. coli UTI and bacteremia. She was discharged to [facility] in stable condition and completed a course of Ertapenem. She resides at [facility] and was sent in for evaluation due to generalized weakness. Of note, history is obtained mostly from the patient but also from ER records as the patient does seem mildly confused. She was able to discern that she is in the hospital and the name of the current president, however, is confused when asked the year and is unable to relay why she was sent in. She denies chest pain, cough, shortness of breath, fever, chills, dysuria, abd pain, n/v/d. Work up in the ER notes a grossly infected urine but otherwise normal wbc count w/o shift, and baseline creatinine. Chest CT demonstrated mild pulmonary edema for which she was medicated with a dose of IV Bumex 1mg. For the UTI, she was given a dose of Ertapenem 500mg IV x1. She is currently afebrile and HD stable. She has been referred for admission to the hospitalist service for further evaluation and care. Allergies Allergy/AdvReac Type Severity Reaction Status Date / Time iodine Allergy Unknown Unknown Verified 11/11/22 16:37 NSAIDS (Non-Steroidal Allergy Unknown Unknown Verified 11/11/22 16:37 Anti-Inflamma tositumomab iodine-131 Allergy Unknown Unknown Unverified 11/11/22 16:37 Penicillins Allergy Unknown Verified 11/11/22 16:37 Home Medications Medication Instructions Recorded Confirmed Type acetaminophen 325 mg capsule 650 mg PO Q4H PRN Pain 10/22/19 11/11/22 History clopidogrel 75 mg tablet 75 mg PO QAM 10/22/19 11/11/22 History levothyroxine 50 mcg capsule 50 mcg PO DAILYBB 10/22/19 11/11/22 History paroxetine HCl 20 mg tablet 20 mg PO QAM 10/22/19 11/11/22 History bumetanide 1 mg tablet 1 mg PO 3XWK 08/16/22 11/11/22 History gabapentin 300 mg capsule 300 mg PO .DAILY 1700 09/12/22 11/11/22 History mirtazapine 7.5 mg tablet 7.5 mg PO DAILY 09/12/22 11/11/22 History Past Med/Surg History Medical History Ambulatory dysfunction Chronic kidney disease, stage 4 (severe) GI bleed Hyperlipidemia Hypothyroidism Osteoarthritis Polyneuropathy Recurrent falls Social History Smoking Status: Former smoker Tobacco Type: Cigarettes Second Hand Exposure: No; Hx Alcohol Use: No Hx Substance Use: No Preferred Language: Divehi Communication Ability: Effective Software Development Leader Required: No Beliefs That Will Affect Care: Oriental Orthodox Oriental Orthodox Beliefs: Oriental Orthodox Sikhism Current Living Situation: Personal Care Facility Current Living Situation Comment: assisted living Feels Safe at Home: Yes Assistive Devices: Glasses and Wheelchair Review of Systems Review of Systems: All systems reviewed and are unremarkable except as noted in HPI and below. Denies fever, chills, fatigue, headache, nasal congestion, sore throat, cough, chest pain, shortness of breath, palpitations, orthopnea, PND, abdominal pain, n/v/d, constipation, dysuria, hematuria, frequency, back pain, joint pain or swelling, easy bruising or bleeding, skin lesions or rashes. Physical Exam Physical Exam: GENERAL: 81 yo Well-developed, well-nourished elderly WF. NAD. EYES: EOMI. PERRLA. Anicteric. HENT: Moist mucous membranes. No scleral icterus. No cervical lymphadenopathy. LUNGS: Clear to auscultation bilaterally. No accessory muscle use. No W/R/R. CARDIOVASCULAR: Regular rate and rhythm. No M/G/R. No JVD. ABDOMEN: Soft, obese, non-tender and non-distended. No palpable masses. Bs normoactive x 4 quad. EXTREMITIES: No edema. Non-tender. Peripheral pulses +2/4. NEUROLOGIC: A&O x3. No focal neurological deficits. CN II-XII grossly intact. PSYCHIATRIC: Cooperative. Appropriate mood and affect. SKIN: Warm, dry, intact. No rashes or lesions. Results & Data Results & Data ([facility]) Vital Signs (Past 12 Hours) Vital Signs Temp Pulse Resp BP Pulse Ox O2 Del Method O2 Flow Rate 11/11/22 14:30 62 21 94 Nasal Cannula 2 11/11/22 14:30 153/85 H 11/11/22 14:00 72 16 96 Nasal Cannula 2 11/11/22 14:00 163/112 H 11/11/22 13:30 64 20 94 Nasal Cannula 2 11/11/22 13:30 149/82 H 11/11/22 13:04 67 20 94 Nasal Cannula 2 11/11/22 12:58 37.1 C 69 20 149/87 H 94 Nasal Cannula 2 Laboratory Results 11/11/22 12:50 11/11/22 12:50 Diagnostic Findings Chest X-Ray 11/11/22 12:45 XR chest 1V portable CLINICAL HISTORY: Hypoxia. COMPARISON STUDY: Chest radiograph September 19, 2022. FINDINGS: No pneumothorax or definite pleural effusion is present. Possible small right pleural effusion. Mild elevation of the right hemidiaphragm is unchanged. Bibasilar opacities favor atelectasis. Cardiomegaly is unchanged. There is no evidence for pulmonary edema. Degenerative changes of the glenohumeral joints are incidentally noted. IMPRESSION: 1. No consolidation to suggest pneumonia. 2. Possible small right pleural effusion. 3. Cardiomegaly without evidence for pulmonary edema. ACT 112: Negative or not required by law. Electronically signed by: Francisco Parikh M.D. 11/11/2022 1:25 PM Abdomen/Pelvis CT 11/11/22 14:[address] WITHOUT CONTRAST CT DOSE: HISTORY: back pain TECHNIQUE: Multiaxial CT images of the abdomen and pelvis were performed without contrast. A dose lowering technique was utilized adhering to the principles of ALARA. COMPARISON STUDY: Abdomen and pelvis CT 08/16/2022. FINDINGS: Suboptimal evaluation due to the motion artifact. Increase in size in the small right pleural effusion. Bibasilar densities favor atelectasis. A pneumonia could also have a similar appearance in the appropriate clinical setting. An elongated 1 cm nodule is seen along the right minor fissure. This is likely benign. No pneumoperitoneum. No pneumatosis. There is a left total hip arthroplasty. No acute fractures identified. There is an old mild anterior wedge-shaped compression deformity at T11, unchanged. No acute fractures identified. Cholecystectomy. The unenhanced liver, adrenal glands, and pancreas unremarkable. Stable right-sided nephrolithiasis. No ureteral stones. No hydronephrosis. A normal spleen is not identified. A few splenic nodules are seen within the left upper quadrant. This remains unchanged. No retroperitoneal lymphadenopathy. Normal caliber abdominal aorta. No pelvic lymphadenopathy or pelvic free fluid. The bladder is unremarkable. Multiple uterine fibroids are again noted. No bowel wall thickening or obstruction. Colonic diverticulosis. No evidence for acute diverticulitis. Moderate fecal retention. Small fat- containing periumbilical hernia, unchanged. Normal appendix. IMPRESSION: 1. No significant change compared to the prior study. 2. No bowel wall thickening or obstruction. 3. Colonic diverticulosis. No evidence for acute diverticulitis. 4. Increase in size in the small right pleural effusion. 5. Normal appendix. ACT 112: Negative or not required by law. Electronically signed by: Krishna Ulloa M.D. 11/11/2022 3:[address] 11/11/22 14:24 CT chest diagnostic wo con CLINICAL HISTORY: 81 years-old Female with back pain, hypoxia. Acute back pain with shortness of breath TECHNIQUE: Multiaxial CT images of the chest were performed without contrast. A dose lowering technique was utilized adhering to the principles of ALARA. COMPARISON: CT abdomen and pelvis of same day FINDINGS: No thyroid nodule. Enlarged mediastinal lymph nodes measure up to 1.8 x 1.4 cm within the precarinal distribution. Moderate cardiomegaly without pericardial effusion. A 1.2 cm nodule within the pericardial space as noted on image 156 indeterminate. 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 Moderate coronary artery calcifications. No pneumothorax. Intralobular septal thickening. Mild bibasilar groundglass and consolidative opacities with mucous plugging. Small right pleural effusion. Cortical thinning of the kidneys. Mild nonspecific bilateral perinephric stranding. Cholecystectomy. Unremarkable soft tissues. Degenerative changes of the shoulders and spine. There are percent superior endplate compression of the T11 vertebral body with 2 mm retropulsion favored be chronic. IMPRESSION: 1. Cardiomegaly with mild pulmonary edema. 2. Small right pleural effusion with mild bibasilar opacities favoring a telectasis. A mild infectious or inflammatory pneumonitis could appear similarly. 3. Nonspecific mediastinal lymphadenopathy. 4. 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 ACT 112: Negative or not required by law. Electronically signed by: David Ragsdale M.D. 11/11/2022 3:[address] 11/11/22 14:44 CT head/brain wo con CLINICAL HISTORY: 81 years-old Female with hypoxia, confusion, back pain. Acute hypoxia with headache TECHNIQUE: Multiple axial CT images of the head were obtained without contrast. A dose lowering technique was utilized adhering to the principles of ALARA. CT DOSE: 3109.37 mGy.cm COMPARISON: 09/11/2022 FINDINGS: No acute intracranial hemorrhage, midline shift, intracranial mass, hydrocephalus, territorial ischemia or abnormal extra-axial collection. Involutional changes with unchanged ventriculomegaly and chronic microvascular ischemic disease. Chronic frontal lobe infarct. Unchanged calcifications of the jaky. Chronic lacunar infarcts of the cerebellum. The calvarium is intact. Prior bilateral lens repair. The paranasal sinuses, mastoid air cells, and middle ear cavities are clear. IMPRESSION: No acute intracranial abnormality. ACT 112: Negative or not required by law. The above report was generated using voice recognition software. It may contain grammatical, syntax or spelling errors. Electronically signed by: David Ragsdale M.D. 11/11/2022 3:11 PM Code Status & VTE Plan VTE Prophylaxis Plan VTE Prophylaxis will be ordered: Yes Supervising Physician Co-Signing Physician Notes Patient seen and examined, chart reviewed, case discussed with Carlota Conn PA-C and I agree with the assessment and plan as above except as otherwise noted Labs and images reviewed Multiple admissions for ESBL E. coli seen at [facility], recently completed course of ertapenem, presents with confusion and fatigue and a infected appearing urine. Given extended resistance was recommended for admission and empiric treat with ertapenem pending culture speciation. Patient arouses easily and is oriented to name. Denies pain/fever/chills. Lungs are grossly clear on exam, heart rate is regular. Agree with treatment of UTI as above and pending culture for speciation, 1 dose of Bumex given concern for pulmonary edema on CT. Continue management as noted PG Care Time/CCT Total # of Minutes Spent Total Time Spent with Patient: Total time spent is greater than 50% in coordination of care (as documented) at patient's floor/unit and/or counseling patient: Coding Level of Care Code 69896 INT INP/OBS CARE 3/75MIN Diagnoses Acute UTI N39.0 Diastolic CHF I50.30 Chronic kidney disease, stage 4 (severe) N18.4 Depression F32.9 Hypothyroidism E03.9
[2022-11-11] MEDS ORDERED: ACETAMINOPHEN 325 MG TAB PO PRN (19:12)
[2022-11-11] MEDS ORDERED: ALUMINUM/MAGNESIUM SUSP 30 ML UDC PO PRN (19:12)
[2022-11-11] MEDS ORDERED: MAGNESIUM HYDROXIDE SUSP 30 ML UDC PO PRN (19:12)
[2022-11-11] MEDS ORDERED: ONDANSETRON INJ 2 MG/ML 2 ML VIAL IV PRN (19:12)
[2022-11-11] MEDS: ENOXAPARIN INJ 30 MG/0.3 ML SYR SQ SCH (22:18)
[2022-11-11] MEDS: GABAPENTIN 300 MG CAP PO SCH (22:18)
[2022-11-12 04:33] LABS: Basophils # (auto) 0.09 K/uL (0-0.2); Basophils % (auto) 1.1 %; Eosinophils # (auto) 0.05 K/uL (0-0.50); Eosinophils % (auto) 0.6 %; Hematocrit (blood only) 49.8 % (37.0-47.0); Hemoglobin 16.2 g/dl (12.0-16.0); Immature Granulocytes # (auto) 0.02 K/uL (0.01-0.20); Immature Granulocytes % (auto) 0.2 %; Lymphocytes # (auto) 1.91 K/uL (1.2-3.4); Lymphocytes % (auto) 22.7 %; Mean Corpuscular Hemoglobin 32.3 pg (25.0-34.0); Mean Corpuscular Hgb Conc 32.5 g/dL (32.0-36.0); Mean Corpuscular Volume 99.4 fL (80.0-100.0); Mean Platelet Volume 8.9 fL (9.4-12.4); Monocytes # (auto) 1.08 K/uL (0.11-0.59); Monocytes % (auto) 12.8 %; Neutrophils # (auto) 5.26 K/uL (1.40-6.50); Neutrophils % (auto) 62.6 %; Platelet Count 426 K/uL (130-400); RDW Coefficient of Variation 14.5 % (11.5-14.5); RDW Standard Deviation 53.2 fL (36.4-46.3); Red Blood Count 5.01 M/uL (4.20-5.40); White Blood Count 8.41 K/ul (4.8-10.8)
[2022-11-12 05:16] LABS: Albumin Level 3.3 gm/dl (3.4-5.0); BUN Creatinine Ratio 15.1 (10-20); Bilirubin,Total 0.5 mg/dl (0.2-1.0); Calcium 9.6 mg/dl (8.5-10.1); Creatinine Clr Calc Pharmacy 23.6 ml/min; Est GFR (African American) 26.3 ml/min; Est GFR (Non-African American) 22.7 ml/min; Globulin 3.4 gm/dl (2.5-4.0); Magnesium 2.3 mg/dl (1.7-2.4); Potassium 4.5 mmol/L (3.5-5.1); Total Protein 6.7 gm/dl (6.0-8.3)
[2022-11-12] MEDS: LEVOTHYROXINE SODIUM 50 MCG TABLET PO SCH (06:05)
--- NOTE | 2022-11-12 07:41 | Hospitalist Progress Note ---
Date of Service November 12, 2022 Assessment & Plan (1) Acute UTI: Plan: -Acute with moderate risk metabolic encephalopathy on presentation which is clearing moderate risk the patient also - UA abnormal, blood and urine cultures ordered/pending preliminary is a gram-po sitive organism -Change to ceftriaxone at this time - Await speciation of cultures and tailor abx accordingly (2) Diastolic CHF: Plan: Acute on chronic, moderate risk currently unstable - Evidence of pulmonary edema on chest CT - hsTrop remains in the 20's. chest pain free and w/o EKG changes. expect demand ischemia - Given dose of IV Bumex in ED, will institute on half dose daily rather than 1 mg 3 times a week on 11/12/2022 - Continue supplemental O2 and wean as able to keep sats >90% Noted on CT scan of chest is a fusiform aneurysm of the ascending aorta measuring 4.2 cm, will recommend continued surveillance (3) Chronic kidney disease, stage 4 (severe): Plan: chronic and stable monitor risk while diuresis (4) Depression: Plan: - chronic and stable Continue Paxil and Remeron (5) Hypothyroidism: Plan: - Continue Synthroid Plan Reviewed code status with patient who confirmed DNR/DNI status. Admission and Anticipated Discharge Date Admission Date: November 11, 2022 Subjective pt is more awake alert that was advertised, she is pleasantly confused no other focal complaints Physical Exam Physical Exam: Pt is with regular heart rhythm, clear lungs did receive diuretic therapy, has some peripheral edema Is alert and oriented x2 Results & Data Results & Data ([facility]) Vital Signs (Past 12 Hours) Vital Signs Temp Pulse Pulse Resp BP BP Pulse Ox 11/12/22 07:39 11/12/22 06:58 85 18 156/87 H 95 11/12/22 06:06 98.8 F 70 22 153/93 H 93 11/12/22 02:00 73 26 H 135/82 94 11/12/22 01:00 71 23 137/79 94 11/12/22 00:00 68 21 151/81 H 94 11/11/22 23:00 70 22 161/81 H 92 11/11/22 22:00 80 27 H 160/86 H 93 11/11/22 21:00 71 21 138/80 93 11/11/22 20:00 66 22 167/80 H 93 11/11/22 22:17 98.1 F 70 22 160/86 H 93 Pulse Ox O2 Del Method O2 Del Method O2 Flow Rate O2 Flow Rate 11/12/22 07:39 97 Nasal Cannula 2 11/12/22 06:58 Nasal Cannula 2 11/12/22 06:06 Nasal Cannula 2 11/12/22 02:00 Nasal Cannula 2 11/12/22 01:00 Nasal Cannula 2 11/12/22 00:00 Nasal Cannula 2 11/11/22 23:00 Nasal Cannula 2 11/11/22 22:00 Nasal Cannula 2 11/11/22 21:00 Nasal Cannula 2 11/11/22 20:00 Nasal Cannula 2 11/11/22 22:17 Nasal Cannula 2 Laboratory Results Reviewed CBC Reviewed. PRP Reviewed troponin trend PG Care Time/CCT Total # of Minutes Spent Total Time Spent with Patient: Total time spent is greater than 50% in coordination of care (as documented) at patient's floor/unit and/or counseling patient: Coding Level of Care Code 15665 SUB INP/OBS CARE 3/50MIN Diagnoses Acute UTI N39.0 Diastolic CHF I50.30 Chronic kidney disease, stage 4 (severe) N18.4 Depression F32.9 Hypothyroidism E03.9
[2022-11-12] MEDS: PARoxetine HCL 20 MG TAB PO SCH (08:23)
[2022-11-12] MEDS: CLOPIDOGREL BISULFATE 75 MG TAB PO SCH (08:23)
[2022-11-12] MEDS: MIRTAZAPINE TAB 15 MG TAB PO SCH (08:24)
[2022-11-12] MEDS ORDERED: hydrALAZINE HCL 20 MG/ML VIAL IV PRN (17:32)
[2022-11-12] MEDS: GABAPENTIN 300 MG CAP PO SCH (17:46)
[2022-11-12] MEDS ORDERED: ERTAPENEM SODIUM 500 MG in SYRINGE 0 ML IV SCH (18:00)
[2022-11-12] MEDS: ENOXAPARIN INJ 30 MG/0.3 ML SYR SQ SCH (21:17)
[2022-11-13] MEDS: LEVOTHYROXINE SODIUM 50 MCG TABLET PO SCH (05:53)
--- NOTE | 2022-11-13 08:20 | Hospitalist Progress Note ---
Date of Service November 13, 2022 Assessment & Plan (1) Acute UTI: Plan: -Acute with moderate risk metabolic encephalopathy on presentation which is clearing moderate risk the patient also - UA abnormal, urine culture shows Enterococcus faecium resistant to penicillins quinolones tetracyclines sensitive to Dapto Vanco gentamicin and Macrobid -Change to daptomycin will need to complete 1 week course of IV antibiotics, blood cultures are negative - (2) Diastolic CHF: Plan: Acute on chronic, moderate risk currently unstable - Evidence of pulmonary edema on chest CT - hsTrop remains in the 20's. chest pain free and w/o EKG changes. expect demand ischemia - Given dose of IV Bumex in ED, will institute on half dose daily rather than 1 mg 3 times a week on 11/12/2022 - Continue supplemental O2 and wean as able to keep sats >90% Noted on CT scan of chest is a fusiform aneurysm of the ascending aorta measuring 4.2 cm, will recommend continued surveillance (3) Chronic kidney disease, stage 4 (severe): Plan: chronic and stable monitor risk while diuresis (4) Depression: Plan: - chronic and stable Continue Paxil and Remeron (5) Hypothyroidism: Plan: - Continue Synthroid Plan Reviewed code status with patient who confirmed DNR/DNI status. Admission and Anticipated Discharge Date Admission Date: November 11, 2022 Subjective Patient is still pleasantly confused he offers no focal problems. He is found to have a Enterococcus VCM multiresistant organism urinary tract infection. This is the first of this kind typically she has ESBL E. coli's. Physical Exam Physical Exam: Patient awake and oriented x2 cardiac exam is regular with a systolic murmur lungs are clear abdomen NABS soft Results & Data Results & Data ([facility]) Vital Signs (Past 12 Hours) Vital Signs Temp Pulse Resp BP Pulse Ox O2 Del Method O2 Flow Rate 11/13/22 06:00 97.7 F 60 20 169/80 H 98 Nasal Cannula 2 11/13/22 04:00 97.7 F 59 L 19 162/68 H 93 Nasal Cannula 2 11/12/22 23:00 97.5 F L 65 18 150/77 H 91 Nasal Cannula 2 Laboratory Results Reviewed urine culture results of drug-resistant Enterococcus faecium PG Care Time/CCT Total # of Minutes Spent Total Time Spent with Patient: Total time spent is greater than 50% in coordination of care (as documented) at patient's floor/unit and/or counseling patient: Coding Level of Care Code 76120 SUB INP/OBS CARE MIN Diagnoses Acute UTI N39.0 Diastolic CHF I50.30 Chronic kidney disease, stage 4 (severe) N18.4 Depression F32.9 Hypothyroidism E03.9
[2022-11-13] MEDS: MIRTAZAPINE TAB 15 MG TAB PO SCH (09:40)
[2022-11-13] MEDS: BUMETANIDE 1 MG TAB PO SCH (09:40)
[2022-11-13] MEDS: PARoxetine HCL 20 MG TAB PO SCH (09:41)
[2022-11-13] MEDS: CLOPIDOGREL BISULFATE 75 MG TAB PO SCH (09:42)
[2022-11-13] MEDS: GABAPENTIN 300 MG CAP PO SCH (16:17)
[2022-11-13] MEDS ORDERED: DAPTOmycin 275 MG in SYRINGE 0 ML IV SCH (18:00)
[2022-11-13] MEDS: ENOXAPARIN INJ 30 MG/0.3 ML SYR SQ SCH (21:08)
[2022-11-14] MEDS: LEVOTHYROXINE SODIUM 50 MCG TABLET PO SCH (05:50)
[2022-11-14 07:23] LABS: Creatinine Clr Calc Pharmacy 26.2 ml/min; Est GFR (African American) 30.3 ml/min; Est GFR (Non-African American) 26.1 ml/min
[2022-11-14] MEDS: MIRTAZAPINE TAB 15 MG TAB PO SCH (08:20)
[2022-11-14] MEDS: CLOPIDOGREL BISULFATE 75 MG TAB PO SCH (08:21)
[2022-11-14] MEDS: PARoxetine HCL 20 MG TAB PO SCH (08:21)
[2022-11-14] MEDS: BUMETANIDE 1 MG TAB PO SCH (08:21)
--- NOTE | 2022-11-14 13:05 | Hospitalist Progress Note ---
Date of Service November 14, 2022 Assessment & Plan (1) Acute UTI: Plan: -Acute with moderate risk metabolic encephalopathy on presentation which is clearing - UA abnormal, urine culture shows Enterococcus faecium resistant to penicillins quinolones tetracyclines sensitive to Dapto Vanco gentamicin and Macrobid -Change to daptomycin will need to complete 1 week course of IV antibiotics, blood cultures are negative given her living situation will likely need to be here to complete the course - (2) Diastolic CHF: Plan: Acute on chronic, treated now stable - Evidence of pulmonary edema on chest CT - hsTrop remains in the 20's. chest pain free and w/o EKG changes. 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 Admission and Anticipated Discharge Date Admission Date: November 11, 2022 Subjective Patient is still pleasantly confused he offers no focal problems. He is found to have a Enterococcus faecium multiresistant organism urinary tract infection. This is the first of this kind typically she has ESBL E. coli's. family states her mentation is at baseline according to discussion with son tyrone Physical Exam Physical Exam: Patient awake and oriented x2 cardiac exam is regular with a systolic murmur lungs are clear abdomen NABS soft Results & Data Results & Data ([facility]) Vital Signs (Past 12 Hours) Vital Signs Temp Pulse Resp BP Pulse Ox O2 Del Method O2 Flow Rate 11/14/22 11:38 99.0 F 74 20 142/82 H 95 Nasal Cannula 2 11/14/22 08:45 Nasal Cannula 2 11/14/22 07:25 98.4 F 73 18 145/77 H 91 Nasal Cannula 2 11/14/22 03:01 98.2 F 73 18 163/78 H 92 Nasal Cannula 2 PG Care Time/CCT Total # of Minutes Spent Total Time Spent with Patient: Total time spent is greater than 50% in coordination of care (as documented) at patient's floor/unit and/or counseling patient: Coding Level of Care Code 35518 SUB INP/OBS CARE 2/35MIN Diagnoses Acute UTI N39.0 Diastolic CHF I50.30 Chronic kidney disease, stage 4 (severe) N18.4 Depression F32.9 Hypothyroidism E03.9
[2022-11-14] MEDS: GABAPENTIN 300 MG CAP PO SCH (17:08)
[2022-11-14] MEDS: ENOXAPARIN INJ 30 MG/0.3 ML SYR SQ SCH (20:49)
[2022-11-14] MEDS: FAMOTIDINE 20 MG TAB PO SCH (20:49)
[2022-11-15] MEDS: LEVOTHYROXINE SODIUM 50 MCG TABLET PO SCH (05:54)
[2022-11-15 07:25] LABS: BUN Creatinine Ratio 17.4 (10-20); Calcium 9.8 mg/dl (8.5-10.1); Creatinine Clr Calc Pharmacy 22.9 ml/min; Est GFR (African American) 25.9 ml/min; Est GFR (Non-African American) 22.4 ml/min; Magnesium 2.4 mg/dl (1.7-2.4); Potassium 4.5 mmol/L (3.5-5.1)
[2022-11-15] MEDS: MIRTAZAPINE TAB 15 MG TAB PO SCH (07:30)
[2022-11-15] MEDS: CLOPIDOGREL BISULFATE 75 MG TAB PO SCH (07:30)
[2022-11-15] MEDS: PARoxetine HCL 20 MG TAB PO SCH (07:30)
[2022-11-15] MEDS: BUMETANIDE 1 MG TAB PO SCH (07:31)
--- NOTE | 2022-11-15 07:44 | Hospitalist Progress Note ---
Date of Service November 15, 2022 Assessment & Plan (1) Acute UTI: Plan: -Acute with moderate risk metabolic encephalopathy on presentation which is clearing - UA abnormal, urine culture shows Enterococcus faecium resistant to penicillins quinolones tetracyclines sensitive to Dapto Vanco gentamicin and Macrobid -Change to daptomycin will need to complete 1 week course of IV antibiotics, blood cultures are negative given her living situation will likely need to be here to complete the course LD on 11/19/22. may return to [facility] then if she functions well with PT - (2) Diastolic CHF: Plan: Acute on chronic, treated now stable - Evidence of pulmonary edema on chest CT - hsTrop remains in the 20's. chest pain free and w/o EKG changes. 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 Admission and Anticipated Discharge Date Admission Date: November 11, 2022 Subjective Patient is still pleasantly confused he offers no focal problems. she remains forgetful daily She is found to have a Enterococcus faecium multiresistant organism urinary tract infection. This is the first of this kind typically she has ESBL E. coli's. family states her mentation is at baseline according to discussion with son tyrone as of 11/14/22 Physical Exam Physical Exam: Patient awake and oriented x2 cardiac exam is regular with a systolic murmur lungs are clear abdomen NABS soft Results & Data Results & Data ([facility]) Vital Signs (Past 12 Hours) Vital Signs Temp Pulse Pulse Resp BP Pulse Ox O2 Del Method 11/15/22 07:28 98.2 F 77 136/71 92 Nasal Cannula 11/15/22 03:30 98.2 F 80 18 130/65 91 Nasal Cannula 11/15/22 01:29 89 11/15/22 00:11 Nasal Cannula 11/15/22 00:08 98.4 F 85 29 H 127/67 90 Nasal Cannula O2 Flow Rate 11/15/22 07:28 2 11/15/22 03:30 2 11/15/22 01:29 11/15/22 00:11 2 11/15/22 00:08 2 Laboratory Results Reviewed chemistry panel slight elevation of creatinine reduce diuretic dose PG Care Time/CCT Total # of Minutes Spent Total Time Spent with Patient: Total time spent is greater than 50% in coordination of care (as documented) at patient's floor/unit and/or counseling patient: Coding Level of Care Code 86369 SUB INP/OBS CARE 2/35MIN Diagnoses Acute UTI N39.0 Diastolic CHF I50.30 Chronic kidney disease, stage 4 (severe) N18.4 Depression F32.9 Hypothyroidism E03.9
[2022-11-15] MEDS ORDERED: NON-FORMULARY MEDICATION (Acetaminophen 325 mg capsule) PO PRN (11:11)
[2022-11-15] MEDS: DAPTOmycin 275 MG in SYRINGE 0 ML IV SCH (17:36)
[2022-11-15] MEDS: GABAPENTIN 300 MG CAP PO SCH (17:36)
[2022-11-15] MEDS: FAMOTIDINE 20 MG TAB PO SCH (20:07)
[2022-11-15] MEDS: ENOXAPARIN INJ 30 MG/0.3 ML SYR SQ SCH (20:07)
[2022-11-16] MEDS: LEVOTHYROXINE SODIUM 50 MCG TABLET PO SCH (05:19)
--- NOTE | 2022-11-16 08:09 | Hospitalist Progress Note ---
Date of Service November 16, 2022 Assessment & Plan (1) Acute UTI: Plan: -Acute with moderate risk metabolic encephalopathy on presentation which is clearing - UA abnormal, urine culture shows Enterococcus faecium resistant to penicillins quinolones tetracyclines sensitive to Daptomycin -Change to daptomycin will need to complete 1 week course of IV antibiotics, blood cultures are negative given her living situation will likely need to be here to complete the course LD on 11/19/22. may return to [facility] then if she functions well with PT - (2) Diastolic CHF: Plan: Acute on chronic, treated now stable - Evidence of pulmonary edema on chest CT on admission - hsTrop remains in the 20's. chest pain free and w/o EKG changes. 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 Admission and Anticipated Discharge Date Admission Date: November 11, 2022 Subjective Patient is still pleasantly confused he offers no focal problems. she remains forgetful daily She is found to have a Enterococcus faecium multiresistant organism urinary tract infection. This is the first of this kind for her as she typically she has ESBL E. coli's. family states her mentation is at baseline according to discussion with son tyrone as of 11/14/22 Physical Exam Physical Exam: Patient awake and oriented x2 cardiac exam is regular with a systolic murmur lungs are clear abdomen NABS soft Results & Data Results & Data ([facility]) Vital Signs (Past 12 Hours) Vital Signs Temp Pulse Resp BP Pulse Ox O2 Del Method O2 Flow Rate 11/16/22 07:41 97.7 F 69 18 145/74 H 94 Nasal Cannula 2 11/15/22 23:03 98.6 F 72 19 135/75 93 Nasal Cannula 2 PG Care Time/CCT Total # of Minutes Spent Total Time Spent with Patient: Total time spent is greater than 50% in coordination of care (as documented) at patient's floor/unit and/or counseling patient: Coding Level of Care Code 31489 SUB INP/OBS CARE 2/35MIN Diagnoses Acute UTI N39.0 Diastolic CHF I50.30 Chronic kidney disease, stage 4 (severe) N18.4 Depression F32.9 Hypothyroidism E03.9
[2022-11-16] MEDS: CLOPIDOGREL BISULFATE 75 MG TAB PO SCH (08:43)
[2022-11-16] MEDS: PARoxetine HCL 20 MG TAB PO SCH (08:43)
[2022-11-16] MEDS: MIRTAZAPINE TAB 15 MG TAB PO SCH (08:43)
[2022-11-16] MEDS: GABAPENTIN 300 MG CAP PO SCH (16:50)
[2022-11-16] MEDS: ENOXAPARIN INJ 30 MG/0.3 ML SYR SQ SCH (20:10)
[2022-11-16] MEDS: FAMOTIDINE 20 MG TAB PO SCH (20:10)
[2022-11-17] MEDS: LEVOTHYROXINE SODIUM 50 MCG TABLET PO SCH (05:39)
[2022-11-17 07:22] LABS: BUN Creatinine Ratio 21.7 (10-20); Calcium 9.9 mg/dl (8.5-10.1); Creatinine Clr Calc Pharmacy 20.8 ml/min; Est GFR (African American) 23.1 ml/min; Magnesium 2.5 mg/dl (1.7-2.4); Potassium 4.1 mmol/L (3.5-5.1)
[2022-11-17] MEDS ORDERED: BUMETANIDE 1 MG TAB PO SCH (09:00)
[2022-11-17] MEDS: MIRTAZAPINE TAB 15 MG TAB PO SCH (09:33)
[2022-11-17] MEDS: PARoxetine HCL 20 MG TAB PO SCH (09:34)
[2022-11-17] MEDS: CLOPIDOGREL BISULFATE 75 MG TAB PO SCH (09:34)
[2022-11-17] MEDS: DAPTOmycin 275 MG in SYRINGE 0 ML IV SCH (15:09)
--- NOTE | 2022-11-17 15:56 | Hospitalist Progress Note ---
Date of Service November 17, 2022 Assessment & Plan (1) Acute UTI: Plan: -Acute with moderate risk metabolic encephalopathy on presentation which is clearing - UA abnormal, urine culture shows Enterococcus faecium resistant to penicillins quinolones tetracyclines sensitive to Daptomycin -Change to daptomycin will need to complete 1 week course of IV antibiotics, blood cultures are negative given her living situation will likely need to be here to complete the course LD on 11/19/22 around noon . may return to [facility] then if she functions well with PT - (2) Diastolic CHF: Plan: Acute on chronic, treated now stable - Evidence of pulmonary edema on chest CT on admission - hsTrop remains in the 20's. chest pain free and w/o EKG changes. 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 Admission and Anticipated Discharge Date Admission Date: November 11, 2022 Subjective Patient is still pleasantly confused he offers no focal problems. she remains forgetful daily She is found to have a Enterococcus faecium multiresistant organism urinary tract infection. This is the first of this kind for her as she typically she has ESBL E. coli's. family states her mentation is at baseline according to discussion with son tyrone as of 11/14/22 Physical Exam Physical Exam: Patient awake and oriented x2 cardiac exam is regular with a systolic murmur lungs are clear abdomen NABS soft Results & Data Results & Data ([facility]) Vital Signs (Past 12 Hours) Vital Signs Temp Pulse Resp BP Pulse Ox O2 Del Method O2 Flow Rate 11/17/22 12:00 97.9 F 66 18 126/73 94 Nasal Cannula 2 11/17/22 09:37 Nasal Cannula 2 11/17/22 07:43 97.9 F 69 18 138/76 93 Nasal Cannula 2 PG Care Time/CCT Total # of Minutes Spent Total Time Spent with Patient: Total time spent is greater than 50% in coordination of care (as documented) at patient's floor/unit and/or counseling patient: Coding Level of Care Code 79868 SUB INP/OBS CARE 2/35MIN Diagnoses Acute UTI N39.0 Diastolic CHF I50.30 Chronic kidney disease, stage 4 (severe) N18.4 Depression F32.9 Hypothyroidism E03.9
[2022-11-17] MEDS ORDERED: SODIUM CHLORIDE 0.9% 1000ML 1,000 ML IV SCH (16:00)
[2022-11-17] MEDS: GABAPENTIN 300 MG CAP PO SCH (17:19)
[2022-11-17] MEDS: FAMOTIDINE 20 MG TAB PO SCH (20:11)
[2022-11-17] MEDS: ENOXAPARIN INJ 30 MG/0.3 ML SYR SQ SCH (20:11)
[2022-11-18] MEDS: LEVOTHYROXINE SODIUM 50 MCG TABLET PO SCH (05:38)
[2022-11-18 09:11] LABS: Calcium 9.7 mg/dl (8.5-10.1); Creatinine Clr Calc Pharmacy 21.9 ml/min; Est GFR (African American) 24.6 ml/min; Est GFR (Non-African American) 21.2 ml/min; Magnesium 2.5 mg/dl (1.7-2.4); Potassium 4.3 mmol/L (3.5-5.1)
[2022-11-18] MEDS: CLOPIDOGREL BISULFATE 75 MG TAB PO SCH (11:18)
[2022-11-18] MEDS: PARoxetine HCL 20 MG TAB PO SCH (11:18)
[2022-11-18] MEDS: MIRTAZAPINE TAB 15 MG TAB PO SCH (11:19)
[2022-11-18] MEDS: GABAPENTIN 300 MG CAP PO SCH (17:49)
--- NOTE | 2022-11-18 21:11 | Hospitalist Progress Note ---
Date of Service November 18, 2022 Assessment & Plan (1) Acute UTI: Plan: -Acute with moderate risk metabolic encephalopathy on presentation which is clearing - UA abnormal, urine culture shows Enterococcus faecium resistant to penicillins quinolones tetracyclines sensitive to Daptomycin -Change to daptomycin will need to complete 1 week course of IV antibiotics, blood cultures are negative given her living situation will likely need to be here to complete the course LD on 11/19/22 around noon . may return to [facility] then if she functions well with PT - hopeful discharge if cleared by PT on 11/19 (2) Diastolic CHF: Plan: Acute on chronic, treated now stable - Evidence of pulmonary edema on chest CT on admission - hsTrop remains in the 20's. chest pain free and w/o EKG changes. 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 Admission and Anticipated Discharge Date Admission Date: November 11, 2022 Subjective Patient reports no new symptoms. Review of Systems Review of Systems: All systems reviewed & are unremarkable except as noted in HPI & below Physical Exam Physical Exam: Patient awake and oriented x2 cardiac exam is regular with a systolic murmur lungs are clear abdomen NABS soft Results & Data Results & Data ([facility]) Vital Signs (Past 12 Hours) Vital Signs Temp Pulse Resp BP Pulse Ox O2 Del Method O2 Flow Rate 11/18/22 19:00 36.7 C 83 18 132/50 L 93 Nasal Cannula 3 11/18/22 11:00 Nasal Cannula 2 11/18/22 14:50 36.8 C 65 18 146/77 H 95 Nasal Cannula 2 PG Care Time/CCT Total # of Minutes Spent Total Time Spent with Patient: Total time spent is greater than 50% in coordination of care (as documented) at patient's floor/unit and/or counseling patient: Coding Level of Care Code 46021 SUB INP/OBS CARE 2/35MIN Diagnoses Acute UTI N39.0 Diastolic CHF I50.30 Chronic kidney disease, stage 4 (severe) N18.4 Depression F32.9 Hypothyroidism E03.9
[2022-11-18] MEDS: FAMOTIDINE 20 MG TAB PO SCH (22:37)
[2022-11-18] MEDS: ENOXAPARIN INJ 30 MG/0.3 ML SYR SQ SCH (22:37)
[2022-11-19] MEDS: LEVOTHYROXINE SODIUM 50 MCG TABLET PO SCH (05:34)
[2022-11-19] MEDS: PARoxetine HCL 20 MG TAB PO SCH (10:13)
[2022-11-19] MEDS: CLOPIDOGREL BISULFATE 75 MG TAB PO SCH (10:13)
[2022-11-19] MEDS: MIRTAZAPINE TAB 15 MG TAB PO SCH (10:13)
[2022-11-19 10:26] LABS: Hematocrit (blood only) 47.3 % (37.0-47.0); Hemoglobin 15.1 g/dl (12.0-16.0); Mean Corpuscular Hemoglobin 31.7 pg (25.0-34.0); Mean Corpuscular Hgb Conc 31.9 g/dL (32.0-36.0); Mean Corpuscular Volume 99.4 fL (80.0-100.0); Mean Platelet Volume 8.8 fL (9.4-12.4); Platelet Count 593 K/uL (130-400); RDW Coefficient of Variation 13.7 % (11.5-14.5); RDW Standard Deviation 50.8 fL (36.4-46.3); Red Blood Count 4.76 M/uL (4.20-5.40); White Blood Count 7.07 K/ul (4.8-10.8)
[2022-11-19 10:34] LABS: BUN Creatinine Ratio 20.8 (10-20); Calcium 9.7 mg/dl (8.5-10.1); Creatinine Clr Calc Pharmacy 25.2 ml/min; Est GFR (African American) 29.1 ml/min; Est GFR (Non-African American) 25.1 ml/min; Magnesium 2.5 mg/dl (1.7-2.4); Potassium 4.5 mmol/L (3.5-5.1)
[2022-11-19] MEDS: DAPTOmycin 275 MG in SYRINGE 0 ML IV SCH (11:33)
--- NOTE | 2022-11-25 16:45 | Discharge Summary ---
Date of Service November 19, 2022 Admission HPI Per Admitting Provider Ebony Esposito is an 81 yo WF who was recently hospitalized 09/12 through 09/20 here at [facility] for ESBL E. coli UTI and bacteremia. She was discharged to [facility] in stable condition and completed a course of Ertapenem. She resides at [facility] and was sent in for evaluation due to generalized weakness. Of note, history is obtained mostly from the patient but also from ER records as the patient does seem mildly confused. She was able to discern that she is in the hospital and the name of the current president, however, is confused when asked the year and is unable to relay why she was sent in. She denies chest pain, cough, shortness of breath, fever, chills, dysuria, abd pain, n/v/d. Work up in the ER notes a grossly infected urine but otherwise normal wbc count w/o shift, and baseline creatinine. Chest CT demonstrated mild pulmonary edema for which she was medicated with a dose of IV Bumex 1mg. For the UTI, she was given a dose of Ertapenem 500mg IV x1. She is currently afebrile and HD stable. She has been referred for admission to the hospitalist service for further evaluation and care. Discharge Data Allergies Allergy/AdvReac Type Severity Reaction Status Date / Time iodine Allergy Unknown Unknown Verified 11/11/22 16:37 NSAIDS (Non-Steroidal Allergy Unknown Unknown Verified 11/11/22 16:37 Anti-Inflamma tositumomab iodine-131 Allergy Unknown Unknown Unverified 11/11/22 16:37 Penicillins Allergy Unknown Verified 11/11/22 16:37 Consultations 11/11/22 16:22 ED Decision to Admit Stat Ordered Studies 11/11/22 14:24 CT abd pelvis wo con Stat CT chest diagnostic wo con Stat 11/11/22 14:44 CT head/brain wo con Stat Hospital Course (1) Acute UTI: -Acute with moderate risk metabolic encephalopathy on presentation which is clearing - UA abnormal, urine culture shows Enterococcus faecium resistant to penicillins quinolones tetracyclines sensitive to Daptomycin -Change to daptomycin will need to complete 1 week course of IV antibiotics, blood cultures are negative given her living situation will likely need to be here to complete the course LD on 11/19/22 around noon . may return to [facility] then if she functions well with PT - hopeful discharge if cleared by PT on 2/10 (2) Diastolic CHF: Acute on chronic, treated now stable - Evidence of pulmonary edema on chest CT on admission - hsTrop remains in the 20's. chest pain free and w/o EKG changes. 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 Discharge Plan Discharge Items Patient Disposition: Personal Jail Reason For Visit: UTI Discharge Diagnosis: UTI Activity: Resume your previous activity Non-emergency contact: Primary Care Provider Call non-emergency contact if: you have any medication questions Follow-up/Referrals: [facility] LEON[facility] ANTUNEZ [Primary Care Provider] - Diet: Heart Healthy and Low Sodium (2gm) Fluids: 1800ml (7 cups) Diet Texture: Easy to Chew Addtl Attending Provider Instructions: completed treatment for antibiotics. recommend followup with PCP in 1-2 weeks Pending Studies at Discharge: No Stand-Alone Forms: My [employer], Smoking Cessation Skilled Items Patient informed of condition?: Yes DNR: Yes Discharge Level of Care: Other Communicable Disease: No Discharge Prognosis: Stable Lines: None Urinary Catheter: No Medications and DC Order Prescriptions: New famotidine 20 mg Tablet 20 mg PO QPM Qty: 30 0RF Continued clopidogrel 75 mg tablet 75 mg PO QAM paroxetine HCl 20 mg tablet 20 mg PO QAM acetaminophen 325 mg capsule 650 mg PO Q4H MDD 3g PRN (Reason: Pain) bumetanide 1 mg tablet 1 mg PO 3XWK Rx Instructions: take daily on MON/WED/FRI mirtazapine 7.5 mg tablet 7.5 mg PO DAILY Rx Instructions: daily at 1700 gabapentin 300 mg capsule 300 mg PO .DAILY 1700 levothyroxine 50 mcg capsule 50 mcg PO DAILYBB Qty: 30 0RF Discharge Orders: Discharge Order (Routine); Ordered 11/19/22 Ordered By: Fredis North Admission Data Admit Date/Time: 11/11/22 17:10 Attending Provider: Fredis North Admit Provider: Pedro Dobson Primary Care Provider: [facility] ANTUNEZ Other Interventions: Discharge Summary Assessment (RN) Last Done: 11/19/22 13:39 Coding Diagnoses Acute UTI N39.0 Diastolic CHF I50.30 Chronic kidney disease, stage 4 (severe) N18.4 Depression F32.9 Hypothyroidism E03.9
== END 2022-11-19 15:18 | disposition home or self-care (01) | DRG 689 ==
LOC: ED 12:22 → EDINP 17:10 → SUATTDRO 17:10 → 2W 11-12 16:06

== ENCOUNTER 2022-12-18 19:19 | Inpatient (IN) ==
[2022-12-18] MEDS ORDERED: SODIUM CHLORIDE 0.9% 1000ML 1,000 ML IV ONE (19:30)
--- NOTE | 2022-12-18 19:31 | Emergency Department Note ---
Impression & Plan Severe sepsis, Acute UTI (urinary tract infection), Elevated troponin, Aspiration pneumonia, Acute confusion, Lactic acidosis ED Provider Note Name: LAVINIA BAILON Age: 81 Sex: F Arrives Via: Ambulance Informant: Patient (poor historian), EMS, nursing staff ED Provider: Kenton Ricks MD Chief Complaint: Illness Impression: As per impression above Medical Decision Makin-year-old female with a history of dementia, hyperlipidemia, heart failure, hypothyroidism, osteoarthritis as well as known kidney disease arrives for evaluation of illness. She is having fevers, chills, shaking and worsening mental status. On arrival patient is tachycardic and hypoxic. Her examination is consistent with some crackles throughout the right lower lobe and she did recently vomit prior to arrival. Sounds like she may have actually been sick prior to the vomiting but at this point I suspect she has aspirated some. Septic work-up was initiated including blood cultures and urinalysis. COVID testing is negative. She was given some IV fluids for bolus of 1 L normal saline IV rather than a 30/kg IV fluid bolus as patient has a history of congestive heart failure and CKD. Patient was also empirically given Invanz as she has an unknown penicillin allergy. Laboratory work-up revealed an elevated troponin as well as an elevated lactic acid which is consistent with her i nfectious findings. She does have findings of severe sepsis though is not hypotensive nor is lactate greater than 4. At this point she is not septic shock. The EKG does show some ischemic findings and no evidence of STEMI. Troponin is elevated at 57. This is likely demand mismatch with tachycardia and would hold off on anticoagulants at this time nor is there indication to be calling heart alert. Repeat troponin did come down and patient does appear much improved following fluids. Hospitalist consulted for further management. CKD4, dementia, diastolic heart failure, hyperlipidemia, osteoarthritis, and hypothyroidism Prior Medical Record and Triage/Nursing Notes reviewed by Me External chart review including outpatient records and previous hospital stays reviewed by me Differentials:Sepsis, septic shock, severe sepsis, GI, pneumonia, aspiration, meningitis, intra-abdominal infection amongst many other pathologies considered Vital Signs: reviewed and remarkable for tachycardia hypoxia Interventions: Normal saline bolus 1 L IV, Invanz 1 g IV Labs:Reviewed and remarkable for elevated lactic acid, elevated troponin Imagin view chest x-ray as per my interpretation. No overt lobar infiltrate however there is some increase in congestive findings compared to old cxr. EKG:Per my interpretation. Indication sepsis. Sinus tachycardia at [address] depressions anterior and lateral. These are new when compared to an EKG of November 11, 2022. QTc is 468. Cardiac/Tele Monitoring: Cardiac Monitoring: An Order was placed for continuous cardiac monitoring. The monitor shows a rate of 110 with a sinus tach rhythm. Consults:Dr Sae RICHARDS Hospitalist Plan: Disposition:Hospitalization. Condition: Fair History of Present Illness:81-year-old female arrives for evaluation of illne ss. Patient with fevers, chills, shaking, chest pain, cough nursing facility this afternoon. EMS was called. Patient was noted to have an O2 sat in the 80s with some respiratory distress. In route patient did have an emesis episode. No medications prior to arrival. No falls, trauma, injury. Patient states that she no longer has any chest pain. She states that she feels short of breath. Denies any abdominal pain, back pain or other concerning signs or symptoms. Patient does have a baseline mild dementia but is able to answer all questions. Per chart patient is on Plavix. She does have a history of pneumonia and was recently hospitalized with UTI and pneumonia and PAMELA. Past History:See Below Home Medications:See Below Allergies:Iodine, NSAIDs, penicillin Vitals:Blood Pressure: 160/90, Pulse 120, RR 20, T 37.6C, O2 88% on RA Physical Exam: GENERAL: Patient is unwell/elderly appearing and in mild distress. EYES: No scleral icterus, unremarkable pupils. ENT: Mucous membranes dry, no nasal congestion. NECK: Trachea midline no lymphadenopathy appreciated RESPIRATORY: Moderate dyspnea with crackles throughout the right lower lobe CARDIOVASCULAR: Tachycardic no murmur appreciated GASTROINTESTINAL: Abdomen soft, non-tender, no peritonitis.Bowel sounds positive.No masses appreciated. BACK: No midline tenderness, no CVA tenderness EXTREMITIES: Normal motion all extremities, no cyanosis, no edema. NEUROLOGIC: Alert and oriented, mild dementia, no focal neurologic deficit appreciated SKIN: No rash, no jaundice, no diaphoresis. Some bruising of abdomen consistent with Lovenox PSYCH: Appropriate GCS: 15 ED Course: Times/Reassessments: Patient's heart rate started improving after initial fluid bolus. Patient remains mildly confused but she has full range of motion of neck and does not appear to have any evidence of meningitis. She has a soft nontender abdomen. Kenton Ricks MD Past Med/Surg History Medical History Ambulatory dysfunction Chronic kidney disease, stage 4 (severe) GI bleed Hyperlipidemia Hypothyroidism Osteoarthritis Polyneuropathy Recurrent falls Social History Smoking Status: Current every day smoker Tobacco Type: Cigarettes Second Hand Exposure: Yes; Hx Alcohol Use: No Hx Substance Use: No Preferred Language: Greenlandic Communication Ability: Effective Bar Gauger And Lubricator Tender Required: No Beliefs That Will Affect Care: None Current Living Situation: Family Current Living Situation Comment: assisted living Feels Safe at Home: Yes Assistive Devices: Wheelchair Allergies Allergies Allergy/AdvReac Type Severity Reaction Status Date / Time iodine Allergy Unknown Unknown Verified 11/11/22 16:37 NSAIDS (Non-Steroidal Allergy Unknown Unknown Verified 11/11/22 16:37 Anti-Inflamma tositumomab iodine-131 Allergy Unknown Unknown Unverified 11/11/22 16:37 Penicillins Allergy Unknown Verified 11/11/22 16:37 Home Meds Home Medications Medication Instructions Recorded Confirmed acetaminophen 325 mg capsule 650 mg PO Q4H PRN Pain 10/22/19 12/18/22 clopidogrel 75 mg tablet 75 mg PO QAM 10/22/19 12/18/22 paroxetine HCl 20 mg tablet 20 mg PO QAM 10/22/19 12/18/22 bumetanide 1 mg tablet 1 mg PO 3XWK 08/16/22 12/18/22 gabapentin 300 mg capsule 300 mg PO .DAILY 1700 09/12/22 12/18/22 mirtazapine 7.5 mg tablet 7.5 mg PO DAILY 09/12/22 12/18/22 Previous Rx's Medication Instructions Recorded levothyroxine 50 mcg capsule 50 mcg PO DAILYBB #30 caps 11/19/22 Results & Data (ED) Vital Signs Vital Signs - 24 hr 12/18/22 19:35 12/18/22 19:41 12/18/22 19:34 Temperature 36.7 C Temperature Source Oral Pulse Rate 113 H 112 H 107 H Pulse Rate from SpO2 Sensor Respiratory Rate 18 18 Respiratory Effort / Characteristics Non-Labored Respiratory Depth Normal Respiratory Pattern Regular Blood Pressure 135/96 Blood Pressure Mean 109 Pulse Oximetry 89 L 95 Oxygen Delivery Method Room Air Nasal Cannula Oxygen Flow Rate 2 Sepsis Recent Fever Within 48 Hours No Sepsis New/Unexplained Change in Mental Status No Sepsis Action Taken by Nursing No Action Required 12/18/22 19:35 12/18/22 20:00 12/18/22 20:30 Temperature Temperature Source Pulse Rate 112 H 97 H 82 Pulse Rate from SpO2 Sensor 83 Respiratory Rate 24 19 20 Respiratory Effort / Characteristics Respiratory Depth Respiratory Pattern Blood Pressure Blood Pressure Mean Pulse Oximetry 94 Oxygen Delivery Method Oxygen Flow Rate Sepsis Recent Fever Within 48 Hours Sepsis New/Unexplained Change in Mental Status Sepsis Action Taken by Nursing 12/18/22 21:00 12/18/22 21:10 12/18/22 21:10 Temperature Temperature Source Pulse Rate 72 72 Pulse Rate from SpO2 Sensor 71 73 Respiratory Rate 22 21 Respiratory Effort / Characteristics Respiratory Depth Respiratory Pattern Blood Pressure 145/96 H 146/75 H Blood Pressure Mean 112 98 Pulse Oximetry 92 92 Oxygen Delivery Method Oxygen Flow Rate Sepsis Recent Fever Within 48 Hours Sepsis New/Unexplained Change in Mental Status Sepsis Action Taken by Nursing Laboratory Data 12/19/22 00:59 12/19/22 00:59 Lab Results 12/18/22 12/18/22 12/18/22 Range/Units 19:57 19:57 19:57 WBC 21.03 H (4.8-10.8) K/ul RBC 4.96 (4.20-5.40) M/uL Hgb 15.8 (12.0-16.0) g/dl Hct 47.9 H (37.0-47.0) % MCV 96.6 (80.0-100.0) fL MCH 31.9 (25.0-34.0) pg MCHC 33.0 (32.0-36.0) g/dL RDW Std Deviation 53.1 H (36.4-46.3) fL RDW Coeff of Norris 14.9 H (11.5-14.5) % Plt Count 339 (130-400) K/uL MPV 8.8 L (9.4-12.4) fL Immature Gran % (Auto) 1.2 % Neut % (Auto) 90.7 % Lymph % (Auto) 2.9 % Barbour % (Auto) 4.9 % Eos % (Auto) 0.1 % Baso % (Auto) 0.2 % Neut # (Auto) 19.06 H (1.40-6.50) K/uL Lymph # (Auto) 0.62 L (1.2-3.4) K/uL Barbour # (Auto) 1.03 H (0.11-0.59) K/uL Eos # (Auto) 0.02 (0-0.50) K/uL Baso # (Auto) 0.04 (0-0.2) K/uL Immature Gran # (Auto) 0.26 H (0.01-0.20) K/uL Sodium 139 (136-145) mmol/L Potassium 4.3 (3.5-5.1) mmol/L Chloride 107 (98-107) mmol/L Carbon Dioxide 25 (21-32) mmol/L Anion Gap 7 (3-11) BUN 25 H (6-23) mg/dl Creatinine 1.83 H (0.6-1.2) mg/dl Est Cr Clr Drug Dosing 26.6 ml/min Est GFR ( Amer) 29.1 ml/min Est GFR (Non-Af Amer) 25.1 ml/min BUN/Creatinine Ratio 13.7 (10-20) Glucose 133 H (70-99(Fasting)) mg/dl Lactate (0.4-2.0) mmol/L Calcium 9.8 (8.5-10.1) mg/dl Magnesium 2.1 (1.7-2.4) mg/dl Total Bilirubin 0.7 (0.2-1.0) mg/dl Direct Bilirubin 0.1 (0-0.2) mg/dl AST 15 (13-39) U/L ALT 8 (7-52) U/L Alkaline Phosphatase 83 (34-104) U/L Troponin I High Sens 56.9 H* (0-14) pg/ml Total Protein 6.9 (6.0-8.3) gm/dl Albumin 3.5 (3.4-5.0) gm/dl Procalcitonin 0.26 (0-0.5) ng/ml Urine Color Urine Appearance (Clear) Urine pH (4.5-7.5) Ur Specific Liberty (1.000-1.030) Urine Protein (Negative) Urine Glucose (UA) (Negative) Urine Ketones (Negative) Urine Blood (Negative) Urine Nitrite (Negative) Urine Bilirubin (Negative) Urine Urobilinogen (Negative) Ur Leukocyte Esterase (Negative) Urine WBC (Auto) (0-5) /hpf Urine RBC (Auto) (0-4) /hpf U Hyaline Cast (Auto) (0-5) /lpf U Epithel Cells (Auto) (0-5) /lpf Urine Bacteria (Auto) (Negative) SARS-CoV-2 (PCR) (Negative) Influenza Type A (PCR) (Neg) Influenza Type B (PCR) (Neg) RSV (RT-PCR) (Neg) 12/18/22 12/18/22 12/18/22 Range/Units 20:05 20:32 20:52 WBC (4.8-10.8) K/ul RBC (4.20-5.40) M/uL Hgb (12.0-16.0) g/dl Hct (37.0-47.0) % MCV (80.0-100.0) fL MCH (25.0-34.0) pg MCHC (32.0-36.0) g/dL RDW Std Deviation (36.4-46.3) fL RDW Coeff of Norris (11.5-14.5) % Plt Count (130-400) K/uL MPV (9.4-12.4) fL Immature Gran % (Auto) % Neut % (Auto) % Lymph % (Auto) % Barbour % (Auto) % Eos % (Auto) % Baso % (Auto) % Neut # (Auto) (1.40-6.50) K/uL Lymph # (Auto) (1.2-3.4) K/uL Barbour # (Auto) (0.11-0.59) K/uL Eos # (Auto) (0-0.50) K/uL Baso # (Auto) (0-0.2) K/uL Immature Gran # (Auto) (0.01-0.20) K/uL Sodium (136-145) mmol/L Potassium (3.5-5.1) mmol/L Chloride (98-107) mmol/L Carbon Dioxide (21-32) mmol/L Anion Gap (3-11) BUN (6-23) mg/dl Creatinine (0.6-1.2) mg/dl Est Cr Clr Drug Dosing ml/min Est GFR ( Amer) ml/min Est GFR (Non-Af Amer) ml/min BUN/Creatinine Ratio (10-20) Glucose (70-99(Fasting)) mg/dl Lactate 2.8 H* (0.4-2.0) mmol/L Calcium (8.5-10.1) mg/dl Magnesium (1.7-2.4) mg/dl Total Bilirubin (0.2-1.0) mg/dl Direct Bilirubin (0-0.2) mg/dl AST (13-39) U/L ALT (7-52) U/L Alkaline Phosphatase (34-104) U/L Troponin I High Sens (0-14) pg/ml Total Protein (6.0-8.3) gm/dl Albumin (3.4-5.0) gm/dl Procalcitonin (0-0.5) ng/ml Urine Color Yellow Urine Appearance Cloudy A (Clear) Urine pH 6.5 (4.5-7.5) Ur Specific Liberty 1.011 (1.000-1.030) Urine Protein 1+ H (Negative) Urine Glucose (UA) Negative (Negative) Urine Ketones Negative (Negative) Urine Blood 1+ H (Negative) Urine Nitrite Negative (Negative) Urine Bilirubin Negative (Negative) Urine Urobilinogen Negative (Negative) Ur Leukocyte Esterase 3+ H (Negative) Urine WBC (Auto) >30 H (0-5) /hpf Urine RBC (Auto) 0-4 (0-4) /hpf U Hyaline Cast (Auto) 0 (0-5) /lpf U Epithel Cells (Auto) 0-5 (0-5) /lpf Urine Bacteria (Auto) 2+ H (Negative) SARS-CoV-2 (PCR) NEGATIVE (Negative) Influenza Type A (PCR) Negative (Neg) Influenza Type B (PCR) Negative (Neg) RSV (RT-PCR) Negative (Neg) 12/18/22 Range/Units 22:27 WBC (4.8-10.8) K/ul RBC (4.20-5.40) M/uL Hgb (12.0-16.0) g/dl Hct (37.0-47.0) % MCV (80.0-100.0) fL MCH (25.0-34.0) pg MCHC (32.0-36.0) g/dL RDW Std Deviation (36.4-46.3) fL RDW Coeff of Norris (11.5-14.5) % Plt Count (130-400) K/uL MPV (9.4-12.4) fL Immature Gran % (Auto) % Neut % (Auto) % Lymph % (Auto) % Barbour % (Auto) % Eos % (Auto) % Baso % (Auto) % Neut # (Auto) (1.40-6.50) K/uL Lymph # (Auto) (1.2-3.4) K/uL Barbour # (Auto) (0.11-0.59) K/uL Eos # (Auto) (0-0.50) K/uL Baso # (Auto) (0-0.2) K/uL Immature Gran # (Auto) (0.01-0.20) K/uL Sodium (136-145) mmol/L Potassium (3.5-5.1) mmol/L Chloride (98-107) mmol/L Carbon Dioxide (21-32) mmol/L Anion Gap (3-11) BUN (6-23) mg/dl Creatinine (0.6-1.2) mg/dl Est Cr Clr Drug Dosing ml/min Est GFR ( Amer) ml/min Est GFR (Non-Af Amer) ml/min BUN/Creatinine Ratio (10-20) Glucose (70-99(Fasting)) mg/dl Lactate 1.6 (0.4-2.0) mmol/L Calcium (8.5-10.1) mg/dl Magnesium (1.7-2.4) mg/dl Total Bilirubin (0.2-1.0) mg/dl Direct Bilirubin (0-0.2) mg/dl AST (13-39) U/L ALT (7-52) U/L Alkaline Phosphatase (34-104) U/L Troponin I High Sens (0-14) pg/ml Total Protein (6.0-8.3) gm/dl Albumin (3.4-5.0) gm/dl Procalcitonin (0-0.5) ng/ml Urine Color Urine Appearance (Clear) Urine pH (4.5-7.5) Ur Specific Liberty (1.000-1.030) Urine Protein (Negative) Urine Glucose (UA) (Negative) Urine Ketones (Negative) Urine Blood (Negative) Urine Nitrite (Negative) Urine Bilirubin (Negative) Urine Urobilinogen (Negative) Ur Leukocyte Esterase (Negative) Urine WBC (Auto) (0-5) /hpf Urine RBC (Auto) (0-4) /hpf U Hyaline Cast (Auto) (0-5) /lpf U Epithel Cells (Auto) (0-5) /lpf Urine Bacteria (Auto) (Negative) SARS-CoV-2 (PCR) (Negative) Influenza Type A (PCR) (Neg) Influenza Type B (PCR) (Neg) RSV (RT-PCR) (Neg) Administered Medications Gabapentin (Gabapentin 300 Mg Cap) 300 mg PO DAILY@1700 CHAYITO Stop: 01/18/23 00:59 Last Admin: 12/19/22 01:11 Dose: Not Given Documented By: BLANKET MAKER Discontinued Medications Sodium Chloride (Nss 1000ml) 1,000 mls @ 999 mls/hr IV .Q1H1M ONE Stop: 12/18/22 20:30 Last Infusion: 12/18/22 20:57 Dose: 0 mls/hr Documented By: Admin: 12/18/22 19:46 Dose: 999 mls/hr Documented By: Ertapenem (Invanz) 10 mls @ 2 mls/min IV NOW STA Stop: 12/18/22 20:25 Last Admin: 12/18/22 21:08 Dose: 2 mls/min Documented By: RIVER Discharge Plan Visit Data Chief Complaint: Illness Stated Complaint: SHIVERS, WEAKNESS, CHEST PAIN ED Provider: Kenton Ricks Discharge Problem: Severe sepsis, Acute UTI (urinary tract infection), Elevated troponin, Aspira tion pneumonia, Acute confusion, Lactic acidosis Patient Disposition: Admitted As Inpatient Discharge Instructions Interventions: ED Discharge Assessment Last Done: 12/19/22 00:13
[2022-12-18 20:20] LABS: Hematocrit (blood only) 47.9 % (37.0-47.0); Hemoglobin 15.8 g/dl (12.0-16.0); Mean Corpuscular Hemoglobin 31.9 pg (25.0-34.0); Mean Corpuscular Volume 96.6 fL (80.0-100.0); Mean Platelet Volume 8.8 fL (9.4-12.4); Platelet Count 339 K/uL (130-400); RDW Coefficient of Variation 14.9 % (11.5-14.5); RDW Standard Deviation 53.1 fL (36.4-46.3); Red Blood Count 4.96 M/uL (4.20-5.40); White Blood Count 21.03 K/ul (4.8-10.8)
[2022-12-18] MEDS ORDERED: ERTAPENEM SODIUM 10 ML IV STA (20:21)
[2022-12-18 20:35] LABS: Basophils # (auto) 0.04 K/uL (0-0.2); Basophils % (auto) 0.2 %; Eosinophils # (auto) 0.02 K/uL (0-0.50); Eosinophils % (auto) 0.1 %; Immature Granulocytes # (auto) 0.26 K/uL (0.01-0.20); Immature Granulocytes % (auto) 1.2 %; Lymphocytes # (auto) 0.62 K/uL (1.2-3.4); Lymphocytes % (auto) 2.9 %; Monocytes # (auto) 1.03 K/uL (0.11-0.59); Monocytes % (auto) 4.9 %; Neutrophils # (auto) 19.06 K/uL (1.40-6.50); Neutrophils % (auto) 90.7 %
[2022-12-18 20:38] LABS: Albumin Level 3.5 gm/dl (3.4-5.0); BUN Creatinine Ratio 13.7 (10-20); Bilirubin Direct 0.1 mg/dl (0-0.2); Bilirubin,Total 0.7 mg/dl (0.2-1.0); Calcium 9.8 mg/dl (8.5-10.1); Creatinine Clr Calc Pharmacy 26.6 ml/min; Est GFR (African American) 29.1 ml/min; Est GFR (Non-African American) 25.1 ml/min; Magnesium 2.1 mg/dl (1.7-2.4); Potassium 4.3 mmol/L (3.5-5.1); Total Protein 6.9 gm/dl (6.0-8.3)
[2022-12-18 21:03] LABS: Troponin I High Sensitivity 56.9 pg/ml (0-14)
[2022-12-18 21:26] LABS: Appearance Urine Cloudy (Clear); Bacteria Urine Automated 2+ (Negative); Bilirubin Urine Negative (Negative); Blood Urine 1+ (Negative); Cast Urine Automated 0 /lpf (0-5); Color Urine Yellow; Epithelial Cell Urine Auto 0-5 /lpf (0-5); Glucose Urine UA Negative (Negative); Ketones Urine Negative (Negative); Leukocyte Esterase Urine 3+ (Negative); Nitrite Urine Negative (Negative); Protein Urine 1+ (Negative); RBC Urine Automated 0-4 /hpf (0-4); Specific Gravity Urine 1.011 (1.000-1.030); Urobilinogen Urine Negative (Negative); WBC Urine Automated >30 /hpf (0-5); pH Urine 6.5 (4.5-7.5)
[2022-12-18 21:37] LABS: Influenza A virus by PCR Negative (Neg); Influenza B virus by PCR Negative (Neg); RSV by PCR Negative (Neg); SARS CoV2 RNA(COVID-19) Ceph NEGATIVE (Negative)
--- NOTE | 2022-12-18 23:16 | History & Physical Report ---
Patient seen and examined. Agree with history and physical exam and assessment and plan discussed with the resident. Date of Service December 18, 2022 Assessment & Plan (1) Sepsis: Plan: Patient is an 81-year-old female with past medical history of CKD4, dementia, diastolic heart failure, hyperlipidemia, osteoarthritis, and hypothyroidism who was brought to the emergency department via EMS for the chief complaint of general unwellness and shaking. She is currently hemodynamically stable and has received her first dose of ertapenem for treatment of UTI that may be due to the ESBL bacteria. -Due to current sepsis with history of diastolic heart failure, admit to PCU -Patient has respirations greater than 20, leukocytosis, and lactic acidosis on initial labs indicative of positive SIRS criteria with urinary source of infection meeting sepsis criteria -Ertapenem 500 mg every 24 hours due to renal function -Blood cultures and urine culture collected prior to first administration of antibiotic, pending -Daily CBC, CMP -Tylenol as needed for fever -Appears slightly hypervolemic on exam so will withhold aggressive IV fluid administration at this time. Accurate I's and O's to monitor fluid status. (2) Acute UTI: Plan: - Recent admission with ESBL producing E. coli in September. -No CVA tenderness, follow cultures and sensitivities. -Otherwise as above (3) Hypoxia: Plan: - Physical exam and chest x-ray seems to correlate with hypovolemia as cause of hypoxia, possible aspiration pneumonitis but no precious consolidation noted on chest x-ray in ED per my review -Given sepsis, will hold off diuresis for now but if hypoxia were to worsen, consider giving dose a of Bumex to pull off fluid (4) Elevated WBC count: Plan: - See plan above (5) Diastolic CHF: Plan: -ESBL producing hold Bumex in the setting of sepsis as above -Oden catheter in place for accurate I's and O's -Trend exam and oxygen saturation with supplemental oxygen (6) Depression: Plan: - Continue paroxetine and mirtazapine (7) Chronic kidney disease, stage 4 (severe): Plan: - Renal dosing of antibiotics (8) Hypothyroidism: Plan: - Continue levothyroxine (9) Osteoarthritis: Plan: - Continue Tylenol every 4 hours as needed for pain (10) Polyneuropathy: Plan: - Continue gabapentin (11) Elevated troponin: Plan: - Elevated troponin at 56.9, repeat troponin pending -No signs of chest pain at this time, could be due to sepsis and CKD 4. -Continue to monitor Plan Diet: N.p.o. until cleared by speech therapy Disposition: PCU DVT prophylaxis: Heparin CODE STATUS: DNR/DNI per conversation with patient and previous admission. History of Present Illness Chief Complaint: General Unwellness Primary Care Provider: [facility] Patient is an 81-year-old female with past medical history of CKD4, dementia, diastolic heart failure, hyperlipidemia, osteoarthritis, and hypothyroidism who was brought to the emergency department via EMS for the chief complaint of general unwellness and shaking. During her transport via EMS she did have 1 episode of vomiting. Patient does have baseline dementia and is a poor historian. There is no one else present in the exam room to discuss the patient's symptoms. Patient is able to report that she did feel unwell earlier today but she felt fine yesterday and the day before. She did note some shortness of breath earlier today which seems to have improved now she has been put on oxygen. She does have a history of ESBL urinary tract infection only a month ago. Currently though she denies any dysuria, polyuria, urgency, or hemat uria. Currently not having any nausea or vomiting. She does not notice any weakness currently. Otherwise when asking her orientation questions she reports to me that the year is 2002, the months is month 28, Ulisses Skinner is president, and that she is turning 38 in a couple of months. Patient has no pain currently at this time. ED course: Patient was brought by EMS to the emergency department is brought back accordingly and had lab work done consisting of CBC, CMP, lactate, magnesium, high-sensitivity troponin, and procalcitonin which returned positive for left shift leukocytosis, creatinine to 1.83 which is at baseline, lactate of 2.8, high sensitive troponin of 56.9. There is also a urinalysis done which was positive for 3+ leukocyte esterase and greater than 30 white blood cell. Digna ent is COVID-negative. She has received a dose of ertapenem due to history of ESBL. Allergies Allergy/AdvReac Type Severity Reaction Status Date / Time iodine Allergy Unknown Unknown Verified 11/11/22 16:37 NSAIDS (Non-Steroidal Allergy Unknown Unknown Verified 11/11/22 16:37 Anti-Inflamma tositumomab iodine-131 Allergy Unknown Unknown Unverified 11/11/22 16:37 Penicillins Allergy Unknown Verified 11/11/22 16:37 Home Medications Medication Instructions Recorded Confirmed Type acetaminophen 325 mg capsule 650 mg PO Q4H PRN Pain 10/22/19 12/18/22 History clopidogrel 75 mg tablet 75 mg PO QAM 10/22/19 12/18/22 History paroxetine HCl 20 mg tablet 20 mg PO QAM 10/22/19 12/18/22 History bumetanide 1 mg tablet 1 mg PO 3XWK 08/16/22 12/18/22 History gabapentin 300 mg capsule 300 mg PO .DAILY 1700 09/12/22 12/18/22 History mirtazapine 7.5 mg tablet 7.5 mg PO DAILY 09/12/22 12/18/22 History levothyroxine 50 mcg capsule 50 mcg PO DAILYBB #30 caps 11/19/22 12/18/22 Rx Past Med/Surg History Medical History Ambulatory dysfunction Chronic kidney disease, stage 4 (severe) GI bleed Hyperlipidemia Hypothyroidism Osteoarthritis Polyneuropathy Recurrent falls Social History Smoking Status: Current every day smoker Tobacco Type: Cigarettes Second Hand Exposure: Yes; Hx Alcohol Use: No Hx Substance Use: No Preferred Language: Guyanese Communication Ability: Effective Emergency Service Worker Required: No Beliefs That Will Affect Care: None Current Living Situation: Family Current Living Situation Comment: assisted living Feels Safe at Home: Yes Assistive Devices: Wheelchair Review of Systems Review of Systems: All systems reviewed & are unremarkable except as noted in HPI & below Physical Exam Constitutional: well developed, well nourished, + obese and + altered mental status Eyes: + anicteric sclerae Neck: trachea midline, no thyromegaly Respiratory: normal respiratory effort Auscultation: + crackles; no rales and no rhonchi Cardiovascular: Rate/Rhythm: regular rate and regular rhythm Heart Sounds: + murmur Extremities: + edema Hepatojugular reflux noted Gastrointestinal (Abdomen): normal bowel sounds, soft, nontender, no hepatosplenomegaly Musculoskeletal: Head/Neck/Chest: normocephalic and head atraumatic Neurologic: moves all extremities Psychiatric: Orientation: alert, oriented to person and cooperative; + not oriented to time Genitourinary: no CVA tenderness Lymphatic: no cervical or axillary lymphadenopathy Results & Data Results & Data ([facility]) Vital Signs (Past 12 Hours) Vital Signs Temp Pulse Resp BP Pulse Ox O2 Del Method O2 Flow Rate 12/18/22 21:10 146/75 H 12/18/22 21:10 72 21 92 12/18/22 21:00 72 22 145/96 H 92 12/18/22 20:30 82 20 94 12/18/22 20:00 97 H 19 12/18/22 19:35 112 H 24 12/18/22 19:34 107 H 12/18/22 19:41 112 H 18 95 Nasal Cannula 2 12/18/22 19:35 36.7 C 113 H 18 135/96 89 L Room Air (4) Elevated WBC count Leukocytosis type: unspecified Qualified Code(s): D72.829 - Elevated white blood cell count, unspecified
[2022-12-19] MEDS ORDERED: ONDANSETRON INJ 2 MG/ML 2 ML VIAL IV PRN (00:39)
[2022-12-19] MEDS ORDERED: ACETAMINOPHEN 325 MG TAB PO PRN (00:39)
[2022-12-19] MEDS: GABAPENTIN 300 MG CAP PO SCH ×2 (01:11→17:16)
[2022-12-19 01:30] LABS: Basophils # (auto) 0.06 K/uL (0-0.2); Basophils % (auto) 0.4 %; Hematocrit (blood only) 42.8 % (37.0-47.0); Hemoglobin 13.9 g/dl (12.0-16.0); Immature Granulocytes % (auto) 0.6 %; Lymphocytes # (auto) 1.43 K/uL (1.2-3.4); Lymphocytes % (auto) 8.4 %; Mean Corpuscular Hemoglobin 31.7 pg (25.0-34.0); Mean Corpuscular Hgb Conc 32.5 g/dL (32.0-36.0); Mean Corpuscular Volume 97.7 fL (80.0-100.0); Monocytes # (auto) 1.49 K/uL (0.11-0.59); Monocytes % (auto) 8.7 %; Neutrophils # (auto) 13.98 K/uL (1.40-6.50); Neutrophils % (auto) 81.9 %; Platelet Count 308 K/uL (130-400); RDW Coefficient of Variation 14.9 % (11.5-14.5); RDW Standard Deviation 53.8 fL (36.4-46.3); Red Blood Count 4.38 M/uL (4.20-5.40); White Blood Count 17.06 K/ul (4.8-10.8)
[2022-12-19 01:39] LABS: BUN Creatinine Ratio 13.8 (10-20); Bilirubin,Total 0.6 mg/dl (0.2-1.0); Calcium 9.4 mg/dl (8.5-10.1); Creatinine Clr Calc Pharmacy 26.9 ml/min; Est GFR (African American) 29.4 ml/min; Est GFR (Non-African American) 25.4 ml/min; Globulin 2.9 gm/dl (2.5-4.0); Magnesium 2.2 mg/dl (1.7-2.4); Potassium 4.3 mmol/L (3.5-5.1); Total Protein 5.9 gm/dl (6.0-8.3)
[2022-12-19] MEDS: LEVOTHYROXINE SODIUM 50 MCG TABLET PO SCH (06:01)
--- NOTE | 2022-12-19 06:50 | Hospitalist Progress Note ---
"Date of Service December 19, 2022 Assessment & Plan (1) Sepsis: Plan: Patient is an 81-year-old female with past medical history of CKD4, dementia, diastolic heart failure, hyperlipidemia, osteoarthritis, and hypothyroidism who was brought to the emergency department via EMS for the chief complaint of general unwellness and shaking. She is currently hemodynamically stable and has received her first dose of ertapenem for treatment of UTI that may be due to the ESBL bacteria. Sepsis | Gram Negative Bacteremia from UTI -On admission, patient had resp. rate >20, leukocytosis of 21, and lactic acidosis: +positive SIRS criteria with urinary source of infection -12/19: WBC 17 w/ neutrophil predominance, afebrile -Blood cultures: 11/11 growing gram negative bacilli -Urine culture: growing gram negative bacilli -Per serology: enterobacterales, e. Coli, and CTX-M gene resistance detected -Continue Ertapenem 500 mg every 24 hours due to renal function (recent admission for ESBL E Coli) -Daily CBC, CMP -Tylenol as needed for fever -Appears slightly hypervolemic on exam so will withhold aggressive IV fluid administration at this time. Strict I's and O's to monitor fluid status. Hypoxia -Physical exam and chest x-ray seems to correlate with hypervolemia as cause of hypoxia -Given sepsis, will hold off diuresis for now but if hypoxia were to worsen, consider giving dose a of Bumex to pull off fluid Chronic Diastolic CHF -Will hold Bumex in the setting of sepsis as above -Oden catheter in place for accurate I's and O's -Trend exam and oxygen saturation with supplemental oxygen, currently 98% on room air Elevated Troponin -Elevated troponin at 56.9, repeat troponin pending -No signs of chest pain at this time, suspect due to sepsis and CKD 4. -Echo Aug 31 - Normal EF with mild LVH -Will continue to trend Delirium/Dementia -Supportive care and follow Chronic Kidney Disease, Stage 4 -Renal dosing of antibiotics Hypothyroidism, Polyneuropathy, Osteoarthritis, Depression -Continue levothyroxine, gabapentin, Tylenol prn, paroxetine and mirtazapine Diet: N.p.o. until cleared by speech therapy Disposition: PCU DVT prophylaxis: Heparin CODE STATUS: DNR/DNI per conversation with patient and previous admission. (2) Acute UTI: (3) Hypoxia: (4) Elevated WBC count: (5) Diastolic CHF: (6) Depression: (7) Chronic kidney disease, stage 4 (severe): (8) Hypothyroidism: (9) Osteoarthritis: (10) Polyneuropathy: (11) Elevated troponin: Admission and Anticipated Discharge Date Admission Date: December 18, 2022 Supervising Physician Co-Signing Physician Notes Resident Physician Supervision Note: I independently interviewed and examined the patient and verified the salas history and physical, reviewed labs and image studies and agree with resident findings and care plan. Subjective Ebony is an 81-year-old female with past medical history of CKD4, dementia, diastolic heart failure, hyperlipidemia, osteoarthritis, and hypothyroidism who was brought to the emergency department via EMS for the chief complaint of general unwellness and shaking 12/19: Patient was seen and examined at bedside. No acute events overnight. Ebony was laying supine in bed, dozing in and out of sleep during encounter. She denied any current pain/body aches/chills or difficulty with breathing. He responses were generally one word. Called and spoke with her son, Vargas, who was updated on patient's progress. Review of Systems Review of Systems: As per above Physical Exam Constitutional: Fatigued, in no acute distress. Eyes: Anicteric sclera ENMT: Moist mucous membranes Respiratory: No increased respiratory effort, few crackles at lung bases. No wheeze/rhonchi. Cardiovascular: regular rate and rhythm +murmur, no rub/gallop. Lower extremities mild edema Gastrointestinal (Abdomen): normal bowel sounds, soft, nontender, no hep atosplenomegaly Skin: no rashes, warm and dry Psychiatric: Eye Contact: + poor eye contact Affect: + flat affect Results & Data Results & Data ([facility]) Vital Signs (Past 12 Hours) Vital Signs Temp Pulse Pulse Resp BP BP Pulse Ox 12/19/22 06:32 37.0 C 57 L 19 117/63 95 12/19/22 01:00 12/19/22 01:00 37 C 65 18 109/63 95 12/19/22 00:51 66 12/19/22 00:22 37 C 65 18 109/63 95 12/18/22 23:30 67 12/18/22 21:10 146/75 H 12/18/22 21:10 72 21 92 12/18/22 21:00 72 22 145/96 H 92 12/18/22 20:30 82 20 94 12/18/22 20:00 97 H 19 12/18/22 19:35 112 H 24 12/18/22 19:34 107 H 12/18/22 19:41 112 H 18 95 12/18/22 19:35 36.7 C 113 H 18 135/96 89 L O2 Del Method O2 Flow Rate 12/19/22 06:32 Nasal Cannula 2 12/19/22 01:00 Nasal Cannula 2 12/19/22 01:00 Nasal Cannula 2 12/19/22 00:51 12/19/22 00:22 Nasal Cannula 2 12/18/22 23:30 12/18/22 21:10 12/18/22 21:10 12/18/22 21:00 12/18/22 20:30 12/18/22 20:00 12/18/22 19:35 12/18/22 19:34 12/18/22 19:41 Nasal Cannula 2 12/18/22 19:35 Room Air Resident Activity Tracking Resident Involvement: Resident Care Provided Care Provided: Adult Hospital Medicine (4) Elevated WBC count Leukocytosis type: unspecified Qualified Code(s): D72.829 - Elevated white blood cell count, unspecified"
--- NOTE | 2022-12-19 08:33 | XRay Report ---
SINGLE VIEW CHEST CLINICAL HISTORY: Sepsis. FINDINGS: An AP, portable, upright chest radiograph is compared to chest x-ray and chest CT dated 11/11. The examination is degraded by portable technique and patient rotation. The heart is enlarged noting atherosclerotic calcification of the thoracic aorta. There is pulmonary vascular congestion. S mall pleural effusions are suspected with dependent consolidation. No pneumothorax is seen. The skele amee structures are osteopenic. The bony thorax is grossly intact. Advanced arthritic change is seen i n the shoulders. IMPRESSION: 1. Cardiomegaly with evidence of congestive failure. 2. Small pleural effusions with dependent consolidation. This likely represents atelectasis. Correlat e clinically for evidence of a superimposed pneumonia. ACT 112: Negative or not required by law. Electronically signed by: Honorio Page M.D. 12/19/2022 8:32 AM
[2022-12-19] MEDS: MIRTAZAPINE TAB 15 MG TAB PO SCH (09:28)
[2022-12-19] MEDS: PARoxetine HCL 20 MG TAB PO SCH (09:28)
[2022-12-19] MEDS: CLOPIDOGREL BISULFATE 75 MG TAB PO SCH (09:28)
[2022-12-19] MEDS: HEPARIN SOD 5,000 UNIT/0.5 ML VIAL SQ SCH ×2 (09:45→20:24)
[2022-12-19 10:26] LABS: A calco-baum cmplx NotReported Not Detected (NotDetected); Bact fragilis Not Reported Not Detected (NotDetected); C auris Not Reported Not Detected (NotDetected); Calbicans Not Reported Not Detected (NotDetected); Candida glabrata Not Reported Not Detected (NotDetected); Candida krusei Not Reported Not Detected (NotDetected); Cneoformans/gatti Not Reported Not Detected (NotDetected); Cparapsilosis Not Reported Not Detected (NotDetected); Ctropicalis Not Reported Not Detected (NotDetected); E cloacae compx Not Reported Not Detected (NotDetected); Efaecalis Not Reported Not Detected (NotDetected); Efaecium Not Reported Not Detected (NotDetected); Enterobacterales DETECTED (NotDetected); Enterobacterales Not Reported DETECTED (NotDetected); Escherichia coli Not Reported DETECTED (NotDetected); H influenzae Not Reported Not Detected (NotDetected); IMP Resistant Gene Not Detected (NotDetected); K aerogenes Not Reported Not Detected (NotDetected); KPC Resistant Gene Not Detected (NotDetected); Koxytoca Not Reported Not Detected (NotDetected); Kpneumoniae grp Not Reported Not Detected (NotDetected); Lmonocyt Not Reported Not Detected (NotDetected); N meningitidis Not Reported Not Detected (NotDetected); NDM Resistant Gene Not Detected (NotDetected); OXA 48 Like Resistant Gene Not Detected (NotDetected); P aeruginosa Not Reported Not Detected (NotDetected); Proteus spp Not Reported Not Detected (NotDetected); Salmonella spp Not Reported Not Detected (NotDetected); Smarcescens Not Reported Not Detected (NotDetected); Staph lugdunensis Not Reported Not Detected (NotDetected); Staph spp. Not Reported Not Detected (NotDetected); Staphaureus Not Reported Not Detected (NotDetected); Staphepi Not Reported Not Detected (NotDetected); Stenmaltophilia Not Reported Not Detected (NotDetected); Strep agal(GrpB) Not Reported Not Detected (NotDetected); Strep pneum Not Reported Not Detected (NotDetected); Strep pyog (GrpA) Not Reported Not Detected (NotDetected); Strep spp Not Reported Not Detected (NotDetected); VIM Resistant Gene Not Detected (NotDetected); mcr-1 Colistin Resistant Gene Not Detected (NotDetected)
[2022-12-19 10:38] LABS: CTX-M Resistant Gene DETECTED (NotDetected)
--- NOTE | 2022-12-19 10:42 | Electrocardiogram Report ---
Test Reason : Blood Pressure : / mmHG Vent. Rate : 110 BPM Atrial Rate : 113 BPM P-R Int : 148 ms QRS Dur : 118 ms QT Int : 346 ms P-R-T Axes : 008 -12 -69 degrees QTc Int : 468 ms Sinus tachycardia Left ventricular hypertrophy with QRS widening and repolarization abnormality Abnormal ECG When compared with ECG of 11-NOV-2022 12:47, Vent. rate has increased BY 42 BPM T wave inversion less evident in Lateral leads Confirmed by Cm Pruitt ([id number]) on 12/19/2022 10:41:42 AM Referred By: [facility] Confirmed By:Cm Pruitt
[2022-12-19] MEDS: ERTAPENEM SODIUM IV SCH (21:22)
[2022-12-20 04:55] LABS: Basophils # (auto) 0.06 K/uL (0-0.2); Basophils % (auto) 0.4 %; Eosinophils # (auto) 0.03 K/uL (0-0.50); Eosinophils % (auto) 0.2 %; Hemoglobin 13.9 g/dl (12.0-16.0); Immature Granulocytes # (auto) 0.07 K/uL (0.01-0.20); Immature Granulocytes % (auto) 0.5 %; Lymphocytes # (auto) 1.55 K/uL (1.2-3.4); Lymphocytes % (auto) 10.1 %; Mean Corpuscular Hemoglobin 31.9 pg (25.0-34.0); Mean Corpuscular Hgb Conc 33.1 g/dL (32.0-36.0); Mean Corpuscular Volume 96.3 fL (80.0-100.0); Mean Platelet Volume 9.2 fL (9.4-12.4); Monocytes # (auto) 1.58 K/uL (0.11-0.59); Monocytes % (auto) 10.3 %; Neutrophils # (auto) 12.07 K/uL (1.40-6.50); Neutrophils % (auto) 78.5 %; Platelet Count 318 K/uL (130-400); RDW Coefficient of Variation 14.9 % (11.5-14.5); RDW Standard Deviation 52.7 fL (36.4-46.3); Red Blood Count 4.36 M/uL (4.20-5.40); White Blood Count 15.36 K/ul (4.8-10.8)
[2022-12-20 05:17] LABS: Albumin Level 2.9 gm/dl (3.4-5.0); BUN Creatinine Ratio 15.1 (10-20); Bilirubin,Total 0.6 mg/dl (0.2-1.0); Calcium 8.8 mg/dl (8.5-10.1); Creatinine Clr Calc Pharmacy 28.4 ml/min; Est GFR (African American) 31.3 ml/min; Globulin 2.8 gm/dl (2.5-4.0); Potassium 4.7 mmol/L (3.5-5.1); Total Protein 5.7 gm/dl (6.0-8.3)
[2022-12-20] MEDS: LEVOTHYROXINE SODIUM 50 MCG TABLET PO SCH (06:10)
--- NOTE | 2022-12-20 06:56 | Hospitalist Progress Note ---
"Date of Service December 20, 2022 Assessment & Plan (1) Sepsis: Plan: Patient is an 81-year-old female with past medical history of CKD4, dementia, diastolic heart failure, hyperlipidemia, osteoarthritis, and hypothyroidism who was brought to the emergency department via EMS for the chief complaint of general unwellness and shaking. She is currently hemodynamically stable and has received her first dose of ertapenem for treatment of UTI that may be due to the ESBL bacteria. Sepsis | Gram Negative Bacteremia from UTI -On admission, patient had resp. rate >20, leukocytosis of 21, and lactic acidosis: +positive SIRS criteria with urinary source of infection -12/19: WBC 17 w/ neutrophil predominance, afebrile -Blood cultures: 11/11 growing gram negative bacilli -Urine culture: growing gram negative bacilli -Per serology: enterobacterales, e. Coli, and CTX-M gene resistance detected -Continue Ertapenem 500 mg every 24 hours due to renal function (recent admission for ESBL E Coli) -Daily CBC, CMP -Tylenol as needed for fever -Appears slightly hypervolemic on exam so will withhold aggressive IV fluid administration at this time. Strict I's and O's to monitor fluid status. -Consult placed for urology regarding possible underlying etiology for repeated ESBL UTI's -Appreciate rec's -Attempted to call patient's son to provide update, no answer but left voicemail. Will attempt again tomorrow. Hypoxia -Physical exam and chest x-ray seems to correlate with hypervolemia as cause of hypoxia -Given sepsis, will hold off diuresis for now but if hypoxia were to worsen, consider giving dose a of Bumex to pull off fluid Chronic Diastolic CHF -Will hold Bumex in the setting of sepsis as above -Oden catheter in place for accurate I's and O's -Trend exam and oxygen saturation with supplemental oxygen, currently 98% on room air Elevated Troponin -Elevated troponin at 56.9, repeat troponin pending -No signs of chest pain at this time, suspect due to sepsis and CKD 4. -Echo Aug 31 - Normal EF with mild LVH -Will continue to trend Delirium/Dementia -Supportive care and follow Chronic Kidney Disease, Stage 4 -Renal dosing of antibiotics Hypothyroidism, Polyneuropathy, Osteoarthritis, Depression -Continue levothyroxine, gabapentin, Tylenol prn, paroxetine and mirtazapine Diet: N.p.o. until cleared by speech therapy Disposition: PCU DVT prophylaxis: Heparin CODE STATUS: DNR/DNI per conversation with patient and previous admission. (2) Acute UTI: (3) Hypoxia: (4) Elevated WBC count: (5) Diastolic CHF: (6) Depression: (7) Chronic kidney disease, stage 4 (severe): (8) Hypothyroidism: (9) Osteoarthritis: (10) Polyneuropathy: (11) Elevated troponin: Admission and Anticipated Discharge Date Admission Date: December 18, 2022 Supervising Physician Co-Signing Physician Notes I personally examined the patient and verified all salas points of history and exam, discussed case, and agree with decision making with Dr Wang Sleeping comfortably. Given dementia/disorientation, and no new meaningful information to be gleaned. Allowed patient to rest. Vitals noted, in general she is resting comfortably no distress. Breathing unlabored no accessory muscle use good effort. Skin shows no rashes no pallor or icterus. Neuro without any lateralizing signs at rest. UTI with subsequent sepsis and gram-negative bacteremia with ESBLcontinue ertapenem. Improving. Urology evaluation given recurrent UTI/sepsis/bacteremia picture. Mild demand ischemiaelevated troponin. DVT prophylaxisheparin subcu Otherwise as above Brcye Beck is an 81-year-old female with past medical history of CKD4, dementia, diastolic heart failure, hyperlipidemia, osteoarthritis, and hypothyroidism who was brought to the emergency department via EMS for the chief complaint of general unwellness and shaking. 12/20: Patient was seen and examined at bedside. No acute events overnight. Patient is oriented to self, but not oriented to location/month/year. She still appears fatigued but is able to verbally answer all questions. Review of Systems Review of Systems: As per above Physical Exam Eyes: Anicteric sclera ENMT: Moist mucous membranes Respiratory: No increased work of breathing, no dyspnea at rest. Lungs clear Cardiovascular: RRR, no murmur, no edema Gastrointestinal (Abdomen): normal bowel sounds, soft, nontender, no hepatosplenomegaly Skin: no rashes, warm and dry Psychiatric: Eye Contact: + poor eye contact Affect: + flat affect Results & Data Results & Data ([facility]) Vital Signs (Past 12 Hours) Vital Signs Temp Pulse Resp BP Pulse Ox O2 Del Method O2 Flow Rate 12/20/22 04:39 37.9 C H 73 19 137/68 92 Nasal Cannula 2 12/19/22 22:50 36.7 C 71 18 136/78 90 Nasal Cannula 2 12/19/22 22:25 Nasal Cannula 2 12/19/22 19:00 36.6 C 64 17 151/75 H 96 Nasal Cannula 2.0 Resident Activity Tracking Resident Involvement: Resident Care Provided Care Provided: Adult Hospital Medicine (4) Elevated WBC count Leukocytosis type: unspecified Qualified Code(s): D72.829 - Elevated white blood cell count, unspecified"
[2022-12-20] MEDS: HEPARIN SOD 5,000 UNIT/0.5 ML VIAL SQ SCH ×2 (09:06→20:50)
[2022-12-20] MEDS: PARoxetine HCL 20 MG TAB PO SCH (09:06)
[2022-12-20] MEDS: CLOPIDOGREL BISULFATE 75 MG TAB PO SCH (09:06)
[2022-12-20] MEDS: MIRTAZAPINE TAB 15 MG TAB PO SCH (09:07)
[2022-12-20] MEDS: GABAPENTIN 300 MG CAP PO SCH (16:45)
--- NOTE | 2022-12-20 19:02 | Billing Data ---
Date of Service December 20, 2022 Coding Level of Care Code 86036 SUB INP/OBS CARE
--- NOTE | 2022-12-20 19:25 | Urology Consultation ---
Date of Consultation December 20, 2022 Assessment & Plan (1) Acute UTI (urinary tract infection): Patient has been admitted on the hospitalist service. We recommend proceeding as follows: The patient has a multiresistant E. coli urinary tract infection. She is currently received ertapenem to which this organism is sensitive to. As patient has had this type of infection before it may be prudent to request an ID consultation Patient has a Oden catheter and placed which we would recommend for the pres ent time to maintain maximal bladder drainage Recommend following serial labs Additional recommendations be forthcoming based on her clinical course as it unfolds History of Present Illness Reason for Consultation: Complicated urinary tract infection Attending Physician: Xander Willis DO History of Present Illness This is an 81-year-old female who presented to the emergency department secondary to generalized weakness. It should be noted that the patient had intermittent confusion and therefore her history was limited. Review of records was used to supplement the history. At the time the patient presented to the emergency department the patient was noted to have fevers, chills, shaking, and worsening mental status. The patient was noted to be tachycardic and hypoxic. She also reportedly had some emesis. I was able to converse with the patient this evening and she denied any abdominal pain. She denies any hematuria but does report some intermittent dysuria. She notes that when she urinates she feels as though she can empty her bladder completely. She does report some issues with incontinence from time to time but could not provide any further details. The patient did have imaging in the form of a chest x-ray this admission. On 12/18/2022 chest x-ray showed patient had small pleural effusions and an element of congestive heart failure. Labs were drawn including blood cultures which jess wed gram-negative bacilli. She also had a urine culture obtained via straight cath which showed a multi resistant E. coli. Review of records show the patient was hospitalized at [facility] in September 2022 with a multiresistant E. coli urinary tract infection as well. Current labs from today include a white blood cell count of 15.3. (At time of admission her white blood cell count was 21,000) hemoglobin, hematocrit, and platelet count are all normal. Chemistry profile showed sodium and potassium were normal. Her current BUN and creatinine today are 26 and 1.7. (This level of creatinine is near the patient's baseline). A COVID test was negative. At the time of my interview she was resting comfortably in bed and she was in no distress. Allergies Allergy/AdvReac Type Severity Reaction Status Date / Time iodine Allergy Unknown Unknown Verified 11/11/22 16:37 NSAIDS (Non-Steroidal Allergy Unknown Unknown Verified 11/11/22 16:37 Anti-Inflamma tositumomab iodine-131 Allergy Unknown Unknown Unverified 11/11/22 16:37 Penicillins Allergy Unknown Verified 11/11/22 16:37 Home Medications Medication Instructions Recorded Confirmed Type acetaminophen 325 mg capsule 650 mg PO Q4H PRN Pain 10/22/19 12/18/22 History clopidogrel 75 mg tablet 75 mg PO QAM 10/22/19 12/18/22 History paroxetine HCl 20 mg tablet 20 mg PO QAM 10/22/19 12/18/22 History bumetanide 1 mg tablet 1 mg PO 3XWK 08/16/22 12/18/22 History gabapentin 300 mg capsule 300 mg PO .DAILY 1700 09/12/22 12/18/22 History mirtazapine 7.5 mg tablet 7.5 mg PO DAILY 09/12/22 12/18/22 History levothyroxine 50 mcg capsule 50 mcg PO DAILYBB #30 caps 11/19/22 12/18/22 Rx Patient History Medical History Abnormal EKG Ambulatory dysfunction Chronic kidney disease, stage 4 (severe) GI bleed Hyperlipidemia Hypothyroidism Osteoarthritis Polyneuropathy Recurrent falls Social History Smoking Status: Former smoker Tobacco Type: Cigarettes Second Hand Exposure: No; Do You Dip or Chew Tobacco: No; Tobacco Cessation Education Requested by Patient: No Hx Alcohol Use: Yes Hx Substance Use: No Preferred Language: Lithuanian Communication Ability: Effective Trauma Coordinator Required: No Beliefs That Will Affect Care: None Current Living Situation: Personal Care Facility Current Living Situation Comment: assisted living Other Information That Helps Us Care for You: No Feels Safe at Home: Yes Safety Concerns: Feels Safe At This Time Assistive Devices: Wheelchair Review of Systems Constitutional: + fever (Resolved) and + chills (Resolved) Eyes: no eye pain Ear, Nose, Mouth, Throat: no ear pain Respiratory: no dyspnea Cardiovascular: no chest pain Gastrointestinal: no abdominal pain Genitourinary: as per Subjective / HPI Musculoskeletal: no back pain Integumentary: no rash Neurologic: + generalized weakness Physical Exam Constitutional: WD/WN, vitals as above Eyes: no conjunctival abnormality ENMT: Ears: no hearing impairment and no external ear abnormality Mouth: no oropharynx abnormality Neck: trachea midline Respiratory: normal respiratory effort; no respiratory distress and no labored breathing Breath sounds noted be slightly decreased at bases. No use of accessory muscles noted Cardiovascular: Rate/Rhythm: regular rate and regular rhythm Gastrointestinal (Abdomen): Soft, nonrigid, nontender to palpation. There is no rebound tenderness or guarding. Musculoskeletal: No calf tenderness Skin: no rashes Neurologic: moves all extremities Psychiatric: Patient is alert to person. She is confused to time and place Genitourinary: no CVA tenderness Results & Data ([facility]) Vital Signs (Past 12 Hours) Vital Signs Temp Pulse Pulse Resp BP Pulse Ox O2 Del Method 12/20/22 16:04 37.0 C 94 H 20 138/66 97 Room Air 12/20/22 14:44 68 12/20/22 12:33 36.4 C L 68 18 151/72 H 90 Nasal Cannula O2 Flow Rate 12/20/22 16:04 12/20/22 14:44 12/20/22 12:33 2 PG Care Time/CCT Total # of Minutes Spent Total Time Spent with Patient: Total time spent is greater than 50% in coordination of care (as documented) at patient's floor/unit and/or counseling patient: Coding Level of Care Code 16974 INT INP/OBS CARE 3/75MIN Diagnoses Acute UTI (urinary tract infection) N39.0
[2022-12-20] MEDS: ERTAPENEM SODIUM IV SCH (20:41)
[2022-12-21] MEDS: LEVOTHYROXINE SODIUM 50 MCG TABLET PO SCH (05:36)
--- NOTE | 2022-12-21 06:05 | Electrocardiogram Report ---
Test Reason : Blood Pressure : / mmHG Vent. Rate : 069 BPM Atrial Rate : 069 BPM P-R Int : 160 ms QRS Dur : 124 ms QT Int : 432 ms P-R-T Axes : 016 001 -14 degrees QTc Int : 462 ms Normal sinus rhythm Right bundle branch block Left ventricular hypertrophy with repolarization abnormality Abnormal ECG When compared with ECG of 18-DEC-2022 19:32, Vent. rate has decreased BY 41 BPM Premature atrial complexes are no longer Present Confirmed by Jl Goldman ([id number]) on 12/21/2022 6:05:30 AM Referred By: [facility] Confirmed By:Jl Goldman
[2022-12-21 06:34] LABS: Basophils # (auto) 0.04 K/uL (0-0.2); Basophils % (auto) 0.4 %; Eosinophils # (auto) 0.05 K/uL (0-0.50); Eosinophils % (auto) 0.5 %; Hematocrit (blood only) 42.8 % (37.0-47.0); Hemoglobin 14.1 g/dl (12.0-16.0); Immature Granulocytes # (auto) 0.04 K/uL (0.01-0.20); Immature Granulocytes % (auto) 0.4 %; Lymphocytes # (auto) 1.18 K/uL (1.2-3.4); Lymphocytes % (auto) 11.6 %; Mean Corpuscular Hemoglobin 31.7 pg (25.0-34.0); Mean Corpuscular Hgb Conc 32.9 g/dL (32.0-36.0); Mean Corpuscular Volume 96.2 fL (80.0-100.0); Mean Platelet Volume 9.1 fL (9.4-12.4); Monocytes # (auto) 1.21 K/uL (0.11-0.59); Monocytes % (auto) 11.9 %; Neutrophils # (auto) 7.66 K/uL (1.40-6.50); Neutrophils % (auto) 75.2 %; Platelet Count 349 K/uL (130-400); RDW Coefficient of Variation 13.9 % (11.5-14.5); RDW Standard Deviation 49.6 fL (36.4-46.3); Red Blood Count 4.45 M/uL (4.20-5.40); White Blood Count 10.18 K/ul (4.8-10.8)
[2022-12-21 06:38] LABS: Albumin Globulin Ratio 0.9 (0.9-2); Albumin Level 2.8 gm/dl (3.4-5.0); BUN Creatinine Ratio 14.9 (10-20); Bilirubin,Total 0.6 mg/dl (0.2-1.0); Calcium 8.9 mg/dl (8.5-10.1); Creatinine Clr Calc Pharmacy 27.5 ml/min; Est GFR (African American) 29.4 ml/min; Est GFR (Non-African American) 25.4 ml/min; Globulin 3.1 gm/dl (2.5-4.0); Potassium 4.4 mmol/L (3.5-5.1); Total Protein 5.9 gm/dl (6.0-8.3)
--- NOTE | 2022-12-21 07:55 | Hospitalist Progress Note ---
"Date of Service December 21, 2022 Assessment & Plan (1) Sepsis: Plan: Patient is an 81-year-old female with past medical history of CKD4, dementia, diastolic heart failure, hyperlipidemia, osteoarthritis, and hypothyroidism who was brought to the emergency department via EMS for the chief complaint of general unwellness and shaking. She is currently hemodynamically stable and has received her first dose of ertapenem for treatment of UTI that may be due to the ESBL bacteria. Sepsis | Gram Negative Bacteremia from UTI -On admission, patient had resp. rate >20, leukocytosis of 21, and lactic acidosis: +positive SIRS criteria with urinary source of infection -12/19: WBC 17 w/ neutrophil predominance, afebrile -Blood cultures: 11/11 growing gram negative bacilli -Urine culture: growing gram negative bacilli -Per serology: enterobacterales, e. Coli, and CTX-M gene resistance detected -Continue Ertapenem 500 mg every 24 hours due to renal function (recent admission for ESBL E Coli) -Daily CBC, CMP -Tylenol as needed for fever -Appears slightly hypervolemic on exam so will withhold aggressive IV fluid administration at this time. Strict I's and O's to monitor fluid status. -Consult placed for urology regarding possible underlying etiology for repeated ESBL UTI's -Appreciate rec's -Consult placed for infectious disease -Appreciate rec's -Called and updated patient's son, Vargas. -CM working on referral for rehab and IV antibiotics at [facility]. Hypoxia -Physical exam and chest x-ray seems to correlate with hypervolemia as cause of hypoxia -Given sepsis, will hold off diuresis for now but if hypoxia were to worsen, consider giving dose a of Bumex to pull off fluid Chronic Diastolic CHF -Will hold Bumex in the setting of sepsis as above -Oden catheter in place for accurate I's and O's -Trend exam and oxygen saturation with supplemental oxygen, currently 98% on room air Elevated Troponin -Elevated troponin at 56.9, repeat troponin pending -No signs of chest pain at this time, suspect due to sepsis and CKD 4. -Echo Aug 31 - Normal EF with mild LVH -Will continue to trend Delirium/Dementia -Supportive care and follow Chronic Kidney Disease, Stage 4 -Renal dosing of antibiotics Hypothyroidism, Polyneuropathy, Osteoarthritis, Depression -Continue levothyroxine, gabapentin, Tylenol prn, paroxetine and mirtazapine Diet: Minced and Moist Disposition: PCU DVT prophylaxis: Heparin CODE STATUS: DNR/DNI (2) Acute UTI: (3) Hypoxia: (4) Elevated WBC count: (5) Diastolic CHF: (6) Depression: (7) Chronic kidney disease, stage 4 (severe): (8) Hypothyroidism: (9) Osteoarthritis: (10) Polyneuropathy: (11) Elevated troponin: Admission and Anticipated Discharge Date Admission Date: December 18, 2022 Supervising Physician Co-Signing Physician Notes I personally examined the patient and verified all salas points of history and exam, discussed case, and agree with decision making with Dr Wang Awake in bed, offers no complaints. Quite disoriented to situation. At the same time, denies pain. Vitals noted, awake and alert, disoriented, no distress. Breathing unlabored no accessory muscle use good effort. Skin shows no rashes no pallor or icterus. Neuro without any lateralizing signs at rest. UTI with subsequent sepsis and gram-negative bacteremia with ESBLcontinue ertapenem. Improving. Appreciate urology input, await infectious disease inputhas now had recurrent UTI/bacteremia situations in a few short months both with ESBL's. Mild demand ischemiaelevated troponin. DVT prophylaxisheparin subcu Otherwise as above Subjective Ebony is an 81-year-old female with past medical history of CKD4, dementia, diastolic heart failure, hyperlipidemia, osteoarthritis, and hypothyroidism who was brought to the emergency department via EMS for the chief complaint of general unwellness and shaking. 12/21: Patient seen and examined at bedside. No acute events overnight. Ebony is resting comfortably in bed. She remains tired, but answers questions. She is oriented to year/month but not oriented to location. Denies shortness of breath, pain, chest pain, abdominal discomfort. Review of Systems Review of Systems: As per above Physical Exam Constitutional: WD/WN, vitals as above Eyes: Anicteric sclera ENMT: Moist mucous membranes Respiratory: normal respiratory effort, lungs clear to auscultation Cardiovascular: RRR, no murmur, no edema Gastrointestinal (Abdomen): normal bowel sounds, soft, nontender, no hepatosplenomegaly Skin: no rashes, warm and dry Psychiatric: Eye Contact: + poor eye contact Affect: + flat affect Results & Data Results & Data ([place]) Vital Signs (Past 12 Hours) Vital Signs Temp Pulse Pulse Resp BP Pulse Ox O2 Del Method 12/21/22 06:01 61 12/21/22 03:06 37.2 C 65 18 154/76 H 93 Nasal Cannula 12/20/22 22:50 36.7 C 76 20 136/74 92 Room Air 12/20/22 22:54 72 12/20/22 21:20 Room Air O2 Flow Rate 12/21/22 06:01 12/21/22 03:06 2 12/20/22 22:50 12/20/22 22:54 12/20/22 21:20 Resident Activity Tracking Resident Involvement: Resident Care Provided Care Provided: Adult Hospital Medicine (4) Elevated WBC count Leukocytosis type: unspecified Qualified Code(s): D72.829 - Elevated white blood cell count, unspecified"
[2022-12-21] MEDS: PARoxetine HCL 20 MG TAB PO SCH (09:05)
[2022-12-21] MEDS: MIRTAZAPINE TAB 15 MG TAB PO SCH (09:05)
[2022-12-21] MEDS: HEPARIN SOD 5,000 UNIT/0.5 ML VIAL SQ SCH ×2 (09:05→19:40)
[2022-12-21] MEDS: CLOPIDOGREL BISULFATE 75 MG TAB PO SCH (09:05)
--- NOTE | 2022-12-21 13:58 | Urology Progress Note ---
Date of Service December 21, 2022 Assessment & Plan (1) Severe sepsis: (2) Acute UTI (urinary tract infection): Plan: - Follow-up of recurrent UTI, sepsis - Afebrile, hemodynamically stable - Labs reviewedcreatinine 1.81, WBC 10.18, hemoglobin 14.1 - Urine and blood cultures showing E. coli ESBL, sensitive to Ertapenem - Continue supportive care and antibiotics per hospital medicine - Consider ID consult for recurrent MDR infections - No acute urologic intervention warranted at this time - Can consider structural work-up as an outpatient after acute infection is treated - Maintain Oden catheter at this time for max drainage and source control, voiding trial can be considered prior to discharge - Will arrange outpatient f/u with our service - will sign off Admission and Anticipated Discharge Date Admission Date: December 18, 2022 Subjective Patient seen and examined at bedside this afternoon. She is sleeping upon my arrival, arouses to her name. She answers yes/no questions but otherwise not very interactive. Denies flank, abdominal or suprapubic discomfort. Oden patent and draining clear yellow urine. No nausea or vomiting. No fever or chills. Review of Systems Constitutional: as per Subjective / HPI Gastrointestinal: as per Subjective / HPI Genitourinary: as per Subjective / HPI Physical Exam Constitutional: well developed and well nourished; no acute distress Respiratory: no respiratory distress and no labored breathing O2 via nasal cannula Cardiovascular: Rate/Rhythm: regular rate Gastrointestinal (Abdomen): Inspection/Auscultation: abdomen normal to inspection; abdomen not distended Psychiatric: Orientation: oriented to person Genitourinary: Oden patent and draining clear yellow urine Results & Data ([facility]) Vital Signs (Past 12 Hours) Vital Signs Temp Pulse Pulse Resp BP Pulse Ox O2 Del Method 12/21/22 11:37 36.5 C 62 18 138/71 93 Nasal Cannula 12/21/22 07:57 36.7 C 55 L 18 160/74 H 94 Nasal Cannula 12/21/22 06:01 61 12/21/22 03:06 37.2 C 65 18 154/76 H 93 Nasal Cannula O2 Flow Rate 12/21/22 11:37 2 12/21/22 07:57 2 12/21/22 06:01 12/21/22 03:06 2 PG Care Time/CCT Total # of Minutes Spent Total Time Spent with Patient: Total time spent is greater than 50% in coordination of care (as documented) at patient's floor/unit and/or counseling patient: Coding Level of Care Code 92497 SUB INP/OBS CARE 11/03MIN Diagnoses Severe sepsis A41.9; R65.20 Acute UTI (urinary tract infection) N39.0
--- NOTE | 2022-12-21 15:28 | Infectious Disease Consult ---
Date of Consultation December 21, 2022 Assessment & Plan (1) Acute UTI (urinary tract infection): #UTI induced sepsis ESBL Ecoli 12/18 #CKD #H/O UTI induced sepsis twice in past 6 months #Nephrolithiasis 81 yo F with h/o dementia, hyperlipidemia, heart failure, hypothyroidism, osteoarthritis, prior admission for UTIs, CKD (baseline 2-2.3) admitted with UTI sepsis. Infectious diseases consulted for gram negative bacteremia. Patient had prior admission including 09/20-09/28/22 for ESBL Ecoli UTI induced sepsis. She was treated with IV ertapenem through 09/24/22. Readmitted on 11/11- 11/19, at that visit treated for E.faecium UTI with IV daptomycin through 11/19/22. She was discharged [facility] but RT on 12/18 with shaking chills and altered mental status. On admission she was afebrile but tachycardic and hypoxic. She had elevated troponins, WBC 21.03, Cr 1.81. Blood culture 12/18 bottles of ESBL Ecoli (S: Ertapenem, Meropenem, Gent, Zosyn). Straight cath Ucx >100,000 cfu/mL (S: Ertapenem, Meropenem, Gent, Zosyn, Amox/Clav, Amp/Sul, Nitrofurantoin) CXR: small pleural effusion with dependent consolidation. Review of prior CT from 11/11/22 shows Stable right-sided nephrolithiasis. No ureteral stones. No hydronephrosis. Urology consulted Discussion: H/o Recurrent UTIs with different types of bacteria. It does seem there may be underlying structural disease. Her prior CT shows nephrolithiasis. I wonder if this may be the nidus for recurrent infection. Would recommend repeat CT A/P to assess for stones. Urology is following and agree likely to need outpatient follow up for workup. (2) Severe sepsis: (3) Aspiration pneumonia: Plan -C/W Ertapenem -Consider CT A/P to evaluate for stones and structural findings -Repeat Blood cultures -Anticipate she will need a 2 week course Thank you for this consultation, ID Will follow with you Will d/w Primary team. Nova Burris MD Infectious Diseases [facility], [facility] Consultation Information This patient recommendation is based on a telemedicine consult request which was completed asynchronously through chart review and information provided by the primary physician. The patient was not seen or examined today. The evaluation is consultative in nature and all patient care and treatment decisions can either be accepted or rejected by the patient's primary hospital-based treating physician using their own independent medical judgment for their patient. [employer] contact information: Please call [facility] Call Center [phone]. (Phone Number For Physician Use Only) Time Spent Reviewing Chart: 31+ minutes History of Present Illness Reason for Consultation: Bacteremia Requesting Physician: Xander Willis DO Attending Physician: Xander Willis DO History of Present Illness 81 yo F with h/o dementia, hyperlipidemia, heart failure, hypothyroidism, osteoarthritis, prior admission for UTIs, CKD (baseline 2-2.3) admitted with UTI sepsis. Infectious diseases consulted for gram negative bacteremia. Patient had prior admission including 09/20-09/28/22 for ESBL Ecoli UTI induced sepsis. She was treated with IV ertapenem through 09/24/22. Readmitted on 11/11- 11/19, at that visit treated for E.faecium UTI with IV daptomycin through 11/19/22. She was discharged [facility] but RT on 12/18 with shaking chills and al tered mental status. On admission she was afebrile but tachycardic and hypoxic. She had elevated troponins, WBC 21.03, Cr 1.81. Blood culture 12/18 bottles of ESBL Ecoli (S: Ertapenem, Meropenem, Gent, Zosyn). Straight cath Ucx >100,000 cfu/mL (S: Ertapenem, Meropenem, Gent, Zosyn, Amox/Clav, Amp/Sul, Nitrofurantoin) CXR: small pleural effusion with dependent consolidation. Review of prior CT from 11/11/22 shows Stable right-sided nephrolithiasis. No ureteral stones. No hydronephrosis. Urology consulted Since admission, WBC has improved and she has remained HD Stable. Oden catheter in place Allergies Allergy/AdvReac Type Severity Reaction Status Date / Time iodine Allergy Unknown Unknown Verified 11/11/22 16:37 NSAIDS (Non-Steroidal Allergy Unknown Unknown Verified 11/11/22 16:37 Anti-Inflamma tositumomab iodine-131 Allergy Unknown Unknown Unverified 11/11/22 16:37 Penicillins Allergy Unknown Verified 11/11/22 16:37 Home Medications Medication Instructions Recorded Confirmed Type acetaminophen 325 mg capsule 650 mg PO Q4H PRN Pain 10/22/19 12/18/22 History clopidogrel 75 mg tablet 75 mg PO QAM 10/22/19 12/18/22 History paroxetine HCl 20 mg tablet 20 mg PO QAM 10/22/19 12/18/22 History bumetanide 1 mg tablet 1 mg PO 3XWK 08/16/22 12/18/22 History gabapentin 300 mg capsule 300 mg PO .DAILY 1700 09/12/22 12/18/22 History mirtazapine 7.5 mg tablet 7.5 mg PO DAILY 09/12/22 12/18/22 History levothyroxine 50 mcg capsule 50 mcg PO DAILYBB #30 caps 11/19/22 12/18/22 Rx Patient History Medical History Abnormal EKG Ambulatory dysfunction Chronic kidney disease, stage 4 (severe) GI bleed Hyperlipidemia Hypothyroidism Osteoarthritis Polyneuropathy Recurrent falls Social History Smoking Status: Former smoker Tobacco Type: Cigarettes Second Hand Exposure: No; Do You Dip or Chew Tobacco: No; Tobacco Cessation Education Requested by Patient: No Hx Alcohol Use: Yes Hx Substance Use: No Preferred Language: Vincentian Communication Ability: Effective Gas Or Water Meter Installer Required: No Beliefs That Will Affect Care: None Current Living Situation: Personal Care Facility Current Living Situation Comment: assisted living Other Information That Helps Us Care for You: No Feels Safe at Home: Yes Safety Concerns: Feels Safe At This Time Assistive Devices: Wheelchair Results & Data ([facility]) Vital Signs (Past 12 Hours) Vital Signs Temp Pulse Pulse Resp BP Pulse Ox O2 Del Method 12/21/22 11:37 36.5 C 62 18 138/71 93 Nasal Cannula 12/21/22 07:57 36.7 C 55 L 18 160/74 H 94 Nasal Cannula 12/21/22 06:01 61 O2 Flow Rate 12/21/22 11:37 2 12/21/22 07:57 2 12/21/22 06:01 Laboratory Results Laboratory Results - last 48 hr 12/20/22 12/20/22 12/21/22 04:29 04:29 05:48 WBC 15.36 H RBC 4.36 Hgb 13.9 Hct 42.0 MCV 96.3 MCH 31.9 MCHC 33.1 RDW Std Deviation 52.7 H RDW Coeff of Norris 14.9 H Plt Count 318 MPV 9.2 L Immature Gran % (Auto) 0.5 Neut % (Auto) 78.5 Lymph % (Auto) 10.1 [place] % (Auto) 10.3 Eos % (Auto) 0.2 Baso % (Auto) 0.4 Neut # (Auto) 12.07 H Lymph # (Auto) 1.55 [place] # (Auto) 1.58 H Eos # (Auto) 0.03 Baso # (Auto) 0.06 Immature Gran # (Auto) 0.07 Sodium 137 138 Potassium 4.7 4.4 Chloride 108 H 108 H Carbon Dioxide 23 24 Anion Gap 6 6 BUN 26 H 27 H Creatinine 1.72 H 1.81 H Est Cr Clr Drug Dosing 28.4 27.5 Est GFR ( Amer) 31.3 29.4 Est GFR (Non-Af Amer) 27.0 25.4 BUN/Creatinine Ratio 15.1 14.9 Glucose 73 84 Calcium 8.8 8.9 Total Bilirubin 0.6 0.6 AST 14 11 L ALT 7 7 Alkaline Phosphatase 71 64 Total Protein 5.7 L 5.9 L Albumin 2.9 L 2.8 L Globulin 2.8 3.1 Albumin/Globulin Ratio 1.0 0.9 12/21/22 05:48 WBC 10.18 RBC 4.45 Hgb 14.1 Hct 42.8 MCV 96.2 MCH 31.7 MCHC 32.9 RDW Std Deviation 49.6 H RDW Coeff of Norris 13.9 Plt Count 349 MPV 9.1 L Immature Gran % (Auto) 0.4 Neut % (Auto) 75.2 Lymph % (Auto) 11.6 [place] % (Auto) 11.9 Eos % (Auto) 0.5 Baso % (Auto) 0.4 Neut # (Auto) 7.66 H Lymph # (Auto) 1.18 L [place] # (Auto) 1.21 H Eos # (Auto) 0.05 Baso # (Auto) 0.04 Immature Gran # (Auto) 0.04 Sodium Potassium Chloride Carbon Dioxide Anion Gap BUN Creatinine Est Cr Clr Drug Dosing Est GFR ( Amer) Est GFR (Non-Af Amer) BUN/Creatinine Ratio Glucose Calcium Total Bilirubin AST ALT Alkaline Phosphatase Total Protein Albumin Globulin Albumin/Globulin Ratio Microbiology 12/18/22 20:05 Blood Aerobic Blood Culture - Final Escherichia coli ESBL 12/18/22 20:05 Blood Anaerobic Blood Culture - Final Escherichia coli ESBL 12/18/22 19:57 Blood Aerobic Blood Culture - Preliminary No growth in Aerobic bottle after 48 hours. 12/18/22 19:57 Blood Anaerobic Blood Culture - Preliminary Gram negative bacilli 12/18/22 20:52 Urine,Straight Cath Urine Culture - Final Escherichia coli ESBL Diagnostic Findings Chest X-Ray 12/18/22 19:28 SINGLE VIEW CHEST CLINICAL HISTORY: Sepsis. FINDINGS: An AP, portable, upright chest radiograph is compared to chest x-ray and chest CT dated 11/11/2022. The examination is degraded by portable technique and patient rotation. The heart is enlarged noting atherosclerotic calcification of the thoracic aorta. There is pulmonary vascular congestion. Small pleural effusions are suspected with dependent consolidation. No pneumothorax is seen. The skeletal structures are osteopenic. The bony thorax is grossly intact. Advanced arthritic change is seen in the shoulders. IMPRESSION: 1. Cardiomegaly with evidence of congestive failure. 2. Small pleural effusions with dependent consolidation. This likely represents atelectasis. Correlate clinically for evidence of a superimposed pneumonia. ACT 112: Negative or not required by law. Electronically signed by: Honorio Page M.D. 12/19/2022 8:32 AM Medications Administered Current Inpatient Medications Acetaminophen (Acetaminophen 325 Mg Tab) 650 mg PO Q4H PRN PRN Reason: Pain or Fever Stop: 01/18/23 00:38 Clopidogrel Bisulfate (Clopidogrel Bisulfate 75 Mg Tab) 75 mg PO QAM [facility] Stop: 01/18/23 08:59 Last Admin: 12/21/22 09:05 Dose: 75 mg Gabapentin (Gabapentin 300 Mg Cap) 300 mg PO DAILY@1700 [facility] Stop: 01/18/23 00:59 Last Admin: 12/20/22 16:45 Dose: 300 mg Heparin Sodium (Porcine) (Heparin Sod 5,000 Unit/0.5 Ml Vial) 5,000 units SQ Q12 [facility] Stop: 01/18/23 08:59 Last Admin: 12/21/22 09:05 Dose: 5,000 units Ertapenem 500 mg/ Syringe 5 mls @ 2 mls/min IV Q24H [facility] Stop: 12/29/22 21:59 Levothyroxine Sodium (Levothyroxine Sodium 50 Mcg Tablet) 50 mcg PO DAILYBB [facility] Stop: 01/18/23 06:29 Last Admin: 12/21/22 05:36 Dose: 50 mcg Mirtazapine (Mirtazapine Tab 15 Mg Tab) 7.5 mg PO DAILY [facility] Stop: 01/18/23 08:59 Last Admin: 12/21/22 09:05 Dose: 7.5 mg Ondansetron HCl (Ondansetron Inj 2 Mg/Ml 2 Ml Vial) 4 mg IV Q6H PRN PRN Reason: Nausea Stop: 01/18/23 00:38 Paroxetine HCl (Paroxetine Hcl 20 Mg Tab) 20 mg PO QAM [facility] Stop: 01/18/23 08:59 Last Admin: 12/21/22 09:05 Dose: 20 mg Polyethylene Glycol (Polyethylene (Miralax) 17 Gm Pack) 17 gm PO DAILY PRN PRN Reason: Constipation Stop: 01/18/23 00:38 (3) Aspiration pneumonia Aspiration pneumonia type: due to vomit Laterality: right Lung location: lower lobe of lung Qualified Code(s): J69.0 - Pneumonitis due to inhalation of food and vomit
--- NOTE | 2022-12-21 17:28 | Billing Data ---
Date of Service December 21, 2022 Coding Level of Care Code 27656 SUB INP/OBS CARE 3MIN
[2022-12-21] MEDS: GABAPENTIN 300 MG CAP PO SCH (18:03)
[2022-12-21] MEDS: ERTAPENEM SODIUM 500 MG in SYRINGE 0 ML IV SCH ×2 (19:42→20:12)
[2022-12-22] MEDS: LEVOTHYROXINE SODIUM 50 MCG TABLET PO SCH (06:17)
[2022-12-22 06:40] LABS: Basophils # (auto) 0.04 K/uL (0-0.2); Basophils % (auto) 0.5 %; Eosinophils # (auto) 0.02 K/uL (0-0.50); Eosinophils % (auto) 0.2 %; Hematocrit (blood only) 43.4 % (37.0-47.0); Hemoglobin 13.8 g/dl (12.0-16.0); Immature Granulocytes # (auto) 0.03 K/uL (0.01-0.20); Immature Granulocytes % (auto) 0.3 %; Lymphocytes # (auto) 1.75 K/uL (1.2-3.4); Lymphocytes % (auto) 20.3 %; Mean Corpuscular Hemoglobin 31.4 pg (25.0-34.0); Mean Corpuscular Hgb Conc 31.8 g/dL (32.0-36.0); Mean Corpuscular Volume 98.6 fL (80.0-100.0); Mean Platelet Volume 9.3 fL (9.4-12.4); Monocytes # (auto) 1.07 K/uL (0.11-0.59); Monocytes % (auto) 12.4 %; Neutrophils # (auto) 5.69 K/uL (1.40-6.50); Neutrophils % (auto) 66.3 %; Platelet Count 361 K/uL (130-400); RDW Standard Deviation 54.3 fL (36.4-46.3)
[2022-12-22 06:45] LABS: Albumin Globulin Ratio 0.9 (0.9-2); Albumin Level 2.8 gm/dl (3.4-5.0); BUN Creatinine Ratio 15.4 (10-20); Bilirubin,Total 0.3 mg/dl (0.2-1.0); Creatinine Clr Calc Pharmacy 25.5 ml/min; Est GFR (African American) 26.9 ml/min; Est GFR (Non-African American) 23.2 ml/min; Potassium 4.5 mmol/L (3.5-5.1); Total Protein 5.8 gm/dl (6.0-8.3)
--- NOTE | 2022-12-22 08:11 | Hospitalist Progress Note ---
"Date of Service December 22, 2022 Assessment & Plan (1) Sepsis: Plan: Patient is an 81-year-old female with past medical history of CKD4, dementia, diastolic heart failure, hyperlipidemia, osteoarthritis, and hypothyroidism who was brought to the emergency department via EMS for the chief complaint of general unwellness and shaking. She is currently hemodynamically stable and has received her first dose of ertapenem for treatment of UTI that may be due to the ESBL bacteria. Sepsis | Gram Negative Bacteremia from UTI -On admission, patient had resp. rate >20, leukocytosis of 21, and lactic acidosis: +positive SIRS criteria with urinary source of infection -12/19: WBC 17 w/ neutrophil predominance, afebrile -Blood cultures: /2 growing gram negative bacilli -> ESBL -Urine culture: growing gram negative bacilli -> ESBL -Per serology: enterobacterales, e. Coli, and CTX-M gene resistance detected -Continue Ertapenem 500 mg every 24 hours due to renal function (recent admission for ESBL E Coli) -Daily CBC, CMP -Tylenol as needed for fever - I's and O's to monitor fluid status. -Consult placed for urology regarding possible underlying etiology for repeated ESBL UTI's -Appreciate rec's -Recommending outpatient workup -Consult placed for infectious disease -Appreciate rec's -Will complete 2 weeks total course of ertapenem -Will order repeat blood cultures -Called and updated patient's son, Vargas. -Discussed option for prophylaxis in future with Fosfomycin [id number] -CM working on referral for rehab and IV antibiotics Hypoxia -Physical exam and chest x-ray seems to correlate with hypervolemia as cause of hypoxia -Given sepsis, will hold off diuresis for now but if hypoxia were to worsen, consider giving dose a of Bumex to pull off fluid Chronic Diastolic CHF -Will hold Bumex in the setting of sepsis as above -Oden catheter in place for accurate I's and O's -Currently 95% on room air Elevated Troponin -Elevated troponin at 56.9 at admission -No signs of chest pain at this time, suspect due to sepsis and CKD 4. -Echo Aug 31 - Normal EF with mild LVH Delirium/Dementia -Supportive care and follow Chronic Kidney Disease, Stage 4 -Renal dosing of antibiotics Hypothyroidism, Polyneuropathy, Osteoarthritis, Depression -Continue levothyroxine, gabapentin, Tylenol prn, paroxetine and mirtazapine Diet: Minced and Moist Disposition: PCU DVT prophylaxis: Heparin CODE STATUS: DNR/DNI (2) Acute UTI: (3) Hypoxia: (4) Elevated WBC count: (5) Diastolic CHF: (6) Depression: (7) Chronic kidney disease, stage 4 (severe): (8) Hypothyroidism: (9) Osteoarthritis: (10) Polyneuropathy: (11) Elevated troponin: Admission and Anticipated Discharge Date Admission Date: December 18, 2022 Supervising Physician Co-Signing Physician Notes I personally examined the patient and verified all salas points of history and exam, discussed case, and agree with decision making with Dr Wang Resting comfortably no distress. Vitals noted, awake and alert, disoriented, no distress. Breathing unlabored no accessory muscle use good effort. Skin shows no rashes no pallor or icterus. Neuro without any lateralizing signs at rest. UTI with subsequent sepsis and gram-negative bacteremia with ESBLcontinue ertapenem. Improving. Infectious disease input appreciated. Outpatient urology follow-up. Treat with ertapenem for 14 days. Mild demand ischemiaelevated troponin has now declined. DVT prophylaxisheparin subcu Otherwise as above Subjective Ebony is an 81-year-old female with past medical history of CKD4, dementia, diastolic heart failure, hyperlipidemia, osteoarthritis, and hypothyroidism who was brought to the emergency department via EMS for the chief complaint of general unwellness and shaking. 12/22: Patient seen and examined at bedside. No acute events overnight. Ebony had just finished her breakfast at time of encounter. She denies any pain today. Also denies shortness of breath, chest pain, nausea/vomiting, abdominal pain. Awaiting placement at rehab/will need continued IV antibiotics. Review of Systems Review of Systems: As per above Physical Exam Constitutional: + well hydrated, + frail appearing and + disheveled Eyes: Anicteric sclera ENMT: Moist mucous membranes Respiratory: normal respiratory effort, lungs clear to auscultation Cardiovascular: RRR, no murmur, no edema Gastrointestinal (Abdomen): normal bowel sounds, soft, nontender, no hepatosplenomegaly Skin: no rashes, warm and dry Psychiatric: Eye Contact: + poor eye contact Affect: + flat affect Results & Data Results & Data ([facility]) Vital Signs (Past 12 Hours) Vital Signs Temp Pulse Resp BP Pulse Ox O2 Del Method O2 Flow Rate 12/22/22 07:31 36.4 C L 59 L 17 130/70 95 Nasal Cannula 2.0 12/22/22 03:13 36.3 C L 51 L 16 120/73 95 Nasal Cannula 2 12/21/22 22:56 36.6 C 58 L 20 117/69 94 Nasal Cannula 2 12/21/22 21:16 Nasal Cannula 2 Resident Activity Tracking Resident Involvement: Resident Care Provided Care Provided: Adult Hospital Medicine (4) Elevated WBC count Leukocytosis type: unspecified Qualified Code(s): D72.829 - Elevated white blood cell count, unspecified"
[2022-12-22] MEDS: CLOPIDOGREL BISULFATE 75 MG TAB PO SCH (08:58)
[2022-12-22] MEDS: MIRTAZAPINE TAB 15 MG TAB PO SCH (08:58)
[2022-12-22] MEDS: HEPARIN SOD 5,000 UNIT/0.5 ML VIAL SQ SCH ×2 (08:59→19:59)
[2022-12-22] MEDS: PARoxetine HCL 20 MG TAB PO SCH (08:59)
[2022-12-22] MEDS: GABAPENTIN 300 MG CAP PO SCH (17:15)
--- NOTE | 2022-12-22 19:16 | Billing Data ---
Date of Service December 22, 2022 Coding Level of Care Code 84329 SUB INP/OBS CARE
[2022-12-23] MEDS: ERTAPENEM SODIUM 500 MG in SYRINGE 0 ML IV SCH ×2 (00:15→22:54)
[2022-12-23] MEDS ORDERED: ERTAPENEM SODIUM 500 MG in SYRINGE 0 ML IV ONE (00:20)
[2022-12-23] MEDS: LEVOTHYROXINE SODIUM 50 MCG TABLET PO SCH (05:24)
[2022-12-23 06:20] LABS: Basophils # (auto) 0.07 K/uL (0-0.2); Basophils % (auto) 0.8 %; Eosinophils # (auto) 0.03 K/uL (0-0.50); Eosinophils % (auto) 0.4 %; Hematocrit (blood only) 44.1 % (37.0-47.0); Immature Granulocytes # (auto) 0.03 K/uL (0.01-0.20); Immature Granulocytes % (auto) 0.4 %; Lymphocytes # (auto) 1.93 K/uL (1.2-3.4); Lymphocytes % (auto) 23.1 %; Mean Corpuscular Hemoglobin 31.1 pg (25.0-34.0); Mean Corpuscular Hgb Conc 31.7 g/dL (32.0-36.0); Mean Platelet Volume 9.3 fL (9.4-12.4); Monocytes # (auto) 1.03 K/uL (0.11-0.59); Monocytes % (auto) 12.4 %; Neutrophils # (auto) 5.25 K/uL (1.40-6.50); Neutrophils % (auto) 62.9 %; Platelet Count 366 K/uL (130-400); RDW Coefficient of Variation 14.8 % (11.5-14.5); RDW Standard Deviation 53.4 fL (36.4-46.3); White Blood Count 8.34 K/ul (4.8-10.8)
[2022-12-23 06:32] LABS: Albumin Globulin Ratio 0.9 (0.9-2); Albumin Level 2.8 gm/dl (3.4-5.0); BUN Creatinine Ratio 16.8 (10-20); Bilirubin,Total 0.3 mg/dl (0.2-1.0); Calcium 9.2 mg/dl (8.5-10.1); Creatinine Clr Calc Pharmacy 26.9 ml/min; Est GFR (African American) 28.9 ml/min; Est GFR (Non-African American) 24.9 ml/min; Potassium 4.5 mmol/L (3.5-5.1); Total Protein 5.8 gm/dl (6.0-8.3)
[2022-12-23 06:38] LABS: Troponin I High Sensitivity 23.7 pg/ml (0-14)
--- NOTE | 2022-12-23 06:45 | Hospitalist Progress Note ---
"Date of Service December 23, 2022 Assessment & Plan (1) Sepsis: Plan: Patient is an 81-year-old female with past medical history of CKD4, dementia, diastolic heart failure, hyperlipidemia, osteoarthritis, and hypothyroidism who was brought to the emergency department via EMS for the chief complaint of general unwellness and shaking. She is currently hemodynamically stable and has received her first dose of ertapenem for treatment of UTI that may be due to the ESBL bacteria. Sepsis | Gram Negative Bacteremia from UTI -On admission, patient had resp. rate >20, leukocytosis of 21, and lactic acidosis: +positive SIRS criteria with urinary source of infection -12/19: WBC 17 w/ neutrophil predominance, afebrile -Blood cultures: /2 growing gram negative bacilli -> ESBL -Urine culture: growing gram negative bacilli -> ESBL -Per serology: enterobacterales, e. Coli, and CTX-M gene resistance detected -Continue Ertapenem 500 mg every 24 hours due to renal function (recent admission for ESBL E Coli) -Daily CBC, CMP -Tylenol as needed for fever - I's and O's to monitor fluid status. -Consult placed for urology regarding possible underlying etiology for repeated ESBL UTI's -Appreciate rec's -Recommending outpatient workup -Consult placed for infectious disease -Appreciate rec's -Will complete 2 weeks total course of ertapenem -Repeat blood cultures pending -Called and updated patient's son, Vargas. -Discussed option for prophylaxis in future with Fosfomycin [id number] - working on referral for rehab and IV antibiotics -Family awaiting bed at [facility] Hypoxia -Physical exam and chest x-ray seems to correlate with hypervolemia as cause of hypoxia -Given sepsis, will hold off diuresis for now but if hypoxia were to worsen, consider giving dose a of Bumex to pull off fluid Chronic Diastolic CHF -Will hold Bumex in the setting of sepsis as above -Oden catheter in place for accurate I's and O's Elevated Troponin -Elevated troponin at 56.9 at admission, repeat on 12/22 downtrended -No signs of chest pain at this time, suspect due to sepsis and CKD 4. -Echo Aug 31 - Normal EF with mild LVH Delirium/Dementia -Supportive care and follow Chronic Kidney Disease, Stage 4 -Renal dosing of antibiotics Hypothyroidism, Polyneuropathy, Osteoarthritis, Depression -Continue levothyroxine, gabapentin, Tylenol prn, paroxetine and mirtazapine Diet: Minced and Moist Disposition: PCU DVT prophylaxis: Heparin CODE STATUS: DNR/DNI (2) Acute UTI: (3) Hypoxia: (4) Elevated WBC count: (5) Diastolic CHF: (6) Depression: (7) Chronic kidney disease, stage 4 (severe): (8) Hypothyroidism: (9) Osteoarthritis: (10) Polyneuropathy: (11) Elevated troponin: Admission and Anticipated Discharge Date Admission Date: December 18, 2022 Supervising Physician Co-Signing Physician Notes I personally examined the patient and verified all salas points of history and exam, discussed case, and agree with decision making with Dr Wang Again resting comfortably no distress. Vitals noted, awake and alert, disoriented, no distress. Breathing unlabored no accessory muscle use good effort. Skin shows no rashes no pallor or icterus. Neuro without any lateralizing signs at rest. UTI with subsequent sepsis and gram-negative bacteremia with ESBLcontinue ertapenem. Improving. Infectious disease input appreciated. Outpatient urology follow-up. Treat for a total of 14 days Mild demand ischemiaelevated troponin has now declined to 23.7. DVT prophylaxisheparin subcu Otherwise as above Bryce Beck is an 81-year-old female with past medical history of CKD4, dementia, diastolic heart failure, hyperlipidemia, osteoarthritis, and hypothyroidism who was brought to the emergency department via EMS for the chief complaint of general unwellness and shaking. 12/23: Patient seen and examined at bedside. No acute events overnight. Patient was transferred from PCU to med/surg this morning, resting comfortably in bed. Denies shortness of breath, chest pain, abdominal pain, nausea/vomiting, dysuria. Review of Systems Review of Systems: As per above Physical Exam Constitutional: WD/WN, vitals as above + well hydrated, + frail appearing and + disheveled ENMT: Moist mucous membranes Respiratory: normal respiratory effort, lungs clear to auscultation Cardiovascular: RRR, no murmur, no edema Gastrointestinal (Abdomen): normal bowel sounds, soft, nontender, no hepatosplenomegaly Skin: no rashes, warm and dry Psychiatric: Affect: + flat affect Results & Data Results & Data Vital Signs (Past 12 Hours) Vital Signs Temp Pulse Resp BP Pulse Ox O2 Del Method O2 Flow Rate 12/23/22 02:37 36.6 C 55 L 18 121/66 94 Nasal Cannula 12/22/22 22:38 36.8 C 61 18 127/66 95 Nasal Cannula 12/22/22 20:37 Nasal Cannula 2 12/22/22 19:28 36.4 C L 64 18 119/65 93 Room Air Resident Activity Tracking Resident Involvement: Resident Care Provided Care Provided: Adult Hospital Medicine (4) Elevated WBC count Leukocytosis type: unspecified Qualified Code(s): D72.829 - Elevated white blood cell count, unspecified"
[2022-12-23] MEDS: MIRTAZAPINE TAB 15 MG TAB PO SCH (07:59)
[2022-12-23] MEDS: PARoxetine HCL 20 MG TAB PO SCH (07:59)
[2022-12-23] MEDS: CLOPIDOGREL BISULFATE 75 MG TAB PO SCH (07:59)
[2022-12-23] MEDS: HEPARIN SOD 5,000 UNIT/0.5 ML VIAL SQ SCH ×2 (08:00→19:32)
[2022-12-23] MEDS: GABAPENTIN 300 MG CAP PO SCH (18:12)
--- NOTE | 2022-12-23 19:24 | Billing Data ---
Date of Service December 23, 2022 Coding Level of Care Code 29208 SUB INP/OBS CARE
[2022-12-24] MEDS: LEVOTHYROXINE SODIUM 50 MCG TABLET PO SCH (05:38)
[2022-12-24 06:28] LABS: Basophils # (auto) 0.06 K/uL (0-0.2); Basophils % (auto) 0.6 %; Eosinophils # (auto) 0.03 K/uL (0-0.50); Eosinophils % (auto) 0.3 %; Hematocrit (blood only) 46.2 % (37.0-47.0); Hemoglobin 14.8 g/dl (12.0-16.0); Immature Granulocytes # (auto) 0.02 K/uL (0.01-0.20); Immature Granulocytes % (auto) 0.2 %; Lymphocytes # (auto) 1.57 K/uL (1.2-3.4); Mean Corpuscular Hemoglobin 31.1 pg (25.0-34.0); Mean Corpuscular Volume 97.1 fL (80.0-100.0); Mean Platelet Volume 9.6 fL (9.4-12.4); Monocytes # (auto) 1.11 K/uL (0.11-0.59); Neutrophils # (auto) 6.47 K/uL (1.40-6.50); Neutrophils % (auto) 69.9 %; Platelet Count 417 K/uL (130-400); RDW Coefficient of Variation 14.6 % (11.5-14.5); RDW Standard Deviation 52.9 fL (36.4-46.3); Red Blood Count 4.76 M/uL (4.20-5.40); White Blood Count 9.26 K/ul (4.8-10.8)
[2022-12-24 06:50] LABS: Albumin Globulin Ratio 0.9 (0.9-2); BUN Creatinine Ratio 16.6 (10-20); Bilirubin,Total 0.4 mg/dl (0.2-1.0); Calcium 9.7 mg/dl (8.5-10.1); Creatinine Clr Calc Pharmacy 27.3 ml/min; Est GFR (African American) 29.4 ml/min; Est GFR (Non-African American) 25.4 ml/min; Globulin 3.5 gm/dl (2.5-4.0); Potassium 4.3 mmol/L (3.5-5.1); Total Protein 6.5 gm/dl (6.0-8.3)
[2022-12-24] MEDS: CLOPIDOGREL BISULFATE 75 MG TAB PO SCH (10:34)
[2022-12-24] MEDS: HEPARIN SOD 5,000 UNIT/0.5 ML VIAL SQ SCH ×2 (10:35→20:59)
[2022-12-24] MEDS: MIRTAZAPINE TAB 15 MG TAB PO SCH (10:38)
[2022-12-24] MEDS: PARoxetine HCL 20 MG TAB PO SCH (10:39)
[2022-12-24] MEDS: POLYETHYLENE (MIRALAX) 17 GM PACK PO PRN (10:39)
--- NOTE | 2022-12-24 14:39 | Hospitalist Progress Note ---
"Date of Service December 24, 2022 Assessment & Plan (1) Sepsis: Plan: Patient is an 81-year-old female with past medical history of CKD4, dementia, diastolic heart failure, hyperlipidemia, osteoarthritis, and hypothyroidism who was brought to the emergency department via EMS for the chief complaint of general unwellness and shaking. She is currently hemodynamically stable and has received her first dose of ertapenem for treatment of UTI that may be due to the ESBL bacteria. Sepsis | Gram Negative Bacteremia from UTI -On admission, patient had resp. rate >20, leukocytosis of 21, and lactic acidosis: +positive SIRS criteria with urinary source of infection -12/19: WBC 17 w/ neutrophil predominance, afebrile -Blood cultures: 2/2 growing gram negative bacilli -> ESBL -Urine culture: growing gram negative bacilli -> ESBL -Per serology: enterobacterales, e. Coli, and CTX-M gene resistance detected -Continue Ertapenem 500 mg every 24 hours due to renal function (recent admission for ESBL E Coli) -Daily CBC, CMP -Tylenol as needed for fever - I's and O's to monitor fluid status. -Consult placed for urology regarding possible underlying etiology for repeated ESBL UTI's -Appreciate rec's -Recommending outpatient workup -Plan to transfer to [facility] with meza in place, can attempt voiding trial in 1 week -Consult placed for infectious disease -Appreciate rec's -Will complete 2 weeks total course of ertapenem -Repeat blood cultures from 12/22- no growth at 24 hrs -Discussed option for prophylaxis in future with Fosfomycin [id number] -CM working on referral for rehab and IV antibiotics -Patient accepted and prior auth approved to [facility], plan to transfer tomorrow (12/25) Hypoxia -Physical exam and chest x-ray seems to correlate with hypervolemia as cause of hypoxia -Given initial sepsis, held off diuresis -Plan to discharge on supplemental oxygen -Currently requiring 2L NC -Suspect contribution of deconditioning and atelectasis from extended hospitalization -Plan to discharge with supplemental oxygen, plan to ween as able Chronic Diastolic CHF -Will hold Bumex in the setting of sepsis as above -Meza catheter in place for accurate I's and O's Elevated Troponin -Elevated troponin at 56.9 at admission, repeat on 12/22 downtrended -No signs of chest pain at this time, suspect due to sepsis and CKD 4. -Echo Aug 31 - Normal EF with mild LVH Delirium/Dementia -Supportive care and follow Chronic Kidney Disease, Stage 4 -Renal dosing of antibiotics Hypothyroidism, Polyneuropathy, Osteoarthritis, Depression -Continue levothyroxine, gabapentin, Tylenol prn, paroxetine and mirtazapine Diet: Minced and Moist Disposition: PCU DVT prophylaxis: Heparin CODE STATUS: DNR/DNI (2) Acute UTI: (3) Hypoxia: (4) Elevated WBC count: (5) Diastolic CHF: (6) Depression: (7) Chronic kidney disease, stage 4 (severe): (8) Hypothyroidism: (9) Osteoarthritis: (10) Polyneuropathy: (11) Elevated troponin: Admission and Anticipated Discharge Date Admission Date: December 18, 2022 Supervising Physician Co-Signing Physician Notes I personally examined the patient and verified all salas points of history and exam, discussed case, and agree with decision making with Dr Wang Once again resting comfortably no distress. Vitals noted, sleeping comfortably, no distress. Breathing unlabored no accessory muscle use good effort. Skin shows no rashes no pallor or icterus. Neuro without any lateralizing signs at rest. UTI with subsequent sepsis and gram-negative bacteremia with ESBLcontinue ertapenem. Improving. Infectious disease input appreciated. Outpatient urology follow-up. Will treat for a total of 14 days (through 01/04) Mild demand ischemiaelevated troponin has now declined to 23.7. DVT prophylaxisheparin subcu Otherwise as above Subjective Ebony is an 81-year-old female with past medical history of CKD4, dementia, diastolic heart failure, hyperlipidemia, osteoarthritis, and hypothyroidism who was brought to the emergency department via EMS for the chief complaint of general unwellness and shaking. 12/24: Patient was seen and examined at bedside. No acute events overnight. Patient resting in bed after finishing breakfast. Ebony appears tired but answers questions appropriately. She states she feels much better than last week when she had frequent body aches/chills. Denies shortness of breath, chest pain, abdominal pain, nausea/vomiting. Review of Systems Review of Systems: As per above Physical Exam Constitutional: WD/WN, vitals as above + well hydrated, + frail appearing and + disheveled Eyes: Anicteric sclera ENMT: Moist mucous membranes Respiratory: Normal respiratory effort. No wheezes or crackles. Good aeration. Cardiovascular: RRR, no murmur, no edema Gastrointestinal (Abdomen): normal bowel sounds, soft, nontender, no hepatosplenomegaly Skin: no rashes, warm and dry Psychiatric: Eye Contact: + poor eye contact Affect: + flat affect Results & Data Results & Data Vital Signs (Past 12 Hours) Vital Signs Temp Pulse Resp BP Pulse Ox O2 Del Method O2 Flow Rate 12/24/22 07:32 Nasal Cannula 2 12/24/22 07:27 36.9 C 53 L 16 166/79 H 93 Nasal Cannula 2 Resident Activity Tracking Resident Involvement: Resident Care Provided Care Provided: Adult Hospital Medicine (4) Elevated WBC count Leukocytosis type: unspecified Qualified Code(s): D72.829 - Elevated white blood cell count, unspecified"
[2022-12-24] MEDS: GABAPENTIN 300 MG CAP PO SCH (16:44)
--- NOTE | 2022-12-24 18:55 | Billing Data ---
Date of Service December 24, 2022 Coding Level of Care Code 15819 SUB INP/OBS CARE
[2022-12-24] MEDS: ERTAPENEM SODIUM 500 MG in SYRINGE 0 ML IV SCH (20:59)
[2022-12-25] MEDS: LEVOTHYROXINE SODIUM 50 MCG TABLET PO SCH (05:45)
[2022-12-25 06:29] LABS: Hematocrit (blood only) 44.5 % (37.0-47.0); Hemoglobin 14.6 g/dl (12.0-16.0); Mean Corpuscular Hemoglobin 31.4 pg (25.0-34.0); Mean Corpuscular Hgb Conc 32.8 g/dL (32.0-36.0); Mean Corpuscular Volume 95.7 fL (80.0-100.0); Mean Platelet Volume 9.8 fL (9.4-12.4); Platelet Count 430 K/uL (130-400); RDW Coefficient of Variation 14.6 % (11.5-14.5); RDW Standard Deviation 51.3 fL (36.4-46.3); Red Blood Count 4.65 M/uL (4.20-5.40); White Blood Count 8.23 K/ul (4.8-10.8)
[2022-12-25 06:35] LABS: Albumin Globulin Ratio 0.9 (0.9-2); BUN Creatinine Ratio 15.6 (10-20); Bilirubin,Total 0.5 mg/dl (0.2-1.0); Calcium 9.5 mg/dl (8.5-10.1); Creatinine Clr Calc Pharmacy 27.6 ml/min; Est GFR (African American) 29.8 ml/min; Est GFR (Non-African American) 25.8 ml/min; Globulin 3.2 gm/dl (2.5-4.0); Potassium 4.4 mmol/L (3.5-5.1); Total Protein 6.2 gm/dl (6.0-8.3)
--- NOTE | 2022-12-25 07:36 | Discharge Summary ---
"Date of Service December 25, 2022 Admission HPI Per Admitting Provider Patient is an 81-year-old female with past medical history of CKD4, dementia, diastolic heart failure, hyperlipidemia, osteoarthritis, and hypothyroidism who was brought to the emergency department via EMS for the chief complaint of general unwellness and shaking. During her transport via EMS she did have 1 episode of vomiting. Patient does have baseline dementia and is a poor historian. There is no one else present in the exam room to discuss the patient's symptoms. Patient is able to report that she did feel unwell earlier today but she felt fine yesterday and the day before. She did note some shortness of breath earlier today which seems to have improved now she has been put on oxygen. She does have a history of ESBL urinary tract infection only a month ago. Currently though she denies any dysuria, polyuria, urgency, or hematuria. Currently not having any nausea or vomiting. She does not notice any weakness currently. Otherwise when asking her orientation questions she reports to me that the year is 2002, the months is month 28, Ulisses Olgalyssa is president, and that she is turning 38 in a couple of months. Patient has no pain currently at this time. ED course: Patient was brought by EMS to the emergency department is brought back accordingly and had lab work done consisting of CBC, CMP, lactate, magnesium, high-sensitivity troponin, and procalcitonin which returned positive for left shift leukocytosis, creatinine to 1.83 which is at baseline, lactate of 2.8, high sensitive troponin of 56.9. There is also a urinalysis done which was positive for 3+ leukocyte esterase and greater than 30 white blood cell. Patient is COVID-negative. She has received a dose of ertapenem due to history of ESBL. Principal Diagnosis UTI Discharge Exam Constitutional: well-appearing, no acute distress HEENT: NCAT, no conjunctival injection CV: regular rhythm, no murmur appreciated, extremities well-perfused, no LE edema Resp: CTABL, no wheezes/rales/rhonchi appreciated, no increased work of breathing GI: soft, nondistended, nontender, BS normoactive MSK: no gross deformities appreciated Skin: warm, dry, no rash appreciated Neuro: alert, no focal neurologic deficit appreciated Discharge Data Allergies Allergy/AdvReac Type Severity Reaction Status Date / Time iodine Allergy Unknown Unknown Verified 11/11/22 16:37 NSAIDS (Non-Steroidal Allergy Unknown Unknown Verified 11/11/22 16:37 Anti-Inflamma tositumomab iodine-131 Allergy Unknown Unknown Unverified 11/11/22 16:37 Penicillins Allergy Unknown Verified 11/11/22 16:37 Consultations 12/18/22 21:03 ED Decision to Admit Stat 12/20/22 17:24 Consult Urology Routine 12/21/22 14:55 Consult Infectious Diseases Routine Ordered Studies Laboratory Results WBC 8.23 K/ul (4.8-10.8) 12/25/22 05:40 RBC 4.65 M/uL (4.20-5.40) 12/25/22 05:40 Hgb 14.6 g/dl (12.0-16.0) 12/25/22 05:40 Hct 44.5 % (37.0-47.0) 12/25/22 05:40 MCV 95.7 fL (80.0-100.0) 12/25/22 05:40 MCH 31.4 pg (25.0-34.0) 12/25/22 05:40 MCHC 32.8 g/dL (32.0-36.0) 12/25/22 05:40 RDW Std Deviation 51.3 fL (36.4-46.3) H 12/25/22 05:40 RDW Coeff of Norris 14.6 % (11.5-14.5) H 12/25/22 05:40 Plt Count 430 K/uL (130-400) H 12/25/22 05:40 MPV 9.8 fL (9.4-12.4) 12/25/22 05:40 Immature Gran % (Auto) 0.2 % 12/24/22 06:04 Neut % (Auto) 69.9 % 12/24/22 06:04 Lymph % (Auto) 17.0 % 12/24/22 06:04 Redwood % (Auto) 12.0 % 12/24/22 06:04 Eos % (Auto) 0.3 % 12/24/22 06:04 Baso % (Auto) 0.6 % 12/24/22 06:04 Neut # (Auto) 6.47 K/uL (1.40-6.50) 12/24/22 06:04 Lymph # (Auto) 1.57 K/uL (1.2-3.4) 12/24/22 06:04 Redwood # (Auto) 1.11 K/uL (0.11-0.59) H 12/24/22 06:04 Eos # (Auto) 0.03 K/uL (0-0.50) 12/24/22 06:04 Baso # (Auto) 0.06 K/uL (0-0.2) 12/24/22 06:04 Immature Gran # (Auto) 0.02 K/uL (0.01-0.20) 12/24/22 06:04 Sodium 142 mmol/L (136-145) 12/25/22 05:40 Potassium 4.4 mmol/L (3.5-5.1) 12/25/22 05:40 Chloride 109 mmol/L (98-107) H 12/25/22 05:40 Carbon Dioxide 29 mmol/L (21-32) 12/25/22 05:40 Anion Gap 4 (3-11) 12/25/22 05:40 BUN 28 mg/dl (6-23) H 12/25/22 05:40 Creatinine 1.79 mg/dl (0.6-1.2) H 12/25/22 05:40 Est Cr Clr Drug Dosing 27.6 ml/min 12/25/22 05:40 Est GFR ( Amer) 29.8 ml/min 12/25/22 05:40 Est GFR (Non-Af Amer) 25.8 ml/min 12/25/22 05:40 BUN/Creatinine Ratio 15.6 (10-20) 12/25/22 05:40 Glucose 82 mg/dl (70-99(Fasting)) 12/25/22 05:40 Lactate 1.6 mmol/L (0.4-2.0) 12/18/22 22:27 Calcium 9.5 mg/dl (8.5-10.1) 12/25/22 05:40 Magnesium 2.2 mg/dl (1.7-2.4) 12/19/22 00:59 Total Bilirubin 0.5 mg/dl (0.2-1.0) 12/25/22 05:40 Direct Bilirubin 0.1 mg/dl (0-0.2) 12/18/22 19:57 AST 10 U/L (13-39) L 12/25/22 05:40 ALT 5 U/L (7-52) L 12/25/22 05:40 Alkaline Phosphatase 60 U/L (34-104) 12/25/22 05:40 Troponin I High Sens 23.7 pg/ml (0-14) H 12/23/22 05:45 Total Protein 6.2 gm/dl (6.0-8.3) 12/25/22 05:40 Albumin 3.0 gm/dl (3.4-5.0) L 12/25/22 05:40 Globulin 3.2 gm/dl (2.5-4.0) 12/25/22 05:40 Albumin/Globulin Ratio 0.9 (0.9-2) 12/25/22 05:40 Procalcitonin 0.26 ng/ml (0-0.5) 12/18/22 19:57 Urine Color Yellow 12/18/22 20:52 Urine Appearance Cloudy (Clear) A 12/18/22 20:52 Urine pH 6.5 (4.5-7.5) 12/18/22 20:52 Ur Specific [place] 1.011 (1.000-1.030) 12/18/22 20:52 Urine Protein 1+ (Negative) H 12/18/22 20:52 Urine Glucose (UA) Negative (Negative) 12/18/22 20:52 Urine Ketones Negative (Negative) 12/18/22 20:52 Urine Blood 1+ (Negative) H 12/18/22 20:52 Urine Nitrite Negative (Negative) 12/18/22 20:52 Urine Bilirubin Negative (Negative) 12/18/22 20:52 Urine Urobilinogen Negative (Negative) 12/18/22 20:52 Ur Leukocyte Esterase 3+ (Negative) H 12/18/22 20:52 Urine WBC (Auto) >30 /hpf (0-5) H 12/18/22 20:52 Urine RBC (Auto) 0-4 /hpf (0-4) 12/18/22 20:52 U Hyaline Cast (Auto) 0 /lpf (0-5) 12/18/22 20:52 U Epithel Cells (Auto) 0-5 /lpf (0-5) 12/18/22 20:52 Urine Bacteria (Auto) 2+ (Negative) H 12/18/22 20:52 Nasal Screen MRSA (PCR) Negative (Negative) 12/19/22 Unknown SARS-CoV-2 (PCR) NEGATIVE (Negative) 12/18/22 20:32 Enterobacterales (PCR) DETECTED (NotDetected) A 12/18/22 20:05 E. coli (PCR) DETECTED (NotDetected) A 12/18/22 20:05 Influenza Type A (PCR) Negative (Neg) 12/18/22 20:32 Influenza Type B (PCR) Negative (Neg) 12/18/22 20:32 RSV (RT-PCR) Negative (Neg) 12/18/22 20:32 SARS-CoV-2, RNA, NAAT NEGATIVE (NEGATIVE) 12/24/22 12:03 mcr-1 Colistin Res Gene PCR Not Detected (NotDetected) 12/18/22 20:05 blaIMP Car res Gene PCR Not Detected (NotDetected) 12/18/22 20:05 KPC-Carbap Res Gene PCR Not Detected (NotDetected) 12/18/22 20:05 blaNDM Car Res Gene PCR Not Detected (NotDetected) 12/18/22 20:05 OXA-48 Carbapenem Resis Gene (PCR) Not Detected (NotDetected) 12/18/22 20:05 blaVIM Car Res Gene PCR Not Detected (NotDetected) 12/18/22 20:05 CTX-M Gene Resistance (PCR) DETECTED (NotDetected) A* 12/18/22 20:05 Bld Cult ID Panel PCR See PCR Comment (NotDetected) 12/18/22 20:05 Impressions Chest X-Ray 12/18/22 19:28 SINGLE VIEW CHEST CLINICAL HISTORY: Sepsis. FINDINGS: An AP, portable, upright chest radiograph is compared to chest x-ray and chest CT dated 11/11/2022. The examination is degraded by portable technique and patient rotation. The heart is enlarged noting atherosclerotic calcification of the thoracic aorta. There is pulmonary vascular congestion. Small pleural effusions are suspected with dependent consolidation. No pneumothorax is seen. The skeletal structures are osteopenic. The bony thorax is grossly intact. Advanced arthritic change is seen in the shoulders. IMPRESSION: 1. Cardiomegaly with evidence of congestive failure. 2. Small pleural effusions with dependent consolidation. This likely represents atelectasis. Correlate clinically for evidence of a superimposed pneumonia. ACT 112: Negative or not required by law. Electronically signed by: Honorio Page M.D. 12/19/2022 8:32 AM Hospital Course (1) Sepsis: Patient is an 81-year-old female with past medical history of CKD4, dementia, diastolic heart failure, hyperlipidemia, osteoarthritis, and hypothyroidism who was brought to the emergency department via EMS for the chief complaint of general unwellness and shaking. Sepsis | Gram Negative Bacteremia from UTI -On admission, patient had resp. rate >20, leukocytosis of 21, and lactic acidosis: +positive SIRS criteria with urinary source of infection -12/19: WBC 17 w/ neutrophil predominance, afebrile -Blood cultures: 2/2 growing gram negative bacilli -> ESBL; Blood cultures from this admission growing ESBL -Urine culture: growing gram negative bacilli -> ESBL -Per serology: enterobacterales, e. Coli, and CTX-M gene resistance detected -Continue Ertapenem 500 mg every 24 hours due to renal function for a total of 14 days (last day 01/04) -Consult placed for urology regarding possible underlying etiology for repeated ESBL UTI's -Recommending outpatient workup -Plan to transfer to [facility] with meza in place, can attempt voiding trial in 1 week -Discussed option for prophylaxis in future with Fosfomycin [id number] Hypoxia -Physical exam and chest x-ray seems to correlate with hypervolemia as cause of hypoxia -Given initial sepsis, held off diuresis -Plan to discharge on supplemental oxygen -Currently requiring 2L NC -Suspect contribution of deconditioning and atelectasis from extended hospitalization Chronic Diastolic CHF -Have been holding home Bumex, will plan to resume upon dc - Would re-check BMP beginning on next week Elevated Troponin -Elevated troponin at 56.9 at admission, repeat on 12/22 downtrended -No signs of chest pain at this time, suspect due to sepsis and CKD 4. -Echo Aug 31 - Normal EF with mild LVH Delirium/Dementia -Supportive care and follow Chronic Kidney Disease, Stage 4 -Renal dosing of antibiotics Hypothyroidism, Polyneuropathy, Osteoarthritis, Depression -Continue levothyroxine, gabapentin, Tylenol prn, paroxetine and mirtazapine (2) Acute UTI: (3) Hypoxia: (4) Elevated WBC count: (5) Diastolic CHF: (6) Depression: (7) Chronic kidney disease, stage 4 (severe): (8) Hypothyroidism: (9) Osteoarthritis: (10) Polyneuropathy: (11) Elevated troponin: Total Time Total Time Spent Total Time Spent (In Minutes): <30 Discharge Plan Discharge Items Patient Disposition: Transfer Assisted Fac Reason For Visit: GENERAL UNWELLNESS Discharge Diagnosis: ESBL Bacteremia Activity: Per Instructions section Non-emergency contact: Primary Care Provider Call non-emergency contact if: you have any medication questions, your symptoms worsen and your temperature is above 101 Follow-up/Referrals: [facility]TUNE[facility] [Primary Care Provider] - Diet: Other - See Diet Comment Diet Comment: Minced and Moist Addtl Attending Provider Instructions: IV antibiotics; Ertapenem 500mg q24 hours to continue through 01/04 Patient is an 81-year-old female with past medical history of CKD4, dementia, diastolic heart failure, hyperlipidemia, osteoarthritis, and hypothyroidism who was brought to the emergency department via EMS for the chief complaint of general unwellness and shaking. Sepsis | Gram Negative Bacteremia from UTI -On admission, patient had resp. rate >20, leukocytosis of 21, and lactic acidosis: +positive SIRS criteria with urinary source of infection -12/19: WBC 17 w/ neutrophil predominance, afebrile -Blood cultures: 2/2 growing gram negative bacilli -> Blood cultures from this admission growing ESBL -Urine culture: growing gram negative bacilli -> ESBL -Per serology: enterobacterales, e. Coli, and CTX-M gene resistance detected -Continue Ertapenem 500 mg every 24 hours due to renal function for a total of 14 days (last day 01/04) -Consult placed for urology regarding possible underlying etiology for repeated ESBL UTI's -Recommending outpatient workup -Plan to transfer to [facility] with meza in place, can attempt voiding trial in 1 week -Discussed option for prophylaxis in future with Fosfomycin [id number] Hypoxia -Physical exam and chest x-ray seems to correlate with hypervolemia as cause of hypoxia -Given initial sepsis, held off diuresis -Plan to discharge on supplemental oxygen -Currently requiring 2L NC -Suspect contribution of deconditioning and atelectasis from extended hospitalization Chronic Diastolic CHF -Have been holding home Bumex, will plan to resume upon dc - Would re-check BMP beginning on next week Elevated Troponin -Elevated troponin at 56.9 at admission, repeat on 3/15 downtrended -No signs of chest pain at this time, suspect due to sepsis and CKD 4. -Echo Aug 31 - Normal EF with mild LVH Delirium/Dementia -Supportive care and follow Chronic Kidney Disease, Stage 4 -Renal dosing of antibiotics Hypothyroidism, Polyneuropathy, Osteoarthritis, Depression -Continue levothyroxine, gabapentin, Tylenol prn, paroxetine and mirtazapine Pending Studies at Discharge: No Stand-Alone Forms: My [facility] Skilled Items Patient informed of condition?: Yes DNR: Yes Discharge Level of Care: Skilled Communicable Disease: No Discharge Prognosis: Stable Lines: US Guided Peripheral IV Urinary Catheter: Yes Medications and DC Order Prescriptions: Continued clopidogrel 75 mg tablet 75 mg PO QAM paroxetine HCl 20 mg tablet 20 mg PO QAM acetaminophen 325 mg capsule 650 mg PO Q4H MDD 3g PRN (Reason: Pain) bumetanide 1 mg tablet 1 mg PO 3XWK Rx Instructions: take daily on MON/TUE/TUE mirtazapine 7.5 mg tablet 7.5 mg PO DAILY Rx Instructions: daily at 1700 gabapentin 300 mg capsule 300 mg PO .DAILY 1700 levothyroxine 50 mcg capsule 50 mcg PO DAILYBB Qty: 30 0RF Discharge Orders: Discharge Order (Routine); Ordered 12/25/22 Ordered By: Audrey Maurice Admission Data Admit Date/Time: 12/18/22 23:04 Attending Provider: Xander Willis Admit Provider: Cheko Severino [facility] Other Providers: [facility] ; Amy Fig[facility]eroa [facility] [place] ; Shukri Schreiber ; Haroon Nayak ; Lori Rodrigues ; Gilbert Byers ; Gladis Little ; Christian Cisneros ; Hazel Haile ; Nova Burris ; Christina Rothman ; Janie Trevino ; Adriana Medeiros Other Interventions: Discharge Summary Assessment (RN) Last Done: 12/25/22 11:42 Supervising Physician Co-Signing Physician Notes I personally examined the patient and verified all salas points of history and exam, discussed case, and agree with decision making with Dr Maurice Once again resting comfortably no distress. No complaints. Confused. Vitals noted, awake but disoriented, no distress. Breathing unlabored no accessory muscle use good effort lungs clear no rales rhonchi or wheezessomewhat difficult exam due to weakness and positioning, but clearer even with amplification.. Skin shows no rashes no pallor or icterus. Neuro without any lateralizing signs or focal deficits UTI with subsequent sepsis and gram-negative bacteremia with ESBLcontinue ertapenem. Improving. Infectious disease input appreciated. Outpatient urology follow-up. Will treat for a total of 14 days (through 01/04) Mild demand ischemiaelevated troponin has now declined to 23.7. DVT prophylaxisheparin subcu Otherwise as above"
[2022-12-25] MEDS: HEPARIN SOD 5,000 UNIT/0.5 ML VIAL SQ SCH (08:33)
[2022-12-25] MEDS: CLOPIDOGREL BISULFATE 75 MG TAB PO SCH (08:33)
[2022-12-25] MEDS: PARoxetine HCL 20 MG TAB PO SCH (08:33)
[2022-12-25] MEDS: POLYETHYLENE (MIRALAX) 17 GM PACK PO PRN (08:40)
[2022-12-25] MEDS ORDERED: MIRTAZAPINE TAB 15 MG TAB PO SCH (17:00)
--- NOTE | 2022-12-25 17:20 | Billing Data ---
Date of Service December 25, 2022 Coding Level of Care Code 74731 IN/OBS DISCH 30 MIN/LESS
--- NOTE | 2022-12-28 08:24 | Coding Query ---
To promote full compliance with coding requirements relating to patient care, provider participation is requested in all cases of reinsurance claim analyst uncertainty. Please assist us with the question(s) below: Coding Question(s): The diagnosis below was documented in the ER, H&P and the Infectious Disease Consultation on 12/21, then subsequently fell off all further documentation. Please indicate if it is still a possible diagnosis or ruled out. Physician's Response(s): POSSIBLE ASPIRATION PNEUMONIA ( ) Diagnosed and POA ( ) Diagnosed and not POA ( x ) Ruled out ( ) Other (please specify) MTDD
== END 2022-12-25 12:19 | DRG 872 ==
LOC: ED 19:19 → 4W 23:04 → SUATTDRO 23:04 → 4W 12-19 00:13 → 3E 12-23 08:47

== ENCOUNTER 2024-10-09 21:41 | Observation (INO) ==
--- NOTE | 2024-10-09 22:08 | Emergency Department Note ---
Impression & Plan Generalized weakness, Elevated troponin, Acute hypoxic respiratory failure, Acute exacerbation of CHF (congestive heart failure), Elevated brain natriuretic peptide (BNP) level, Acute UTI (urinary tract infection) ED Provider Note HISTORY OF PRESENT ILLNESS: Patient is an 83-year-old female presenting with generalized weakness and vomiting. Patient reports that she spent the entirety of yesterday having profuse vomiting. Denies any diarrhea. States she was unable to keep down any solids or liquids. States that she has not had any nausea or vomiting today. Denies any diarrhea. Reports that this evening she felt very weak and had to be assisted to the ground by staff at her facility. Denies striking her head or loss of consciousness. Denies having any fevers. She reportedly was hypoxic to 88% for EMS and placed on 2 L nasal cannula. Patient is not wear any supplemental oxygen at baseline. Denies any dysuria or hematuria. Denies any current chest pain or shortness of breath. Denies any abdominal pain. She reports just feeling diffusely weak. ROS: as above PHYSICAL EXAM: Constitutional: Patient appears in no acute distress. HENT: Head: Normocephalic and atraumatic. Eyes: EOMI, PERRL Mouth/Throat: Mucous membranes moist. Neck: Trachea midline. Neck supple. Cardiovascular: Tachycardic. No murmurs, rubs or gallops. Intact distal pulses. Pulmonary/Chest: No respiratory distress. Breath sounds clear and equal bilaterally. No wheezes or rales. Abdominal: Abdomen soft, no tenderness, rebound or guarding. Musculoskeletal: No tenderness or deformity noted. +1 pitting edema bilateral lower extremities extending to mid tibia. Skin: Warm and dry. No rash, erythema, pallor or cyanosis Psychiatric: Appropriate mood and affect for situation. Neurological: Alert and keenly responsive. CN II-XII grossly intact, moving all extremities equally and fully. MDM: - Vitals signs showed hypertension and tachycardia. - History obtained via patient. History as above. - Chronic conditions affecting care: CKD stage 4; HLD; diastolic HF; hypothyroidism - Differential diagnoses include, but are not limited to: viral syndrome; CVA; intracranial hemorrhage; ACS; pneumonia; UTI; bowel obstruction - Order placed for continuous cardiac monitoring. At this time, monitor showed rate of 73 bpm with normal sinus rhythm, per my interpretation. - External medical records reviewed. Discharge summary dated 12/25/2022 was reviewed. Patient was admitted at that time for UTI. She was treated with ertapenem given her history of ESBL. - EKG interpreted by myself showed normal sinus rhythm. Rate 84 bpm. QT 406. Noted to have sinus arrhythmia. Also have a right bundle branch block. - Laboratory workup interpreted by myself showed normal WBC; normal PT/INR; CKD; elevated troponin (24.5); normal lipase; normal liver function; elevated BNP (401) - CXR negative for obvious consolidation but noted to have some perivascular congestion, per my interpretation. Radiology notes bibasilar opacities favoring atelectasis. Noted to have a potential small right pleural effusion per radiology and perihilar interstitial prominence raising the concern for edema. - Viral respiratory panel negative - CT head wo contrast negative for acute pathology - CT abdomen/pelvis wo contrast showed fluid-filled loops of small bowel which may represent a nonspecific enteritis. Also noted to have bladder wall thickening which is likely chronic. - Patient given 500 cc NS in ER. - UA positive for infection. 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 Most recently on 01/11/2024. IV ertapenem ordered in the emergency department. - Discussion was had with case finishing machine adjuster about patient's case and need for admission - Hospitalist, Dr. Sam, consulted for admission - [facility] ASSESSMENT AND PLAN: Diagnosis: Generalized weakness; acute hypoxia; acute CHF exacerbation; elevated troponin; elevated BNP; acute UTI Plan: admit Past Med/Surg History Problem List (Updated 10/10/24 @ 00:55 by Geetha Rees MD) Acute UTI (urinary tract infection) (Acute) Elevated brain natriuretic peptide (BNP) level (Acute) Acute exacerbation of CHF (congestive heart failure) (Acute) Acute hypoxic respiratory failure (Acute) Elevated troponin (Acute) Generalized weakness (Acute) Severe sepsis (Acute) Acute UTI (urinary tract infection) (Acute) Elevated troponin (Acute) Aspiration pneumonia (Acute) Acute confusion (Acute) Lactic acidosis (Acute) Elevated troponin Sepsis Acute UTI (Acute) Hypoxia (Acute) Confusion (Acute) Hypercalcemia Acute alteration in mental status (Acute) PAMELA (acute kidney injury) (Acute) Elevated WBC count (Acute) Acute UTI (urinary tract infection) (Acute) Hypoxia (Acute) Diastolic CHF (Acute) Hypercalcemia Macrocytosis UTI (urinary tract infection) Pneumonia (Acute) SIRS (systemic inflammatory response syndrome) (Acute) Urinary incontinence Polyneuropathy Hyperlipidemia Osteoarthritis Hypothyroidism Ambulatory dysfunction Depression Chronic kidney disease, stage 4 (severe) (Chronic) Medical History Abnormal EKG Ambulatory dysfunction Chronic kidney disease, stage 4 (severe) GI bleed Hyperlipidemia Hypothyroidism Osteoarthritis Polyneuropathy Recurrent falls Social History Smoking Status: Former smoker Tobacco Type: Cigarettes Second Hand Exposure: No; Do You Dip or Chew Tobacco: No; Hx Alcohol Use: Yes Hx Substance Use: No Preferred Language: Dutch Communication Ability: Effective Public Health Nutritionist Required: No Beliefs That Will Affect Care: None Current Living Situation: Personal Care Facility Current Living Situation Comment: assisted living Feels Safe at Home: Yes Assistive Devices: Wheelchair Allergies Allergies Allergy/AdvReac Type Severity Reaction Status Date / Time iodine Allergy Unknown Unknown Verified 03/20/23 16:40 NSAIDS (Non-Steroidal Allergy Unknown Unknown Verified 03/20/23 16:40 Anti-Inflamma tositumomab iodine-131 Allergy Unknown Unknown Unverified 03/20/23 16:40 Penicillins Allergy Unknown Verified 03/20/23 16:40 Home Meds Home Medications Medication Instructions Recorded Confirmed acetaminophen 325 mg capsule 650 mg PO Q4H PRN Pain 10/22/19 03/20/23 clopidogrel 75 mg tablet 75 mg PO QAM 10/22/19 03/20/23 paroxetine HCl 20 mg tablet 20 mg PO QAM 10/22/19 03/20/23 bumetanide 1 mg tablet 1 mg PO 3XWK 08/16/22 03/20/23 gabapentin 300 mg capsule 300 mg PO .DAILY 199909/12/22 03/20/23 mirtazapine 7.5 mg tablet 7.5 mg PO HS 09/12/22 03/20/23 nystatin 100,000 unit/gram topical 1 applic topical Q8 .Irritation 03/20/23 03/20/23 powder Previous Rx's Medication Instructions Recorded levothyroxine 50 mcg capsule 50 mcg PO DAILYBB #30 caps 11/19/22 Results & Data (ED) Vital Signs Vital Signs - 24 hr 10/09/24 21:48 10/09/24 21:49 10/09/24 23:15 Temperature 36.7 C Temperature Source Oral Pulse Rate 83 97 H Pulse Rate [Apical] 77 Pulse Strength Normal Respiratory Rate 16 22 Respiratory Effort / Characteristics Non-Labored Spontaneous Non-Labored Respiratory Depth Normal Normal Respiratory Pattern Regular Regular Blood Pressure 155/88 H Blood Pressure [Right Arm] 172/75 H Blood Pressure Mean 110 Blood Pressure Mean [Right Arm] 107 Blood Pressure Position Sitting Blood Pressure Position [Right Arm] Lying Pulse Oximetry 94 92 Oxygen Delivery Method Room Air Nasal Cannula Oxygen Flow Rate 2 Sepsis Recent Fever Within 48 Hours No Sepsis New/Unexplained Change in Mental Status No Sepsis Action Taken by Nursing No Action Required 10/09/24 23:25 10/10/24 00:00 Temperature 37.0 C Temperature Source Oral Pulse Rate 78 Pulse Rate [Apical] 91 H Pulse Strength Respiratory Rate 22 22 Respiratory Effort / Characteristics Non-Labored Respiratory Depth Normal Respiratory Pattern Regular Blood Pressure Blood Pressure [Right Arm] 166/83 H Blood Pressure Mean Blood Pressure Mean [Right Arm] 110 Blood Pressure Position Blood Pressure Position [Right Arm] Pulse Oximetry 92 96 Oxygen Delivery Method Nasal Cannula Nasal Cannula Oxygen Flow Rate 2 2 Sepsis Recent Fever Within 48 Hours Sepsis New/Unexplained Change in Mental Status Sepsis Action Taken by Nursing Laboratory Data 10/09/24 21:58 10/09/24 21:58 Lab Results 10/09/24 10/09/24 10/10/24 Range/Units 21:58 23:47 00:00 WBC 8.20 (4.8-10.8) K/ul RBC 5.30 (4.20-5.40) M/uL Hgb 16.6 H (12.0-16.0) g/dl Hct 51.9 H (37.0-47.0) % MCV 97.9 (80.0-100.0) fL MCH 31.3 (25.0-34.0) pg MCHC 32.0 (32.0-36.0) g/dL RDW Std Deviation 54.1 H (36.4-46.3) fL RDW Coeff of Norris 14.8 H (11.5-14.5) % Plt Count 507 H (130-400) K/uL MPV 8.8 L (9.4-12.4) fL Immature Gran % (Auto) 0.4 % Neut % (Auto) 86.4 % Lymph % (Auto) 8.2 % [place]affee % (Auto) 4.8 % Eos % (Auto) 0.0 % Baso % (Auto) 0.2 % Neut # (Auto) 7.09 H (1.40-6.50) K/uL Lymph # (Auto) 0.67 L (1.20-3.40) K/uL [place] # (Auto) 0.39 (0.11-0.59) K/uL Eos # (Auto) 0.00 (0.00-0.50) K/uL Baso # (Auto) 0.02 (0.00-0.20) K/uL Immature Gran # (Auto) 0.03 (0.01-0.20) K/uL PT 10.9 (9.0-12.0) Seconds INR 1.0 (0.9-1.1) Sodium 138 (136-145) mmol/L Potassium 4.5 (3.5-5.1) mmol/L Chloride 104 (98-107) mmol/L Carbon Dioxide 27 (21-32) mmol/L Anion Gap 7 (3-11) BUN 35 H (6-23) mg/dl Creatinine 2.23 H (0.6-1.2) mg/dl Est Cr Clr Drug Dosing 21.7 ml/min eGFR 21.09 BUN/Creatinine Ratio 15.7 (10-20) Glucose 91 (70-99(Fasting)) mg/dl Calcium 9.2 (8.6-10.3) mg/dl Magnesium 2.2 (1.7-2.4) mg/dl Total Bilirubin 0.7 (0.2-1.0) mg/dl AST 15 (13-39) U/L ALT 9 (7-52) U/L Alkaline Phosphatase 77 (34-104) U/L Troponin I High Sens 24.5 H 27.3 H (0-14) pg/ml B-Natriuretic Peptide 401 H (0-100) pg/ml Total Protein 7.4 (6.0-8.3) gm/dl Albumin 3.6 (3.4-5.0) gm/dl Globulin 3.8 (2.5-4.0) gm/dl Albumin/Globulin Ratio 0.9 (0.9-2) Lipase 67 (11-82) U/L Urine Color Yellow Urine Appearance Turbid A (Clear) Urine pH 7.0 (4.5-7.5) Ur Specific Center Line 1.012 (1.000-1.030) Urine Protein 2+ H (Negative) Urine Glucose (UA) Negative (Negative) Urine Ketones Negative (Negative) Urine Blood 1+ H (Negative) Urine Nitrite Positive A (Negative) Urine Bilirubin Negative (Negative) Urine Urobilinogen Negative (Negative) Ur Leukocyte Esterase 3+ H (Negative) Urine WBC (Auto) >50 H (0-5) /hpf Urine RBC (Auto) 0-2 (0-2) /hpf U Hyaline Cast (Auto) 3-5 H (0-2) /lpf U Epithel Cells (Auto) 0-2 (0-2) /hpf Urine Bacteria (Auto) 4+ H (None Seen) Adenovirus (PCR) Not Detected (NotDetected) B. pertussis DNA (PCR) Not Detected (NotDetected) B.parapertussis DNA PCR Not Detected (NotDetected) C. pneumoniae DNA (PCR) Not Detected (NotDetected) Coronavirus OC43 (PCR) Not Detected (NotDetected) Coronavirus HKU1 (PCR) Not Detected (NotDetected) Coronavirus 229E (PCR) Not Detected (NotDetected) SARS-CoV-2 (PCR) Not Detected (NotDetected) Coronavirus NL63 (PCR) Not Detected (NotDetected) Human Metapneumovir PCR Not Detected (NotDetected) Influenza Type A (PCR) Not Detected (NotDetected) Influenza Type B (PCR) Not Detected (NotDetected) M. pneumoniae (PCR) Not Detected (NotDetected) Parainfluenza 1 (PCR) Not Detected (NotDetected) Parainfluenza 2 (PCR) Not Detected (NotDetected) Parainfluenza 3 (PCR) Not Detected (NotDetected) Parainfluenza 4 (PCR) Not Detected (NotDetected) RSV (PCR) Not Detected (NotDetected) Entero/Rhino (PCR) Not Detected (NotDetected) Administered Medications Discontinued Medications Sodium Chloride (Nss) 500 mls @ 999 mls/hr IV .Q31M ONE Stop: 10/09/24 22:33 Last Infusion: 10/09/24 23:26 Dose: Infused Documented By: Admin: 10/09/24 22:33 Dose: 999 mls/hr Documented By: SNS Imaging Data Radiologist's Impression: Chest X-Ray 10/09/24 22:03 Exam(s): XR CXR 1 VIEW EXAM: XR Chest, 1 View CLINICAL HISTORY: Reason for exam: Chest pain, nonspecific. TECHNIQUE: Frontal view of the chest. COMPARISON: 12/18/22 FINDINGS: Lungs: Central vascular congestion. Perihilar interstitial prominence. Bibasilar opacities, favoring atelectasis. Pleural space: Possible small right pleural effusion. No pneumothorax. Heart: Stable cardiac size. Bones/joints: Degenerative change of both shoulders. No acute osseous findings. IMPRESSION: 1. Central vascular congestion. Perihilar interstitial prominence. Findings raise the possibility of edema. 2. Bibasilar opacities, favoring atelectasis. Correlate clinically to exclude pneumonia. 3. Possible small right pleural effusion. Electronically signed by: Chiara Cameron M.D. 10/09/24 23:[address] 10/09/24 23:12 Exam(s): CT HEAD Without Contrast EXAM: CT Head Without Intravenous Contrast CLINICAL HISTORY: Reason for exam: weakness. TECHNIQUE: Axial computed tomography images of the head/brain without intravenous contrast. CTDI is 38 mGy and DLP is 624 mGy-cm. Automated exposure control was utilized for the study. A dose lowering technique was utilized adhering to the principles of ALARA. COMPARISON: 11/11/22 FINDINGS: Brain: Generalized parenchymal volume loss. Periventricular and deep cerebral white matter hypoattenuation suggesting chronic small vessel ischemic change. Chronic bilateral cerebellar infarcts. Chronic right frontal lobe infarcts. Chatman-white matter differentiation otherwise maintained. No hemorrhage, mass effect, parenchymal edema, or midline shift. Ventricles: Unremarkable. No hydrocephalus. Bones/joints: Unremarkable. No acute fracture. Soft tissues: Unremarkable. Vasculature: Intracranial atherosclerosis. Sinuses: Unremarkable as visualized. Mastoid air cells: Unremarkable as visualized. No mastoid effusion. Other findings: Lungs replacements. IMPRESSION: No acute intracranial process. Electronically signed by: Chiara Cameron M.D. 10/10/24 00:14 AM Discharge Plan Visit Data Chief Complaint: Illness Stated Complaint: illness, weakness, unable to get up ED Provider: Geetha Rees Discharge Problem: Generalized weakness, Elevated troponin, Acute hypoxic respiratory failure, Acute exacerbation of CHF (congestive heart failure), Elevated brain natriuretic peptide (BNP) level, Acute UTI (urinary tract infection) Forms Stand Alone Forms: My [facility] Prescriptions Prescriptions: No Action clopidogrel 75 mg tablet 75 mg PO QAM paroxetine HCl 20 mg tablet 20 mg PO QAM acetaminophen 325 mg capsule 650 mg PO Q4H MDD 3g PRN (Reason: Pain) bumetanide 1 mg tablet 1 mg PO 3XWK Rx Instructions: take daily on MON/WED/FRI mirtazapine 7.5 mg tablet 7.5 mg PO HS gabapentin 300 mg capsule 300 mg PO .DAILY 2000 nystatin 100,000 unit/gram powder 1 applic TOPICAL Q8 levothyroxine 50 mcg capsule 50 mcg PO DAILYBB Qty: 30 0RF Referrals Referrals: Tawanna LozanoDannebrog [Primary Care Provider] -
[2024-10-09 22:14] LABS: Basophils # (auto) 0.02 K/uL (0.00-0.20); Basophils % (auto) 0.2 %; Hematocrit (blood only) 51.9 % (37.0-47.0); Hemoglobin 16.6 g/dl (12.0-16.0); Immature Granulocytes # (auto) 0.03 K/uL (0.01-0.20); Immature Granulocytes % (auto) 0.4 %; Lymphocytes # (auto) 0.67 K/uL (1.20-3.40); Lymphocytes % (auto) 8.2 %; Mean Corpuscular Hemoglobin 31.3 pg (25.0-34.0); Mean Corpuscular Volume 97.9 fL (80.0-100.0); Mean Platelet Volume 8.8 fL (9.4-12.4); Monocytes # (auto) 0.39 K/uL (0.11-0.59); Monocytes % (auto) 4.8 %; Neutrophils # (auto) 7.09 K/uL (1.40-6.50); Neutrophils % (auto) 86.4 %; Platelet Count 507 K/uL (130-400); RDW Coefficient of Variation 14.8 % (11.5-14.5); RDW Standard Deviation 54.1 fL (36.4-46.3)
[2024-10-09 22:30] LABS: Albumin Globulin Ratio 0.9 (0.9-2); Albumin Level 3.6 gm/dl (3.4-5.0); BUN Creatinine Ratio 15.7 (10-20); Bilirubin,Total 0.7 mg/dl (0.2-1.0); Calcium 9.2 mg/dl (8.6-10.3); Creatinine Clr Calc Pharmacy 21.7 ml/min; Globulin 3.8 gm/dl (2.5-4.0); Magnesium 2.2 mg/dl (1.7-2.4); Potassium 4.5 mmol/L (3.5-5.1); Total Protein 7.4 gm/dl (6.0-8.3)
[2024-10-09] MEDS: SODIUM CHLORIDE 0.9% 500 ML IV ONE (22:33)
[2024-10-09 22:36] LABS: Troponin I High Sensitivity 24.5 pg/ml (0-14)
[2024-10-09 23:10] LABS: Adenovirus PCR Not Detected (NotDetected); Bordetella parapertussis PCR Not Detected (NotDetected); Bordetella pertussis PCR Not Detected (NotDetected); Chlamydia pneumoniae PCR Not Detected (NotDetected); Coronavirus 229E PCR Not Detected (NotDetected); Coronavirus CoV-2 (COVID19)PCR Not Detected (NotDetected); Coronavirus HKU1 PCR Not Detected (NotDetected); Coronavirus NL63 PCR Not Detected (NotDetected); Coronavirus OC43PCR Not Detected (NotDetected); Human Metapneumovirus PCR Not Detected (NotDetected); Influenza A PCR Not Detected (NotDetected); Influenza B PCR Not Detected (NotDetected); Mycoplasma pneumoniae PCR Not Detected (NotDetected); Parainfluenza Virus 1 PCR Not Detected (NotDetected); Parainfluenza Virus 2 PCR Not Detected (NotDetected); Parainfluenza Virus 3 PCR Not Detected (NotDetected); Parainfluenza Virus 4 PCR Not Detected (NotDetected); Respiratory Syncytial VirusPCR Not Detected (NotDetected); Rhinovirus/Enterovirus PCR Not Detected (NotDetected)
[2024-10-09 23:27] LABS: Prothrombin Time 10.9 Seconds (9.0-12.0)
--- NOTE | 2024-10-09 23:30 | XRay Report ---
Exam(s): XR CXR 1 VIEW EXAM: XR Chest, 1 View CLINICAL HISTORY: Reason for exam: Chest pain, nonspecific. TECHNIQUE: Frontal view of the chest. COMPARISON: 12/18/22 FINDINGS: Lungs: Central vascular congestion. Perihilar interstitial prominence. Bibasilar opacities, favoring atelectasis. Pleural space: Possible small right pleural effusion. No pneumothorax. Heart: Stable cardiac size. Bones/joints: Degenerative change of both shoulders. No acute osseous findings. IMPRESSION: 1. Central vascular congestion. Perihilar interstitial prominence. Findings raise the possibility of edema. 2. Bibasilar opacities, favoring atelectasis. Correlate clinically to exclude pneumonia. 3. Possible small right pleural effusion. Electronically signed by: Chiara Cameron M.D. 10/09/24 23:29 PM
--- NOTE | 2024-10-10 00:16 | CT Scan Report ---
Exam(s): CT HEAD Without Contrast EXAM: CT Head Without Intravenous Contrast CLINICAL HISTORY: Reason for exam: weakness. TECHNIQUE: Axial computed tomography images of the head/brain without intravenous contrast. CTDI is 38 mGy and DLP is 624 mGy-cm. Automated exposure control was utilized for the study. A dose lowering technique was utilized adhering to the principles of ALARA. COMPARISON: 11/11/22 FINDINGS: Brain: Generalized parenchymal volume loss. Periventricular and deep cerebral white matter hypoattenuation suggesting chronic small vessel ischemic change. Chronic bilateral cerebellar infarcts. Chronic right frontal lobe infarcts. Chatman-white matter differentiation otherwise maintained. No hemorrhage, mass effect, parenchymal edema, or midline shift. Ventricles: Unremarkable. No hydrocephalus. Bones/joints: Unremarkable. No acute fracture. Soft tissues: Unremarkable. Vasculature: Intracranial atherosclerosis. Sinuses: Unremarkable as visualized. Mastoid air cells: Unremarkable as visualized. No mastoid effusion. Other findings: Lungs replacements. IMPRESSION: No acute intracranial process. Electronically signed by: Chiara Cameron M.D. 10/10/24 00:14 AM
[2024-10-10 00:37] LABS: Appearance Urine Turbid (Clear); Bacteria Urine Automated 4+ (None Seen); Bilirubin Urine Negative (Negative); Blood Urine 1+ (Negative); Color Urine Yellow; Epithelial Cell Urine Auto 0-2 /hpf (0-2); Glucose Urine UA Negative (Negative); Ketones Urine Negative (Negative); Leukocyte Esterase Urine 3+ (Negative); Nitrite Urine Positive (Negative); Protein Urine 2+ (Negative); RBC Urine Automated 0-2 /hpf (0-2); Specific Gravity Urine 1.012 (1.000-1.030); Urobilinogen Urine Negative (Negative); WBC Urine Automated >50 /hpf (0-5)
--- NOTE | 2024-10-10 01:01 | CT Scan Report ---
Exam(s): CT ABDOMEN + PELVIS Without Contrast EXAM: CT Abdomen and Pelvis Without Intravenous Contrast CLINICAL HISTORY: Reason for exam: vomiting. TECHNIQUE: Axial computed tomography images of the abdomen and pelvis without intravenous contrast. CTDI is 35 mGy and DLP is 1922 mGy-cm. Automated exposure control was utilized for the study. A dose lowering technique was utilized adhering to the principles of ALARA. COMPARISON: 11/11/22 FINDINGS: Lung bases: Bibasilar subsegmental atelectasis. Heart: Coronary artery atherosclerosis. ABDOMEN: Liver: Unremarkable. Gallbladder and bile ducts: Cholecystectomy. No ductal dilation. Pancreas: Unremarkable. No ductal dilation. Spleen: Absence of normal spleen. Small residual splenic tissue in the left upper quadrant. Appearance stable from prior. Adrenals: Unremarkable. No mass. Kidneys and ureters: Kidneys appear atrophic. No hydronephrosis or stones. Stomach and bowel: Diverticulosis without diverticulitis. No bowel obstruction. PELVIS: Appendix: Appendix not identified. No secondary signs of appendicitis. Bladder: Stable mild bladder wall thickening, likely chronic. No stones. Reproductive: Uterine fibroids. ABDOMEN and PELVIS: Intraperitoneal space: Unremarkable. No free air, significant free fluid, or fluid collection. Bones/joints: Lumbar spondylosis. Left hip hemiarthroplasty. No acute fracture or dislocation. Soft tissues: Unremarkable. Vasculature: Aortic atherosclerosis without aneurysm. Lymph nodes: Unremarkable. No enlarged lymph nodes. IMPRESSION: Stable mild bladder wall thickening, likely chronic. Correlate with urinalysis to exclude cystitis. Some fluid-filled loops of small bowel are favored incidental but could represent a nonspecific enteritis. Electronically signed by: Chiara Cameron M.D. 10/10/24 01:00 AM
[2024-10-10] MEDS: ERTAPENEM 1000MG 1,000 MG/10 ML SYR IV STA (01:39)
[2024-10-10] MEDS: SODIUM CHLORIDE 0.9% 1,000 ML IV SCH (01:40)
--- NOTE | 2024-10-10 01:42 | History & Physical Report ---
Date of Service October 10, 2024 Assessment & Plan (1) UTI due to extended-spectrum beta lactamase (ESBL) producing Escherichia coli: (2) Acute hypoxic respiratory failure: (3) Enteritis: (4) Acute confusion: (5) Acute kidney injury superimposed on stage 4 chronic kidney disease: Plan The patient is a 83-year-old female with a past medical history including ESBL E. coli UTI, severe sepsis, aspiration pneumonia, diastolic CHF, chronic urinary incontinence, severe CKD stage IV, depression, and ambulatory dysfunction. She reports symptoms as noted above with unexplained persistence of nausea and vomiting throughout the day. She denies any unusual food intake that may have led to this the previous days. She lives at [facility], [place], and has not been any suggestion of other residents with similar symptoms. She was referred to the ED via cath at [facility], [place], due to concerns regarding hypoxia, possible urinary tract infection, and or GI illness. The patient herself is somewhat confused, is not necessarily a good historian, and does not have any explanation for her symptoms #Confusion-contributing factors including but not limited to: UTI plus minus ESBL E. coli, enteritis, dehydration, acute kidney injury, acute respiratory failure with hypoxia, progression general debilitation and deconditioning #Acute urinary tract infection- CT abdomen pelvis showed bladder wall thickening with possible cystitis History of ESBL E. coli Follow urine culture and sensitivity Continue ertapenem 1 g IV every 24 hours begun in the ED Status post 500 mL normal saline bolus from the ED #Acute kidney injury superimposed on CKD stage IV- Creatinine 2.23, with base 2.04 Status post normal saline 500 mL bolus in the ED Given additional normal saline at 80 mL/h x 500 mL Repeat laboratories in the a.m. #Enteritis- Patient had symptoms of 24 hours of vomiting with decreased oral intake, with out diarrhea or abdominal pain Unclear etiology at this time Stool PCR not performed due to no diarrheal issue Patient reports that her symptoms had significantly improved by the time she was evaluated in the ED Would likely lead to dehydration and acute kidney injury #Elevated troponin history of diastolic CHF Troponin initially 24.5 with follow-up 27.3 Likely demand ischemia type II process Chest x-ray unclear potential for mild edema Receiving IV fluids to help With Renal Function Give Albumin 25 G IV and Follow Examination. Oxygenation did improve from 92 to 97% after addition of albumin and on 2 L nasal cannula #General deconditioning and debilitation- Will need PT and OT prior to discharge back to [facility] [place] CODE STATUS: DNR/DNI History of Present Illness Chief Complaint: The patient presented to the emergency department with complaint of vomiting that began early in the morning, and persisted throughout the day. She reports that she was unable to keep any solids or liquids down. When EMS was called to evaluate her, she is found of a pulse ox of 88% on room air, and was placed on 2 L nasal cannula oxygen at that time. She reported feeling generally weak. She denies any recent travels or sick exposures. Primary Care Provider: [facility] The patient is a 83-year-old female with a past medical history including ESBL E. coli UTI, severe sepsis, aspiration pneumonia, diastolic CHF, chronic urinary incontinence, severe CKD stage IV, depression, and ambulatory dysfunction. She reports symptoms as noted above with unexplained persistence of nausea and vomiting throughout the day. She denies any unusual food intake that may have led to this the previous days. She lives at [facility], [place], and has not been any suggestion of other residents with similar symptoms. She was referred to the ED via cath at [facility], [place], due to concerns regarding hypoxia, possible urinary tract infection, and or GI illness. The patient herself is somewhat confused, is not necessarily a good historian, and does not have any explanation for her symptoms Allergies Allergy/AdvReac Type Severity Reaction Status Date / Time iodine Allergy Unknown Unknown Verified 03/20/23 16:40 NSAIDS (Non-Steroidal Allergy Unknown Unknown Verified 03/20/23 16:40 Anti-Inflamma tositumomab iodine-131 Allergy Unknown Unknown Unverified 03/20/23 16:40 Penicillins Allergy Unknown Verified 03/20/23 16:40 Home Medications Medication Instructions Recorded Confirmed Type acetaminophen 325 mg capsule 650 mg PO Q4H PRN Pain 10/22/19 03/20/23 History clopidogrel 75 mg tablet 75 mg PO QAM 10/22/19 03/20/23 History paroxetine HCl 20 mg tablet 20 mg PO QAM 10/22/19 03/20/23 History bumetanide 1 mg tablet 1 mg PO 3XWK 08/16/22 03/20/23 History gabapentin 300 mg capsule 300 mg PO .DAILY 199909/12/22 03/20/23 History mirtazapine 7.5 mg tablet 7.5 mg PO HS 09/12/22 03/20/23 History levothyroxine 50 mcg capsule 50 mcg PO DAILYBB #30 caps 11/19/22 03/20/23 Rx nystatin 100,000 unit/gram topical 1 applic topical Q8 .Irritation 03/20/23 03/20/23 History powder Past Med/Surg History Problem List (Updated 10/10/24 @ 05:37 by Stephen Sam MD) Enteritis Acute kidney injury superimposed on stage 4 chronic kidney disease UTI due to extended-spectrum beta lactamase (ESBL) producing Escherichia coli Acute UTI (urinary tract infection) (Acute) Elevated brain natriuretic peptide (BNP) level (Acute) Acute exacerbation of CHF (congestive heart failure) (Acute) Acute hypoxic respiratory failure (Acute) Elevated troponin (Acute) Generalized weakness (Acute) Severe sepsis (Acute) Acute UTI (urinary tract infection) (Acute) Elevated troponin (Acute) Aspiration pneumonia (Acute) Acute confusion (Acute) Lactic acidosis (Acute) Elevated troponin Sepsis Acute UTI (Acute) Hypoxia (Acute) Confusion (Acute) Hypercalcemia Acute alteration in mental status (Acute) PAMELA (acute kidney injury) (Acute) Elevated WBC count (Acute) Acute UTI (urinary tract infection) (Acute) Hypoxia (Acute) Diastolic CHF (Acute) Hypercalcemia Macrocytosis UTI (urinary tract infection) Pneumonia (Acute) SIRS (systemic inflammatory response syndrome) (Acute) Urinary incontinence Polyneuropathy Hyperlipidemia Osteoarthritis Hypothyroidism Ambulatory dysfunction Depression Chronic kidney disease, stage 4 (severe) (Chronic) Medical History Abnormal EKG Ambulatory dysfunction Chronic kidney disease, stage 4 (severe) GI bleed Hyperlipidemia Hypothyroidism Osteoarthritis Polyneuropathy Recurrent falls Social History Smoking Status: Former smoker Tobacco Type: Cigarettes Second Hand Exposure: No; Do You Dip or Chew Tobacco: No; Hx Alcohol Use: Yes Hx Substance Use: No Preferred Language: Malian Communication Ability: Effective 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 Beliefs That Will Affect Care: None Current Living Situation: Personal Care Facility Current Living Situation Comment: assisted living Feels Safe at Home: Yes Assistive Devices: Wheelchair Review of Systems Review of Systems: The patient denies chest pain, palpitations, lower extremity swelling, sore throat, fevers, chills, sweats, diarrhea , constipation, abdominal pain, pelvic pain, blood in urine or stool, dysuria, urinary frequency or urgency, loss of consciousness, rash, abnormal bruising or bleeding, focal or generalized weakness, numbness or tingling in arms or legs, generalized arthralgias or myalgias, back or neck pain, or night sweats. The review of systems is otherwise negative other than for that already noted above, and at least 10 systems have been reviewed. Results & Data Results & Data Vital Signs (Past 12 Hours) Vital Signs Temp Pulse Pulse Resp BP BP Pulse Ox 10/10/24 00:00 36.9 C 71 22 146/84 H 93 10/10/24 00:00 37.0 C 91 H 22 166/83 H 96 10/09/24 23:25 78 22 92 10/09/24 23:15 77 22 172/75 H 92 10/09/24 21:49 36.7 C 97 H 16 155/88 H 94 10/09/24 21:48 83 O2 Del Method O2 Flow Rate 10/10/24 00:00 Nasal Cannula 2 10/10/24 00:00 Nasal Cannula 2 10/09/24 23:25 Nasal Cannula 2 10/09/24 23:15 Nasal Cannula 2 10/09/24 21:49 Room Air 10/09/24 21:48 Laboratory Results Laboratory Results WBC 8.20 K/ul (4.8-10.8) 10/09/24 21:58 RBC 5.30 M/uL (4.20-5.40) 10/09/24 21:58 Hgb 16.6 g/dl (12.0-16.0) H 10/09/24 21:58 Hct 51.9 % (37.0-47.0) H 10/09/24 21:58 MCV 97.9 fL (80.0-100.0) 10/09/24 21:58 MCH 31.3 pg (25.0-34.0) 10/09/24 21:58 MCHC 32.0 g/dL (32.0-36.0) 10/09/24 21:58 RDW Std Deviation 54.1 fL (36.4-46.3) H 10/09/24 21:58 RDW Coeff of Norris 14.8 % (11.5-14.5) H 10/09/24 21:58 Plt Count 507 K/uL (130-400) H 10/09/24 21:58 MPV 8.8 fL (9.4-12.4) L 10/09/24 21:58 Immature Gran % (Auto) 0.4 % 10/09/24 21:58 Neut % (Auto) 86.4 % 10/09/24 21:58 Lymph % (Auto) 8.2 % 10/09/24 21:58 [place] % (Auto) 4.8 % 10/09/24 21:58 Eos % (Auto) 0.0 % 10/09/24 21:58 Baso % (Auto) 0.2 % 10/09/24 21:58 Neut # (Auto) 7.09 K/uL (1.40-6.50) H 10/09/24 21:58 Lymph # (Auto) 0.67 K/uL (1.20-3.40) L 10/09/24 21:58 [place] # (Auto) 0.39 K/uL (0.11-0.59) 10/09/24 21:58 Eos # (Auto) 0.00 K/uL (0.00-0.50) 10/09/24 21:58 Baso # (Auto) 0.02 K/uL (0.00-0.20) 10/09/24 21:58 Immature Gran # (Auto) 0.03 K/uL (0.01-0.20) 10/09/24 21:58 PT 10.9 Seconds (9.0-12.0) 10/09/24 21:58 INR 1.0 (0.9-1.1) 10/09/24 21:58 Sodium 140 mmol/L (136-145) 10/10/24 04:16 Potassium 4.5 mmol/L (3.5-5.1) 10/10/24 04:16 Chloride 109 mmol/L (98-107) H 10/10/24 04:16 Carbon Dioxide 23 mmol/L (21-32) 10/10/24 04:16 Anion Gap 8 (3-11) 10/10/24 04:16 BUN 33 mg/dl (6-23) H 10/10/24 04:16 Creatinine 1.96 mg/dl (0.6-1.2) H 10/10/24 04:16 Est Cr Clr Drug Dosing 24.7 ml/min 10/10/24 04:16 eGFR 24.62 10/10/24 04:16 BUN/Creatinine Ratio 16.8 (10-20) 10/10/24 04:16 Glucose 86 mg/dl (70-99(Fasting)) 10/10/24 04:16 Calcium 8.7 mg/dl (8.6-10.3) 10/10/24 04:16 Phosphorus 2.8 mg/dl (2.5-4.9) 10/10/24 04:16 Magnesium 2.2 mg/dl (1.7-2.4) 10/09/24 21:58 Total Bilirubin 0.7 mg/dl (0.2-1.0) 10/09/24 21:58 AST 15 U/L (13-39) 10/09/24 21:58 ALT 9 U/L (7-52) 10/09/24 21:58 Alkaline Phosphatase 77 U/L (34-104) 10/09/24 21:58 Troponin I High Sens 33.2 pg/ml (0-14) H 10/10/24 04:16 B-Natriuretic Peptide 401 pg/ml (0-100) H 10/09/24 21:58 Total Protein 7.4 gm/dl (6.0-8.3) 10/09/24 21:58 Albumin 3.6 gm/dl (3.4-5.0) 10/10/24 04:16 Globulin 3.8 gm/dl (2.5-4.0) 10/09/24 21:58 Albumin/Globulin Ratio 0.9 (0.9-2) 10/09/24 21:58 Lipase 67 U/L (11-82) 10/09/24 21:58 Urine Color Yellow 10/10/24 00:00 Urine Appearance Turbid (Clear) A 10/10/24 00:00 Urine pH 7.0 (4.5-7.5) 10/10/24 00:00 Ur Specific [place] 1.012 (1.000-1.030) 10/10/24 00:00 Urine Protein 2+ (Negative) H 10/10/24 00:00 Urine Glucose (UA) Negative (Negative) 10/10/24 00:00 Urine Ketones Negative (Negative) 10/10/24 00:00 Urine Blood 1+ (Negative) H 10/10/24 00:00 Urine Nitrite Positive (Negative) A 10/10/24 00:00 Urine Bilirubin Negative (Negative) 10/10/24 00:00 Urine Urobilinogen Negative (Negative) 10/10/24 00:00 Ur Leukocyte Esterase 3+ (Negative) H 10/10/24 00:00 Urine WBC (Auto) >50 /hpf (0-5) H 10/10/24 00:00 Urine RBC (Auto) 0-2 /hpf (0-2) 10/10/24 00:00 U Hyaline Cast (Auto) 3-5 /lpf (0-2) H 10/10/24 00:00 U Epithel Cells (Auto) 0-2 /hpf (0-2) 10/10/24 00:00 Urine Bacteria (Auto) 4+ (None Seen) H 10/10/24 00:00 Nasal Screen MRSA (PCR) Negative (Negative) 10/10/24 01:49 Adenovirus (PCR) Not Detected (NotDetected) 10/09/24 21:58 B. pertussis DNA (PCR) Not Detected (NotDetected) 10/09/24 21:58 B.parapertussis DNA PCR Not Detected (NotDetected) 10/09/24 21:58 C. pneumoniae DNA (PCR) Not Detected (NotDetected) 10/09/24 21:58 Coronavirus OC43 (PCR) Not Detected (NotDetected) 10/09/24 21:58 Coronavirus HKU1 (PCR) Not Detected (NotDetected) 10/09/24 21:58 Coronavirus 229E (PCR) Not Detected (NotDetected) 10/09/24 21:58 SARS-CoV-2 (PCR) Not Detected (NotDetected) 10/09/24 21:58 Coronavirus NL63 (PCR) Not Detected (NotDetected) 10/09/24 21:58 Human Metapneumovir PCR Not Detected (NotDetected) 10/09/24 21:58 Influenza Type A (PCR) Not Detected (NotDetected) 10/09/24 21:58 Influenza Type B (PCR) Not Detected (NotDetected) 10/09/24 21:58 M. pneumoniae (PCR) Not Detected (NotDetected) 10/09/24 21:58 Parainfluenza 1 (PCR) Not Detected (NotDetected) 10/09/24 21:58 Parainfluenza 2 (PCR) Not Detected (NotDetected) 10/09/24 21:58 Parainfluenza 3 (PCR) Not Detected (NotDetected) 10/09/24 21:58 Parainfluenza 4 (PCR) Not Detected (NotDetected) 10/09/24 21:58 RSV (PCR) Not Detected (NotDetected) 10/09/24 21:58 Entero/Rhino (PCR) Not Detected (NotDetected) 10/09/24 21:58 Impressions Chest X-Ray 10/09/24 22:03 Exam(s): XR CXR 1 VIEW EXAM: XR Chest, 1 View CLINICAL HISTORY: Reason for exam: Chest pain, nonspecific. TECHNIQUE: Frontal view of the chest. COMPARISON: 12/18/22 FINDINGS: Lungs: Central vascular congestion. Perihilar interstitial prominence. Bibasilar opacities, favoring atelectasis. Pleural space: Possible small right pleural effusion. No pneumothorax. Heart: Stable cardiac size. Bones/joints: Degenerative change of both shoulders. No acute osseous findings. IMPRESSION: 1. Central vascular congestion. Perihilar interstitial prominence. Findings raise the possibility of edema. 2. Bibasilar opacities, favoring atelectasis. Correlate clinically to exclude pneumonia. 3. Possible small right pleural effusion. Electronically signed by: Chiara Cameron M.D. 10/09/24 23:29 PM Abdomen/Pelvis CT 10/09/24 23:12 Exam(s): CT ABDOMEN + PELVIS Without Contrast EXAM: CT Abdomen and Pelvis Without Intravenous Contrast CLINICAL HISTORY: Reason for exam: vomiting. TECHNIQUE: Axial computed tomography images of the abdomen and pelvis without intravenous contrast. CTDI is 35 mGy and DLP is 1922 mGy-cm. Automated exposure control was utilized for the study. A dose lowering technique was utilized adhering to the principles of ALARA. COMPARISON: 11/11/22 FINDINGS: Lung bases: Bibasilar subsegmental atelectasis. Heart: Coronary artery atherosclerosis. ABDOMEN: Liver: Unremarkable. Gallbladder and bile ducts: Cholecystectomy. No ductal dilation. Pancreas: Unremarkable. No ductal dilation. Spleen: Absence of normal spleen. Small residual splenic tissue in the left upper quadrant. Appearance stable from prior. Adrenals: Unremarkable. No mass. Kidneys and ureters: Kidneys appear atrophic. No hydronephrosis or stones. Stomach and bowel: Diverticulosis without diverticulitis. No bowel obstruction. PELVIS: Appendix: Appendix not identified. No secondary signs of appendicitis. Bladder: Stable mild bladder wall thickening, likely chronic. No stones. Reproductive: Uterine fibroids. ABDOMEN and PELVIS: Intraperitoneal space: Unremarkable. No free air, significant free fluid, or fluid collection. Bones/joints: Lumbar spondylosis. Left hip hemiarthroplasty. No acute fracture or dislocation. Soft tissues: Unremarkable. Vasculature: Aortic atherosclerosis without aneurysm. Lymph nodes: Unremarkable. No enlarged lymph nodes. IMPRESSION: Stable mild bladder wall thickening, likely chronic. Correlate with urinalysis to exclude cystitis. Some fluid-filled loops of small bowel are favored incidental but could represent a nonspecific enteritis. Electronically signed by: Chiara Cameron M.D. 10/10/24 01:[address] 10/09/24 23:12 Exam(s): CT HEAD Without Contrast EXAM: CT Head Without Intravenous Contrast CLINICAL HISTORY: Reason for exam: weakness. TECHNIQUE: Axial computed tomography images of the head/brain without intravenous contrast. CTDI is 38 mGy and DLP is 624 mGy-cm. Automated exposure control was utilized for the study. A dose lowering technique was utilized adhering to the principles of ALARA. COMPARISON: 11/11/22 FINDINGS: Brain: Generalized parenchymal volume loss. Periventricular and deep cerebral white matter hypoattenuation suggesting chronic small vessel ischemic change. Chronic bilateral cerebellar infarcts. Chronic right frontal lobe infarcts. Chatman-white matter differentiation otherwise maintained. No hemorrhage, mass effect, parenchymal edema, or midline shift. Ventricles: Unremarkable. No hydrocephalus. Bones/joints: Unremarkable. No acute fracture. Soft tissues: Unremarkable. Vasculature: Intracranial atherosclerosis. Sinuses: Unremarkable as visualized. Mastoid air cells: Unremarkable as visualized. No mastoid effusion. Other findings: Lungs replacements. IMPRESSION: No acute intracranial process. Electronically signed by: Chiara Cameron M.D. 10/10/24 00:14 AM Code Status & VTE Plan Code Status DNR/DNI VTE Prophylaxis Plan VTE Prophylaxis will be ordered: Yes PG Care Time/CCT Total # of Minutes Spent Total Time Spent with Patient: Total time spent is greater than 50% in coordination of care (as documented) at patient's floor/unit and/or counseling patient: Coding Level of Care Code 14599 INT INP/OBS CARE 3/75MIN Diagnoses UTI due to extended-spectrum beta lactamase (ESBL) producing Escherichia coli N39.0; B96.29; Z16.12 Acute hypoxic respiratory failure J96.01 Enteritis K52.9 Acute confusion R41.0 Acute kidney injury superimposed on stage 4 chronic kidney disease N17.9; N18.4
[2024-10-10] MEDS: ALBUMIN 25% 25 GM/100 ML VIAL IV ONE (01:53)
[2024-10-10] MEDS ORDERED: ONDANSETRON INJ 2 MG/ML 2 ML VIAL IV PRN (03:21)
[2024-10-10] MEDS ORDERED: NON-FORMULARY MEDICATION (Acetaminophen 325 mg capsule) PO PRN (03:21)
[2024-10-10 05:17] LABS: Albumin Level 3.6 gm/dl (3.4-5.0); BUN Creatinine Ratio 16.8 (10-20); Calcium 8.7 mg/dl (8.6-10.3); Creatinine Clr Calc Pharmacy 24.7 ml/min; Phosphorus 2.8 mg/dl (2.5-4.9); Potassium 4.5 mmol/L (3.5-5.1)
[2024-10-10 05:24] LABS: Troponin I High Sensitivity 33.2 pg/ml (0-14)
[2024-10-10] MEDS: LEVOTHYROXINE SODIUM 50 MCG TABLET PO SCH (08:56)
[2024-10-10] MEDS: CLOPIDOGREL BISULFATE 75 MG TAB PO SCH (08:56)
[2024-10-10] MEDS: PARoxetine HCL 20 MG TAB PO SCH (08:56)
--- NOTE | 2024-10-10 10:15 | Hospitalist Progress Note ---
Date of Service October 10, 2024 Assessment & Plan (1) UTI due to extended-spectrum beta lactamase (ESBL) producing Escherichia coli: (2) Acute hypoxic respiratory failure: (3) Enteritis: (4) Acute confusion: (5) Acute kidney injury superimposed on stage 4 chronic kidney disease: Plan The patient is a 83-year-old female with a past medical history including ESBL E. coli UTI, severe sepsis, aspiration pneumonia, diastolic CHF, chronic urinary incontinence, severe CKD stage IV, depression, and ambulatory dysfunction. She reports symptoms as noted above with unexplained persistence of nausea and vomiting throughout the day. She denies any unusual food intake that may have led to this the previous days. She lives at [facility], and has not been any suggestion of other residents with similar symptoms. She was referred to the ED via cath at [facility], due to concerns regarding hypoxia, possible urinary tract infection, and or GI illness. The patient herself is somewhat confused, is not necessarily a good historian, and does not have any explanation for her symptoms #Confusion-contributing factors including but not limited to: UTI plus minus ESBL E. coli, enteritis, dehydration, acute kidney injury, acute respiratory failure with hypoxia, progression general debilitation and deconditioning #Acute urinary tract infection- - CT abdomen pelvis showed bladder wall thickening with possible cystitis - History of ESBL E. coli - Follow urine culture and sensitivity - Continue ertapenem 1 g IV every 24 hours begun in the ED - Status post 500 mL normal saline bolus from the ED #Acute kidney injury superimposed on CKD stage IV- - baseline Cr 2.04, on admission 2.23, trended down to 1.96 - Status post normal saline 500 mL bolus in the ED - Given additional normal saline at 80 mL/h x 500 mL - Repeat laboratories in the a.m. #Enteritis- #N/V - Patient had symptoms of 24 hours of vomiting with decreased oral intake, without diarrhea or abdominal pain - Unclear etiology at this time - Stool PCR not performed due to no diarrheal issue - currently on full liquid diet, advance as tolerated - Patient reports that her symptoms had significantly improved by the time she was evaluated in the ED - Would likely lead to dehydration and acute kidney injury #Elevated troponin history of diastolic CHF - Troponin initially 24.5 with follow-up 27.3 - Likely demand ischemia type II process - Chest x-ray unclear potential for mild edema - s/p IVF - Give Albumin 25 G IV and Follow Examination. Oxygenation did improve from 92 to 97% after addition of albumin and on 2 L nasal cannula #General deconditioning and debilitation- - need PT and OT prior to discharge back to [facility] CODE STATUS: DNR/DNI Admission and Anticipated Discharge Date Admission Date: October 10, 2024 Subjective Admitted overnight No acute events Currently no new complaints Review of Systems Review of Systems: Comprehensive ROS negative Physical Exam Physical Exam: Gen: NAD, lying in bed comfortable HEENT: NC/AT, MMM Lungs: CTAB CVS: s1s2 nl, RRR Abd: soft, NT, nl BS Ext: trace b/l LE edema Results & Data Results & Data Vital Signs (Past 12 Hours) Vital Signs Temp Pulse Pulse Resp BP BP Pulse Ox 10/10/24 07:08 74 10/10/24 07:00 10/10/24 07:00 15 10/10/24 06:19 65 18 153/76 H 97 10/10/24 05:00 63 24 128/73 95 10/10/24 04:00 68 24 138/69 93 10/10/24 03:30 83 24 159/71 H 93 10/10/24 03:00 64 22 152/72 H 93 10/10/24 02:00 77 24 163/96 H 92 10/10/24 01:45 74 10/10/24 01:38 70 23 155/72 H 97 10/10/24 00:00 36.9 C 71 22 146/84 H 93 10/10/24 00:00 37.0 C 91 H 22 166/83 H 96 10/09/24 23:25 78 22 92 10/09/24 23:15 77 22 172/75 H 92 O2 Del Method O2 Del Method O2 Flow Rate 10/10/24 07:08 10/10/24 07:00 Nasal Cannula 10/10/24 07:00 10/10/24 06:19 Nasal Cannula 2 10/10/24 05:00 Room Air 2 10/10/24 04:00 Nasal Cannula 2 10/10/24 03:30 Nasal Cannula 2 10/10/24 03:00 Nasal Cannula 2 10/10/24 02:00 Nasal Cannula 2 10/10/24 01:45 10/10/24 01:38 Nasal Cannula 2 10/10/24 00:00 Nasal Cannula 2 10/10/24 00:00 Nasal Cannula 2 10/09/24 23:25 Nasal Cannula 2 10/09/24 23:15 Nasal Cannula 2 PG Care Time/CCT Total # of Minutes Spent Total Time Spent with Patient: Total time spent is greater than 50% in coordination of care (as documented) at patient's floor/unit and/or counseling patient: Coding Level of Care Code 31785 SUB INP/OBS CARE 3/50MIN Diagnoses UTI due to extended-spectrum beta lactamase (ESBL) producing Escherichia coli N39.0; B96.29; Z16.12 Acute hypoxic respiratory failure J96.01 Enteritis K52.9 Acute confusion R41.0 Acute kidney injury superimposed on stage 4 chronic kidney disease N17.9; N18.4
[2024-10-10] MEDS: MIRTAZAPINE TAB 15 MG TAB PO SCH (21:10)
[2024-10-10] MEDS: GABAPENTIN 300 MG CAP PO SCH (21:10)
[2024-10-10] MEDS: ERTAPENEM 500MG 500 MG/5 ML SYR IV SCH (21:54)
--- NOTE | 2024-10-10 23:19 | Electrocardiogram Report ---
Test Reason : Blood Pressure : */* mmHG Vent. Rate : 84 BPM Atrial Rate : 84 BPM P-R Int : 144 ms QRS Dur : 120 ms QT Int : 406 ms P-R-T Axes : * 0 243 degrees QTcB Int : 479 ms Sinus rhythm with Premature atrial complexes Right bundle branch block Left ventricular hypertrophy with repolarization abnormality ( R in aVL ) Abnormal ECG When compared with ECG of 20-Dec-2022 08:30, Premature atrial complexes are now Present ST less depressed in Anterior leads Confirmed by Jl Goldman ([id number]) on 10/10/2024 11:19:37 PM Referred By: REFERRED SELF Confirmed By: Jl Goldman
[2024-10-11 06:46] LABS: Albumin Level 3.2 gm/dl (3.4-5.0); Calcium 8.5 mg/dl (8.6-10.3); Creatinine Clr Calc Pharmacy 25.8 ml/min; Magnesium 2.2 mg/dl (1.7-2.4); Phosphorus 3.7 mg/dl (2.5-4.9); Potassium 4.6 mmol/L (3.5-5.1)
[2024-10-11 07:41] LABS: Basophils # (auto) 0.04 K/uL (0.00-0.20); Basophils % (auto) 0.4 %; Eosinophils # (auto) 0.06 K/uL (0.00-0.50); Eosinophils % (auto) 0.7 %; Hematocrit (blood only) 45.4 % (37.0-47.0); Hemoglobin 14.5 g/dl (12.0-16.0); Immature Granulocytes # (auto) 0.02 K/uL (0.01-0.20); Immature Granulocytes % (auto) 0.2 %; Lymphocytes # (auto) 1.63 K/uL (1.20-3.40); Lymphocytes % (auto) 17.8 %; Mean Corpuscular Hemoglobin 31.9 pg (25.0-34.0); Mean Corpuscular Hgb Conc 31.9 g/dL (32.0-36.0); Mean Corpuscular Volume 99.8 fL (80.0-100.0); Monocytes # (auto) 1.35 K/uL (0.11-0.59); Monocytes % (auto) 14.8 %; Neutrophils # (auto) 6.04 K/uL (1.40-6.50); Neutrophils % (auto) 66.1 %; Platelet Count 421 K/uL (130-400); RDW Standard Deviation 56.2 fL (36.4-46.3); Red Blood Count 4.55 M/uL (4.20-5.40); White Blood Count 9.14 K/ul (4.8-10.8)
--- NOTE | 2024-10-11 09:13 | Hospitalist Progress Note ---
Date of Service October 11, 2024 Assessment & Plan (1) UTI due to extended-spectrum beta lactamase (ESBL) producing Escherichia coli: (2) Acute hypoxic respiratory failure: (3) Enteritis: (4) Acute confusion: (5) Acute kidney injury superimposed on stage 4 chronic kidney disease: Plan The patient is a 83-year-old female with a past medical history including ESBL E. coli UTI, severe sepsis, aspiration pneumonia, diastolic CHF, chronic urinary incontinence, severe CKD stage IV, depression, and ambulatory dysfunction. She reports symptoms as noted above with unexplained persistence of nausea and vomiting throughout the day. She denies any unusual food intake that may have led to this the previous days. She lives at [facility], and has not been any suggestion of other residents with similar symptoms. She was referred to the ED via cath at [facility], due to concerns regarding hypoxia, possible urinary tract infection, and or GI illness. The patient herself is somewhat confused, is not necessarily a good historian, and does not have any explanation for her symptoms #Confusion-contributing factors including but not limited to: UTI plus minus ESBL E. coli, enteritis, dehydration, acute kidney injury, acute respiratory failure with hypoxia, progression general debilitation and deconditioning #Acute urinary tract infection- - CT abdomen pelvis showed bladder wall thickening with possible cystitis - History of ESBL E. coli - UCx growing Citrobacter koseri, sensitivities pending - Continue ertapenem 1 g IV every 24 hours begun in the ED - Status post 500 mL normal saline bolus from the ED #Acute kidney injury superimposed on CKD stage IV- - baseline Cr 2.04, on admission 2.23, trended down to 1.96 - Status post normal saline 500 mL bolus in the ED - Given additional normal saline at 80 mL/h x 500 mL - trend at this time #Enteritis- #N/V - Patient had symptoms of 24 hours of vomiting with decreased oral intake, without diarrhea or abdominal pain - Unclear etiology at this time - Stool PCR not performed due to no diarrheal issue - heart healthy diet - Patient reports that her symptoms had significantly improved by the time she was evaluated in the ED - Would likely lead to dehydration and acute kidney injury #Elevated troponin history of diastolic CHF - Troponin initially 24.5 with follow-up 27.3 - Likely demand ischemia type II process - Chest x-ray unclear potential for mild edema - s/p IVF - Give Albumin 25 G IV and Follow Examination. Oxygenation did improve from 92 to 97% after addition of albumin and on 2 L nasal cannula #General deconditioning and debilitation- - need PT and OT prior to discharge back to [facility] CODE STATUS: DNR/DNI Admission and Anticipated Discharge Date Admission Date: October 10, 2024 Subjective No acute events overnight Currently no new complaints Review of Systems Review of Systems: Comprehensive ROS negative Physical Exam Physical Exam: Gen: NAD, lying in bed comfortable HEENT: NC/AT, MMM Lungs: CTAB CVS: s1s2 nl, RRR Abd: soft, NT, nl BS Ext: trace b/l LE edema Results & Data Results & Data Vital Signs (Past 12 Hours) Vital Signs Temp Pulse Pulse Resp BP Pulse Ox O2 Del Method 10/11/24 07:21 36.5 C 60 17 136/75 97 Nasal Cannula 10/11/24 07:18 Nasal Cannula 10/11/24 05:58 56 L 10/11/24 03:03 36.6 C 57 L 16 127/74 95 Nasal Cannula 10/10/24 22:49 36.8 C 64 18 147/77 H 94 Nasal Cannula 10/10/24 22:08 36.7 C 67 18 151/69 H 93 Nasal Cannula 10/10/24 21:49 163 H O2 Flow Rate 10/11/24 07:21 2 10/11/24 07:18 2 10/11/24 05:58 10/11/24 03:03 2 10/10/24 22:49 2 10/10/24 22:08 2 10/10/24 21:49 PG Care Time/CCT Total # of Minutes Spent Total Time Spent with Patient: Total time spent is greater than 50% in coordination of care (as documented) at patient's floor/unit and/or counseling patient: Coding Level of Care Code 13725 SUB INP/OBS CARE 2/35MIN Diagnoses UTI due to extended-spectrum beta lactamase (ESBL) producing Escherichia coli N39.0; B96.29; Z16.12 Acute hypoxic respiratory failure J96.01 Enteritis K52.9 Acute confusion R41.0 Acute kidney injury superimposed on stage 4 chronic kidney disease N17.9; N18.4
[2024-10-11] MEDS: ACETAMINOPHEN 325 MG TAB PO PRN (18:16)
[2024-10-11] MEDS: MICONAZOLE NITRATE POWDER 85 GM EXT SCH (21:35)
[2024-10-12 08:30] LABS: Basophils # (auto) 0.03 K/uL (0.00-0.20); Basophils % (auto) 0.4 %; Eosinophils # (auto) 0.11 K/uL (0.00-0.50); Eosinophils % (auto) 1.4 %; Hematocrit (blood only) 47.3 % (37.0-47.0); Hemoglobin 14.6 g/dl (12.0-16.0); Immature Granulocytes # (auto) 0.04 K/uL (0.01-0.20); Immature Granulocytes % (auto) 0.5 %; Lymphocytes # (auto) 1.12 K/uL (1.20-3.40); Lymphocytes % (auto) 14.5 %; Mean Corpuscular Hemoglobin 31.2 pg (25.0-34.0); Mean Corpuscular Hgb Conc 30.9 g/dL (32.0-36.0); Mean Corpuscular Volume 101.1 fL (80.0-100.0); Mean Platelet Volume 9.2 fL (9.4-12.4); Monocytes # (auto) 0.91 K/uL (0.11-0.59); Monocytes % (auto) 11.8 %; Neutrophils # (auto) 5.49 K/uL (1.40-6.50); Neutrophils % (auto) 71.4 %; Platelet Count 415 K/uL (130-400); RDW Standard Deviation 56.6 fL (36.4-46.3); Red Blood Count 4.68 M/uL (4.20-5.40)
[2024-10-12 08:56] LABS: Albumin Level 3.2 gm/dl (3.4-5.0); BUN Creatinine Ratio 16.8 (10-20); Calcium 8.6 mg/dl (8.6-10.3); Creatinine Clr Calc Pharmacy 23.9 ml/min; Magnesium 2.3 mg/dl (1.7-2.4); Phosphorus 4.5 mg/dl (2.5-4.9); Potassium 4.5 mmol/L (3.5-5.1)
[2024-10-12 11:25] VITALS: RESP 18
--- NOTE | 2024-10-12 13:59 | Discharge Summary ---
Discharge Summary Date of Service October 12, 2024 Principal Dx & Hospital Course #1 = Principal Diagnosis (1) UTI due to extended-spectrum beta lactamase (ESBL) producing Escherichia coli: (2) Acute hypoxic respiratory failure: (3) Enteritis: (4) Acute confusion: (5) Acute kidney injury superimposed on stage 4 chronic kidney disease: Plan The patient is a 83-year-old female with a past medical history including ESBL E. coli UTI, severe sepsis, aspiration pneumonia, diastolic CHF, chronic urinary incontinence, severe CKD stage IV, depression, and ambulatory dysfunction. She reports symptoms as noted above with unexplained persistence of nausea and vomiting throughout the day. She denies any unusual food intake that may have led to this the previous days. She lives at [facility], and has not been any suggestion of other residents with similar symptoms. She was referred to the ED via cath at [facility], due to concerns regarding hypoxia, possible urinary tract infection, and or GI illness. The patient herself is somewhat confused, is not necessarily a good historian, and does not have any explanation for her symptoms #Confusion- resolved -contributing factors including but not limited to: UTI plus minus ESBL E. coli, enteritis, dehydration, acute kidney injury, acute respiratory failure with hypoxia, progression general debilitation and deconditioning #Acute urinary tract infection- - CT abdomen pelvis showed bladder wall thickening with possible cystitis - History of ESBL E. coli - UCx growing Citrobacter koseri, sens to cephalosporins - s/p 3 doses of ertapenem, complete course with Cefdinir 300mg BID x2 more days - Status post 500 mL normal saline bolus from the ED #Acute kidney injury superimposed on CKD stage IV- - baseline Cr 2.04, on admission 2.23, trended down to 1.96 - Status post normal saline 500 mL bolus in the ED - Given additional normal saline at 80 mL/h x 500 mL - trend at this time #Enteritis- #N/V - Patient had symptoms of 24 hours of vomiting with decreased oral intake, without diarrhea or abdominal pain - Unclear etiology at this time - Stool PCR not performed due to no diarrheal issue - heart healthy diet - Patient reports that her symptoms had significantly improved by the time she was evaluated in the ED - Would likely lead to dehydration and acute kidney injury #Elevated troponin history of diastolic CHF - Troponin initially 24.5 with follow-up 27.3 - Likely demand ischemia type II process - Chest x-ray unclear potential for mild edema - s/p IVF - Give Albumin 25 G IV and Follow Examination. Oxygenation did improve from 92 to 97% after addition of albumin and on 2 L nasal cannula #General deconditioning and debilitation- - pt has PT / OT at [facility] and does not need PT / OT eval to return CODE STATUS: DNR/DNI 10/12: pt's son updated Admission HPI Per Admitting Provider The patient is a 83-year-old female with a past medical history including ESBL E. coli UTI, severe sepsis, aspiration pneumonia, diastolic CHF, chronic urinary incontinence, severe CKD stage IV, depression, and ambulatory dysfunction. She reports symptoms as noted above with unexplained persistence of nausea and vomiting throughout the day. She denies any unusual food intake that may have led to this the previous days. She lives at [facility], and has not been any suggestion of other residents with similar symptoms. She was referred to the ED via cath at [facility], due to concerns regarding hypoxia, possible urinary tract infection, and or GI illness. The patient herself is somewhat confused, is not necessarily a good historian, and does not have any explanation for her symptoms Discharge Exam Gen: NAD, lying in bed comfortable HEENT: NC/AT, MMM Lungs: CTAB CVS: s1s2 nl, RRR Abd: soft, NT, nl BS Ext: trace b/l LE edema Discharge Plan Discharge Items Patient Disposition: Personal Alf Reason For Visit: UTI, HYPOXIA, WEAKNESS, ENTERITIS Discharge Diagnosis: UTI Activity: Resume your previous activity Non-emergency contact: Primary Care Provider Call non-emergency contact if: you have any medication questions and your symptoms worsen Follow-up/Referrals: [facility] [Primary Care Provider] - Diet: Heart Healthy Addtl Attending Provider Instructions: 1. Complete antibiotic course as prescribed 2. Follow up with PCP in 7 to 10 days 3. Outpatient evaluation of sleep apnea Pending Studies at Discharge: No Stand-Alone Forms: [email or web address], Smoking Cessation Skilled Items Patient informed of condition?: Yes DNR: Yes Discharge Level of Care: Other Communicable Disease: No Discharge Prognosis: Stable Lines: None Urinary Catheter: No Medications and DC Order Prescriptions: New cefdinir 300 mg Capsule 300 mg PO BID 2 Days Qty: 4 0RF Continued clopidogrel 75 mg tablet 75 mg PO QAM paroxetine HCl 20 mg tablet 20 mg PO QAM acetaminophen 325 mg capsule 650 mg PO Q4H MDD 3g PRN (Reason: Pain) bumetanide 1 mg tablet 1 mg PO [id number] Rx Instructions: take daily on MON/WED/FRI mirtazapine 7.5 mg tablet 7.5 mg PO HS gabapentin 300 mg capsule 300 mg PO .DAILY 2000 nystatin 100,000 unit/gram powder 1 applic TOPICAL Q8 levothyroxine 50 mcg capsule 50 mcg PO DAILYBB Qty: 30 0RF Discharge Orders: Discharge Order (Routine); Ordered 10/12/24 Ordered By: Lisa Hernandez Admission Data Admit Date/Time: 10/10/24 01:41 Attending Provider: Lisa Hernandez Admit Provider: Stephen Sam Primary Care Provider: Tawanna LozanoGustine Other Providers: Stephen Sam Hospital Stay Data Consultations 10/10/24 00:27 ED Decision to Admit Stat Diagnostic Imagining Performed 10/09/24 23:12 CT Abdomen and Pelvis [CT abd pelvis wo con] Stat CT head/brain wo con Stat Discharge Instructions Given to Patient (Per Discharging Provider) 1. Complete antibiotic course as prescribed 2. Follow up with PCP in 7 to 10 days 3. Outpatient evaluation of sleep apnea Total Time Total Time Spent Total Time Spent (In Minutes): 50 Coding Level of Care Code 43792 INP/OBS DISCH >30 MIN Diagnoses UTI due to extended-spectrum beta lactamase (ESBL) producing Escherichia coli N39.0; B96.29; Z16.12 Acute hypoxic respiratory failure J96.01 Enteritis K52.9 Acute confusion R41.0 Acute kidney injury superimposed on stage 4 chronic kidney disease N17.9; N18.4
[2024-10-12 16:07] VITALS: BP 146/75; PULSE 65; TEMP 97.9; O2SAT 92
[2024-10-12] MEDS ORDERED: CEFDINIR 300 MG CAP PO SCH (21:00)
== END 2024-10-12 17:07 | disposition home or self-care (01) ==
LOC: EDINP 21:41 → ED 21:41 → SUATTDRO 10-10 01:41 → 2W 10-10 03:21

== ENCOUNTER 2024-11-07 06:48 | Inpatient (IN) ==
--- NOTE | 2024-11-07 07:02 | Emergency Department Note ---
Impression & Plan Stroke-like symptoms, Facial droop, Left arm weakness ED Provider Note NAME: LAVINIA BAILON AGE: 83 SEX: F : 1940 ARRIVES VIA: Ambulance INFORMANT: Patient ED PROVIDER(S): Xander Arizmendi DO CHIEF COMPLAINT: Left-sided facial droop and left arm weakness HPI: Patient is an 83-year-old female who presents to the ER with a past medical history of CHF, UTI, hypoxia for left-sided arm weakness and facial droop. Symptoms started somewhere before 8 PM last night per the patient. Per report from EMS staff they do not know whether this has been longer than 24 hours or 48 hours. Patient notes that she does have left arm weakness and is having trouble talking. History is otherwise limited. Did call and discussed with the facility and they noted that around 1130 last night patient was discovered to have the symptoms. They called the son and he did not want her transferred at that time. ADDITIONAL HISTORY OBTAINED: Per HPI Chronic Medical/Social Conditions Affecting Care: Per HPI PAST MEDICAL HISTORY:See Below PAST SURGICAL HISTORY:See Below FAMILY HISTORY:See Below SOCIAL HISTORY:See Below HOME MEDICATIONS:See Below ALLERGIES:See Below VITALS:See Below PHYSICAL EXAMINATION: GENERAL: Sitting up in bed, alert, well appearing, well nourished, no distress, non-toxic EYE EXAM: normal conjunctiva. PERRL and EOM's grossly intact. OROPHARYNX: no exudate, no erythema, lips, buccal mucosa, and tongue normal and mucous membranes are moist NECK: supple, no nuchal rigidity, no adenopathy, non-tender LUNGS: Clear to auscultation. Normal chest wall mechanics HEART: no murmurs, S1 normal and S2 normal ABDOMEN: abdomen soft, non-tender, normo-active bowel sounds, no masses, no rebound or guarding. BACK: Back is symmetrical on inspection and there is no deformity, no midline tenderness, no CVA tenderness. SKIN: no rashes and no bruising UPPER EXTREMITIES: upper extremities are grossly normal. LOWER EXTREMITIES: No pitting edema. NEURO EXAM: Awake and alert oriented to person place, cranial nerves II through XII with a left-sided facial droop and slurred/garbled speech, weakness of the left upper extremity. No obvious weakness in right upper. Strength in the bilateral lower extremities appear to be symmetric. MEDICAL DECISION MAKING: Patient is an 83-year-old female who presents ER for the above-stated complaint. IV was established and blood work was obtained. Upon arrival last known well was difficult ascertain but stroke alert was eventually called. Labs show no significant leukocytosis or anemia. INR unremarkable. BMP with a creatinine of 2 fairly consistent with previous. LFTs bilirubin was unremarkable. Troponin was slightly elevated. UA resulted after admission did show UTI. discussed with Katty at [facility] and is felt as though her last known well was last night around 11:30 PM when this was noticed. She was not transported at the time his family wanted to hold off on transportation. Viral panel was negative. CT of the head was unremarkable. Discussed with telestroke and they recommend admission and further workup. Chest x-ray was clean. Consults/Care Managements Discussions: Per [facility] Triage Nursing notes reviewed. Limited review of prior medical records performed Vital Signs: reviewed and remarkable for no significant abnormalities Differential diagnosis: Differential Diagnosis includes but is not limited to ischemic Stroke, hemorrhagic stroke, bells palsy, mass, neoplasm, migraine headache, seizure, subarachnoid hemorrhage, TIA, and transient global amnesia. ER treatment provided: See below Diagnostics interpreted by me include EKG and cardiac monitoring as listed below: -Cardiac Monitoring: An order was placed for continuous cardiac monitoring. The monitor shows a rate of 70 with Sinus rhythm. -ECG: Sinus rhythm rate of 67 Right bundle branch block T wave inversions V1 through V6 QTc 483 -Laboratory studies:Interpreted by me as stated above in MDM and shown below. Imaging studies: Xrays: As interpreted by me: Portable AP upright 1 view of the chest shows no focal infiltrate CTs show: CT head shows no acute pathology Procedures:none Critical Care: None Past Med/Surg History Problem List (Updated 11/07/24 @ 12:27 by Xander Arizmendi DO) Left arm weakness (Acute) Facial droop (Acute) Stroke-like symptoms (Acute) Enteritis Acute kidney injury superimposed on stage 4 chronic kidney disease UTI due to extended-spectrum beta lactamase (ESBL) producing Escherichia coli Acute UTI (urinary tract infection) (Acute) Elevated brain natriuretic peptide (BNP) level (Acute) Acute exacerbation of CHF (congestive heart failure) (Acute) Acute hypoxic respiratory failure (Acute) Elevated troponin (Acute) Generalized weakness (Acute) Severe sepsis (Acute) Acute UTI (urinary tract infection) (Acute) Elevated troponin (Acute) Aspiration pneumonia (Acute) Acute confusion (Acute) Lactic acidosis (Acute) Elevated troponin Sepsis Acute UTI (Acute) Hypoxia (Acute) Confusion (Acute) Hypercalcemia Acute alteration in mental status (Acute) PAMELA (acute kidney injury) (Acute) Elevated WBC count (Acute) Acute UTI (urinary tract infection) (Acute) Hypoxia (Acute) Diastolic CHF (Acute) Hypercalcemia Macrocytosis UTI (urinary tract infection) Pneumonia (Acute) SIRS (systemic inflammatory response syndrome) (Acute) Urinary incontinence Polyneuropathy Hyperlipidemia Osteoarthritis Hypothyroidism Ambulatory dysfunction Depression Chronic kidney disease, stage 4 (severe) (Chronic) Medical History Abnormal EKG Ambulatory dysfunction Chronic kidney disease, stage 4 (severe) GI bleed Hyperlipidemia Hypothyroidism Osteoarthritis Polyneuropathy Recurrent falls Social History Smoking Status: Never smoker Tobacco Type: Cigarettes Second Hand Exposure: No; Do You Dip or Chew Tobacco: No; Hx Alcohol Use: No Hx Substance Use: No Preferred Language: Swedish Communication Ability: Impaired Solutions Specialist Required: No Beliefs That Will Affect Care: None Current Living Situation: Detention Current Living Situation Comment: assisted living Feels Safe at Home: Yes Assistive Devices: Wheelchair Allergies Allergies Allergy/AdvReac Type Severity Reaction Status Date / Time iodine Allergy Unknown Unknown Verified 10/10/24 09:16 NSAIDS (Non-Steroidal Allergy Unknown Unknown Verified 10/10/24 09:16 Anti-Inflamma tositumomab iodine-131 Allergy Unknown Unknown Unverified 10/10/24 09:16 Penicillins Allergy Unknown Verified 10/10/24 09:16 Home Meds Home Medications Medication Instructions Recorded Confirmed acetaminophen 325 mg capsule 650 mg PO Q4H PRN Pain 10/22/19 11/07/24 clopidogrel 75 mg tablet 75 mg PO QAM 10/22/19 11/07/24 paroxetine HCl 20 mg tablet 20 mg PO QAM 10/22/19 11/07/24 bumetanide 1 mg tablet 1 mg PO 3XWK 08/16/22 11/07/24 gabapentin 300 mg capsule 300 mg PO HS 09/12/22 11/07/24 mirtazapine 7.5 mg tablet 7.5 mg PO HS 09/12/22 11/07/24 nystatin 100,000 unit/gram topical 1 applic topical TID PRN Rash 03/20/23 11/07/24 powder Previous Rx's Medication Instructions Recorded levothyroxine 50 mcg capsule 50 mcg PO DAILYBB #30 caps 11/19/22 Results & Data (ED) Vital Signs Vital Signs - 24 hr 11/07/24 07:00 11/07/24 07:01 11/07/24 07:01 Temperature 36.7 C Temperature Source Oral Pulse Rate 68 Pulse Rate from SpO2 Sensor Respiratory Rate 14 Blood Pressure 158/72 H 157/78 H Blood Pressure Mean 120 104 Pulse Oximetry 94 89 L Oxygen Delivery Method Nasal Cannula Nasal Cannula Oxygen Flow Rate 3 Sepsis New/Unexplained Change in Mental Status No Sepsis Action Taken by Nursing No Action Required Oxygen Flow Rate - Titration 3 Pulse Oximetry Post Tiitration 94 11/07/24 07:15 11/07/24 07:27 11/07/24 07:27 Temperature Temperature Source Pulse Rate 64 Pulse Rate from SpO2 Sensor 64 Respiratory Rate 18 Blood Pressure 151/70 H 151/70 H Blood Pressure Mean 114 114 Pulse Oximetry 95 Oxygen Delivery Method Nasal Cannula Oxygen Flow Rate 3 Sepsis New/Unexplained Change in Mental Status Sepsis Action Taken by Nursing Oxygen Flow Rate - Titration Pulse Oximetry Post Tiitration 11/07/24 07:27 11/07/24 07:30 11/07/24 07:48 Temperature Temperature Source Pulse Rate 61 63 Pulse Rate from SpO2 Sensor 61 Respiratory Rate 20 20 Blood Pressure 147/67 H Blood Pressure Mean 112 Pulse Oximetry 94 93 Oxygen Delivery Method Nasal Cannula Nasal Cannula Oxygen Flow Rate 3 3 Sepsis New/Unexplained Change in Mental Status Sepsis Action Taken by Nursing Oxygen Flow Rate - Titration Pulse Oximetry Post Tiitration 11/07/24 07:48 11/07/24 07:48 11/07/24 08:00 Temperature Temperature Source Pulse Rate 58 L Pulse Rate from SpO2 Sensor 58 L Respiratory Rate 17 Blood Pressure 154/79 H 154/79 H Blood Pressure Mean 123 123 Pulse Oximetry 93 Oxygen Delivery Method Nasal Cannula Oxygen Flow Rate 3 Sepsis New/Unexplained Change in Mental Status Sepsis Action Taken by Nursing Oxygen Flow Rate - Titration Pulse Oximetry Post Tiitration 11/07/24 08:00 11/07/24 08:13 11/07/24 08:18 Temperature Temperature Source Pulse Rate 63 61 Pulse Rate from SpO2 Sensor 61 Respiratory Rate 21 Blood Pressure 143/72 H Blood Pressure Mean 113 Pulse Oximetry 97 Oxygen Delivery Method Nasal Cannula Oxygen Flow Rate Sepsis New/Unexplained Change in Mental Status Sepsis Action Taken by Nursing Oxygen Flow Rate - Titration Pulse Oximetry Post Tiitration 11/07/24 08:27 11/07/24 08:30 11/07/24 08:33 Temperature Temperature Source Pulse Rate 60 60 Pulse Rate from SpO2 Sensor 60 60 Respiratory Rate 23 24 Blood Pressure 146/77 H Blood Pressure Mean 91 Pulse Oximetry 95 96 Oxygen Delivery Method Nasal Cannula Nasal Cannula Oxygen Flow Rate 3 Sepsis New/Unexplained Change in Mental Status Sepsis Action Taken by Nursing Oxygen Flow Rate - Titration Pulse Oximetry Post Tiitration 11/07/24 08:51 11/07/24 08:57 11/07/24 09:00 Temperature Temperature Source Pulse Rate 64 56 L Pulse Rate from SpO2 Sensor 62 56 L Respiratory Rate 20 17 Blood Pressure 148/70 H Blood Pressure Mean 86 Pulse Oximetry 95 95 Oxygen Delivery Method Nasal Cannula Nasal Cannula Oxygen Flow Rate 3 3 Sepsis New/Unexplained Change in Mental Status Sepsis Action Taken by Nursing Oxygen Flow Rate - Titration Pulse Oximetry Post Tiitration Laboratory Data 11/07/24 06:53 11/07/24 06:53 Lab Results 11/07/24 11/07/24 11/07/24 Range/Units 06:53 06:57 07:58 WBC 7.27 (4.8-10.8) K/ul RBC 4.76 (4.20-5.40) M/uL Hgb 15.0 (12.0-16.0) g/dl Hct 46.1 (37.0-47.0) % MCV 96.8 (80.0-100.0) fL MCH 31.5 (25.0-34.0) pg MCHC 32.5 (32.0-36.0) g/dL RDW Std Deviation 53.5 H (36.4-46.3) fL RDW Coeff of Norris 14.9 H (11.5-14.5) % Plt Count 498 H (130-400) K/uL MPV 8.8 L (9.4-12.4) fL Immature Gran % (Auto) 0.3 % Neut % (Auto) 59.9 % Lymph % (Auto) 22.0 % Emmet % (Auto) 12.9 % Eos % (Auto) 3.9 % Baso % (Auto) 1.0 % Neut # (Auto) 4.36 (1.40-6.50) K/uL Lymph # (Auto) 1.60 (1.20-3.40) K/uL Emmet # (Auto) 0.94 H (0.11-0.59) K/uL Eos # (Auto) 0.28 (0.00-0.50) K/uL Baso # (Auto) 0.07 (0.00-0.20) K/uL Immature Gran # (Auto) 0.02 (0.01-0.20) K/uL PT 10.2 (9.0-12.0) Seconds INR 0.9 (0.9-1.1) APTT 26 (21-31) Seconds PTT Ratio 1.0 Sodium 142 (136-145) mmol/L Potassium 4.6 (3.5-5.1) mmol/L Chloride 110 H (98-107) mmol/L Carbon Dioxide 28 (21-32) mmol/L Anion Gap 4 (3-11) BUN 25 H (6-23) mg/dl Creatinine 2.00 H (0.6-1.2) mg/dl Est Cr Clr Drug Dosing Not Reportable eGFR 24.03 BUN/Creatinine Ratio 12.5 (10-20) Glucose 86 (70-99(Fasting)) mg/dl POC Glucose 83 (70-99) mg/dl Calcium 9.4 (8.6-10.3) mg/dl Magnesium 2.3 (1.7-2.4) mg/dl Total Bilirubin 0.5 (0.2-1.0) mg/dl AST 12 L (13-39) U/L ALT 7 (7-52) U/L Alkaline Phosphatase 74 (34-104) U/L Troponin I High Sens 20.7 H (0-14) pg/ml Total Protein 6.5 (6.0-8.3) gm/dl Albumin 3.2 L (3.4-5.0) gm/dl Globulin 3.3 (2.5-4.0) gm/dl Albumin/Globulin Ratio 1.0 (0.9-2) Adenovirus (PCR) (NotDetected) B. pertussis DNA (PCR) (NotDetected) B.parapertussis DNA PCR (NotDetected) C. pneumoniae DNA (PCR) (NotDetected) Coronavirus OC43 (PCR) (NotDetected) Coronavirus HKU1 (PCR) (NotDetected) Coronavirus 229E (PCR) (NotDetected) SARS-CoV-2 (PCR) (NotDetected) Coronavirus NL63 (PCR) (NotDetected) Human Metapneumovir PCR (NotDetected) Influenza Type A (PCR) (NotDetected) Influenza Type B (PCR) (NotDetected) M. pneumoniae (PCR) (NotDetected) Parainfluenza 1 (PCR) (NotDetected) Parainfluenza 2 (PCR) (NotDetected) Parainfluenza 3 (PCR) (NotDetected) Parainfluenza 4 (PCR) (NotDetected) RSV (PCR) (NotDetected) Entero/Rhino (PCR) (NotDetected) SARS-CoV-2, RNA, NAAT NEGATIVE (NEGATIVE) 11/07/24 11/07/24 Range/Units 08:56 08:58 WBC (4.8-10.8) K/ul RBC (4.20-5.40) M/uL Hgb (12.0-16.0) g/dl Hct (37.0-47.0) % MCV (80.0-100.0) fL MCH (25.0-34.0) pg MCHC (32.0-36.0) g/dL RDW Std Deviation (36.4-46.3) fL RDW Coeff of Norris (11.5-14.5) % Plt Count (130-400) K/uL MPV (9.4-12.4) fL Immature Gran % (Auto) % Neut % (Auto) % Lymph % (Auto) % Emmet % (Auto) % Eos % (Auto) % Baso % (Auto) % Neut # (Auto) (1.40-6.50) K/uL Lymph # (Auto) (1.20-3.40) K/uL Emmet # (Auto) (0.11-0.59) K/uL Eos # (Auto) (0.00-0.50) K/uL Baso # (Auto) (0.00-0.20) K/uL Immature Gran # (Auto) (0.01-0.20) K/uL PT (9.0-12.0) Seconds INR (0.9-1.1) APTT (21-31) Seconds PTT Ratio Sodium (136-145) mmol/L Potassium (3.5-5.1) mmol/L Chloride (98-107) mmol/L Carbon Dioxide (21-32) mmol/L Anion Gap (3-11) BUN (6-23) mg/dl Creatinine (0.6-1.2) mg/dl Est Cr Clr Drug Dosing eGFR BUN/Creatinine Ratio (10-20) Glucose (70-99(Fasting)) mg/dl POC Glucose (70-99) mg/dl Calcium (8.6-10.3) mg/dl Magnesium (1.7-2.4) mg/dl Total Bilirubin (0.2-1.0) mg/dl AST (13-39) U/L ALT (7-52) U/L Alkaline Phosphatase (34-104) U/L Troponin I High Sens 15.7 H D (0-14) pg/ml Total Protein (6.0-8.3) gm/dl Albumin (3.4-5.0) gm/dl Globulin (2.5-4.0) gm/dl Albumin/Globulin Ratio (0.9-2) Adenovirus (PCR) Not Detected (NotDetected) B. pertussis DNA (PCR) Not Detected (NotDetected) B.parapertussis DNA PCR Not Detected (NotDetected) C. pneumoniae DNA (PCR) Not Detected (NotDetected) Coronavirus OC43 (PCR) Not Detected (NotDetected) Coronavirus HKU1 (PCR) Not Detected (NotDetected) Coronavirus 229E (PCR) Not Detected (NotDetected) SARS-CoV-2 (PCR) Not Detected (NotDetected) Coronavirus NL63 (PCR) Not Detected (NotDetected) Human Metapneumovir PCR Not Detected (NotDetected) Influenza Type A (PCR) Not Detected (NotDetected) Influenza Type B (PCR) Not Detected (NotDetected) M. pneumoniae (PCR) Not Detected (NotDetected) Parainfluenza 1 (PCR) Not Detected (NotDetected) Parainfluenza 2 (PCR) Not Detected (NotDetected) Parainfluenza 3 (PCR) Not Detected (NotDetected) Parainfluenza 4 (PCR) Not Detected (NotDetected) RSV (PCR) Not Detected (NotDetected) Entero/Rhino (PCR) Not Detected (NotDetected) SARS-CoV-2, RNA, NAAT (NEGATIVE) Administered Medications Atorvastatin Calcium (Atorvastatin 40 Mg Tab) [facility] [place] 12/07/24 10:29 Last Admin: 11/07/24 11:08 Dose: Not Given Documented By: MARIELENA Clopidogrel Bisulfate (Clopidogrel Bisulfate 75 Mg Tab) 75 [facility] [place] [place]: 12/07/24 10:29 Last Admin: 11/07/24 11:08 Dose: Not Given Documented By: MARIELENA Discontinued Medications Aspirin (Aspirin 81 Mg Chew) 324 mg PO NOW STA Stop: 11/07/24 08:32 Last Admin: 11/07/24 08:37 Dose: Not Given Documented By: MARY Aspirin (Aspirin 300 Mg Supp) 300 mg VT ONE ONE Stop: 11/07/24 08:46 Last Admin: 11/07/24 08:59 Dose: 300 mg Documented By: MARY Pantoprazole Sodium (Protonix) 40 mg in 10 mls @ 5 mls/min IV NOW ONE Stop: 11/07/24 10:31 Last Admin: 11/07/24 11:52 Dose: 5 mls/min Documented By: MARIELENA Ceftriaxone Sodium (Rocephin) 2,000 mg in 50 mls @ 100 mls/hr IV Q24H [facility] Stop: 11/12/24 10:59 Last Admin: 11/07/24 11:08 Dose: Not Given Documented By: MARIELENA Imaging Data Radiologist's Impression: Head CT 11/07/24 07:00 EXAM: CT head/brain wo con CLINICAL HISTORY: neuro deficit, acute stroke suspected. TECHNIQUE: An axial non-contrast CT scan of the brain was performed from the skull base to the high parietal region. Sagittal and coronal reformatted images were performed. One of the following dose reduction techniques were utilized for this exam: Automated exposure control, adjustment of the mA and/or kV according to patient size, and use of iterative reconstruction. COMPARISON: 10/09/2024. FINDINGS: Right high parietal cortical and subcortical patchy hypodense area (unchanged). Left cerebellar patchy area of hypodensity measuring 12x7 mm (unchanged). No intracerebral or extra axial hematoma. Pontine and bilateral basal ganlia tiny calcfic foci (unchanged). The rest of the solares-white matter differentiation is maintained. There are ill-defined hypodense areas noted in the periventricular and subcortical white matter bilaterally, suggestive of chronic microvascular ischemic changes. The ventricular system, cortical sulci, and basal cisterns are prominent and consistent with senile changes. No midline shift or deformity. Normal CT appearance of other posterior fossa structures. No definite calvarium fractures. The osseous structures in the skull base are unremarkable. The scanned paranasal sinuses are clear. IMPRESSION: 1. No evidence of acute intracranial abnormality could be identified. However, the possibility of acute ischemic infarction cannot be entirely excluded, would recommend MRI brain with DWI/ADC sequences for further evaluation if clinically indicated. 2. Right high parietal and left cerebellar patchy areas of hypodensity. 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 3. Senile and chronic microvascular ischemic brain changes. 4. No significant interval changes. Electronically signed by Pooja Ramirez 11-07-2024 07:48 AM Chest X-Ray 11/07/24 07:07 XR chest 1V portable CLINICAL HISTORY: cva COMPARISON STUDY: 10/09/2024 FINDINGS: The radiographic findings are stable. There is no definite evidence of an acute cardiopulmonary process. No evidence of aspiration. Mild cardiomegaly and pulmonary vascular congestion are persistent. Increased interstitial densities in the left lung base most likely fibrotic. Severe degenerative changes at the glenohumeral joints bilaterally. IMPRESSION: Stable exam; no acute process identified. ACT 112: Negative or not required by law. Electronically signed by: Samantha Villalpando M.D. 11/07/2024 8:33 AM Discharge Plan Visit Data Chief Complaint: Neuro Symptoms/Deficit Stated Complaint: STROKE SX X24-48 HOURS ED Provider: Xander Arizmendi Discharge Problem: Stroke-like symptoms, Facial droop, Left arm weakness Patient Disposition: Admitted As Inpatient Discharge Instructions Interventions: ED Discharge Assessment Last Done: 11/07/24 09:40
[2024-11-07 07:14] LABS: Basophils # (auto) 0.07 K/uL (0.00-0.20); Eosinophils # (auto) 0.28 K/uL (0.00-0.50); Eosinophils % (auto) 3.9 %; Hematocrit (blood only) 46.1 % (37.0-47.0); Immature Granulocytes # (auto) 0.02 K/uL (0.01-0.20); Immature Granulocytes % (auto) 0.3 %; Mean Corpuscular Hemoglobin 31.5 pg (25.0-34.0); Mean Corpuscular Hgb Conc 32.5 g/dL (32.0-36.0); Mean Corpuscular Volume 96.8 fL (80.0-100.0); Mean Platelet Volume 8.8 fL (9.4-12.4); Monocytes # (auto) 0.94 K/uL (0.11-0.59); Monocytes % (auto) 12.9 %; Neutrophils # (auto) 4.36 K/uL (1.40-6.50); Neutrophils % (auto) 59.9 %; Platelet Count 498 K/uL (130-400); RDW Coefficient of Variation 14.9 % (11.5-14.5); RDW Standard Deviation 53.5 fL (36.4-46.3); Red Blood Count 4.76 M/uL (4.20-5.40); White Blood Count 7.27 K/ul (4.8-10.8)
[2024-11-07 07:33] LABS: Alanine Aminotransferase 7 U/L (7-52); Albumin Level 3.2 gm/dl (3.4-5.0); Alkaline Phosphatase 74 U/L (34-104); Anion Gap 4 (3-11); Aspartate Aminotransferase 12 U/L (13-39); BUN Creatinine Ratio 12.5 (10-20); Bilirubin,Total 0.5 mg/dl (0.2-1.0); Blood Urea Nitrogen 25 mg/dl (6-23); Calcium 9.4 mg/dl (8.6-10.3); Carbon Dioxide 28 mmol/L (21-32); Chloride 110 mmol/L (98-107); Globulin 3.3 gm/dl (2.5-4.0); Glucose 86 mg/dl (70-99(Fasting)); Magnesium 2.3 mg/dl (1.7-2.4); Potassium 4.6 mmol/L (3.5-5.1); Sodium 142 mmol/L (136-145); Total Protein 6.5 gm/dl (6.0-8.3)
[2024-11-07 07:39] LABS: Troponin I High Sensitivity 20.7 pg/ml (0-14)
[2024-11-07 07:43] LABS: INR 0.9 (0.9-1.1); Partial Thromboplastin Time 26 Seconds (21-31); Prothrombin Time 10.2 Seconds (9.0-12.0)
--- NOTE | 2024-11-07 07:49 | CT Scan Report ---
EXAM: CT head/brain wo con CLINICAL HISTORY: neuro deficit, acute stroke suspected. TECHNIQUE: An axial non-contrast CT scan of the brain was performed from the skull base to the high parietal region. Sagittal and coronal reformatted images were performed. One of the following dose reduction techniques were utilized for this exam: Automated exposure control, adjustment of the mA and/or kV according to patient size, and use of iterative reconstruction. COMPARISON: 10/09/2024. FINDINGS: Right high parietal cortical and subcortical patchy hypodense area (unchanged). Left cerebellar patchy area of hypodensity measuring 12x7 mm (unchanged). No intracerebral or extra axial hematoma. Pontine and bilateral basal ganlia tiny calcfic foci (unchanged). The rest of the solares-white matter differentiation is maintained. There are ill-defined hypodense areas noted in the periventricular and subcortical white matter bilaterally, suggestive of chronic microvascular ischemic changes. The ventricular system, cortical sulci, and basal cisterns are prominent and consistent with senile changes. No midline shift or deformity. Normal CT appearance of other posterior fossa structures. No definite calvarium fractures. The osseous structures in the skull base are unremarkable. The scanned paranasal sinuses are clear. IMPRESSION: 1. No evidence of acute intracranial abnormality could be identified. However, the possibility of acute ischemic infarction cannot be entirely excluded, would recommend MRI brain with DWI/ADC sequences for further evaluation if clinically indicated. 2. Right high parietal and left cerebellar patchy areas of hypodensity. 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 3. Senile and chronic microvascular ischemic brain changes. 4. No significant interval changes. Electronically signed by Pooja Ramirez 11-07-2024 07:48 AM
--- NOTE | 2024-11-07 08:09 | History & Physical Report ---
Date of Service November 07, 2024 Assessment & Plan (1) Stroke-like symptoms: (2) UTI (urinary tract infection): (3) Chronic hypoxic respiratory failure: (4) Chronic kidney disease, stage 4 (severe): (5) Diastolic CHF: (6) Hypothyroidism: (7) Depression: Plan #stroke like symptoms -CT non con brain: no acute abnormalities, showing right high parietal and left cerebellar -EKG without ischemia, arrhythmia, or acute changes -CXR neg mild fibrotic changes, no pulm edema -TTE with bubble unremarkable - no atrial shunt, no changes from previous -(+)UA -patient cognitive/physical baseline and residual deficits from previous strokes unknown. Left sided tongue, lower face, arm, and leg appear to be weak along with inability to find and formulate words with fairly intact comprehension. Unlikely one stroke has cause all presenting symptoms, patients may have residual deficit from previous infarcts that are overlapping current presentation that are complicated by UTI -failed swallow test, keep NPO. speech ordered -permissive HTN <220/110 for the first 24 hours -MRI non con brain, MRA non con brain, carotid u/s doppler pending -admitted to PCU/tele, monitor for afib/flutter -PT/OT consulted -rectal aspirin given -started atorvastatin 40mg #positive UA -UA suggesting infectious process -hx of ESBL UTI -empiric coverage with ertapenem and deescalate if necessary based on cx and sensitivites #Chronic hypoxic respiratory failure -on 2 to 3 L of oxygen PRN at baseline, fibrotic basilar changes on x-ray. Per son not always on O2. Near baseline. No evidence of pulmonary edema on CXR -continue home bumex #CHF -hold home bumetanide in setting of NPO -monitor Is&Os #CKD -monitor BMP, Is&Os #baseline confusion -need to reach out to son and snf to get a better baseline -hold mirtazapine in setting of NPO #hypothyroid dx -hold home levothyroxine in setting of NPO #depression -hold home paroxetine in setting of NPO dispo: PCU/tele diet: heart healthy, soft VTE ppx: hold pharmacotherapy ppx in setting of possible stroke. SCDs History of Present Illness Chief Complaint: snf reported low O2, high BP, concern of possible UTI Primary Care Provider: [facility] Blake Ebony is an 83yoF w a hx of depression, confusion, hypothyroid dx, CKD, and CHF presenting from [facility] with low O2 sat, high BP, and concern for possible UTI. LKW 20:00 11/06/24. On arrival to ED, patient reported to have left sided facial droop, difficulty speaking and left sided arm weaknes. patient denies any SOB, headache, chest pain, or abd pain. Does endorse pain from her IV. Patient normally uses wheelchair for ambulation and has some confusion on baseline. snf reports patient did not take any of her regular home meds this AM including plavix. 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 -EKG: Right bundle branch block, sinus. Right bundle branch block was present on prior EKGs. -CXR without pulmonary edema -did not received Aspirin in ED -CBC unremarkable, chemistry revealing mildly elevated Cl 110, BUN/Cr 25/2.0, eGFR 24.03, glu 83, trop unremarkable, UA revealing cloudy urine, 1+ protein, leuk esterase 3+, WBC >50, bacteria 4+. biofire negative. PT/INR WNL Allergies Allergy/AdvReac Type Severity Reaction Status Date / Time iodine Allergy Unknown Unknown Verified 10/10/24 09:16 NSAIDS (Non-Steroidal Allergy Unknown Unknown Verified 10/10/24 09:16 Anti-Inflamma tositumomab iodine-131 Allergy Unknown Unknown Unverified 10/10/24 09:16 Penicillins Allergy Unknown Verified 10/10/24 09:16 Home Medications Medication Instructions Recorded Confirmed Type acetaminophen 325 mg capsule 650 mg PO Q4H PRN Pain 10/22/19 11/07/24 History clopidogrel 75 mg tablet 75 mg PO QAM 10/22/19 11/07/24 History paroxetine HCl 20 mg tablet 20 mg PO QAM 10/22/19 11/07/24 History bumetanide 1 mg tablet 1 mg PO 3XWK 08/16/22 11/07/24 History gabapentin 300 mg capsule 300 mg PO HS 09/12/22 11/07/24 History mirtazapine 7.5 mg tablet 7.5 mg PO HS 09/12/22 11/07/24 History levothyroxine 50 mcg capsule 50 mcg PO DAILYBB #30 caps 11/19/22 11/07/24 Rx nystatin 100,000 unit/gram topical 1 applic topical TID PRN Rash 03/20/23 11/07/24 History powder Past Med/Surg History Problem List (Updated 11/07/24 @ 13:09 by Geetha Evans) Chronic hypoxic respiratory failure (Acute) Left arm weakness (Acute) Facial droop (Acute) Stroke-like symptoms (Acute) Enteritis Acute kidney injury superimposed on stage 4 chronic kidney disease UTI due to extended-spectrum beta lactamase (ESBL) producing Escherichia coli Acute UTI (urinary tract infection) (Acute) Elevated brain natriuretic peptide (BNP) level (Acute) Acute exacerbation of CHF (congestive heart failure) (Acute) Acute hypoxic respiratory failure (Acute) Elevated troponin (Acute) Generalized weakness (Acute) Severe sepsis (Acute) Acute UTI (urinary tract infection) (Acute) Elevated troponin (Acute) Aspiration pneumonia (Acute) Acute confusion (Acute) Lactic acidosis (Acute) Elevated troponin Sepsis Acute UTI (Acute) Hypoxia (Acute) Confusion (Acute) Hypercalcemia Acute alteration in mental status (Acute) PAMELA (acute kidney injury) (Acute) Elevated WBC count (Acute) Acute UTI (urinary tract infection) (Acute) Hypoxia (Acute) Diastolic CHF (Acute) Hypercalcemia Macrocytosis UTI (urinary tract infection) Pneumonia (Acute) SIRS (systemic inflammatory response syndrome) (Acute) Urinary incontinence Polyneuropathy Hyperlipidemia Osteoarthritis Hypothyroidism Ambulatory dysfunction Depression Chronic kidney disease, stage 4 (severe) (Chronic) Medical History Abnormal EKG Ambulatory dysfunction Chronic kidney disease, stage 4 (severe) GI bleed Hyperlipidemia Hypothyroidism Osteoarthritis Polyneuropathy Recurrent falls Social History Smoking Status: Never smoker Tobacco Type: Cigarettes Second Hand Exposure: No; Do You Dip or Chew Tobacco: No; Hx Alcohol Use: No Hx Substance Use: No Preferred Language: Congolese Communication Ability: Impaired Bpo Specialist Required: No Beliefs That Will Affect Care: None Current Living Situation: Snf Current Living Situation Comment: assisted living Feels Safe at Home: Yes Assistive Devices: Wheelchair Review of Systems Review of Systems: as per hpi Physical Exam Respiratory: normal respiratory effort, lungs clear to auscultation Cardiovascular: rrr, no murmur, b/l LL edema Gastrointestinal (Abdomen): normal bowel sounds, soft, nontender, no hepatosplenomegaly Neurologic: Mentation: Patient alert and oriented to person, month, birthdate. in and out of sleep during interview. Comprehension for two step commands intact. comprehension appears largely intact, although expressive aphasia causing frustration and limiting history. able to spell out simple words such as "cold" to communicate CN: II/III//IV: PERRLA, visual field grossly intact, EOM deferred due to patient unable to keep eyes open V: sensory grossly intact V1-3 VII: asymmetrical smile, left sided lower facial droop. intact eyebrow/eyelid movement and strength VIII: grossly intact hearing b/l IX/X: symmetrical palate raise XI: 5/5 sternocleidomastoid strength b/l XII: mild tongue weakness on left side M: 5/5 R delt, 4-/5 L delt. 5/5 b/l biceps. 5/5 R tri, 4-/5 L tri. 5/5 R hand squeeze, 4-/5 L hand squeeze 4-/5 R hip flexors, 2/5 L hip flexors. 4-/5 R plantar/dorsiflexion, 2/5 L plant ar/dorsiflexion DTR: brachioradialis b/l 1+, R patellar 1+, L patellar 0 Gait: deferred Results & Data Results & Data Vital Signs (Past 12 Hours) Vital Signs Temp Pulse Resp BP Pulse Ox O2 Del Method O2 Flow Rate 11/07/24 07:48 154/79 H 11/07/24 07:48 63 20 93 Nasal Cannula 3 11/07/24 07:30 147/67 H 11/07/24 07:27 61 20 94 Nasal Cannula 3 11/07/24 07:27 151/70 H 11/07/24 07:27 151/70 H 11/07/24 07:15 64 18 95 Nasal Cannula 3 11/07/24 07:01 89 L Nasal Cannula 11/07/24 07:01 36.7 C 68 14 157/78 H 94 Nasal Cannula 3 11/07/24 07:00 158/72 H Diagnostic Findings Laboratory Results WBC 7.27 K/ul (4.8-10.8) 11/07/24 06:53 RBC 4.76 M/uL (4.20-5.40) 11/07/24 06:53 Hgb 15.0 g/dl (12.0-16.0) 11/07/24 06:53 Hct 46.1 % (37.0-47.0) 11/07/24 06:53 MCV 96.8 fL (80.0-100.0) 11/07/24 06:53 MCH 31.5 pg (25.0-34.0) 11/07/24 06:53 MCHC 32.5 g/dL (32.0-36.0) 11/07/24 06:53 RDW Std Deviation 53.5 fL (36.4-46.3) H 11/07/24 06:53 RDW Coeff of Norris 14.9 % (11.5-14.5) H 11/07/24 06:53 Plt Count 498 K/uL (130-400) H 11/07/24 06:53 MPV 8.8 fL (9.4-12.4) L 11/07/24 06:53 Immature Gran % (Auto) 0.3 % 11/07/24 06:53 Neut % (Auto) 59.9 % 11/07/24 06:53 Lymph % (Auto) 22.0 % 11/07/24 06:53 Gates % (Auto) 12.9 % 11/07/24 06:53 Eos % (Auto) 3.9 % 11/07/24 06:53 Baso % (Auto) 1.0 % 11/07/24 06:53 Neut # (Auto) 4.36 K/uL (1.40-6.50) 11/07/24 06:53 Lymph # (Auto) 1.60 K/uL (1.20-3.40) 11/07/24 06:53 Gates # (Auto) 0.94 K/uL (0.11-0.59) H 11/07/24 06:53 Eos # (Auto) 0.28 K/uL (0.00-0.50) 11/07/24 06:53 Baso # (Auto) 0.07 K/uL (0.00-0.20) 11/07/24 06:53 Immature Gran # (Auto) 0.02 K/uL (0.01-0.20) 11/07/24 06:53 PT 10.2 Seconds (9.0-12.0) 11/07/24 06:53 INR 0.9 (0.9-1.1) 11/07/24 06:53 APTT 26 Seconds (21-31) 11/07/24 06:53 PTT Ratio 1.0 11/07/24 06:53 Sodium 142 mmol/L (136-145) 11/07/24 06:53 Potassium 4.6 mmol/L (3.5-5.1) 11/07/24 06:53 Chloride 110 mmol/L (98-107) H 11/07/24 06:53 Carbon Dioxide 28 mmol/L (21-32) 11/07/24 06:53 Anion Gap 4 (3-11) 11/07/24 06:53 BUN 25 mg/dl (6-23) H 11/07/24 06:53 Creatinine 2.00 mg/dl (0.6-1.2) H 11/07/24 06:53 Est Cr Clr Drug Dosing Not Reportable 11/07/24 06:53 eGFR 24.03 11/07/24 06:53 BUN/Creatinine Ratio 12.5 (10-20) 11/07/24 06:53 Glucose 86 mg/dl (70-99(Fasting)) 11/07/24 06:53 POC Glucose 83 mg/dl (70-99) 11/07/24 06:57 Calcium 9.4 mg/dl (8.6-10.3) 11/07/24 06:53 Magnesium 2.3 mg/dl (1.7-2.4) 11/07/24 06:53 Total Bilirubin 0.5 mg/dl (0.2-1.0) 11/07/24 06:53 AST 12 U/L (13-39) L 11/07/24 06:53 ALT 7 U/L (7-52) 11/07/24 06:53 Alkaline Phosphatase 74 U/L (34-104) 11/07/24 06:53 Troponin I High Sens 15.7 pg/ml (0-14) H D 11/07/24 08:56 Total Protein 6.5 gm/dl (6.0-8.3) 11/07/24 06:53 Albumin 3.2 gm/dl (3.4-5.0) L 11/07/24 06:53 Globulin 3.3 gm/dl (2.5-4.0) 11/07/24 06:53 Albumin/Globulin Ratio 1.0 (0.9-2) 11/07/24 06:53 SARS-CoV-2, RNA, NAAT NEGATIVE (NEGATIVE) 11/07/24 07:[address] 11/07/24 07:00 EXAM: CT head/brain wo con CLINICAL HISTORY: neuro deficit, acute stroke suspected. TECHNIQUE: An axial non-contrast CT scan of the brain was performed from the skull base to the high parietal region. Sagittal and coronal reformatted images were performed. One of the following dose reduction techniques were utilized for this exam: Automated exposure control, adjustment of the mA and/or kV according to patient size, and use of iterative reconstruction. COMPARISON: 10/09/2024. FINDINGS: Right high parietal cortical and subcortical patchy hypodense area (unchanged). Left cerebellar patchy area of hypodensity measuring 12x7 mm (unchanged). No intracerebral or extra axial hematoma. Pontine and bilateral basal ganlia tiny calcfic foci (unchanged). The rest of the solares-white matter differentiation is maintained. There are ill-defined hypodense areas noted in the periventricular and subcortical white matter bilaterally, suggestive of chronic microvascular ischemic changes. The ventricular system, cortical sulci, and basal cisterns are prominent and consistent with senile changes. No midline shift or deformity. Normal CT appearance of other posterior fossa structures. No definite calvarium fractures. The osseous structures in the skull base are unremarkable. The scanned paranasal sinuses are clear. IMPRESSION: 1. No evidence of acute intracranial abnormality could be identified. However, the possibility of acute ischemic infarction cannot be entirely excluded, would recommend MRI brain with DWI/ADC sequences for further evaluation if clinically indicated. 2. Right high parietal and left cerebellar patchy areas of hypodensity. 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 3. Senile and chronic microvascular ischemic brain changes. 4. No significant interval changes. Electronically signed by Pooja Ramirez 11-07-2024 07:48 AM Chest X-Ray 11/07/24 07:07 XR chest 1V portable CLINICAL HISTORY: cva COMPARISON STUDY: 10/09/2024 FINDINGS: The radiographic findings are stable. There is no definite evidence of an acute cardiopulmonary process. No evidence of aspiration. Mild cardiomegaly and pulmonary vascular congestion are persistent. Increased interstitial densities in the left lung base most likely fibrotic. Severe degenerative changes at the glenohumeral joints bilaterally. IMPRESSION: Stable exam; no acute process identified. ACT 112: Negative or not required by law. Electronically signed by: Samantha Villalpando M.D. 11/07/2024 8:33 AM Code Status & VTE Plan Code Status VTE ppx: hold chemical ppx in setting of possible stroke, SCDs Code status: full code Supervising Physician Co-Signing Physician Notes Patient seen and examined, chart reviewed, case discussed with Honorio Mir DO and Geetha Evans MS4 and I agree with the assessment and plan as above except as otherwise noted Labs and images reviewed 83-year-old female past medical history of ESBL E. coli UTI, aspiration pneumonia, diastolic CHF, CKD 4, ambulatory dysfunction who is a resident of [facility] who was referred to the ER with possible concerns of UTI versus strokelike symptoms. In the ER she was noted to have left-sided strength deficits and right-sided facial droop. CThead was obtained by the ER, angiography was not obtained due to reported history of severe contrast allergy. Patient did not take any medications in the ER, aspirin was not given in the ER. Patient has a past history of GI bleed while on dual antiplatelet therapy, prior to that she had tolerated aspirin well and subsequent to that was switched to Plavix monotherapy. Patient failed her dysphagia screen due to facial droop. She is not on anticoagulants and CThead showed no evidence of acute abnormality. Senescent change was noted, and right parietal and left cerebellar areas of hypodensity suspicious for stable chronic infarcts were noted. At time of consultation aspirin full dose x 1 was ordered. This was switched from chewable to rectal due to failed dysphagia screen. Last known normal reportedly evening before going to sleep. Will allow for permissive hypertension x 24 hours (until evening of 11/07), and then pursue goal of less than 180. Patient has chronic hypoxic respiratory failure on 2 to 3 L of oxygen. Her x- ray is stable with mild vascular congestion but no acute pulmonary edema. Some fibrotic changes appreciated. Case was reviewed by phone between resident provider with patient's family. Patient has chronic ambulatory dysfunction although has had some increased weakness recently. Has had frequent UTIs in the past. UA is pending. Strokelike symptoms With left upper extremity weakness, left-sided facial droop, slurred speech on ER assessment. CThead without acute findings Aspirin rectal x 1 given MRI brain with angios and carotid Dopplers orders Permissive hypertension x 24 hours or if MRI rules out acute stroke. Normotensive at bedside evaluation EKG: Right bundle branch block, sinus. Right bundle branch block was present on prior EKGs. Chronic hypoxic respiratory failure On 2 to 3 L of oxygen PRN at baseline, fibrotic basilar changes on x-ray. Per son not always on O2. Near baseline. No evidence of pulmonary edema on CXR. Bumex continued UTI With increased confusion and global weakness, focal symptoms on investigation for possible stroke as above. UA is infected appearing with 4+ bacteria, 3+ leukocyte esterase and no epithelial cell contamination Will treat for suspected UTI and follow UCx Hx ESBL E. coli UTIs --> agree w/ tx w/ carbapenem CKD: Baseline creatinine around 1.72.1. Creatinine is at baseline, 2.0 on admission Agree with assessment and management as noted above
--- NOTE | 2024-11-07 08:34 | XRay Report ---
XR chest 1V portable CLINICAL HISTORY: cva COMPARISON STUDY: 10/09/2024 FINDINGS: The radiographic findings are stable. There is no definite evidence of an acute cardiopulmo nary process. No evidence of aspiration. Mild cardiomegaly and pulmonary vascular congestion are pers istent. Increased interstitial densities in the left lung base most likely fibrotic. Severe degenerat tj changes at the glenohumeral joints bilaterally. IMPRESSION: Stable exam; no acute process identified. ACT 112: Negative or not required by law. Electronically signed by: Samantha Villalpando M.D. 11/07/2024 8:33 AM
[2024-11-07] MEDS: ASPIRIN 81 MG CHEW PO STA (08:37)
[2024-11-07] MEDS: ASPIRIN 300 MG SUPP PR ONE (08:59)
--- NOTE | 2024-11-07 09:44 | Electrocardiogram Report ---
Test Reason : Blood Pressure : */* mmHG Vent. Rate : 67 BPM Atrial Rate : 67 BPM P-R Int : 182 ms QRS Dur : 120 ms QT Int : 458 ms P-R-T Axes : 9 8 241 degrees QTcB Int : 483 ms Normal sinus rhythm with sinus arrhythmia Right bundle branch block Left ventricular hypertrophy with repolarization abnormality ( R in aVL ) Abnormal ECG When compared with ECG of 09-Oct-2024 22:03, Premature atrial complexes are no longer Present Confirmed by Willie Guardado ([id number]) on 11/07/2024 9:43:52 AM Referred By: [facility] Confirmed By: Willie Guardado
[2024-11-07 09:50] LABS: Appearance Urine Cloudy (Clear); Bacteria Urine Automated 4+ (None Seen); Bilirubin Urine Negative (Negative); Blood Urine Negative (Negative); Cast Urine Automated 0-2 /lpf (0-2); Color Urine Yellow; Epithelial Cell Urine Auto 0-2 /hpf (0-2); Glucose Urine UA Negative (Negative); Ketones Urine Negative (Negative); Leukocyte Esterase Urine 3+ (Negative); Nitrite Urine Negative (Negative); Protein Urine 1+ (Negative); RBC Urine Automated 0-2 /hpf (0-2); Specific Gravity Urine 1.011 (1.000-1.030); Urobilinogen Urine Negative (Negative); WBC Urine Automated >50 /hpf (0-5)
[2024-11-07 09:58] LABS: Adenovirus PCR Not Detected (NotDetected); Bordetella parapertussis PCR Not Detected (NotDetected); Bordetella pertussis PCR Not Detected (NotDetected); Chlamydia pneumoniae PCR Not Detected (NotDetected); Coronavirus 229E PCR Not Detected (NotDetected); Coronavirus CoV-2 (COVID19)PCR Not Detected (NotDetected); Coronavirus HKU1 PCR Not Detected (NotDetected); Coronavirus NL63 PCR Not Detected (NotDetected); Coronavirus OC43PCR Not Detected (NotDetected); Human Metapneumovirus PCR Not Detected (NotDetected); Influenza A PCR Not Detected (NotDetected); Influenza B PCR Not Detected (NotDetected); Mycoplasma pneumoniae PCR Not Detected (NotDetected); Parainfluenza Virus 1 PCR Not Detected (NotDetected); Parainfluenza Virus 2 PCR Not Detected (NotDetected); Parainfluenza Virus 3 PCR Not Detected (NotDetected); Parainfluenza Virus 4 PCR Not Detected (NotDetected); Respiratory Syncytial VirusPCR Not Detected (NotDetected); Rhinovirus/Enterovirus PCR Not Detected (NotDetected)
[2024-11-07] MEDS ORDERED: PHARMACIST DISCHARGE MED REC CONSULT PRN (10:15)
[2024-11-07] MEDS: ATORVASTATIN 40 MG TAB PO SCH (11:08)
[2024-11-07] MEDS: cefTRIAXone SODIUM 2,000 MG/50 ML BAG IV SCH (11:08)
[2024-11-07] MEDS: CLOPIDOGREL BISULFATE 75 MG TAB PO SCH (11:08)
[2024-11-07] MEDS ORDERED: MEROPENEM 500 MG in SYRINGE 0 ML IV SCH (11:15)
[2024-11-07] MEDS: PANTOprazole 40 MG/10 ML SYR IV ONE (11:52)
--- NOTE | 2024-11-07 12:20 | XCELERA ---
[id number]
--- NOTE | 2024-11-07 14:08 | Magnetic Resonance Report ---
MR brain wo con, MR angio head wo con CLINICAL HISTORY: stroke rule out COMPARISON STUDY: CT scan earlier today FINDINGS: MRI: There is a moderate-sized area of patchy restricted diffusion right frontoparietal junction as w ell as a few other tiny foci of restricted diffusion in the right frontal and right temporal lobes, c onsistent with acute infarction. No mass effect, midline shift, or hydrocephalus. There is mild diffu se cerebral and cerebellar volume loss. There is severe patchy periventricular increased FLAIR signal intensity which is nonspecific, but usually represents chronic small vessel ischemic change. MRA: Intracranial internal carotid and vertebral arteries are widely patent. The basilar artery is wi heena patent. The anterior cerebral artery on the left is diminutive and the right is dominant, anatom ic variant. Otherwise no significant narrowing or occlusion seen at the anterior, middle, and posteri or cerebral arteries bilaterally. No intracranial aneurysm. IMPRESSION: 1. Acute right sided infarction. 2. No significant arterial narrowing or occlusion seen at the brain. ACT 112: Positive. There are findings on this exam that require communication between the performing entity and the patient following Patient Test Result Information Act ([place] Act 112) guidelines. Electronically signed by: Natalio Booker M.D. 11/07/2024 2:06 PM
--- NOTE | 2024-11-07 14:17 | Ultrasound Report ---
Clinical History: Confusion. Facial droop Technique: Carotid sonography was performed Findings: Mild atherosclerotic plaque is seen within both carotid bulbs. No significant stenosis is seen on solares scale images. Antegrade flow is seen within both vertebral arteries. Peak systolic velocities are as follows: Right common carotid artery: 41 cm per second Right internal carotid artery: 35 cm per second Right external carotid artery: 45 cm per second Right ICA/CCA PSV ratio: <1 Left common carotid artery: 38 cm per second Left internal carotid artery: 47 cm per second Left external carotid artery:47 cm per second Left ICA/CCA PSV ratio: 1.2 Impression: Mild carotid atherosclerosis, without apparent stenosis Electronically signed by John Cronin 11-07-2024 2:16 PM
[2024-11-08 06:19] LABS: Basophils # (auto) 0.06 K/uL (0.00-0.20); Basophils % (auto) 0.8 %; Eosinophils % (auto) 2.7 %; Hematocrit (blood only) 47.2 % (37.0-47.0); Hemoglobin 15.2 g/dl (12.0-16.0); Immature Granulocytes # (auto) 0.02 K/uL (0.01-0.20); Immature Granulocytes % (auto) 0.3 %; Lymphocytes # (auto) 1.16 K/uL (1.20-3.40); Lymphocytes % (auto) 15.7 %; Mean Corpuscular Hemoglobin 31.5 pg (25.0-34.0); Mean Corpuscular Hgb Conc 32.2 g/dL (32.0-36.0); Mean Corpuscular Volume 97.9 fL (80.0-100.0); Mean Platelet Volume 8.7 fL (9.4-12.4); Monocytes # (auto) 0.84 K/uL (0.11-0.59); Monocytes % (auto) 11.4 %; Neutrophils # (auto) 5.09 K/uL (1.40-6.50); Neutrophils % (auto) 69.1 %; Platelet Count 449 K/uL (130-400); RDW Coefficient of Variation 14.9 % (11.5-14.5); RDW Standard Deviation 54.3 fL (36.4-46.3); Red Blood Count 4.82 M/uL (4.20-5.40); White Blood Count 7.37 K/ul (4.8-10.8)
[2024-11-08 06:33] LABS: BUN Creatinine Ratio 14.9 (10-20); Calcium 9.5 mg/dl (8.6-10.3); Chol HDL Ratio 4.6 (0-5); Creatinine Clr Calc Pharmacy 25.1 ml/min; Magnesium 2.3 mg/dl (1.7-2.4); Potassium 4.7 mmol/L (3.5-5.1)
[2024-11-08 07:32] LABS: Estimated Average Glucose 105 mg/dl; Hemoglobin A1C 5.3 % (4.5-5.6)
--- NOTE | 2024-11-08 08:22 | Medical Student Progress Note ---
Date of Service November 08, 2024 Assessment & Plan (1) Stroke-like symptoms: (2) UTI (urinary tract infection): (3) Chronic hypoxic respiratory failure: (4) Chronic kidney disease, stage 4 (severe): (5) Diastolic CHF: (6) Hypothyroidism: (7) Depression: Plan #stroke like symptoms -patient cognitive/physical baseline and residual deficits from previous strokes unknown. improving expressive aphasia, strength largely unchanged from admission exam, endorses decreased sensory in left lower extremity -CT non con brain: no acute abnormalities, showing right high parietal and left cerebellar -MRI brain: moderate-sized area of patchy restricted diffusion right frontoparietal junction as well as a few other tiny foci of restricted diffusion in the right frontal and right temporal lobes, consistent with acute infarction -MRA brain: negative for large vessel occlusion -carotid doppler U/S unremarkable -EKG without ischemia, arrhythmia, or acute changes -CXR neg mild fibrotic changes, no pulm edema -TTE with bubble unremarkable - no atrial shunt, no changes from previous -(+)UA without urinary sx -PT/OT consulted -neurology following -permissive HTN <180/110 -admitted to PCU/tele, monitor for afib/flutter -started atorvastatin 40mg -started aspirin 81 mg, continue home Plavix 75 mg #positive UA -UA suggesting infectious process -hx of ESBL UTI -patient without urinary sx or suprapubic pain. will hold off on abx therapy until final urine culture #Chronic hypoxic respiratory failure -on 2 to 3 L of oxygen PRN at baseline, fibrotic basilar changes on x-ray. Per son not always on O2. Near baseline. No evidence of pulmonary edema on CXR -hold bumex #CHF -monitor Is&Os -hold bumex #CKD -monitor BMP, Is&Os #baseline confusion -need to reach out to son and senior care to get a better baseline -hold mirtazapine #hypothyroid dx -hold home levothyroxine #depression -hold home paroxetine dispo: PCU/tele diet: heart healthy, soft VTE ppx: hold pharmacotherapy ppx in setting of possible stroke. SCDs Admission and Anticipated Discharge Date Admission Date: November 07, 2024 Supervising Attestation I personally examined the patient and verified all salas points of history and exam, discussed case, and agree with decision making with Dr Stiles and Shimon Evans MS4 Seems to be easily confused. No acute complaints notable, although HPI and review of systems are quite limited. Vitals noted, in general she is awake alert slow to respond seems to be disoriented, although some of it might also be due to dysarthria and simply slow responsivenessbut does not appear to be oriented to place, vaguely oriented to situation but only after having been told she had a stroke and she asked about having prior strokes. Breathing unlabored no accessory muscle use good effort. Skin without rashes pallor or icterus. Neuro exam shows focal deficits as outlined above. MRI reviewed. Labs noted. Strokeatherosclerotic versus cardioembolic. Dual antiplatelets, Lipitor 40. Permissive hypertension with eventual goals of good blood pressure control. Echo reassuring. Outpatient rhythm monitoring to be set up. PT/OT eval and treat. Definitely appears to need rehab. DVT proph - No massive stroke, no hemorrhagestart heparin subcu does not voice any urinary symptoms, and is afebrile without leukocytosis or overt infectious signs or symptomssuspect urine is asymptomatic bacteriuriano need for antibiotics at this time. Subjective no complaints, phonation improving. no belly pain or urinary sx Physical Exam Neurologic: mentation: -alert and oriented to person, birthdate , month, year. -improving phonation and word finding, u nderstands commands, can correctly identify objects motor: -no change in strength in extremities ho wever difficulty with left lower leg movement due to SCDs sensory: -sensory grossly intact b/l upper extrem ities -endorsed decreased sensation on LLE ext remity compared to RLE Results & Data Vital Signs (Past 12 Hours) Vital Signs Temp Pulse Pulse Resp BP Pulse Ox O2 Del Method 11/08/24 03:28 62 20 144/71 H 93 Nasal Cannula 11/07/24 22:49 36.6 C 61 20 161/80 H 93 Nasal Cannula 11/07/24 22:03 Nasal Cannula 11/07/24 21:45 55 L O2 Flow Rate 11/08/24 03:28 1 11/07/24 22:49 1 11/07/24 22:03 1 11/07/24 21:45 Diagnostic Findings Laboratory Results WBC 7.37 K/ul (4.8-10.8) 11/08/24 05:58 RBC 4.82 M/uL (4.20-5.40) 11/08/24 05:58 Hgb 15.2 g/dl (12.0-16.0) 11/08/24 05:58 Hct 47.2 % (37.0-47.0) H 11/08/24 05:58 MCV 97.9 fL (80.0-100.0) 11/08/24 05:58 MCH 31.5 pg (25.0-34.0) 11/08/24 05:58 MCHC 32.2 g/dL (32.0-36.0) 11/08/24 05:58 RDW Std Deviation 54.3 fL (36.4-46.3) H 11/08/24 05:58 RDW Coeff of Norris 14.9 % (11.5-14.5) H 11/08/24 05:58 Plt Count 449 K/uL (130-400) H 11/08/24 05:58 MPV 8.7 fL (9.4-12.4) L 11/08/24 05:58 Immature Gran % (Auto) 0.3 % 11/08/24 05:58 Neut % (Auto) 69.1 % 11/08/24 05:58 Lymph % (Auto) 15.7 % 11/08/24 05:58 [place] % (Auto) 11.4 % 11/08/24 05:58 Eos % (Auto) 2.7 % 11/08/24 05:58 Baso % (Auto) 0.8 % 11/08/24 05:58 Neut # (Auto) 5.09 K/uL (1.40-6.50) 11/08/24 05:58 Lymph # (Auto) 1.16 K/uL (1.20-3.40) L 11/08/24 05:58 [place] # (Auto) 0.84 K/uL (0.11-0.59) H 11/08/24 05:58 Eos # (Auto) 0.20 K/uL (0.00-0.50) 11/08/24 05:58 Baso # (Auto) 0.06 K/uL (0.00-0.20) 11/08/24 05:58 Immature Gran # (Auto) 0.02 K/uL (0.01-0.20) 11/08/24 05:58 PT 10.2 Seconds (9.0-12.0) 11/07/24 06:53 INR 0.9 (0.9-1.1) 11/07/24 06:53 APTT 26 Seconds (21-31) 11/07/24 06:53 PTT Ratio 1.0 11/07/24 06:53 Sodium 143 mmol/L (136-145) 11/08/24 05:58 Potassium 4.7 mmol/L (3.5-5.1) 11/08/24 05:58 Chloride 111 mmol/L (98-107) H 11/08/24 05:58 Carbon Dioxide 26 mmol/L (21-32) 11/08/24 05:58 Anion Gap 6 (3-11) 11/08/24 05:58 BUN 27 mg/dl (6-23) H 11/08/24 05:58 Creatinine 1.81 mg/dl (0.6-1.2) H 11/08/24 05:58 Est Cr Clr Drug Dosing 25.1 ml/min 11/08/24 05:58 eGFR 27.09 11/08/24 05:58 BUN/Creatinine Ratio 14.9 (10-20) 11/08/24 05:58 Glucose 85 mg/dl (70-99(Fasting)) 11/08/24 05:58 POC Glucose 83 mg/dl (70-99) 11/07/24 06:57 Estimat Average Glucose 105 mg/dl 11/08/24 05:58 Hemoglobin A1c 5.3 % (4.5-5.6) 11/08/24 05:58 Calcium 9.5 mg/dl (8.6-10.3) 11/08/24 05:58 Magnesium 2.3 mg/dl (1.7-2.4) 11/08/24 05:58 Total Bilirubin 0.5 mg/dl (0.2-1.0) 11/07/24 06:53 AST 12 U/L (13-39) L 11/07/24 06:53 ALT 7 U/L (7-52) 11/07/24 06:53 Alkaline Phosphatase 74 U/L (34-104) 11/07/24 06:53 Troponin I High Sens 15.7 pg/ml (0-14) H D 11/07/24 08:56 Total Protein 6.5 gm/dl (6.0-8.3) 11/07/24 06:53 Albumin 3.2 gm/dl (3.4-5.0) L 11/07/24 06:53 Globulin 3.3 gm/dl (2.5-4.0) 11/07/24 06:53 Albumin/Globulin Ratio 1.0 (0.9-2) 11/07/24 06:53 Triglycerides 115 mg/dl (0-150) 11/08/24 05:58 Cholesterol 179 mg/dl (0-200) 11/08/24 05:58 LDL Cholesterol, Calc 117 mg/dl 11/08/24 05:58 VLDL Cholesterol, Calc 23 mg/dl (0-30) 11/08/24 05:58 HDL Cholesterol 39 mg/dl 11/08/24 05:58 Cholesterol/HDL Ratio 4.6 (0-5) 11/08/24 05:58 Urine Color Yellow 11/07/24 09:30 Urine Appearance Cloudy (Clear) A 11/07/24 09:30 Urine pH 8.0 (4.5-7.5) H 11/07/24 09:30 Ur Specific [place] 1.011 (1.000-1.030) 11/07/24 09:30 Urine Protein 1+ (Negative) H 11/07/24 09:30 Urine Glucose (UA) Negative (Negative) 11/07/24 09:30 Urine Ketones Negative (Negative) 11/07/24 09:30 Urine Blood Negative (Negative) 11/07/24 09:30 Urine Nitrite Negative (Negative) 11/07/24 09:30 Urine Bilirubin Negative (Negative) 11/07/24 09:30 Urine Urobilinogen Negative (Negative) 11/07/24 09:30 Ur Leukocyte Esterase 3+ (Negative) H 11/07/24 09:30 Urine WBC (Auto) >50 /hpf (0-5) H 11/07/24 09:30 Urine RBC (Auto) 0-2 /hpf (0-2) 11/07/24 09:30 U Hyaline Cast (Auto) 0-2 /lpf (0-2) 11/07/24 09:30 U Epithel Cells (Auto) 0-2 /hpf (0-2) 11/07/24 09:30 Urine Bacteria (Auto) 4+ (None Seen) H 11/07/24 09:30 Nasal Screen MRSA (PCR) Negative (Negative) 11/07/24 12:03 Adenovirus (PCR) Not Detected (NotDetected) 11/07/24 08:58 B. pertussis DNA (PCR) Not Detected (NotDetected) 11/07/24 08:58 B.parapertussis DNA PCR Not Detected (NotDetected) 11/07/24 08:58 C. pneumoniae DNA (PCR) Not Detected (NotDetected) 11/07/24 08:58 Coronavirus OC43 (PCR) Not Detected (NotDetected) 11/07/24 08:58 Coronavirus HKU1 (PCR) Not Detected (NotDetected) 11/07/24 08:58 Coronavirus 229E (PCR) Not Detected (NotDetected) 11/07/24 08:58 SARS-CoV-2 (PCR) Not Detected (NotDetected) 11/07/24 08:58 Coronavirus NL63 (PCR) Not Detected (NotDetected) 11/07/24 08:58 Human Metapneumovir PCR Not Detected (NotDetected) 11/07/24 08:58 Influenza Type A (PCR) Not Detected (NotDetected) 11/07/24 08:58 Influenza Type B (PCR) Not Detected (NotDetected) 11/07/24 08:58 M. pneumoniae (PCR) Not Detected (NotDetected) 11/07/24 08:58 Parainfluenza 1 (PCR) Not Detected (NotDetected) 11/07/24 08:58 Parainfluenza 2 (PCR) Not Detected (NotDetected) 11/07/24 08:58 Parainfluenza 3 (PCR) Not Detected (NotDetected) 11/07/24 08:58 Parainfluenza 4 (PCR) Not Detected (NotDetected) 11/07/24 08:58 RSV (PCR) Not Detected (NotDetected) 11/07/24 08:58 Entero/Rhino (PCR) Not Detected (NotDetected) 11/07/24 08:58 SARS-CoV-2, RNA, NAAT NEGATIVE (NEGATIVE) 11/07/24 07:[address] 11/07/24 07:00 EXAM: CT head/brain wo con CLINICAL HISTORY: neuro deficit, acute stroke suspected. TECHNIQUE: An axial non-contrast CT scan of the brain was performed from the skull base to the high parietal region. Sagittal and coronal reformatted images were performed. One of the following dose reduction techniques were utilized for this exam: Automated exposure control, adjustment of the mA and/or kV according to patient size, and use of iterative reconstruction. COMPARISON: 10/09/2024. FINDINGS: Right high parietal cortical and subcortical patchy hypodense area (unchanged). Left cerebellar patchy area of hypodensity measuring 12x7 mm (unchanged). No intracerebral or extra axial hematoma. Pontine and bilateral basal ganlia tiny calcfic foci (unchanged). The rest of the solares-white matter differentiation is maintained. There are ill-defined hypodense areas noted in the periventricular and subcortical white matter bilaterally, suggestive of chronic microvascular ischemic changes. The ventricular system, cortical sulci, and basal cisterns are prominent and consistent with senile changes. No midline shift or deformity. Normal CT appearance of other posterior fossa structures. No definite calvarium fractures. The osseous structures in the skull base are unremarkable. The scanned paranasal sinuses are clear. IMPRESSION: 1. No evidence of acute intracranial abnormality could be identified. However, the possibility of acute ischemic infarction cannot be entirely excluded, would recommend MRI brain with DWI/ADC sequences for further evaluation if clinically indicated. 2. Right high parietal and left cerebellar patchy areas of hypodensity. 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 3. Senile and chronic microvascular ischemic brain changes. 4. No significant interval changes. Electronically signed by Pooja Ramirez 11-07-2024 07:48 AM Chest X-Ray 11/07/24 07:07 XR chest 1V portable CLINICAL HISTORY: cva COMPARISON STUDY: 10/09/2024 FINDINGS: The radiographic findings are stable. There is no definite evidence of an acute cardiopulmonary process. No evidence of aspiration. Mild cardiomegaly and pulmonary vascular congestion are persistent. Increased interstitial densities in the left lung base most likely fibrotic. Severe degenerative changes at the glenohumeral joints bilaterally. IMPRESSION: Stable exam; no acute process identified. ACT 112: Negative or not required by law. Electronically signed by: Samantha Villalpando M.D. 11/07/2024 8:33 AM Brain MRI 11/07/24 10:15 MR brain wo con, MR angio head wo con CLINICAL HISTORY: stroke rule out COMPARISON STUDY: CT scan earlier today FINDINGS: MRI: There is a moderate-sized area of patchy restricted diffusion right frontoparietal junction as well as a few other tiny foci of restricted diffusion in the right frontal and right temporal lobes, consistent with acute infarction. No mass effect, midline shift, or hydrocephalus. There is mild diffuse cerebral and cerebellar volume loss. There is severe patchy periventricular increased FLAIR signal intensity which is nonspecific, but usually represents chronic small vessel ischemic change. MRA: Intracranial internal carotid and vertebral arteries are widely patent. The basilar artery is widely patent. The anterior cerebral artery on the left is diminutive and the right is dominant, anatomic variant. Otherwise no significant narrowing or occlusion seen at the anterior, middle, and posterior cerebral arteries bilaterally. No intracranial aneurysm. IMPRESSION: 1. Acute right sided infarction. 2. No significant arterial narrowing or occlusion seen at the brain. ACT 112: Positive. There are findings on this exam that require communication between the performing entity and the patient following Patient Test Result Information Act ([place] Act 112) guidelines. Electronically signed by: Natalio Booker M.D. 11/07/2024 2:06 PM Carotid Doppler Study 11/07/24 10:15 Clinical History: Confusion. Facial droop Technique: Carotid sonography was performed Findings: Mild atherosclerotic plaque is seen within both carotid bulbs. No significant stenosis is seen on solares scale images. Antegrade flow is seen within both vertebral arteries. Peak systolic velocities are as follows: Right common carotid artery: 41 cm per second Right internal carotid artery: 35 cm per second Right external carotid artery: 45 cm per second Right ICA/CCA PSV ratio: <1 Left common carotid artery: 38 cm per second Left internal carotid artery: 47 cm per second Left external carotid artery:47 cm per second Left ICA/CCA PSV ratio: 1.2 Impression: Mild carotid atherosclerosis, without apparent stenosis Electronically signed by John Cronin 11-07-2024 2:16 PM Head MRA 11/07/24 10:15 MR brain wo con, MR angio head wo con CLINICAL HISTORY: stroke rule out COMPARISON STUDY: CT scan earlier today FINDINGS: MRI: There is a moderate-sized area of patchy restricted diffusion right frontoparietal junction as well as a few other tiny foci of restricted diffusion in the right frontal and right temporal lobes, consistent with acute infarction. No mass effect, midline shift, or hydrocephalus. There is mild diffuse cerebral and cerebellar volume loss. There is severe patchy periventricular increased FLAIR signal intensity which is nonspecific, but usually represents chronic small vessel ischemic change. MRA: Intracranial internal carotid and vertebral arteries are widely patent. The basilar artery is widely patent. The anterior cerebral artery on the left is diminutive and the right is dominant, anatomic variant. Otherwise no significant narrowing or occlusion seen at the anterior, middle, and posterior cerebral arteries bilaterally. No intracranial aneurysm. IMPRESSION: 1. Acute right sided infarction. 2. No significant arterial narrowing or occlusion seen at the brain. ACT 112: Positive. There are findings on this exam that require communication between the performing entity and the patient following Patient Test Result Information Act ([place] Act 112) guidelines. Electronically signed by: Natalio Booker M.D. 11/07/2024 2:06 PM Resident Activity Tracking Resident Involvement: Resident Care Provided Care Provided: Adult [facility] Medicine Resident Supervision Co-Signing Physician Notes I also saw the patient and confirmed salas portions of the history and exam. I agree with the assessment and plan as written by Student Dr. Evans. Any changes or additions are summarized as follows: Phonation improving. Able to communicate that she feels better today. Asked for us to contact her son. Was oriented x 3 on my exam due to being informed of location by student a few minutes prior. Follows commands. AFVSS (BP below goal of 180/110). Neuro exam w improved CN fxn (even smile, mild facial droop), fully intact sensation, unchanged motor & reflex. Exam otherwise normal w heart RRR, n o m/r/g, cap refill < 3s, lungs CTAB, normal resp effort, abd soft & NT/ND, no suprapubic or CVA tenderness, skin w/o rashes or lesions. Stroke workup unrevealing of clear etiology; on tele; consider holter monitor w d/c. DAPT 3 wk then continue plavix. Continue atorvastatin. Pending SLT eval, PT, OT. Neuro consulted, appreciate input. No abx indicated for pt's asymptomatic bacteruria. Mani Stiles MD PGY-1, PS FCM
[2024-11-08] MEDS: PANTOprazole 40 MG/10 ML SYR IV SCH (09:20)
--- NOTE | 2024-11-08 09:41 | Neurology Consultation ---
Date of Consultation November 08, 2024 Assessment & Plan (1) Embolic stroke: Plan 83-year-old female with an acute embolic stroke to the right cerebral hemisphere, right MCA territory. Clinically, patient exhibits signs of left hemineglect and a mild left hemiparesis. Her speech is also slowed and dysfluent, no aphasia. She has an allergy to iodinated contrast. An MRA of the brain revealed no significant vascular abnormalities, a carotid ultrasound revealed only mild atherosclerosis. Her stroke may have been cardioembolic. No significant abnormalities on echocardiogram. An ECG completed yesterday normal sinus rhythm right bundle branch block. An ECG completed October 09 revealed sinus rhythm with premature atrial complexes. She had been taking clopidogrel prior to this hospitalization, was not on a statin. Would recommend dual antiplatelet therapy, aspirin 81 mg/day and Plavix 75 mg/day. Continue with dual antiplatelet therapy for 3 weeks, followed by discontinuation of aspirin, continue with Plavix 75 mg/day at that time. Given the possibility of cardioembolism in this case, would recommend ambulatory cardiac Holter monitoring if atrial fibrillation is not identified while she is on telemetry. Agree with atorvastatin as ordered, goal LDL 70 or less. Permissive hypertension appropriate acutely, per stroke protocol. Consultations with PT/OT/speech therapy. Rehabilitation from nondominant, right hemispheric stroke can be challenging due to hemineglect. Her hemineglect may improve with time. Patient should not require additional outpatient neurology follow-up. Please call with any questions. History of Present Illness Reason for Consultation: stroke Requesting Physician: Adeola Attending Physician: Xander Willis DO History of Present Illness The patient is an 83-year-old female who presented to the emergency department yesterday morning for further assessment of acute onset left-sided weakness beginning the previous evening, exact onset unknown. She is a bit inattentive and is an unreliable historian. Left facial weakness, slurred speech, and weakness of the left upper limb are noted in the emergency department. She continues to exhibit these neurologic signs this morning and also appears to have an element of left-sided neglect and decreased movement for the left leg as well, see my examination below. She has an allergy to iodinated contrast. I have independently reviewed her imaging. CT of the head reveals chronic bilateral cerebellar infarcts and a chronic infarct at the high right parietal convexity as well as chronic microvascular ischemic disease and generalized atrophy. Brain MRI reveals a multifocal acute embolic appearing infarct within the right cerebral hemisphere, right MCA territory, cortical and subcortical distribution. Again noted already chronic cerebellar infarcts, chronic infarct of the high right parietal convexity, chronic microvascular ischemic disease, and generalized atrophy. No abnormalities on GRE that would suggest chronic hemorrhage or microhemorrhage. An MRA of the brain revealed no significant abnormalities. A carotid ultrasound revealed mild atherosclerotic plaque without stenosis. An echocardiogram revealed normal left ventricular systolic function, no regional wall motion abnormalities, moderate concentric LVH, EF 60 to 65%, no shunt with injection of contrast, left atrium mildly dilated. Electrocardiogram revealed normal sinus rhythm with sinus arrhythmia, right bundle branch block. A previous electrocardiogram completed October 09, 2024 revealed sinus rhythm with PACs. Lipid panel completed this morning reviewed. Triglycerides 115, cholesterol 179, LDL 117, VLDL 23, HDL 39. Allergies Allergy/AdvReac Type Severity Reaction Status Date / Time iodine Allergy Unknown Unknown Verified 10/10/24 09:16 NSAIDS (Non-Steroidal Allergy Unknown Unknown Verified 10/10/24 09:16 Anti-Inflamma tositumomab iodine-131 Allergy Unknown Unknown Unverified 10/10/24 09:16 Penicillins Allergy Unknown Verified 10/10/24 09:16 Home Medications Medication Instructions Recorded Confirmed Type acetaminophen 325 mg capsule 650 mg PO Q4H PRN Pain 10/22/19 11/07/24 History clopidogrel 75 mg tablet 75 mg PO QAM 10/22/19 11/07/24 History paroxetine HCl 20 mg tablet 20 mg PO QAM 10/22/19 11/07/24 History bumetanide 1 mg tablet 1 mg PO 3XWK 08/16/22 11/07/24 History gabapentin 300 mg capsule 300 mg PO HS 09/12/22 11/07/24 History mirtazapine 7.5 mg tablet 7.5 mg PO HS 09/12/22 11/07/24 History levothyroxine 50 mcg capsule 50 mcg PO DAILYBB #30 caps 11/19/22 11/07/24 Rx nystatin 100,000 unit/gram topical 1 applic topical TID PRN Rash 03/20/23 11/07/24 History powder Patient History Medical History Abnormal EKG Ambulatory dysfunction Chronic kidney disease, stage 4 (severe) GI bleed Hyperlipidemia Hypothyroidism Osteoarthritis Polyneuropathy Recurrent falls Social History Smoking Status: Never smoker Tobacco Type: Cigarettes Second Hand Exposure: No; Do You Dip or Chew Tobacco: No; Hx Alcohol Use: No Hx Substance Use: No Preferred Language: [place] Communication Ability: Impaired Concierge Required: No Beliefs That Will Affect Care: None Current Living Situation: [facility] Current Living Situation Comment: assisted living Feels Safe at Home: Yes Assistive Devices: Wheelchair Review of Systems Review of Systems: Unobtainable due to cognitive status Exam (Neuro) Constitutional: well developed and well nourished; no acute distress Eyes: normal visual altman by confrontation, PERRL and EOM intact bilaterally; no nystagmus Neurologic: Oriented to:: Person and Place; negative Time Memory: negative Short Term Intact Attention: negative Span Intact Language: Naming Objects and Repeating Phrases Speech Fluency: Dysfluency and Slowed Speech Aphasia: negative Aphasia Fund of Knowledge: Vocabulary Cranial Nerves: Normal II, III, IV, , V, VIII, IX, X, XI and XII; Abnorm VII (Left lower facial droop observed) Motor Strength: Hemiparesis (There is mild left hemiparesis) Laterality: Left Motor Tone: Normal Lower Extremities and Normal Upper Extremities Muscle Bulk/Involuntary Movements: No Involuntary Movements; negative Muscle Atrophy Sensation: Light Touch Intact, Pain/Temperature Intact, Vibration Intact and Proprioception Intact Coordination: Finger-Nose Abnormal Laterality: Left and Heel-Kaye Abnormal Laterality: Left Deep Tendon Reflexes: Rt Triceps: 1+, Lt Triceps: 1+, Rt Biceps: 1+, Lt Biceps: 1+, Rt Brachioradialis: 1+, Lt Brachioradialis: 1+, Rt Patellar: 1+, Lt Patellar: 1+, Rt Ankle: 1+ and Lt Ankle: 1+ Special Tests: negative Babinski Present Details: Patient exhibits some signs of hemineglect, some difficulty with gaze to the left, she extinguishes to double simultaneous stimulation on the left Results & Data Vital Signs (Past 12 Hours) Vital Signs Temp Pulse Pulse Resp BP Pulse Ox O2 Del Method 11/08/24 08:01 37.2 C 65 18 180/77 H 92 Nasal Cannula 11/08/24 03:28 62 20 144/71 H 93 Nasal Cannula 11/07/24 22:49 36.6 C 61 20 161/80 H 93 Nasal Cannula 11/07/24 22:03 Nasal Cannula 11/07/24 21:45 55 L O2 Flow Rate 11/08/24 08:01 1 11/08/24 03:28 1 11/07/24 22:49 1 11/07/24 22:03 1 11/07/24 21:45 Laboratory Results WBC 7.379 sodium 143, potassium 4.7, BUN 27, creatinine 1.81 glucose 85, hemoglobin A1c 5.3, calcium 9.5, magnesium 2.3 Coding Level of Care Code 69468 INT INP/OBS CARE 3/75MIN Diagnoses Embolic stroke I63.9 Time Spent (min) 90 Comment Total time includes patient contact, chart review, counseling, note preparation
[2024-11-08] MEDS ORDERED: ERTAPENEM 500MG 500 MG/5 ML SYR IV SCH (10:00)
[2024-11-08] MEDS: ASPIRIN 81 MG CHEW PO SCH (10:47)
--- NOTE | 2024-11-08 13:05 | Billing Data ---
Date of Service November 08, 2024 Coding Level of Care Code 21819 SUB INP/OBS CARE MIN
[2024-11-08 20:13] VITALS: RESP 18
[2024-11-08] MEDS: HEPARIN SOD 5,000 UNIT/0.5 ML VIAL SQ SCH (20:47)
[2024-11-09] MEDS: LABETALOL HCL IV 5 MG/ML 20ML IV PRN (03:55)
--- NOTE | 2024-11-09 07:06 | Discharge Summary ---
Date of Service November 09, 2024 Admission HPI Per Admitting Provider Ebony is an 83yoF w a hx of depression, confusion, hypothyroid dx, CKD, and CHF presenting from [facility] with low O2 sat, high BP, and concern for possible UTI. LKW 20:00 11/06/24. On arrival to ED, patient reported to have left sided facial droop, difficulty speaking and left sided arm weaknes. patient denies any SOB, headache, chest pain, or abd pain. Does endorse pain from her IV. Patient normally uses wheelchair for ambulation and has some confusion on baseline. [facility] reports patient did not take any of her regular home meds this AM including plavix. 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 -EKG: Right bundle branch block, sinus. Right bundle branch block was present on prior EKGs. -CXR without pulmonary edema -did not received Aspirin in ED -CBC unremarkable, chemistry revealing mildly elevated Cl 110, BUN/Cr 25/2.0, eGFR 24.03, glu 83, trop unremarkable, UA revealing cloudy urine, 1+ protein, leuk esterase 3+, WBC >50, bacteria 4+. biofire negative. PT/INR WNL Admission Exam Per Admitting Provider Respiratory: normal respiratory effort, lungs clear to auscultation Cardiovascular: rrr, no murmur, b/l LL edema Gastrointestinal (Abdomen): normal bowel sounds, soft, nontender, no hepatosplenomegaly Neurologic: Mentation: Patient alert and oriented to person, month, birthdate. in and out of sleep during interview. Comprehension for two step commands intact. comprehension appears largely intact, although expressive aphasia causing frustration and limiting history. able to spell out simple words such as "cold" to communicate CN: II/III//IV: PERRLA, visual field grossly intact, EOM deferred due to patient unable to keep eyes open V: sensory grossly intact V1-3 VII: asymmetrical smile, left sided lower facial droop. intact eyebrow/eyelid movement and strength VIII: grossly intact hearing b/l IX/X: symmetrical palate raise XI: 5/5 sternocleidomastoid strength b/l XII: mild tongue weakness on left side M: 5/5 R delt, 4-/5 L delt. 5/5 b/l biceps. 5/5 R tri, 4-/5 L tri. 5/5 R hand squeeze, 4-/5 L hand squeeze4-/5 R hip flexors, 2/5 L hip flexors. 4-/5 R plantar/dorsiflexion, 2/5 L plantar/dorsiflexion DTR: brachioradialis b/l 1+, R patellar 1+, L patellar 0 Gait: deferred Principal Diagnosis stroke Discharge Exam Gen: NAD, WD/WN HEENT: NCAT, MMM, trachea midline CV: RRR, no m/r/g, S1/S2 normal Resp: CTAB, symmetrical chest rise, breathing non-labored Abd: Soft, NT/ND, +BS MSK: Full ROM, normal visual inspection Skin: Warm, dry, pink, no rashes or lesions Neuro: Oriented to person, date, and month. Able to follow commands. CN: PERRL, EOMI, sensation intact CNV1-3, mild L facial droop SILT throughout. Str: 5/5 RUE, 4/5 LUE, 4/5 b/l LE (w SCDs on) DTR: brachioradialis b/l 1+, patellar R 1+, L 0 Discharge Data Allergies Allergy/AdvReac Type Severity Reaction Status Date / Time iodine Allergy Unknown Unknown Verified 10/10/24 09:16 NSAIDS (Non-Steroidal Allergy Unknown Unknown Verified 10/10/24 09:16 Anti-Inflamma tositumomab iodine-131 Allergy Unknown Unknown Unverified 10/10/24 09:16 Penicillins Allergy Unknown Verified 10/10/24 09:16 Consultations 11/07/24 07:58 ED Decision to Admit Stat 11/07/24 17:23 Consult Neurology Routine Ordered Studies 11/09/24 06:07 11/09/24 06:07 Complete transthoracic echocardiogram EF 60-65%, no valve or wall abnormalities, moderate concentric LV hypertrophy No significant change from study of 08/17/2022 CT head/brain wo con CLINICAL HISTORY: neuro deficit, acute stroke suspected. COMPARISON: 10/09/2024. FINDINGS: Right high parietal cortical and subcortical patchy hypodense area (unchanged). Left cerebellar patchy area of hypodensity measuring 12x7 mm (unchanged). No intracerebral or extra axial hematoma. Pontine and bilateral basal ganlia tiny calcfic foci (unchanged). The rest of the solares-white matter differentiation is maintained. There are ill-defined hypodense areas noted in the periventricular and subcortical white matter bilaterally, suggestive of chronic microvascular ischemic changes. The ventricular system, cortical sulci, and basal cisterns are prominent and consistent with senile changes. No midline shift or deformity. Normal CT appearance of other posterior fossa structures. No definite calvarium fractures. The osseous structures in the skull base are unremarkable. The scanned paranasal sinuses are clear. IMPRESSION: 1. No evidence of acute intracranial abnormality could be identified. However, the possibility of acute ischemic infarction cannot be entirely excluded, would recommend MRI brain with DWI/ADC sequences for further evaluation if clinically indicated. 2. Right high parietal and left cerebellar patchy areas of hypodensity. 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 3. Senile and chronic microvascular ischemic brain changes. 4. No significant interval changes. CXR 1V CLINICAL HISTORY: cva COMPARISON STUDY: 10/09/2024 IMPRESSION: Stable exam; no acute process identified. MR brain wo con, MR angio head wo con COMPARISON STUDY: CT scan earlier same day FINDINGS: MRI: There is a moderate-sized area of patchy restricted diffusion right frontoparietal junction as well as a few other tiny foci of restricted diffusion in the right frontal and right temporal lobes, consistent with acute infarction. No mass effect, midline shift, or hydrocephalus. There is mild diffuse cerebral and cerebellar volume loss. There is severe patchy periventricular increased FLAIR signal intensity which is nonspecific, but usually represents chronic small vessel ischemic change. MRA: Intracranial internal carotid and vertebral arteries are widely patent. The basilar artery is widely patent. The anterior cerebral artery on the left is diminutive and the right is dominant, anatomic variant. Otherwise no significant narrowing or occlusion seen at the anterior, middle, and posterior cerebral arteries bilaterally. No intracranial aneurysm. IMPRESSION: 1. Acute right sided infarction. 2. No significant arterial narrowing or occlusion seen at the brain. Carotid Doppler Findings: Mild atherosclerotic plaque is seen within both carotid bulbs. No significant stenosis is seen on solares scale images. Antegrade flow is seen within both vertebral arteries. Peak systolic velocities are as follows: Right common carotid artery: 41 cm per second Right internal carotid artery: 35 cm per second Right external carotid artery: 45 cm per second Right ICA/CCA PSV ratio: <1 Left common carotid artery: 38 cm per second Left internal carotid artery: 47 cm per second Left external carotid artery:47 cm per second Left ICA/CCA PSV ratio: 1.2 Impression: Mild carotid atherosclerosis, without apparent stenosis Hospital Course (1) Stroke-like symptoms: (2) UTI (urinary tract infection): (3) Chronic hypoxic respiratory failure: (4) Chronic kidney disease, stage 4 (severe): (5) Diastolic CHF: (6) Hypothyroidism: (7) Depression: Baljit Beck is an 83yoF w PMH of depression, hypothyroidism, CKD, and CHF presenting from [facility] with low O2 sat, high BP, and concern for possible UTI. She was admitted due to focal neuro deficits and concern for an acute stroke. Stroke workup unrevealing of obvious etiology; suspect cardioembolic. No abnormalities seen on on telemetry, but plan for event monitor after d/c. DAPT 3 wk then continue Plavix. Continue high-intensity atorvastatin with goal LDL < 70. Seen by PT, OT, and SLT during admission. No abx indicated for pt's asymptomatic bacteruria. #stroke like symptoms -patient cognitive/physical baseline and residual deficits from previous strokes unknown. improving expressive aphasia, strength largely unchanged from admission exam, endorses decreased sensory in left lower extremity -CT non con brain: no acute abnormalities, showing right high parietal and left cerebellar -MRI brain: moderate-sized area of patchy restricted diffusion right frontoparietal junction as well as a few other tiny foci of restricted diffusion in the right frontal and right temporal lobes, consistent with acute infarction -MRA brain: negative for large vessel occlusion -carotid doppler U/S unremarkable -EKG without ischemia, arrhythmia, or acute changes -CXR neg mild fibrotic changes, no pulm edema -TTE with bubble unremarkable - no atrial shunt, no changes from previous -(+)UA without urinary sx -PT/OT consulted -neurology following -permissive HTN <180/110 -admitted to PCU/tele, monitor for afib/flutter -started atorvastatin 40mg -started aspirin 81 mg, continue home Plavix 75 mg #positive UA -UA suggesting infectious process -hx of ESBL UTI -patient without urinary sx or suprapubic pain; will hold off on abx therapy #Chronic hypoxic respiratory failure -on 2 to 3 L of oxygen PRN at baseline, fibrotic basilar changes on x-ray. Per son not always on O2. Near baseline. No evidence of pulmonary edema on CXR -hold bumex #CHF -monitor Is&Os -hold bumex #CKD -monitor BMP, Is&Os #baseline confusion -need to reach out to son and [place] [facility] to get a better baseline -hold mirtazapine #hypothyroid dx -hold home levothyroxine #depression -hold home paroxetine diet: SLT recommend pureed diet IDDSI 4, mildly thick liquids IDDSI 2 Total Time Total Time Spent Total Time Spent (In Minutes): See attending documentation Discharge Plan Discharge Items Patient Disposition: Transfer [facility] Fac Reason For Visit: STROKE R/O Discharge Diagnosis: Stroke Activity: Per Instructions section Non-emergency contact: Primary Care Provider Call non-emergency contact if: you have any medication questions and your symptoms worsen Follow-up/Referrals: Gen Bates DO [Primary Care Provider] - Diet: Regular Addtl Attending Provider Instructions: You were admitted to the hospital for facial droop and weakness on your left, concerning for a stroke. Your evaluation included labs, head/neck imaging, and cardiac imaging. Your labs and echocardiogram were normal. Your imaging showed an ischemic stroke of the right cerebral hemisphere of your brain. Investigation into the potential cause revealed no significant vascular abnormalities in your brain, only mild atherosclerosis in your neck, and normal heart structure and rhythm. Our Neurology team was consulted and recommended longer-term monitoring of your heart using an event monitor after discharge. You were started on blood thinners and need to continue daily aspirin and Plavix after discharge. You will complete your course of aspirin in 3 weeks (on 11/29) but will continue your Plavix indefinitely. You were also started on a statin, which you will continue after discharge. You were deemed safe for discharge when your workup was complete, a medication regimen established, and your symptoms were improving. Medications Your medication list has been reviewed and reconciled. An updated list is included with your discharge paperwork; please review this list closely and make note of any changes. Take 81mg aspirin, one tablet daily for 3 weeks. You may stop after your final dose on Nov 29. Take 40mg Lipitor (atorvastatin), one tablet every morning. You were taking 75mg Plavix (clopidogrel) daily prior to this admission, and you will continue this after discharge. You are to have a cardiac event monitor set up to screen for atrial fibrillation as a possible (athough less likely) cause of your stroke. We would anticipate that this will be set up by the staff at [facility], but if not, please call [facility] to have it arranged. Take your medications as instructed; do not skip a dose. Make sure all of your doctors know every medicine you are taking (including [id number] medicines, vitamins, and supplements). Call your PCP before taking any new medicines because some of these may interact with your current medications, or may make your symptoms worse. Thank you for allowing us to participate in your care. Pending Studies at Discharge: No Stand-Alone Forms: My [facility] Epoxy, Medications to Prevent Stroke Skilled Items Patient informed of condition?: Yes DNR: Yes Discharge Level of Care: Acute rehab Communicable Disease: No Discharge Prognosis: Stable Lines: None Urinary Catheter: No Medications and DC Order Prescriptions: New atorvastatin 40 mg Tablet 40 mg PO QAM 30 Days Qty: 30 0RF aspirin [Children's Aspirin] 81 mg Tablet,Chewable 81 mg PO DAILY 30 Days Qty: 30 0RF Continued clopidogrel 75 mg tablet 75 mg PO QAM paroxetine HCl 20 mg tablet 20 mg PO QAM acetaminophen 325 mg capsule 650 mg PO Q4H MDD 3g PRN (Reason: Pain) bumetanide 1 mg tablet 1 mg PO 3XWK Rx Instructions: take daily on MON/WED/FRI mirtazapine 7.5 mg tablet 7.5 mg PO HS gabapentin 300 mg capsule 300 mg PO HS nystatin 100,000 unit/gram powder 1 applic TOPICAL TID PRN (Reason: Rash) levothyroxine 50 mcg capsule 50 mcg PO DAILYBB Qty: 30 0RF Discharge Orders: Discharge Order (Routine); Ordered 11/09/24 Ordered By: Mani Stiles Admission Data Admit Date/Time: 11/07/24 09:04 Attending Provider: Xander Willis Admit Provider: Honorio Mir Primary Care Provider: Gen Bates Other Providers: Pedro Dobson; Garett Morales; Luis Evans; Rosaline Correa; Tammy Evans; Ángela Cotto; Garcia Shay Supervising Physician Co-Signing Physician Notes I personally examined the patient and verified all salas points of history and exam, discussed case, and agree with decision making with Dr Stiles no new issues. for SNF, rehab emphasis. updated SNF doc. vitals noted nad heent nc at mmm breathing unlabored no accessory muscles good effort skin no rashes no pallor or icterus, speech therapy with her when i'm in the room. Strokeatherosclerotic versus cardioembolic. Dual antiplatelets, Lipitor 40. Permissive hypertension with eventual goals of good blood pressure control. Echo reassuring. Outpatient rhythm monitoring to be set up. PT/OT eval and treat. Definitely appears to need rehab. DVT proph - No massive stroke, no hemorrhage heparin subcu did not voice any urinary symptoms, and is afebrile without leukocytosis or overt infectious signs or symptomssuspect urine is asymptomatic bacteriuriano need for antibiotics at this time. Resident Activity Tracking Resident Involvement: Resident Care Provided Care Provided: Adult Hospital Medicine
[2024-11-09 07:38] LABS: Basophils # (auto) 0.05 K/uL (0.00-0.20); Basophils % (auto) 0.3 %; Eosinophils # (auto) 0.08 K/uL (0.00-0.50); Eosinophils % (auto) 0.5 %; Hematocrit (blood only) 49.7 % (37.0-47.0); Hemoglobin 15.7 g/dl (12.0-16.0); Immature Granulocytes # (auto) 0.07 K/uL (0.01-0.20); Immature Granulocytes % (auto) 0.5 %; Lymphocytes % (auto) 7.4 %; Mean Corpuscular Hemoglobin 31.3 pg (25.0-34.0); Mean Corpuscular Hgb Conc 31.6 g/dL (32.0-36.0); Monocytes # (auto) 1.02 K/uL (0.11-0.59); Monocytes % (auto) 6.9 %; Neutrophils # (auto) 12.51 K/uL (1.40-6.50); Neutrophils % (auto) 84.4 %; Platelet Count 486 K/uL (130-400); RDW Coefficient of Variation 14.7 % (11.5-14.5); RDW Standard Deviation 53.3 fL (36.4-46.3); Red Blood Count 5.02 M/uL (4.20-5.40); White Blood Count 14.83 K/ul (4.8-10.8)
[2024-11-09 07:41] LABS: BUN Creatinine Ratio 14.4 (10-20); Calcium 9.5 mg/dl (8.6-10.3); Creatinine Clr Calc Pharmacy 25.4 ml/min; Potassium 4.3 mmol/L (3.5-5.1)
[2024-11-09 11:13] VITALS: BP 156/74; TEMP 99.1
--- NOTE | 2024-11-09 14:07 | Billing Data ---
Date of Service November 09, 2024 Coding Level of Care Code 00705 IN/OBS DISCH 30 MIN/LESS
[2024-11-09 15:40] VITALS: PULSE 62; O2SAT 94
[2024-11-09] MEDS: STROKE PATIENT DISCHARGE STA (16:30)
== END 2024-11-09 17:16 | DRG 65 ==
LOC: ED 06:48 → SUATTDRO 09:04 → 2S 09:04